=== PATIENT | male | born 1935 | race Caucasian/White ===

== ENCOUNTER 2023-07-02 12:40 | Inpatient (IN) | payer MEDICARE, BC ==
--- NOTE | 2023-07-02 12:58 | ED ---
General Adult HPI - General Stated complaint: Weakness Time Seen by Provider: 07/02/23 12:40 Source: patient, RN notes reviewed, old records reviewed - History of Present Illness Initial comments: This is an 88-year-old male presents emergency department from [facility]. Patient was sent in from [place] [facility]. ER doc to give report prior to the patient's arrival. Patient states she's not been feeling well for about a w platinum he's been getting progressively worse with increasing cough and more shortness of breath. At [facility] he was found to have pneumonia and a possible cavitary lesion on CT and an elevated white count. According to [facility] he was oxygenating at 88% when he arrived there. Patient normally is not on oxygen. Patient currently states she's feeling considerably better. Patient received Rocephin and Zithromax at the other facility - Related Data Allergies Allergy/AdvReac Type Severity Reaction Status Date / Time No Known Allergies Allergy Verified 07/02/23 12:57 Review of Systems ROS Statement: Those systems with pertinent positive or pertinent negative responses have been documented in the HPI. ROS Other: All systems not noted in ROS Statement are negative. General Exam - General Exam Comments Initial Comments: GENERAL: Patient is well-developed and well-nourished. Patient is nontoxic and well- hydrated and is in mild distress. ENT: Neck is soft and supple. No significant lymphadenopathy is noted. Oropharynx is clear. Moist mucous membranes. Neck has full range of motion without eliciting any pain. EYES: The sclera were anicteric and conjunctiva were pink and moist. Extraocular movements were intact and pupils were equal round and reactive to light. Eyelids were unremarkable. PULMONARY: Unlabored respirations. Good breath sounds bilaterally. No audible rales rhonchi or wheezing was noted. CARDIOVASCULAR: There is a regular rate and rhythm without any murmurs gallops or rubs. ABDOMEN: Soft and nontender with normal bowel sounds. SKIN: Skin is clear with no lesions or rashes and otherwise unremarkable. NEUROLOGIC: Patient is alert and oriented x3. Cranial nerves II through XII are grossly intact. Motor and sensory are also intact. Normal speech, volume and content. Symmetrical smile. MUSCULOSKELETAL: Normal extremities with adequate strength and full range of motion. LYMPHATICS: No significant lymphadenopathy is noted PSYCHIATRIC: Normal psychiatric evaluation. Course Vital Signs 07/02/23 07/02/23 12:42 13:28 Temperature 98.1 F Pulse Rate 80 76 Respiratory 20 18 Rate Blood Pressure 123/66 114/72 O2 Sat by Pulse 95 Oximetry Medical Decision Making - Medical Decision Making EKG was interpreted by myself. EKG shows a sinus rhythm with occasional PAC at a rate of 73 bpm NJ interval 272 QRS is 114 QT interval 36 and QTc is 395. Patient's EKG shows no ST segment elevation or depression. Was pt. sent in by a medical professional or institution (, PA, ADVIS[employer], urgent care, hospital, or halfway...) When possible be specific @ -Yes [facility] sent the patient in Did you speak to anyone other than the patient for history (EMS, parent, family, police, friend...)? What history was obtained from this source @ -Emergency physician gave report Did you review nursing and triage notes (agree or disagree)? Why? @ -[I reviewed and agree with nursing and triage notes] Were old charts reviewed (outside hosp., previous admission, EMS record, old EKG, old radiological studies, urgent care reports/EKG's, halfway records)? Report findings @ -I reviewed all the charts from [facility] in all lab work from [facility] Differential Diagnosis (chest pain, altered mental status, abdominal pain women, abdominal pain men, vaginal bleeding, weakness, fever, dyspnea, syncope, headache, dizziness, GI bleed, back pain, seizure, CVA, palpatations, mental health, musculoskeletal)? @ -Differential Dyspnea: Coronary syndrome, arrhythmia, tamponade, asthma, COPD, pulmonary embolism, pneumonia, pneumothorax, pulmonary effusion, anaphylaxis, diabetic ketoacidosis, flailed chest, pulmonary contusion, diaphragmatic rupture, anemia, neuromuscular, this is not meant to be an all-inclusive list. EKG interpreted by me (3pts min.). @ -[As above] X-rays interpreted by me (1pt min.). @ -[None done] CT interpreted by me (1pt min.). @ -[None done] U/S interpreted by me (1pt. min.). @ -[None done] What testing was considered but not performed or refused? (CT, X-rays, U/S, labs)? Why? @ -[None] What meds were considered but not given or refused? Why? @ -[None] Did you discuss the management of the patient with other professionals (professionals i.e. , PA, [employer], lab, RT, psych nurse, criminal justice social worker, aviculturist, teacher, traffic officer, case checker)? Give summary @ -I spoke with sounds physician's name agreed to admit the patient admitted the patient I wrote admitting orders Was smoking cessation discussed for >3mins.? @ -[No] Was critical care preformed (if so, how long)? @ -[No] Were there social determinants of health that impacted care today? How? (Homelessness, low income, unemployed, alcoholism, drug addiction, transpor tation, low edu. Level, literacy, decrease access to med. care, nursing home, rehab)? @ -[No] Was there de-escalation of care discussed even if they declined (Discuss DNR or withdrawal of care, Hospice)? DNR status @ -[No] What co-morbidities impacted this encounter? (DM, HTN, Smoking, COPD, CAD, Cancer, CVA, ARF, Chemo, Hep., AIDS, mental health diagnosis, sleep apnea, morbid obesity)? @ -[None] Was patient admitted / discharged? Hospital course, mention meds given and route, prescriptions, significant lab abnormalities, going to OR and other pertinent info. @ -[hospital course] Undiagnosed new problem with uncertain prognosis? @ -[No] Drug Therapy requiring intensive monitoring for toxicity (Heparin, Nitro, Insulin, Cardizem)? @ -[No] Were any procedures done? @ -[No] Diagnosis/symptom? @ -Pneumonia Acute, or Chronic, or Acute on Chronic? @ -Acute Uncomplicated (without systemic symptoms) or Complicated (systemic symptoms)? @ -Complicated Side effects of treatment? @ -[No] Exacerbation, Progression, or Severe Exacerbation? @ -[No] Poses a threat to life or bodily function? How? (Chest pain, USA, NM, pneumonia, PE, COPD, DKA, ARF, appy, cholecystitis, CVA, Diverticulitis, Homicidal, Suicidal, threat to staff... and all critical care pts) @ -Yes this could lead to sepsis and end organ dysfunction - Lab Data Lab Results 07/02/23 Range/Units 05:55 Plasma Lactic Acid Johnny 1.8 (0.7-2.0) mmol/L Disposition Clinical Impression: Pneumonia Disposition: ADMITTED IP TO THIS HOSP Referrals: None,Stated [Primary Care Provider] - 1-2 days Time of Disposition: 13:04
[2023-07-02] MEDS ORDERED: PNEUMONIA PROTOCOL UTILIZED 1 EACH MISC PO PRN (13:04)
[2023-07-02] MEDS ORDERED: VANCOMYCIN IV PER PHARMACY 1 EACH MISC MISCELLANE PRN (17:21)
[2023-07-02] MEDS ORDERED: VANCOMYCIN 1,500 MG in SODIUM CHLORIDE 0.9% 500 ML 500 ML IVPB ONE (17:30)
[2023-07-02] MEDS ORDERED: IPRATROPIUM-ALBUTEROL 3 ML NEB INHALATION PRN (18:00)
--- NOTE | 2023-07-02 18:00 | P.HPIM ---
History of Present Illness H&P Date: 07/02/23 Chief Complaint: dyspnea 88 medical history of COPD, ex-smoker, hypertension, hyperlipidemia presented for evaluation of dyspnea. Patient says that he has had cough, dyspnea for several weeks but it's gotten particularly bad in the last couple days. He subsequently presented to [facility] for evaluation where he was found to be in hypoxemic respiratory failure as well as to have potentially cavitary pneumonia in the left upper lobe of his computed tomography scan. Patient denies fevers, reports chills. Denies nausea, vomiting, chest pain, palpitations, syncopal, presyncopal, abdominal pain, constipation, diarrhea, dysuria, dyschezia, numbness/weakness of extremities. Patient does report 20 pound weight loss in the last 3 months. In the emergency room, patient was afebrile, 125/57, heart rate 89, 96% on 2 L nasal cannula. Lactic acid was 1.8. Computed tomography scan of the chest demonstrated significant severe emphysematous changes, left-sided infiltrate with possible cavitary component in the left upper lobe versus pneumonia surrounding bullae. Case was discussed with the emergency room provider and decision was made to admit the patient to hospital for further evaluation of pneumonia. All Systems reviewed and pertinent positives and negatives noted in HPI, all other symptoms are negative Gen: in no apparent distress, resting comfortably in bed Eyes: PERRL, no scleral injection or icterus HENT: normocephalic, atraumatic, good hearing acuity, moist mucous membranes Neck: no tracheal deviation, full range of motion Resp: good air exchange, breathing comfortably with no accessory muscle use, no tactile fremitus, diminished breath sounds throughout, crackles in the left side CVS: good distal perfusion x 4, trace pitting edema, regular rate and rhythm without murmurs GI: soft, NTTP, ND, no hepatosplenomegaly : no suprapubic tenderness, no CVAT, monreal catheter not present MSK: no clubbing, no cyanosis, no noted contractures of extremities Skin: no noted rashes, petechiae; temperature of skin is appropriate Neuro: moving all extremities without signs of weakness, CN II-XII intact Psych: cooperative, euthymic mood, insight and judgment intact Labs and imaging as above Assessment: Sepsis with acute hypoxemic respiratory failure Community acquired pneumonia Severe emphysema, COPD Hypertension Hyperlipidemia Plan: Vital signs reviewed and noted in the HPI Lab work reviewed and noted in the HPI CT chest is personally interpreted and noted in the HPI Case was discussed with the Emergency Room provider and decision was made to admit the patient for pneumonia Start patient on vancomycin, Zosyn Pulmonology consult for consideration of bronchoscopy Pro-calcitonin level was ordered Wendy's Patient is full code Past Medical History Past Medical History: Hyperlipidemia, Hypertension Additional Past Medical History / Comment(s): COPD History of Any Multi-Drug Resistant Organisms: None Reported Additional Past Surgical History / Comment(s): Shingles, bulla removed from left lung. Past Psychological History: No Psychological Hx Reported Smoking Status: Former smoker Past Alcohol Use History: None Reported Past Drug Use History: None Reported Medications and Allergies Home Medications Medication Instructions Recorded Confirmed Type Aspirin EC [Ecotrin Low Dose] 81 mg PO DAILY 07/02/23 07/02/23 History Cholecalciferol [Vitamin D3 (125 125 mcg PO DAILY 07/02/23 07/02/23 History Mcg = 5000 Iu)] Docusate Sodium [Dok] 100 mg PO HS 07/02/23 07/02/23 History Gabapentin 600 mg PO QID 07/02/23 07/02/23 History HYDROcodone/APAP 10-325MG [Orient 1 tab PO Q6HR 07/02/23 07/02/23 History 10-325] Simvastatin [Zocor] 20 mg PO HS 07/02/23 07/02/23 History lisinopriL [Lisinopril] 10 mg PO BID 07/02/23 07/02/23 History Allergies Allergy/AdvReac Type Severity Reaction Status Date / Time No Known Allergies Allergy Verified 07/02/23 15:53 Physical Exam Osteopathic Statement: *. No significant issues noted on an osteopathic structural exam other than those noted in the History and Physical/Consult. Vitals: Vital Signs Temp Pulse Resp BP Pulse Ox 07/02/23 17:08 89 20 125/57 96 07/02/23 15:31 86 20 144/77 97 07/02/23 13:28 76 18 114/72 07/02/23 12:42 98.1 F 80 20 123/66 95 Intake and Output 07/02/23 07/02/23 07/02/23 06:59 14:59 22:59 Other: Weight 77.111 kg
[2023-07-02] MEDS: PIPERACILLIN-TAZOBACTAM 3.375 GM in SODIUM CHLORIDE 0.9% 100 ML IVPB SCH (18:25)
[2023-07-02] MEDS: GABAPENTIN 300 MG CAP PO SCH ×2 (18:26→23:12)
[2023-07-02] MEDS: HYDROcodone/APAP 10-325MG 1 EACH TAB PO PRN (18:31)
[2023-07-02 19:21] LABS: Basophils % (A) 0 %; Eosinophils % (A) 0 %; HCT 41.5 % (39.0-53.0); HGB 13.4 gm/dL (13.0-17.5); Hypochromasia Slight; Lymphocytes # (A) 1.2 k/uL (1.0-4.8); Lymphocytes % (A) 9 %; MCH 29.5 pg (25.0-35.0); MCHC 32.2 g/dL (31.0-37.0); MCV 91.4 fL (80.0-100.0); Mean Platelet Volume 6.9; Monocytes # (A) 0.8 k/uL (0-1.0); Monocytes % (A) 5 %; Neutrophils # (A) 11.8 k/uL (1.3-7.7); Neutrophils % (A) 85 %; Platelet Count 298 k/uL (150-450); RBC 4.53 m/uL (4.30-5.90); WBC 13.9 k/uL (3.8-10.6)
[2023-07-02] MEDS: lisinopriL 10 MG TAB PO SCH (20:15)
[2023-07-02] MEDS: ATORVASTATIN 10 MG TAB PO SCH (20:15)
[2023-07-02] MEDS: DOCUSATE 100 MG CAP PO SCH (20:15)
[2023-07-02 21:22] LABS: African American GFR (CKD) 86 (>60 ml/min/1.73 sqM); Anion Gap 7 mmol/L; Blood Urea Nitrogen 27 mg/dL (9-20); Calcium 8.1 mg/dL (8.4-10.2); Carbon Dioxide 23 mmol/L (22-30); Chloride 105 mmol/L (98-107); Glucose 156 mg/dL (74-99); Non-African American GFR(CKD) 74 (>60 ml/min/1.73 sqM); Potassium 3.5 mmol/L (3.5-5.1); Sodium 135 mmol/L (137-145)
[2023-07-03] MEDS: PIPERACILLIN-TAZOBACTAM 3.375 GM in SODIUM CHLORIDE 0.9% 100 ML IVPB SCH ×4 (00:29→23:28)
[2023-07-03] MEDS ORDERED: IPRATROPIUM-ALBUTEROL 3 ML NEB INHALATION PRN (04:50)
--- NOTE | 2023-07-03 04:58 | P.CNPUL ---
History of Present Illness Consult date: 07/03/23 Requesting physician: Tracy Silva Reason for consult: other (Cavitary lung mass) Chief complaint: Shortness of breath and weakness History of present illness: I am seeing this patient in new consultation today 07/03/2023 for a cavitating left lung mass and community acquired pneumonia. Patient is a 88-year-old white male with past medical history significant for COPD/emphysema, previous left lung bullectomy, hyperlipidemia, hypertension, and is a remote ex-smoker. His PCP is a Dr. Castle. He does not follow with a motion picture projectionist. Patient was transferred from [facility] for suspected extensive cavitating pneumonia on CT. Patient reports progressively worsening shortness of breath and cough with minimal sputum production over the past 3 weeks. Accompanied with muscle aches and weakness. Also, admits left sided chest pain, nonradiating. Denies fever, chills, hemoptysis. He does report approximately 15-20 pound weight loss over the last month. Patient is currently sitting up in bed, on 3 L/m nasal cannula, in no acute distress. A chest CTA at outside facility shows a postsurgical left upper lobe and left hemithorax. There was extensive patchy and confluent airspace disease throughout the left lung. Left basilar bronchiectasis with moderate bronchial wall thickening. There is 4.8 cm left upper lobe cavitary lesion, thought to be a cavitary pneumonia versus atypical fungal/mycobacterial infection versus necrotizing malignancy. There were additional nodular areas in the left lung measuring up to 2 cm. There was a 1.5 cm left infrahilar lymph node. There was extensive emphysematous changes. No previous imaging for comparison. Denies history of lung cancer. Denies previous bronchoscopy or biopsy of these lesions. CBC on arrival shows leukocytosis with a WBC count of 13.9, hemoglobin 13.4, hematocrit 41.5, platelets 298. BMP on arrival to our facility was unremarkable. Pro-calcitonin level was elevated at 0.39. Lactic acid level I.8. He is afebrile. Patient was started on a combination of Zosyn and vancomycin. Patient is hemodynamically stable at this time. Review of Systems REVIEW OF SYSTEMS: CONSTITUTIONAL: Admits 15-20 pound weight loss over the last month. Denies fevers. EYES: Denies change in vision. EARS, NOSE, MOUTH, THROAT: Denies headaches, denies sore throat. CARDIOVASCULAR: Denies radiating chest pain, palpitations or syncopal episodes. RESPIRATORY: See HPI GASTROINTESTINAL: Denies abdominal pain, nausea and vomiting, or diarrhea. Admits reduced appetite GENITOURINARY: Denies hematuria, denies infections. MUSKULOSKELETAL: Denies pain, denies swelling. INTEGUMENTARY: Denies rash, denies eczema. NEUROLOGICAL: Denies recent memory loss, no recent seizure activity. PSYCHIATRIC: Denies anxiety, denies depression. HEMATOLOGIC/LYMPHATIC: Denies anemia, denies enlarged lymph node Past Medical History Past Medical History: Hyperlipidemia, Hypertension Additional Past Medical History / Comment(s): COPD History of Any Multi-Drug Resistant Organisms: None Reported Additional Past Surgical History / Comment(s): Shingles, bulla removed from left lung. Past Psychological History: No Psychological Hx Reported Smoking Status: Former smoker Past Alcohol Use History: None Reported Past Drug Use History: None Reported Medications and Allergies Home Medications Medication Instructions Recorded Confirmed Type Aspirin EC [Ecotrin Low Dose] 81 mg PO DAILY 07/02/23 07/02/23 History Cholecalciferol [Vitamin D3 (125 125 mcg PO DAILY 07/02/23 07/02/23 History Mcg = 5000 Iu)] Docusate Sodium [Dok] 100 mg PO HS 07/02/23 07/02/23 History Gabapentin 600 mg PO QID 07/02/23 07/02/23 History HYDROcodone/APAP 10-325MG [Butler 1 tab PO Q6HR 07/02/23 07/02/23 History 10-325] Simvastatin [Zocor] 20 mg PO HS 07/02/23 07/02/23 History lisinopriL [Lisinopril] 10 mg PO BID 07/02/23 07/02/23 History Allergies Allergy/AdvReac Type Severity Reaction Status Date / Time No Known Allergies Allergy Verified 07/02/23 15:53 Physical Exam Vitals: Vital Signs Temp Pulse Resp BP Pulse Ox 07/03/23 00:34 75 18 117/66 98 07/02/23 18:33 97 18 127/73 95 07/02/23 17:08 89 20 125/57 96 07/02/23 15:31 86 20 144/77 97 07/02/23 13:28 76 18 114/72 08/24/23 12:42 98.1 F 80 20 123/66 95 Intake and Output 07/02/23 07/02/23 07/03/23 14:59 22:59 06:59 Other: Weight 77.111 kg GENERAL EXAM: Alert, 88-year-old white male , comfortable in no apparent distress. HEAD: Normocephalic and atraumatic EYES: Normal reaction of pupils, equal size. NOSE: Clear with pink turbinates. THROAT: No erythema or exudates. NECK: No masses, no JVD. CHEST: No chest wall deformity. LUNGS: Diminished left lung sounds with scattered inspiratory crackles, rhonchi. On 3 L/m nasal cannula. No conversational dyspnea or accessory muscle use.. CVS: S1 and S2 normal with no audible murmur, regular rhythm. No extra heart sounds ABDOMEN: No hepatosplenomegaly, active bowel sounds, no guarding or rigidity. SPINE: No scoliosis or deformity SKIN: No rashes CENTRAL NERVOUS SYSTEM: No focal deficits, tone is normal in all 4 extremities. EXTREMITIES: There is no peripheral edema, clubbing, or cyanosis. Peripheral pulses are intact. Results - Laboratory Findings CBC and BMP: 07/02/23 18:46 07/02/23 20:38 Abnormal lab findings: Abnormal Labs 07/02/23 07/02/23 07/02/23 18:46 20:38 20:38 WBC 13.9 H Neutrophils # 11.8 H Sodium 135 L BUN 27 H Glucose 156 H Calcium 8.1 L Procalcitonin 0.39 H - Diagnostic Findings CT scan - chest: image reviewed Assessment and Plan Assessment: Acute hypoxemic respiratory failure, on 3 L/m nasal cannula, secondary to left lung community-acquired pneumonia. A chest CTA at outside facility shows a postsurgical left upper lobe and left hemithorax. There was extensive patchy and confluent airspace disease throughout the left lung. Left basilar bronchiectasis with moderate bronchial wall thickening. There is 4.8 cm left upper lobe cavitary mass, thought to be a cavitary pneumonia versus atypical fungal/mycobacterial infection versus necrotizing malignancy. There were additional nodular densities in the left lung measuring up to 2 cm. There was a 1.5 cm left infrahilar lymph node. There was extensive emphysematous changes. No previous imaging for comparison COPD/emphysema, stable History of previous left upper lobe bullectomy Benign essential hypertension Hyperlipidemia Remote ex-smoker, quit 1992 Plan: Patient's medications, labs, CT reviewed Continue supplemental oxygen Patient will likely need bronchoscopy, I will discuss this with Dr. Nicolas in the morning Continue with empiric antibiotics Procalcitonin level 0.39 Blood and sputum cultures are pending Start patient on a combination of Symbicort and DuoNeb's We will continue to follow, and further recommendations are forthcoming I have personally seen and examined the patient, performed the documentation and the assessment and plan as written. Number of minutes spent on the visit:20 This is a joint evaluation that was done along with the nurse practitioner. This evaluation was 30 minutes. Patient was seen in the emergency department. He has advanced bullous emphysema and he has undergone previous bullectomy on the left back in 1992. This was done for benign disease. The patient is lethargic, weak, quite debilitated, shortness of breath and currently is in acute hypoxic respiratory failure on oxygen at 3 L. CAT scan of the chest was also done at [facility] and it showed advanced emphysema with bullous changes. There is previous surgery in the left upper lobe with asymmetric volume loss. There is also patchy and comfortable with air space disease throughout the left lung in addition to left basal bronchiectatic changes and there is a cavitary changes left upper lobe measuring 4.8 cm in size. Consideration is to be given for chronic pneumonia, fungal, mycobacterial versus neoplasm. There is also a mildly enlarged left infrahilar lymph node measuring 1.5 cm. CAT scan of the abdomen showed scattered colonic diverticulosis without diverticulitis. There was also 3.2 cm abdominal aortic aneurysm along with prostatic enlargement and scoliosis of the spine. Ideally, this patient will need a bronchoscopy, bronchial alveolar lavage and biopsy of the left upper lobe. He is currently covered with broad-spectrum antibiotics. He is on Zosyn and vancomycin. His pro calcitonin level is at 0.39. Despite his age and advanced emphysema, the patient is interested in the procedure. I'm going to give him IV fluids for now. I'm going to keep him nothing by mouth for the possibility of doing a bronchoscopy probably at noontime if logistically possible. I'm not sure this patient can handle a biopsy. At least a bronchoscopy and lavage should be helpful to narrow down the differential diagnosis and rule out any significant chronic infectious etiologies. Keep him on 3 L. Continue same treatment for now. We'll continue to follow. Prognosis poor based on the above. . Time with Patient: Greater than 30
--- NOTE | 2023-07-03 08:50 | XR ---
EXAMINATION TYPE: XR chest 1V portable DATE OF EXAM: 07/03/2023 6:02 AM COMPARISON: CT 07/02/2023 TECHNIQUE: XR chest 1V portable Frontal view of the chest. CLINICAL INDICATION:Male, 88 years old with history of pneumonia; FINDINGS: Lungs/Pleura: Left lung airspace disease. Increased lucency of the right lung. No evidence for pleura l effusion. No pneumothorax. Pulmonary vascularity: Unremarkable. Heart/mediastinum: Cardiomediastinal silhouette is partially obscured due to overlying and adjacent o pacities. Atherosclerotic calcifications are seen in the aorta. Musculoskeletal: No acute osseous pathology. IMPRESSION: Findings of pneumonia are similar to CT on 07/02/2022 from outside institution given differences in te chnique.
[2023-07-03] MEDS ORDERED: AZITHROMYCIN 500 MG TAB PO SCH (09:00)
[2023-07-03] MEDS: lisinopriL 10 MG TAB PO SCH ×2 (10:01→19:44)
[2023-07-03] MEDS: ASPIRIN 81 MG PO SCH (10:01)
[2023-07-03] MEDS: HYDROcodone/APAP 10-325MG 1 EACH TAB PO PRN ×2 (10:01→16:15)
[2023-07-03] MEDS: GABAPENTIN 300 MG CAP PO SCH ×4 (10:02→19:44)
[2023-07-03] MEDS: CHOLECALCIFEROL 125 MCG (5000 IU) TABLET PO SCH (10:03)
[2023-07-03] MEDS: SODIUM CHLORIDE 0.9% 1,000 ML IV SCH ×2 (10:03→22:42)
[2023-07-03 11:10] LABS: HGB 12.8 d/dL (13.0-17.0); MCH 28.3 pg (27.0-32.0); MCHC 30.5 d/dL (32.0-37.0); MCV 92.9 FL (80.0-97.0); NRBC Per 100 WBC 0 X 10*3/uL (0.00-0.01); Platelet Count 276 X 10*3/uL (140-440); RBC 4.52 X 10*6/uL (4.40-5.60); RDW 15.3 % (11.5-14.5); WBC 14.98 X 10*3/uL (4.50-10.00)
[2023-07-03 11:11] LABS: BUN/Creat Ratio 21.11 Ratio (12.00-20.00); Calcium 8.6 mg/dL (8.7-10.3); Carbon Dioxide 21.7 mmol/L (21.6-31.8); Chloride 103 mmol/L (96-109); Glucose 101 mg/dL (70-110); Magnesium 2.1 mg/dL (1.5-2.4); Sodium 138 mmol/L (135-145)
[2023-07-03 11:54] LABS: Basophils # (A) 0.03 X 10*3/uL (0.00-0.10); Basophils % (A) 0.2 %; Eosinophils # (A) 0.14 X 10*3/uL (0.04-0.35); Eosinophils % (A) 0.9 %; Lymphocytes # (A) 1.85 X 10*3/uL (0.90-5.00); Lymphocytes % (A) 12.3 %; Monocytes # (A) 2.12 X 10*3/uL (0.20-1.00); Monocytes % (A) 14.2 %; Neutrophils # (A) 10.73 X 10*3/uL (1.80-7.70); Neutrophils % (A) 71.7 %; RBC Morphology Normal (Normal)
[2023-07-03] MEDS: SYMBICORT 160-4.5 MCG INHALER INHALATION SCH ×2 (12:26→21:23)
[2023-07-03] MEDS: IPRATROPIUM-ALBUTEROL 3 ML NEB INHALATION SCH ×4 (12:26→21:23)
[2023-07-03] MEDS: VANCOMYCIN 1,250 MG in SODIUM CHLORIDE 0.9% 250 ML IVPB SCH (14:54)
--- NOTE | 2023-07-03 16:12 | P.PN ---
Subjective Progress Note Date: 07/03/23 No new complaints. Plan for bronchoscopy tomorrow. Gen: in no apparent distress, resting comfortably in bed Eyes: PERRL, no scleral injection or icterus HENT: normocephalic, atraumatic, good hearing acuity, moist mucous membranes Neck: no tracheal deviation, full range of motion Resp: good air exchange, breathing comfortably with no accessory muscle use, no tactile fremitus, diminished breath sounds throughout, crackles in the left side CVS: good distal perfusion x 4, trace pitting edema, regular rate and rhythm without murmurs GI: soft, NTTP, ND, no hepatosplenomegaly : no suprapubic tenderness, no CVAT, monreal catheter not present MSK: no clubbing, no cyanosis, no noted contractures of extremities Skin: no noted rashes, petechiae; temperature of skin is appropriate Neuro: moving all extremities without signs of weakness, CN II-XII intact Psych: cooperative, euthymic mood, insight and judgment intact Hospital Course: 88 medical history of COPD, ex-smoker, hypertension, hyperlipidemia presented for evaluation of dyspnea. In the emergency room, patient was afebrile, 125/57, heart rate 89, 96% on 2 L nasal cannula. Lactic acid was 1.8. Computed tomography scan of the chest demonstrated significant severe emphysematous changes, left-sided infiltrate with possible cavitary component in the left upper lobe versus pneumonia surrounding bullae. Case was discussed with the emergency room provider and decision was made to admit the patient to hospital for further evaluation of pneumonia. Assessment: Sepsis with acute hypoxemic respiratory failure Community acquired pneumonia Severe emphysema, COPD Hypertension Hyperlipidemia Plan: Afebrile, 97/51, HR 51, 100% 4L NC WBC 15, Hgb 12.8. BMP non-remarkable. PC 0.39 Legionella negative. Continue vancomycin, Zosyn Pulmonology consult for consideration of bronchoscopy Wendy's Patient is full code Objective - Vital Signs Vital signs: Vital Signs Temp 98.3 F 07/03/23 09:57 Pulse 51 L 07/03/23 14:45 Resp 18 07/03/23 14:45 BP 97/51 07/03/23 14:45 Pulse Ox 100 07/03/23 14:45 FiO2 Intake & Output 07/02/23 07/03/23 07/03/23 18:59 06:59 18:59 Output Total 450 Balance -450 Weight 77.111 kg Output: Urine 450 Other: Voiding Method Urinal - Labs CBC & Chem 7: 07/03/23 06:19 07/03/23 06:19 Labs: Abnormal Lab Results - Last 24 Hours (Table) 07/02/23 07/02/23 07/02/23 Range/Units 18:46 20:38 20:38 WBC 13.9 H (3.8-10.6) k/uL Hgb (13.0-17.0) d/dL MCHC (32.0-37.0) d/dL RDW (11.5-14.5) % MPV (9.5-12.2) FL Neutrophils # 11.8 H (1.3-7.7) k/uL Monocytes # (0.20-1.00) X 10*3/uL Sodium 135 L (137-145) mmol/L Anion Gap (4.00-12.00) mmol/L BUN 27 H (9-20) mg/dL BUN/Creatinine Ratio (12.00-20.00) Ratio Glucose 156 H (74-99) mg/dL Calcium 8.1 L (8.4-10.2) mg/dL Procalcitonin 0.39 H (0.02-0.09) ng/mL 07/03/23 07/03/23 Range/Units 06:19 06:19 WBC 14.98 H (3.8-10.6) k/uL Hgb 12.8 L (13.0-17.0) d/dL MCHC 30.5 L (32.0-37.0) d/dL RDW 15.3 H (11.5-14.5) % MPV 9.0 L (9.5-12.2) FL Neutrophils # 10.73 H (1.3-7.7) k/uL Monocytes # 2.12 H (0.20-1.00) X 10*3/uL Sodium (137-145) mmol/L Anion Gap 13.30 H (4.00-12.00) mmol/L BUN (9-20) mg/dL BUN/Creatinine Ratio 21.11 H (12.00-20.00) Ratio Glucose (74-99) mg/dL Calcium 8.6 L (8.4-10.2) mg/dL Procalcitonin (0.02-0.09) ng/mL
[2023-07-03] MEDS: ATORVASTATIN 10 MG TAB PO SCH (19:44)
[2023-07-03] MEDS: DOCUSATE 100 MG CAP PO SCH (19:44)
[2023-07-04] MEDS: HYDROcodone/APAP 10-325MG 1 EACH TAB PO PRN ×4 (00:19→21:31)
[2023-07-04] MEDS: SYMBICORT 160-4.5 MCG INHALER INHALATION SCH ×2 (08:03→19:45)
[2023-07-04] MEDS: IPRATROPIUM-ALBUTEROL 3 ML NEB INHALATION SCH ×4 (08:03→19:45)
[2023-07-04 08:22] LABS: Basophils % (A) 0 %; Eosinophils # (A) 0.3 k/uL (0-0.7); Eosinophils % (A) 3 %; HCT 35.9 % (39.0-53.0); HGB 11.2 gm/dL (13.0-17.5); Hypochromasia Slight; Lymphocytes # (A) 0.9 k/uL (1.0-4.8); Lymphocytes % (A) 9 %; MCH 28.7 pg (25.0-35.0); MCHC 31.3 g/dL (31.0-37.0); MCV 91.8 fL (80.0-100.0); Mean Platelet Volume 7.1; Monocytes % (A) 10 %; Neutrophils % (A) 77 %; Platelet Count 276 k/uL (150-450); RBC 3.91 m/uL (4.30-5.90); WBC 10.4 k/uL (3.8-10.6)
[2023-07-04 08:36] LABS: African American GFR (CKD) >90 (>60 ml/min/1.73 sqM); Anion Gap 7 mmol/L; Blood Urea Nitrogen 15 mg/dL (9-20); Calcium 7.9 mg/dL (8.4-10.2); Carbon Dioxide 23 mmol/L (22-30); Chloride 105 mmol/L (98-107); Glucose 96 mg/dL (74-99); Magnesium 2.1 mg/dL (1.6-2.3); Non-African American GFR(CKD) 84 (>60 ml/min/1.73 sqM); Potassium 3.4 mmol/L (3.5-5.1); Sodium 135 mmol/L (137-145)
[2023-07-04] MEDS: VANCOMYCIN 1,250 MG in SODIUM CHLORIDE 0.9% 250 ML IVPB SCH (09:09)
[2023-07-04] MEDS ORDERED: POTASSIUM CHLORIDE ER 20 MEQ TAB.ER PO STA (09:55)
[2023-07-04] MEDS: PIPERACILLIN-TAZOBACTAM 3.375 GM in SODIUM CHLORIDE 0.9% 100 ML IVPB SCH ×2 (10:04→17:15)
[2023-07-04] MEDS: CHOLECALCIFEROL 125 MCG (5000 IU) TABLET PO SCH (10:27)
[2023-07-04] MEDS: lisinopriL 10 MG TAB PO SCH ×2 (10:27→21:31)
[2023-07-04] MEDS: ASPIRIN 81 MG PO SCH (10:27)
[2023-07-04] MEDS: GABAPENTIN 300 MG CAP PO SCH ×4 (10:27→21:30)
--- NOTE | 2023-07-04 13:02 | P.PN ---
Subjective Progress Note Date: 07/04/23 No new complaints today. Reports dyspnea is improved. Still requiring 3L O2. Gen: in no apparent distress, resting comfortably in bed Eyes: PERRL, no scleral injection or icterus HENT: normocephalic, atraumatic, good hearing acuity, moist mucous membranes Neck: no tracheal deviation, full range of motion Resp: good air exchange, breathing comfortably with no accessory muscle use, no tactile fremitus, diminished breath sounds throughout, crackles in the left side CVS: good distal perfusion x 4, trace pitting edema, regular rate and rhythm without murmurs GI: soft, NTTP, ND, no hepatosplenomegaly : no suprapubic tenderness, no CVAT, monreal catheter not present MSK: no clubbing, no cyanosis, no noted contractures of extremities Skin: no noted rashes, petechiae; temperature of skin is appropriate Neuro: moving all extremities without signs of weakness, CN II-XII intact Psych: cooperative, euthymic mood, insight and judgment intact Hospital Course: 88 medical history of COPD, ex-smoker, hypertension, hyperlipidemia presented for evaluation of dyspnea. In the emergency room, patient was afebrile, 125/57, heart rate 89, 96% on 2 L nasal cannula. Lactic acid was 1.8. Computed tomography scan of the chest demonstrated significant severe emphysematous changes, left-sided infiltrate with possible cavitary component in the left upper lobe versus pneumonia surrounding bullae. Case was discussed with the emergency room provider and decision was made to admit the patient to hospital for further evaluation of pneumonia. Assessment: Sepsis with acute hypoxemic respiratory failure Community acquired pneumonia Severe emphysema, COPD Hypertension Hyperlipidemia Plan: Afebrile, 110/59, HR 74, 96% 2L NC WBC 10.4, Hgb 11.2. BMP Na 134, K 3.4. Legionella negative. Continue vancomycin, Zosyn, follow vancomycin trough for toxicity 40mEq PO K today Pulmonology consult for consideration of bronchoscopy Wendy[facility] Patient is full code Objective - Vital Signs Vital signs: Vital Signs Temp 99.0 F 07/04/23 06:55 Pulse 74 07/04/23 11:54 Resp 18 07/04/23 06:55 BP 110/59 07/04/23 06:55 Pulse Ox 96 07/04/23 08:06 FiO2 Intake & Output 07/03/23 07/04/23 07/04/23 18:59 06:59 18:59 Output Total 750 300 400 Balance -750 -300 -400 Output: Urine 750 300 400 Other: Voiding Method Urinal # Voids 1 1 - Labs CBC & Chem 7: 07/04/23 07:24 07/04/23 07:24 Labs: Abnormal Lab Results - Last 24 Hours (Table) 07/04/23 07/04/23 Range/Units 07:24 07:24 RBC 3.91 L (4.30-5.90) m/uL Hgb 11.2 L (13.0-17.5) gm/dL Hct 35.9 L (39.0-53.0) % Neutrophils # 8.0 H (1.3-7.7) k/uL Lymphocytes # 0.9 L (1.0-4.8) k/uL Sodium 135 L (137-145) mmol/L Potassium 3.4 L (3.5-5.1) mmol/L Calcium 7.9 L (8.4-10.2) mg/dL Microbiology - Last 24 Hours (Table) 07/02/23 13:16 Blood Culture - Preliminary Blood 07/02/23 13:10 Blood Culture - Preliminary Blood
[2023-07-04] MEDS: SODIUM CHLORIDE 0.9% 1,000 ML IV SCH (13:23)
--- NOTE | 2023-07-04 14:22 | P.PN ---
Subjective Progress Note Date: 07/04/23 I am seeing this patient in new consultation today 07/03/2023 for a cavitating left lung mass and community acquired pneumonia. Patient is a 88-year-old white male with past medical history significant for COPD/emphysema, previous left lung bullectomy, hyperlipidemia, hypertension, and is a remote ex-smoker. His PCP is a Dr. Castle. He does not follow with a testing director. Patient was transferred from [facility] for suspected extensive cavitating pneumonia on CT. Patient reports progressively worsening shortness of breath and cough with minimal sputum production over the past 3 weeks. Accompanied with muscle aches and weakness. Also, admits left sided chest pain, nonradiating. Denies fever, chills, hemoptysis. He does report approximately 15-20 pound weight loss over the last month. Patient is currently sitting up in bed, on 3 L/m nasal cannula, in no acute distress. A chest CTA at outside facility shows a postsurgical left upper lobe and left hemithorax. There was extensive patchy and confluent airspace disease throughout the left lung. Left basilar bronchiectasis with moderate bronchial wall thickening. There is 4.8 cm left upper lobe cavitary lesion, thought to be a cavitary pneumonia versus atypical fungal/mycobacterial infection versus necrotizing malignancy. There were additional nodular areas in the left lung measuring up to 2 cm. There was a 1.5 cm left infrahilar lymph node. There was extensive emphysematous changes. No previous imaging for comparison. Denies history of lung cancer. Denies previous bronchoscopy or biopsy of these lesions. CBC on arrival shows leukocytosis with a WBC count of 13.9, hemoglobin 13.4, hematocrit 41.5, platelets 298. BMP on arrival to our facility was unremarkable. Pro-calcitonin level was elevated at 0.39. Lactic acid level I.8. He is afebrile. Patient was started on a combination of Zosyn and vancomycin. Patient is hemodynamically stable at this time. On today's evaluation of 07/04/2023, the patient remains on Zosyn and vancomycin. Much improved compared to yesterday. Much more alert and awake and communicating. Oxygenation is also improved and the patient is currently on 2 L of Oxymizer nasal cannula with a pulse ox of 96%. This does cause of 10.4, hemoglobin 11, BUN is at 50 with a creatinine of 0.7 and a sodium level is at 135. Pro-calcitonin level is at 0.39. Blood cultures still pending for now. Objective - Vital Signs Vital signs: Vital Signs Temp 99.0 F 07/04/23 06:55 Pulse 74 07/04/23 11:54 Resp 18 07/04/23 06:55 BP 110/59 07/04/23 06:55 Pulse Ox 96 07/04/23 08:06 FiO2 Intake & Output 07/03/23 07/04/23 07/04/23 18:59 06:59 18:59 Output Total 750 300 400 Balance -750 -300 -400 Output: Urine 750 300 400 Other: Voiding Method Urinal # Voids 1 1 - Exam GENERAL EXAM: Alert, 88-year-old white male , comfortable in no apparent distress. HEAD: Normocephalic and atraumatic EYES: Normal reaction of pupils, equal size. NOSE: Clear with pink turbinates. THROAT: No erythema or exudates. NECK: No masses, no JVD. CHEST: No chest wall deformity. LUNGS: Diminished left lung sounds with scattered inspiratory crackles, rhonchi. On 3 L/m nasal cannula. No conversational dyspnea or accessory muscle use.. CVS: S1 and S2 normal with no audible murmur, regular rhythm. No extra heart sounds ABDOMEN: No hepatosplenomegaly, active bowel sounds, no guarding or rigidity. SPINE: No scoliosis or deformity SKIN: No rashes CENTRAL NERVOUS SYSTEM: No focal deficits, tone is normal in all 4 extremities. EXTREMITIES: There is no peripheral edema, clubbing, or cyanosis. Peripheral pulses are intact. - Labs CBC & Chem 7: 07/04/23 07:24 07/04/23 07:24 Labs: Abnormal Lab Results - Last 24 Hours (Table) 07/04/23 07/04/23 Range/Units 07:24 07:24 RBC 3.91 L (4.30-5.90) m/uL Hgb 11.2 L (13.0-17.5) gm/dL Hct 35.9 L (39.0-53.0) % Neutrophils # 8.0 H (1.3-7.7) k/uL Lymphocytes # 0.9 L (1.0-4.8) k/uL Sodium 135 L (137-145) mmol/L Potassium 3.4 L (3.5-5.1) mmol/L Calcium 7.9 L (8.4-10.2) mg/dL Microbiology - Last 24 Hours (Table) 07/02/23 13:16 Blood Culture - Preliminary Blood 07/02/23 13:10 Blood Culture - Preliminary Blood Assessment and Plan Assessment: Acute hypoxemic respiratory failure, on 3 L/m nasal cannula, secondary to left lung community-acquired pneumonia. A chest CTA at outside facility shows a postsurgical left upper lobe and left hemithorax. There was extensive patchy and confluent airspace disease throughout the left lung. Left basilar bronchiectasis with moderate bronchial wall thickening. There is 4.8 cm left upper lobe cavitary mass, thought to be a cavitary pneumonia versus atypical fungal/mycobacterial infection versus necrotizing malignancy. There were additional nodular densities in the left lung measuring up to 2 cm. There was a 1.5 cm left infrahilar lymph node. There was extensive emphysematous changes. No previous imaging for comparison COPD/emphysema, stable History of previous left upper lobe bullectomy Benign essential hypertension Hyperlipidemia Remote ex-smoker, quit 1992 Plan: The patient is clinically improving. No significant shortness of breath The patient is currently on 2 L of oxygen by nasal cannula Neurologic to much more alert and awake compared to yesterday No immediate need for bronchoscopy Continue vancomycin and cefepime I reviewed the CAT scan of the chest at [facility] and it showed advanced emphysema with bullous changes. There is previous surgery in the left upper lobe with asymmetric volume loss. There is also patchy and comfortable with air space disease throughout the left lung in addition to left basal bronchiectatic changes and there is a cavitary changes left upper lobe measuring 4.8 cm in size. Consideration is to be given for chronic pneumonia, fungal, mycobacterial versus neoplasm. There is also a mildly enlarged left infrahilar lymph node measuring 1.5 cm. CAT scan of the abdomen showed scattered colonic diverticulosis without diverticulitis. There was also 3.2 cm abdominal aortic aneurysm along with prostatic enlargement and scoliosis of the spine. Ideally, this patient will need a bronchoscopy, bronchial alveolar lavage and biopsy of the left upper lobe. He is currently covered with broad-spectrum antibiotics. He is on Zosyn and vancomycin. His pro calcitonin level is at 0.39. Repeat chest x-ray in the morning We'll consider bronchoscopy later stage of the findings of the left upper lobe remains unchanged .
[2023-07-04] MEDS: ATORVASTATIN 10 MG TAB PO SCH (21:30)
[2023-07-04] MEDS: DOCUSATE 100 MG CAP PO SCH (21:31)
[2023-07-05] MEDS: PIPERACILLIN-TAZOBACTAM 3.375 GM in SODIUM CHLORIDE 0.9% 100 ML IVPB SCH ×4 (00:41→23:10)
[2023-07-05] MEDS: VANCOMYCIN 1,250 MG in SODIUM CHLORIDE 0.9% 250 ML IVPB SCH ×2 (02:15→18:26)
[2023-07-05] MEDS: SODIUM CHLORIDE 0.9% 1,000 ML IV SCH ×2 (02:15→15:06)
[2023-07-05] MEDS: HYDROcodone/APAP 10-325MG 1 EACH TAB PO PRN ×4 (03:17→21:27)
--- NOTE | 2023-07-05 07:50 | XR ---
EXAMINATION TYPE: XR chest 1V DATE OF EXAM: 07/05/2023 HISTORY: Shortness of breath. COMPARISON: 07/03/2023 TECHNIQUE: Single view of the chest is submitted. FINDINGS: Demonstrated are scattered senescent parenchymal change. Airspace infiltrate throughout the left lung persists without significant interval change. The heart is stable. Hilar and mediastinal structures are within normal limits. Degenerative changes are seen of the dorsal spine. IMPRESSION: 1. Airspace infiltrate throughout the left lung persists without significant interval change.
[2023-07-05 07:53] LABS: African American GFR (CKD) >90 (>60 ml/min/1.73 sqM); Non-African American GFR(CKD) 80 (>60 ml/min/1.73 sqM)
[2023-07-05] MEDS: lisinopriL 10 MG TAB PO SCH ×2 (09:24→21:28)
[2023-07-05] MEDS: GABAPENTIN 300 MG CAP PO SCH ×4 (09:24→21:27)
[2023-07-05] MEDS: ASPIRIN 81 MG PO SCH (09:24)
[2023-07-05] MEDS: CHOLECALCIFEROL 125 MCG (5000 IU) TABLET PO SCH (09:24)
[2023-07-05] MEDS: SYMBICORT 160-4.5 MCG INHALER INHALATION SCH ×2 (10:48→21:42)
[2023-07-05] MEDS: IPRATROPIUM-ALBUTEROL 3 ML NEB INHALATION SCH ×4 (11:11→21:42)
--- NOTE | 2023-07-05 12:27 | P.PN ---
Subjective Progress Note Date: 07/05/23 I am seeing this patient in new consultation today 07/03/2023 for a cavitating left lung mass and community acquired pneumonia. Patient is a 88-year-old white male with past medical history significant for COPD/emphysema, previous left lung bullectomy, hyperlipidemia, hypertension, and is a remote ex-smoker. His PCP is a Dr. Castle. He does not follow with a urogynecology physician. Patient was transferred from [facility] for suspected extensive cavitating pneumonia on CT. Patient reports progressively worsening shortness of breath and cough with minimal sputum production over the past 3 weeks. Accompanied with muscle aches and weakness. Also, admits left sided chest pain, nonradiating. Denies fever, chills, hemoptysis. He does report approximately 15-20 pound weight loss over the last month. Patient is currently sitting up in bed, on 3 L/m nasal cannula, in no acute distress. A chest CTA at outside facility shows a postsurgical left upper lobe and left hemithorax. There was extensive patchy and confluent airspace disease throughout the left lung. Left basilar bronchiectasis with moderate bronchial wall thickening. There is 4.8 cm left upper lobe cavitary lesion, thought to be a cavitary pneumonia versus atypical fungal/mycobacterial infection versus necrotizing malignancy. There were additional nodular areas in the left lung measuring up to 2 cm. There was a 1.5 cm left infrahilar lymph node. There was extensive emphysematous changes. No previous imaging for comparison. Denies history of lung cancer. Denies previous bronchoscopy or biopsy of these lesions. CBC on arrival shows leukocytosis with a WBC count of 13.9, hemoglobin 13.4, hematocrit 41.5, platelets 298. BMP on arrival to our facility was unremarkable. Pro-calcitonin level was elevated at 0.39. Lactic acid level I.8. He is afebrile. Patient was started on a combination of Zosyn and vancomycin. Patient is hemodynamically stable at this time. On today's evaluation of 07/04/2023, the patient remains on Zosyn and vancomycin. Much improved compared to yesterday. Much more alert and awake and communicating. Oxygenation is also improved and the patient is currently on 2 L of Oxymizer nasal cannula with a pulse ox of 96%. This does cause of 10.4, hemoglobin 11, BUN is at 50 with a creatinine of 0.7 and a sodium level is at 135. Pro-calcitonin level is at 0.39. Blood cultures still pending for now. 07/05/2023, the patient is on room air oxygen. Remains on accommodation of Zosyn and vancomycin. Chest x-ray findings are unchanged. I reviewed the CAT scan again. The patient has soft tissue density in the left suprahilar area. Nevertheless, this could be a fluid-filled bullous or infected bullous as the patient has chronic emphysematous changes with bullae in the upper lobes bi laterally. He has improved considerably. No plans for broncho-scope for now. No new labs from today. Labs from yesterday was noted. Pro-calcitonin level was at 0.39. He continues to improve. The blood cultures are negative thus far. Objective - Vital Signs Vital signs: Vital Signs Temp 98.4 F 07/05/23 07:05 Pulse 88 07/05/23 10:48 Resp 16 07/05/23 07:05 BP 169/94 07/05/23 07:05 Pulse Ox 90 L 07/05/23 07:05 FiO2 Intake & Output 07/04/23 07/05/23 07/05/23 18:59 06:59 18:59 Output Total 600 1300 200 Balance -600 -1300 -200 Output: Urine 600 1300 200 Other: Voiding Method Urinal # Voids 1 0 1 # Bowel Movements 1 1 - Exam GENERAL EXAM: Alert, 88-year-old white male , comfortable in no apparent distress. The patient is currently on room air oxygen HEAD: Normocephalic and atraumatic EYES: Normal reaction of pupils, equal size. NOSE: Clear with pink turbinates. THROAT: No erythema or exudates. NECK: No masses, no JVD. CHEST: No chest wall deformity. LUNGS: Diminished left lung sounds with scattered inspiratory crackles, rhonchi. . No conversational dyspnea or accessory muscle use.. CVS: S1 and S2 normal with no audible murmur, regular rhythm. No extra heart sounds ABDOMEN: No hepatosplenomegaly, active bowel sounds, no guarding or rigidity. SPINE: No scoliosis or deformity SKIN: No rashes CENTRAL NERVOUS SYSTEM: No focal deficits, tone is normal in all 4 extremities. EXTREMITIES: There is no peripheral edema, clubbing, or cyanosis. Peripheral pulses are intact. - Labs CBC & Chem 7: 07/04/23 07:24 07/05/23 06:34 Labs: Microbiology - Last 24 Hours (Table) 07/02/23 13:16 Blood Culture - Preliminary Blood 07/02/23 13:10 Blood Culture - Preliminary Blood Assessment and Plan Assessment: Acute hypoxemic respiratory failure, improved and the patient is currently on room air oxygen. A chest CTA at outside facility shows a postsurgical left upper lobe and left hemithorax. There was extensive patchy and confluent airspace disease throughout the left lung. Left basilar bronchiectasis with moderate bronchial wall thickening. There is 4.8 cm left upper lobe cavitary mass, thought to be a cavitary pneumonia versus atypical fungal/mycobacterial infection versus necrotizing malignancy. There were additional nodular densities in the left lung measuring up to 2 cm. There was a 1.5 cm left infrahilar lymph node. There was extensive emphysematous changes. No previous imaging for comparison. This could be also an infected bullous versus a fluid-filled bullous post pneumonia. Obviously the patient is response antibiotics. No plans for bronchoscopy at this point in time. I would suggest at least 6 weeks of antibiotics and subsequent repeat CAT scan and decide if bronchoscopy is needed. COPD/emphysema, stable History of previous left upper lobe bullectomy Benign essential hypertension Hyperlipidemia Remote ex-smoker, quit 1992 Plan: The patient is clinically improving. No significant shortness of breath The patient is currently on room air oxygen Neurologic to much more alert and awake compared to yesterday No immediate need for bronchoscopy Continue vancomycin and cefepime I reviewed the CAT scan findings and I do not think there is immediate need for bronchoscopy. I would suggest repeating the CAT scan after 6-8 weeks of adequate antibiotic coverage. This could be potentially infected bullous versus a fluid-filled bullous. Possibility of malignancy is felt to be less likely although cannot be completely ruled out. Based on his age and improving status, no bronchoscopy is needed and this can be evaluated and outpatient basis in 6-8 weeks' time. A repeat CAT scan will be needed. Patient is agreeable to that. .
[2023-07-05] MEDS: BISMUTH SUBSALICYLATE 4,192 MG/240 ML BOTTLE PO PRN (13:06)
--- NOTE | 2023-07-05 17:32 | P.PN ---
Subjective Progress Note Date: 07/05/23 No new complaints today. Reports dyspnea is improved. On room air now. Pulm does not plan on doing bronchoscopy here. Gen: in no apparent distress, resting comfortably in bed Eyes: PERRL, no scleral injection or icterus HENT: normocephalic, atraumatic, good hearing acuity, moist mucous membranes Neck: no tracheal deviation, full range of motion Resp: good air exchange, breathing comfortably with no accessory muscle use, no tactile fremitus, diminished breath sounds throughout, crackles in the left side CVS: good distal perfusion x 4, trace pitting edema, regular rate and rhythm without murmurs GI: soft, NTTP, ND, no hepatosplenomegaly : no suprapubic tenderness, no CVAT, monreal catheter not present MSK: no clubbing, no cyanosis, no noted contractures of extremities Skin: no noted rashes, petechiae; temperature of skin is appropriate Neuro: moving all extremities without signs of weakness, CN II-XII intact Psych: cooperative, euthymic mood, insight and judgment intact Hospital Course: 88 medical history of COPD, ex-smoker, hypertension, hyperlipidemia presented for evaluation of dyspnea. In the emergency room, patient was afebrile, 125/57, heart rate 89, 96% on 2 L nasal cannula. Lactic acid was 1.8. Computed tomography scan of the chest demonstrated significant severe emphysematous changes, left-sided infiltrate with possible cavitary component of 4.8cm in the left upper lobe versus pneumonia surrounding bullae. Case was discussed with the emergency room provider and decision was made to admit the patient to hospital for further evaluation of pneumonia. Pt admitted and started on broad spectrum abx. His PC was noted to be 0.39. Pulm was consulted for consideration of bronchoscopy and had considered this but given clinical improvement and fragile condition of patients lungs on CT imaging, preferred to defer this to outpatient setting after course of abx. No microbiology available to narrow abx (BCx NGTD). Discussed this case with pulmonology in detail - differential is broad - area of cavitation could be fluid filled bolus, lung abscess, or cavitary lesion from fungal, mycobacterial pneumonias. Plan is to treat patient with 2 week course of abx and have f/u lung imaging in outpatient setting once patient is ready for discharge. Assessment: Sepsis with acute hypoxemic respiratory failure Community acquired pneumonia Severe emphysema, COPD Hypertension Hyperlipidemia Plan: Afebrile, 128/68, HR 82, 99% RA No labs to review today, ordered CBC, BMP, Mg for tomorrow Discussed with pulmonology in detail today - see hospital course above for details Continue vancomycin, Zosyn, follow vancomycin trough for toxicity - consider narrowing to augmentin vs cefdinir/azithromycin, I will defer to my colleague tomorrow Wendy's Patient is full code Objective - Vital Signs Vital signs: Vital Signs Temp 97.7 F 07/05/23 13:44 Pulse 72 07/05/23 15:38 Resp 18 07/05/23 15:38 BP 128/68 07/05/23 13:44 Pulse Ox 99 07/05/23 13:44 FiO2 Intake & Output 07/04/23 07/05/23 07/05/23 18:59 06:59 18:59 Output Total 600 1300 700 Balance -600 -1300 -700 Output: Urine 600 1300 700 Other: Voiding Method Urinal # Voids 1 0 400 # Bowel Movements 1 1 - Labs CBC & Chem 7: 07/04/23 07:24 07/05/23 06:34 Labs: Microbiology - Last 24 Hours (Table) 07/02/23 13:16 Blood Culture - Preliminary Blood 07/02/23 13:10 Blood Culture - Preliminary Blood
[2023-07-05] MEDS ORDERED: VANCOMYCIN TROUGH DUE 1 EACH MISC MISCELLANE ONE (18:00)
[2023-07-05] MEDS: DOCUSATE 100 MG CAP PO SCH (21:27)
[2023-07-05] MEDS: ATORVASTATIN 10 MG TAB PO SCH (21:28)
[2023-07-06] MEDS: HYDROcodone/APAP 10-325MG 1 EACH TAB PO PRN ×4 (03:46→22:11)
[2023-07-06] MEDS: SODIUM CHLORIDE 0.9% 1,000 ML IV SCH ×2 (04:08→16:05)
[2023-07-06] MEDS: VANCOMYCIN 1,250 MG in SODIUM CHLORIDE 0.9% 250 ML IVPB SCH ×2 (06:15→17:35)
[2023-07-06] MEDS: GABAPENTIN 300 MG CAP PO SCH ×4 (08:04→22:07)
[2023-07-06] MEDS: PIPERACILLIN-TAZOBACTAM 3.375 GM in SODIUM CHLORIDE 0.9% 100 ML IVPB SCH ×3 (08:05→23:40)
[2023-07-06] MEDS: lisinopriL 10 MG TAB PO SCH ×2 (08:05→22:07)
[2023-07-06] MEDS: ASPIRIN 81 MG PO SCH (08:05)
[2023-07-06] MEDS: CHOLECALCIFEROL 125 MCG (5000 IU) TABLET PO SCH (08:05)
[2023-07-06 08:46] LABS: Basophils # (A) 0.08 X 10*3/uL (0.00-0.10); Basophils % (A) 0.6 %; Eosinophils # (A) 0.38 X 10*3/uL (0.04-0.35); Eosinophils % (A) 3.1 %; HCT 36.1 % (39.6-50.0); HGB 11.2 d/dL (13.0-17.0); Lymphocytes # (A) 1.33 X 10*3/uL (0.90-5.00); Lymphocytes % (A) 10.7 %; MCH 28.1 pg (27.0-32.0); MCV 90.7 FL (80.0-97.0); Mean Platelet Volume 8.8 FL (9.5-12.2); Monocytes # (A) 1.55 X 10*3/uL (0.20-1.00); Monocytes % (A) 12.4 %; NRBC Per 100 WBC 0 X 10*3/uL (0.00-0.01); Neutrophils # (A) 9.06 X 10*3/uL (1.80-7.70); Neutrophils % (A) 72.8 %; Platelet Count 289 X 10*3/uL (140-440); RBC 3.98 X 10*6/uL (4.40-5.60); RDW 15.4 % (11.5-14.5); WBC 12.45 X 10*3/uL (4.50-10.00)
[2023-07-06] MEDS: IPRATROPIUM-ALBUTEROL 3 ML NEB INHALATION SCH ×4 (08:53→21:39)
[2023-07-06] MEDS: SYMBICORT 160-4.5 MCG INHALER INHALATION SCH ×2 (08:53→21:39)
--- NOTE | 2023-07-06 12:41 | P.PN ---
Subjective Progress Note Date: 07/06/23 I am seeing this patient in new consultation today 07/03/2023 for a cavitating left lung mass and community acquired pneumonia. Patient is a 88-year-old white male with past medical history significant for COPD/emphysema, previous left lung bullectomy, hyperlipidemia, hypertension, and is a remote ex-smoker. His PCP is a Dr. Castle. 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 Patient was transferred from [facility] for suspected extensive cavitating pneumonia on CT. Patient reports progressively worsening shortness of breath and cough with minimal sputum production over the past 3 weeks. Accompanied with muscle aches and weakness. Also, admits left sided chest pain, nonradiating. Denies fever, chills, hemoptysis. He does report approximately 15-20 pound weight loss over the last month. Patient is currently sitting up in bed, on 3 L/m nasal cannula, in no acute distress. A chest CTA at outside facility shows a postsurgical left upper lobe and left hemithorax. There was extensive patchy and confluent airspace disease throughout the left lung. Left basilar bronchiectasis with moderate bronchial wall thickening. There is 4.8 cm left upper lobe cavitary lesion, thought to be a cavitary pneumonia versus atypical fungal/mycobacterial infection versus necrotizing malignancy. There were additional nodular areas in the left lung measuring up to 2 cm. There was a 1.5 cm left infrahilar lymph node. There was extensive emphysematous changes. No previous imaging for comparison. Denies history of lung cancer. Denies previous bronchoscopy or biopsy of these lesions. CBC on arrival shows leukocytosis with a WBC count of 13.9, hemoglobin 13.4, hematocrit 41.5, platelets 298. BMP on arrival to our facility was unremarkable. Pro-calcitonin level was elevated at 0.39. Lactic acid level I.8. He is afebrile. Patient was started on a combination of Zosyn and vancomycin. Patient is hemodynamically stable at this time. On today's evaluation of 07/04/2023, the patient remains on Zosyn and vancomycin. Much improved compared to yesterday. Much more alert and awake and communicating. Oxygenation is also improved and the patient is currently on 2 L of Oxymizer nasal cannula with a pulse ox of 96%. This does cause of 10.4, hemoglobin 11, BUN is at 50 with a creatinine of 0.7 and a sodium level is at 135. Pro-calcitonin level is at 0.39. Blood cultures still pending for now. 07/05/2023, the patient is on room air oxygen. Remains on accommodation of Zosyn and vancomycin. Chest x-ray findings are unchanged. I reviewed the CAT scan again. The patient has soft tissue density in the left suprahilar area. Nevertheless, this could be a fluid-filled bullous or infected bullous as the patient has chronic emphysematous changes with bullae in the upper lobes zheng aterally. He has improved considerably. No plans for broncho-scope for now. No new labs from today. Labs from yesterday was noted. Pro-calcitonin level was at 0.39. He continues to improve. The blood cultures are negative thus far. The patient is seen today 07/06/2023 in follow-up on the regular medical floor. He is currently sitting up in a chair. Awake and alert in no acute distress. He is maintaining O2 saturations in the 90s on room air. He denies any worsening shortness of breath, cough or congestion. He is afebrile. Hemodynamically stable. Blood cultures revealed no growth. Sputum culture pending. White count 12.4. Hemoglobin 11.2. Platelets 289. He remains on DuoNeb inhalations, Symbicort. Antibiotics in the form of vancomycin and Zosyn. Objective - Vital Signs Vital signs: Vital Signs Temp 98.9 F 07/06/23 08:00 Pulse 79 07/06/23 11:55 Resp 17 07/06/23 08:00 BP 173/98 07/06/23 08:00 Pulse Ox 93 L 07/06/23 08:00 FiO2 Intake & Output 07/05/23 07/06/23 07/06/23 18:59 06:59 18:59 Output Total 700 700 400 Balance -700 -700 -400 Output: Urine 700 700 400 Other: Voiding Method Urinal Urinal # Voids 400 2 # Bowel Movements 1 1 - Exam GENERAL EXAM: Alert, 88-year-old male on room air, up in a chair, comfortable in no apparent distress. HEAD: Normocephalic and atraumatic EYES: Normal reaction of pupils, equal size. NOSE: Clear with pink turbinates. THROAT: No erythema or exudates. NECK: No masses, no JVD. CHEST: No chest wall deformity. LUNGS: Diminished left lung sounds with scattered inspiratory crackles, rhonchi. No conversational dyspnea or accessory muscle use. CVS: S1 and S2 normal with no audible murmur, regular rhythm. No extra heart sounds ABDOMEN: No hepatosplenomegaly, active bowel sounds, no guarding or rigidity. SPINE: No scoliosis or deformity SKIN: No rashes CENTRAL NERVOUS SYSTEM: No focal deficits, tone is normal in all 4 extremities. EXTREMITIES: There is no peripheral edema, clubbing, or cyanosis. Peripheral pulses are intact. - Labs CBC & Chem 7: 07/06/23 05:27 07/05/23 06:34 Labs: Abnormal Lab Results - Last 24 Hours (Table) 07/06/23 Range/Units 05:27 WBC 12.45 H (4.50-10.00) X 10*3/uL RBC 3.98 L (4.40-5.60) X 10*6/uL Hgb 11.2 L (13.0-17.0) d/dL Hct 36.1 L (39.6-50.0) % MCHC 31.0 L (32.0-37.0) d/dL RDW 15.4 H (11.5-14.5) % MPV 8.8 L (9.5-12.2) FL Neutrophils # 9.06 H (1.80-7.70) X 10*3/uL Monocytes # 1.55 H (0.20-1.00) X 10*3/uL Eosinophils # 0.38 H (0.04-0.35) X 10*3/uL Microbiology - Last 24 Hours (Table) 07/02/23 13:16 Gram Stain - Preliminary Sputum 07/02/23 13:16 Blood Culture - Preliminary Blood 07/02/23 13:10 Blood Culture - Preliminary Blood Assessment and Plan Assessment: Acute hypoxemic respiratory failure, improved and the patient is currently on room air oxygen. A chest CTA at outside facility shows a postsurgical left upper lobe and left hemithorax. There was extensive patchy and confluent airs pace disease throughout the left lung. Left basilar bronchiectasis with moderate bronchial wall thickening. There is 4.8 cm left upper lobe cavitary mass, thought to be a cavitary pneumonia versus atypical fungal/mycobacterial infection versus necrotizing malignancy. There were additional nodular densities in the left lung measuring up to 2 cm. There was a 1.5 cm left infrahilar lymph node. There was extensive emphysematous changes. No previous imaging for comparison. This could be also an infected bullous versus a fluid-filled bullous post pneumonia. Obviously the patient is response antibiotics. No plans for bronchoscopy at this point in time. We would suggest at least 6 weeks of antibiotics and subsequent repeat CAT scan and decide if bronchoscopy is needed. COPD/emphysema, stable History of previous left upper lobe bullectomy Benign essential hypertension Hyperlipidemia Remote ex-smoker, quit 1992 Plan: The patient was seen and evaluated Labs and medications reviewed Currently stable and on room air Remains on vancomycin and Zosyn Remains on bronchodilators Follow-up chest x-ray in a.m. May consider bronchoscopy if no improvement We will continue to follow I have personally seen and examined the patient, performed the documentation and the assessment and plan as written. Number of minutes spent on the visit: 10.
--- NOTE | 2023-07-06 16:45 | P.PN ---
Subjective Progress Note Date: 07/06/23 (delayed charting seen at 1140) Patient is an 88 yo male with COPD, former tobacco dependency, hypertension, AND hyperlipidemia who presented with complaints of dyspnea. In the emergency room he underwent an extensive evaluation. His initial vitals were within normal. Lbas werer remarkable for WBC 13.9. Computed tomography scan of the chest demonstrated significant severe emphysematous changes, left-sided infiltrate with possible cavitary component of 4.8cm in the left upper lobe versus pneumonia surrounding bullae. He was admitted for pneumonia and started on broad spectrum abx. His procalcitonin was noted to be 0.39. Pulm was consulted for consideration of bronchoscopy and had considered this but given clinical improvement and fragile condition of patients lungs on CT imaging, preferred to defer this to outpatient setting after course of abx. Per pulmonary differential is broad including; lung abscess, or cavitary lesion from fungal, mycobacterial pneumonias. Plan is to treat patient with 2 week course of abx and have f/u lung imaging in outpatient setting once patient is ready for discharge. Patient seen and examined at bedside. He reports he is feeling much better than admission. He is breathing easier. He is coughing less but it is still productive of yellow tinged sputum. He reports a poor appetite but is willing to try ensure. Vital signs reviewed General: nontoxic, no distress, appears at stated age Cardiovascular: S1S2 reg, no murmur, positive posterior tibial pulse bilateral, Lungs: Coarse breath sounds bilateral, no rhonchi, no rales , no accessory muscle use Abdominal: soft, nontender to palpation, no guarding, no appreciable organomega ly Ext: no gross muscle atrophy, 2+ edema b/l lower extremities, no contractures Neuro: CN II-XI grossly intact, no focal neuro deficits Psych: Alert, oriented, appropriate affect Assessment/Plan: Community acquired pneumonia complicated by left-sided cavitary lesion, possible gram negative Acute hypoxic respiratory failure Sepsis Severe COPD Hypertension Dyslipidemia - vancomycin, pharmacy dosing, monitor Cr afn vanco trough for toxicity - zosyn 3.375 g IV piggyback every 8 hours -Continue with DuoNeb's and Symbicort -Continue with Lipitor 10 mg nightly, lisinopril 10 mg twice daily -Neurontin 600 mg 4 times daily - Legionella urine antigen-negative -Pulmonary reviewed from 07/06: Considering possible bronchoscopy pending clinical improvement. Continue with vancomycin and Zosyn. Moderate protein calorie malnutrition -Ensure 3 times daily with meals Imaging: None new Available Data Review: Vitals reviewed and patient afebrile for the last 24 hours. Exam vital show pulse was 70, respirations 17, blood pressure 173/98, O2 sat 93% Labs reviewed and remarkable for white blood cell count 12.45 up from 10.4, hemoglobin 11.2 Sputum culture-pending Blood cultures-negative to date DVT prophylaxis: lovenox Anticipated discharge date: pending clinical course Anticipated discharge place: pending clinical course This dictation was prepared using [employer] voice recognition software. Though every attempt is made to correct errors during dictation some may still exist. Objective - Vital Signs Vital signs: Vital Signs Temp 98.3 F 07/06/23 14:00 Pulse 74 07/06/23 15:58 Resp 18 07/06/23 14:00 BP 119/70 07/06/23 14:00 Pulse Ox 92 L 07/06/23 14:00 FiO2 Intake & Output 07/05/23 07/06/23 07/06/23 18:59 06:59 18:59 Output Total 700 700 700 Balance -700 -700 -700 Output: Urine 700 700 700 Other: Voiding Method Urinal Urinal # Voids 400 2 # Bowel Movements 1 1 - Labs CBC & Chem 7: 07/06/23 05:27 07/05/23 06:34 Labs: Abnormal Lab Results - Last 24 Hours (Table) 07/06/23 Range/Units 05:27 WBC 12.45 H (4.50-10.00) X 10*3/uL RBC 3.98 L (4.40-5.60) X 10*6/uL Hgb 11.2 L (13.0-17.0) d/dL Hct 36.1 L (39.6-50.0) % MCHC 31.0 L (32.0-37.0) d/dL RDW 15.4 H (11.5-14.5) % MPV 8.8 L (9.5-12.2) FL Neutrophils # 9.06 H (1.80-7.70) X 10*3/uL Monocytes # 1.55 H (0.20-1.00) X 10*3/uL Eosinophils # 0.38 H (0.04-0.35) X 10*3/uL Microbiology - Last 24 Hours (Table) 07/02/23 13:16 Gram Stain - Preliminary Sputum 07/02/23 13:16 Blood Culture - Preliminary Blood 07/02/23 13:10 Blood Culture - Preliminary Blood
[2023-07-06] MEDS: ENOXAPARIN 40 MG/0.4 ML SYRINGE SQ SCH (17:35)
[2023-07-06] MEDS: ATORVASTATIN 10 MG TAB PO SCH (22:07)
[2023-07-06] MEDS: DOCUSATE 100 MG CAP PO SCH (22:07)
[2023-07-07] MEDS: SODIUM CHLORIDE 0.9% 1,000 ML IV SCH ×2 (05:58→15:51)
[2023-07-07] MEDS: VANCOMYCIN 1,250 MG in SODIUM CHLORIDE 0.9% 250 ML IVPB SCH ×2 (05:59→18:14)
[2023-07-07 07:15] LABS: HCT 36.3 % (39.0-53.0); HGB 11.5 gm/dL (13.0-17.5); Hypochromasia Slight; MCH 28.8 pg (25.0-35.0); MCHC 31.7 g/dL (31.0-37.0); Mean Platelet Volume 7.3; Platelet Count 333 k/uL (150-450); RBC 3.99 m/uL (4.30-5.90); RDW 15.1 % (11.5-15.5); WBC 12.8 k/uL (3.8-10.6)
--- NOTE | 2023-07-07 07:21 | XR ---
EXAMINATION TYPE: XR chest 1V portable DATE OF EXAM: 07/07/2023 HISTORY: Shortness of breath. COMPARISON: 07/05/2023 TECHNIQUE: Single view of the chest is submitted. FINDINGS: Demonstrated are scattered senescent parenchymal change. Coarse infiltrates throughout the left lung persist unchanged. Left-sided volume loss with postsurgical changes noted. The heart is stable. Hilar and mediastinal structures are within normal limits. Degenerative changes are seen of the dorsal spine. IMPRESSION: 1. Coarse infiltrates throughout the left lung persist unchanged.
[2023-07-07 07:27] LABS: African American GFR (CKD) >90 (>60 ml/min/1.73 sqM); Anion Gap 8 mmol/L; Blood Urea Nitrogen 12 mg/dL (9-20); Calcium 8.4 mg/dL (8.4-10.2); Carbon Dioxide 23 mmol/L (22-30); Chloride 105 mmol/L (98-107); Glucose 83 mg/dL (74-99); Non-African American GFR(CKD) 80 (>60 ml/min/1.73 sqM); Potassium 3.3 mmol/L (3.5-5.1); Sodium 136 mmol/L (137-145)
[2023-07-07] MEDS ORDERED: POTASSIUM CHLORIDE ER 20 MEQ TAB.ER PO STA (07:46)
[2023-07-07] MEDS: HYDROcodone/APAP 10-325MG 1 EACH TAB PO PRN ×3 (08:28→18:41)
[2023-07-07] MEDS: CHOLECALCIFEROL 125 MCG (5000 IU) TABLET PO SCH (08:28)
[2023-07-07] MEDS: lisinopriL 10 MG TAB PO SCH ×2 (08:28→22:32)
[2023-07-07] MEDS: GABAPENTIN 300 MG CAP PO SCH ×4 (08:28→22:32)
[2023-07-07] MEDS: ENOXAPARIN 40 MG/0.4 ML SYRINGE SQ SCH (08:29)
[2023-07-07] MEDS: PIPERACILLIN-TAZOBACTAM 3.375 GM in SODIUM CHLORIDE 0.9% 100 ML IVPB SCH ×3 (08:29→23:23)
[2023-07-07] MEDS: ASPIRIN 81 MG PO SCH (08:29)
[2023-07-07] MEDS: SYMBICORT 160-4.5 MCG INHALER INHALATION SCH ×2 (08:34→21:04)
[2023-07-07] MEDS: IPRATROPIUM-ALBUTEROL 3 ML NEB INHALATION SCH ×4 (08:34→21:04)
[2023-07-07] MEDS: LIDOCAINE 5% PATCH TOPICAL SCH (11:13)
--- NOTE | 2023-07-07 12:10 | P.PN ---
Subjective Progress Note Date: 07/07/23 I am seeing this patient in new consultation today 07/03/2023 for a cavitating left lung mass and community acquired pneumonia. Patient is a 88-year-old white male with past medical history significant for COPD/emphysema, previous left lung bullectomy, hyperlipidemia, hypertension, and is a remote ex-smoker. His PCP is a Dr. Castle. 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 Patient was transferred from [facility] for suspected extensive cavitating pneumonia on CT. Patient reports progressively worsening shortness of breath and cough with minimal sputum production over the past 3 weeks. Accompanied with muscle aches and weakness. Also, admits left sided chest pain, nonradiating. Denies fever, chills, hemoptysis. He does report approximately 15-20 pound weight loss over the last month. Patient is currently sitting up in bed, on 3 L/m nasal cannula, in no acute distress. A chest CTA at outside facility shows a postsurgical left upper lobe and left hemithorax. There was extensive patchy and confluent airspace disease throughout the left lung. Left basilar bronchiectasis with moderate bronchial wall thickening. There is 4.8 cm left upper lobe cavitary lesion, thought to be a cavitary pneumonia versus atypical fungal/mycobacterial infection versus necrotizing malignancy. There were additional nodular areas in the left lung measuring up to 2 cm. There was a 1.5 cm left infrahilar lymph node. There was extensive emphysematous changes. No previous imaging for comparison. Denies history of lung cancer. Denies previous bronchoscopy or biopsy of these lesions. CBC on arrival shows leukocytosis with a WBC count of 13.9, hemoglobin 13.4, hematocrit 41.5, platelets 298. BMP on arrival to our facility was unremarkable. Pro-calcitonin level was elevated at 0.39. Lactic acid level I.8. He is afebrile. Patient was started on a combination of Zosyn and vancomycin. Patient is hemodynamically stable at this time. On today's evaluation of 07/04/2023, the patient remains on Zosyn and vancomycin. Much improved compared to yesterday. Much more alert and awake and communicating. Oxygenation is also improved and the patient is currently on 2 L of Oxymizer nasal cannula with a pulse ox of 96%. This does cause of 10.4, hemoglobin 11, BUN is at 50 with a creatinine of 0.7 and a sodium level is at 135. Pro-calcitonin level is at 0.39. Blood cultures still pending for now. 07/05/2023, the patient is on room air oxygen. Remains on accommodation of Zosyn and vancomycin. Chest x-ray findings are unchanged. I reviewed the CAT scan again. The patient has soft tissue density in the left suprahilar area. Nevertheless, this could be a fluid-filled bullous or infected bullous as the patient has chronic emphysematous changes with bullae in the upper lobes zheng aterally. He has improved considerably. No plans for broncho-scope for now. No new labs from today. Labs from yesterday was noted. Pro-calcitonin level was at 0.39. He continues to improve. The blood cultures are negative thus far. The patient is seen today 07/06/2023 in follow-up on the regular medical floor. He is currently sitting up in a chair. Awake and alert in no acute distress. He is maintaining O2 saturations in the 90s on room air. He denies any worsening shortness of breath, cough or congestion. He is afebrile. Hemodynamically stable. Blood cultures revealed no growth. Sputum culture pending. White count 12.4. Hemoglobin 11.2. Platelets 289. He remains on DuoNeb inhalations, Symbicort. Antibiotics in the form of vancomycin and Zosyn. The patient is seen today 07/07/2023 in follow-up on the regular medical floor. He is currently resting in bed. Awake and alert. He is having some postherpetic pain from previous shingles along his left chest. He denies any worsening shortness of breath, cough or congestion. He is maintaining O2 saturations in the 90s on room air. He has a loose nonproductive cough. Chest x-ray showing slight improvement but still significant infiltrates in the left lung. White count 12.8. Hemoglobin 11.5. Sodium 136. Potassium 3.3. Bicarb 23. BUN 12. Creatinine 0.82. He remains on vancomycin and Zosyn. He remains on DuoNeb inhalations, Symbicort, Lovenox. Objective - Vital Signs Vital signs: Vital Signs Temp 97.8 F 07/07/23 07:59 Pulse 68 07/07/23 12:00 Resp 17 07/07/23 07:59 BP 173/74 07/07/23 07:59 Pulse Ox 90 L 07/07/23 07:59 FiO2 Intake & Output 07/06/23 07/07/23 07/07/23 18:59 06:59 18:59 Output Total 700 850 550 Balance -700 -850 -550 Output: Urine 700 850 550 Other: Voiding Method Urinal Urinal # Voids 3 1 # Bowel Movements 1 - Exam GENERAL EXAM: Alert, pleasant 88-year-old male on room air, fairly comfortable in no apparent distress. HEAD: Normocephalic and atraumatic EYES: Normal reaction of pupils, equal size. NOSE: Clear with pink turbinates. THROAT: No erythema or exudates. NECK: No masses, no JVD. CHEST: No chest wall deformity. Left sided chest wall post shingle pain LUNGS: Diminished left lung sounds with scattered inspiratory crackles, rhonchi. CVS: S1 and S2 normal with no audible murmur, regular rhythm. No extra heart sounds ABDOMEN: No hepatosplenomegaly, active bowel sounds, no guarding or rigidity. SPINE: No scoliosis or deformity SKIN: No rashes CENTRAL NERVOUS SYSTEM: No focal deficits, tone is normal in all 4 extremities. EXTREMITIES: There is no peripheral edema, clubbing, or cyanosis. Peripheral pulses are intact. - Labs CBC & Chem 7: 07/07/23 05:57 07/07/23 05:57 Labs: Abnormal Lab Results - Last 24 Hours (Table) 07/07/23 07/07/23 Range/Units 05:57 05:57 WBC 12.8 H (3.8-10.6) k/uL RBC 3.99 L (4.30-5.90) m/uL Hgb 11.5 L (13.0-17.5) gm/dL Hct 36.3 L (39.0-53.0) % Sodium 136 L (137-145) mmol/L Potassium 3.3 L (3.5-5.1) mmol/L Microbiology - Last 24 Hours (Table) 07/02/23 13:16 Gram Stain - Final Sputum Sputum Culture - Final Assessment and Plan Assessment: Acute hypoxemic respiratory failure, improved and the patient is currently on room air oxygen. A chest CTA at outside facility shows a postsurgical left upper lobe and left hemithorax. There was extensive patchy and confluent airspace disease throughout the left lung. Left basilar bronchiectasis with moderate bronchial wall thickening. There is 4.8 cm left upper lobe cavitary mass, thought to be a cavitary pneumonia versus atypical fungal/mycobacterial infection versus necrotizing malignancy. There were additional nodular densities in the left lung measuring up to 2 cm. There was a 1.5 cm left infrahilar lymph node. There was extensive emphysematous changes. No previous imaging for comparison. This could be also an infected bullous versus a fluid-filled bullous post pneumonia. Plan is for bronchoscopy with biopsies and BAL 07/08/2023 COPD/emphysema, stable History of previous left upper lobe bullectomy Benign essential hypertension Hyperlipidemia Remote ex-smoker, quit 1992 Plan: The patient was seen and evaluated Chest x-ray, labs and medications reviewed Currently stable and on room air Remains on vancomycin and Zosyn Remains on bronchodilators Plan for bronchoscopy tomorrow We will continue to follow I have personally seen and examined the patient, performed the documentation and the assessment and plan as written. Number of minutes spent on the visit: 10.
--- NOTE | 2023-07-07 15:31 | P.PN ---
Subjective Progress Note Date: [facility]07[facility]23 [facility] Patient is an 88 yo male with COPD, former tobacco dependency, hypertension, AND hyperlipidemia who presented with complaints of dyspnea. In the emergency room he underwent an extensive evaluation. His initial vitals were within normal. Lbas werer remarkable for WBC 13.9. Computed tomography scan of the chest demonstrated significant severe emphysematous changes, left-sided infiltrate with possible cavitary component of 4.8cm in the left upper lobe versus pneumonia surrounding bullae. He was admitted for pneumonia and started on broad spectrum abx. His procalcitonin was noted to be 0.39. Pulm was consulted for consideration of bronchoscopy and had considered this but given clinical improvement and fragile condition of patients lungs on CT imaging, preferred to defer this to outpatient setting after course of abx. Per pulmonary differential is broad including; lung abscess, or cavitary lesion from fungal, mycobacterial pneumonias. Plan is to treat patient with 2 week course of abx and have f/u lung imaging in outpatient setting once patient is ready for discharge. Patient seen and examined at bedside. He continues to have his same left sided abdominal pain which he is states has been there for last 20 years. Initially tells me it is so bad, but then states that the pain he has every day and that his Jensen and gabapentin don't help. He is willing to try lidocaine patch. He states he still of a cough that is bad and some shortness of breath. Vital signs reviewed General: nontoxic, no distress, appears at stated age Cardiovascular: S1S2 reg, no murmur, positive posterior tibial pulse bilateral, Lungs: Coarse breath sounds bilateral, no rhonchi, no rales , no accessory muscle use Abdominal: soft, nontender to palpation, no guarding, no appreciable organomegaly Ext: no gross muscle atrophy, 2+ edema b/l lower extremities, no contractures Neuro: CN II-XI grossly intact, no focal neuro deficits Psych: Alert, oriented, appropriate affect Assessment/Plan: Community acquired pneumonia complicated by left-sided cavitary lesion, possible gram negative Acute hypoxic respiratory failure Sepsis Severe COPD Hypertension Dyslipidemia 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 --Case discussed with Dr. Haq. Plan is for bronchoscopy in a.m. To rule out any masses or lesions that may be complicating the pneumonia. - vancomycin, pharmacy dosing, monitor Cr afn vanco trough for toxicity - zosyn 3.375 g IV piggyback every 8 hours -Continue with DuoNeb's and Symbicort -Continue with Lipitor 10 mg nightly, lisinopril 10 mg twice daily -Neurontin 600 mg 4 times daily, norco, add lidocaine patch - Legionella urine antigen-negative Moderate protein calorie malnutrition -Ensure 3 times daily with meals Imaging: Chest x-ray reviewed by myself. Continue to left sided extensive left-sided infiltrate without significant improvement Data Review: Vitals reviewed patient afebrile for the last 24 hours. Warning pulse 73, respirations 17, blood pressure 173/74, O2 sat 90% on room air Labs reviewed White blood cell count 12.8, hemoglobin 11.5, sodium 136, potassium 3.3 Sputum culture-normal respiratory rebecca Blood cultures-negative to date DVT prophylaxis: lovenox Anticipated discharge date: pending clinical course Anticipated discharge place: pending clinical course This dictation was prepared using [employer] voice recognition software. Though every attempt is made to correct errors during dictation some may still exist. Objective - Vital Signs Vital signs: Vital Signs Temp 98.7 F 07/07/23 14:00 Pulse 72 07/07/23 14:00 Resp 17 07/07/23 14:00 BP 139/79 07/07/23 14:00 Pulse Ox 92 L 07/07/23 14:00 FiO2 Intake & Output 07/06/23 07/07/23 07/07/23 18:59 06:59 18:59 Output Total 700 850 550 Balance -700 -850 -550 Output: Urine 700 850 550 Other: Voiding Method Urinal Urinal # Voids 3 1 # Bowel Movements 1 - Labs CBC & Chem 7: 07/07/23 05:57 07/07/23 05:57 Labs: Abnormal Lab Results - Last 24 Hours (Table) 07/07/23 07/07/23 Range/Units 05:57 05:57 WBC 12.8 H (3.8-10.6) k/uL RBC 3.99 L (4.30-5.90) m/uL Hgb 11.5 L (13.0-17.5) gm/dL Hct 36.3 L (39.0-53.0) % Sodium 136 L (137-145) mmol/L Potassium 3.3 L (3.5-5.1) mmol/L Microbiology - Last 24 Hours (Table) 07/02/23 13:16 Gram Stain - Final Sputum Sputum Culture - Final
[2023-07-07] MEDS: DOCUSATE 100 MG CAP PO SCH (22:32)
[2023-07-07] MEDS: ATORVASTATIN 10 MG TAB PO SCH (22:32)
[2023-07-08] MEDS: HYDROcodone/APAP 10-325MG 1 EACH TAB PO PRN ×4 (03:36→22:32)
[2023-07-08] MEDS ORDERED: VANCOMYCIN TROUGH DUE 1 EACH MISC MISCELLANE ONE (05:00)
[2023-07-08 05:27] LABS: African American GFR (CKD) >90 (>60 ml/min/1.73 sqM); Non-African American GFR(CKD) 82 (>60 ml/min/1.73 sqM)
[2023-07-08] MEDS: VANCOMYCIN 1,250 MG in SODIUM CHLORIDE 0.9% 250 ML IVPB SCH ×2 (06:26→22:32)
[2023-07-08] MEDS: IPRATROPIUM-ALBUTEROL 3 ML NEB INHALATION SCH ×4 (08:10→21:16)
[2023-07-08] MEDS: SYMBICORT 160-4.5 MCG INHALER INHALATION SCH ×2 (08:11→21:16)
[2023-07-08] MEDS: LIDOCAINE 5% PATCH TOPICAL SCH (08:45)
[2023-07-08] MEDS: GABAPENTIN 300 MG CAP PO SCH ×4 (08:45→22:32)
[2023-07-08] MEDS: lisinopriL 10 MG TAB PO SCH ×2 (08:45→22:32)
[2023-07-08] MEDS: PIPERACILLIN-TAZOBACTAM 3.375 GM in SODIUM CHLORIDE 0.9% 100 ML IVPB SCH ×3 (08:46→23:50)
[2023-07-08] MEDS: CHOLECALCIFEROL 125 MCG (5000 IU) TABLET PO SCH (11:06)
[2023-07-08] MEDS: ASPIRIN 81 MG PO SCH (11:06)
[2023-07-08] MEDS: SODIUM CHLORIDE 0.9% 1,000 ML IV SCH ×2 (11:06→22:33)
[2023-07-08] MEDS: ENOXAPARIN 40 MG/0.4 ML SYRINGE SQ SCH (11:06)
--- NOTE | 2023-07-08 12:39 | P.PN ---
Subjective Progress Note Date: 07/08/23 I am seeing this patient in new consultation today 07/03/2023 for a cavitating left lung mass and community acquired pneumonia. Patient is a 88-year-old white male with past medical history significant for COPD/emphysema, previous left lung bullectomy, hyperlipidemia, hypertension, and is a remote ex-smoker. His PCP is a Dr. Castle. He does not follow with a polisher sand. Patient was transferred from [facility] for suspected extensive cavitating pneumonia on CT. Patient reports progressively worsening shortness of breath and cough with minimal sputum production over the past 3 weeks. Accompanied with muscle aches and weakness. Also, admits left sided chest pain, nonradiating. Denies fever, chills, hemoptysis. He does report approximately 15-20 pound weight loss over the last month. Patient is currently sitting up in bed, on 3 L/m nasal cannula, in no acute distress. A chest CTA at outside facility shows a postsurgical left upper lobe and left hemithorax. There was extensive patchy and confluent airspace disease throughout the left lung. Left basilar bronchiectasis with moderate bronchial wall thickening. There is 4.8 cm left upper lobe cavitary lesion, thought to be a cavitary pneumonia versus atypical fungal/mycobacterial infection versus necrotizing malignancy. There were additional nodular areas in the left lung measuring up to 2 cm. There was a 1.5 cm left infrahilar lymph node. There was extensive emphysematous changes. No previous imaging for comparison. Denies history of lung cancer. Denies previous bronchoscopy or biopsy of these lesions. CBC on arrival shows leukocytosis with a WBC count of 13.9, hemoglobin 13.4, hematocrit 41.5, platelets 298. BMP on arrival to our facility was unremarkable. Pro-calcitonin level was elevated at 0.39. Lactic acid level I.8. He is afebrile. Patient was started on a combination of Zosyn and vancomycin. Patient is hemodynamically stable at this time. On today's evaluation of 07/04/2023, the patient remains on Zosyn and vancomycin. Much improved compared to yesterday. Much more alert and awake and communicating. Oxygenation is also improved and the patient is currently on 2 L of Oxymizer nasal cannula with a pulse ox of 96%. This does cause of 10.4, hemoglobin 11, BUN is at 50 with a creatinine of 0.7 and a sodium level is at 135. Pro-calcitonin level is at 0.39. Blood cultures still pending for now. 07/05/2023, the patient is on room air oxygen. Remains on accommodation of Zosyn and vancomycin. Chest x-ray findings are unchanged. I reviewed the CAT scan again. The patient has soft tissue density in the left suprahilar area. Nevertheless, this could be a fluid-filled bullous or infected bullous as the patient has chronic emphysematous changes with bullae in the upper lobes zheng aterally. He has improved considerably. No plans for broncho-scope for now. No new labs from today. Labs from yesterday was noted. Pro-calcitonin level was at 0.39. He continues to improve. The blood cultures are negative thus far. The patient is seen today 07/06/2023 in follow-up on the regular medical floor. He is currently sitting up in a chair. Awake and alert in no acute distress. He is maintaining O2 saturations in the 90s on room air. He denies any worsening shortness of breath, cough or congestion. He is afebrile. Hemodynamically stable. Blood cultures revealed no growth. Sputum culture pending. White count 12.4. Hemoglobin 11.2. Platelets 289. He remains on DuoNeb inhalations, Symbicort. Antibiotics in the form of vancomycin and Zosyn. The patient is seen today 07/07/2023 in follow-up on the regular medical floor. He is currently resting in bed. Awake and alert. He is having some postherpetic pain from previous shingles along his left chest. He denies any worsening shortness of breath, cough or congestion. He is maintaining O2 saturations in the 90s on room air. He has a loose nonproductive cough. Chest x-ray showing slight improvement but still significant infiltrates in the left lung. White count 12.8. Hemoglobin 11.5. Sodium 136. Potassium 3.3. Bicarb 23. BUN 12. Creatinine 0.82. He remains on vancomycin and Zosyn. He remains on DuoNeb inhalations, Symbicort, Lovenox. The patient is seen today 07/08/2023 in follow-up on the regular medical floor. Currently sitting up in a chair at the bedside. Awake and alert in no acute distress. He is maintaining O2 saturations in the 90s on room air. Afebrile. Hemodynamically stable. Sputum cultures revealed no growth. Blood culture revealed no growth. Creatinine 0.79. Continued on vancomycin and Zosyn. Continued on bronchodilators, Lovenox. Plan is for bronchoscopy with BAL and biopsies today. Objective - Vital Signs Vital signs: Vital Signs Temp 99.4 F 07/08/23 07:53 Pulse 79 07/08/23 11:53 Resp 17 07/08/23 07:53 BP 153/78 07/08/23 07:53 Pulse Ox 90 L 07/08/23 07:53 FiO2 Intake & Output 07/07/23 07/08/23 07/08/23 18:59 06:59 18:59 Output Total 550 1450 800 Balance -550 -1450 -800 Weight 77.111 kg Output: Urine 550 1450 800 Other: Voiding Method Urinal # Voids 1 # Bowel Movements 1 - Exam GENERAL EXAM: Alert, pleasant 88-year-old male, up in a chair, on room air, comfortable in no apparent distress. HEAD: Normocephalic and atraumatic EYES: Normal reaction of pupils, equal size. NOSE: Clear with pink turbinates. THROAT: No erythema or exudates. NECK: No masses, no JVD. CHEST: No chest wall deformity. LUNGS: Diminished left lung sounds with scattered inspiratory crackles, rhonchi. CVS: S1 and S2 normal with no audible murmur, regular rhythm. No extra heart sounds ABDOMEN: No hepatosplenomegaly, active bowel sounds, no guarding or rigidity. SPINE: No scoliosis or deformity SKIN: No rashes CENTRAL NERVOUS SYSTEM: No focal deficits, tone is normal in all 4 extremities. EXTREMITIES: There is no peripheral edema, clubbing, or cyanosis. Peripheral pulses are intact. - Labs CBC & Chem 7: 07/07/23 05:57 07/08/23 04:43 Labs: Microbiology - Last 24 Hours (Table) 07/02/23 13:16 Blood Culture - Final Blood 07/02/23 13:10 Blood Culture - Final Blood Assessment and Plan Assessment: Acute hypoxemic respiratory failure, improved and the patient is currently on room air oxygen. A chest CTA at outside facility shows a postsurgical left upper lobe and left hemithorax. There was extensive patchy and confluent airspace disease throughout the left lung. Left basilar bronchiectasis with moderate bronchial wall thickening. There is 4.8 cm left upper lobe cavitary mass, thought to be a cavitary pneumonia versus atypical fungal/mycobacterial infection versus necrotizing malignancy. There were additional nodular densities in the left lung measuring up to 2 cm. There was a 1.5 cm left infrahilar lymph node. There was extensive emphysematous changes. No previous imaging for comparison. This could be also an infected bullous versus a fluid-filled bullous post pneumonia. Plan is for bronchoscopy with biopsies and BAL today 07/08/2023 COPD/emphysema, stable History of previous left upper lobe bullectomy Benign essential hypertension Hyperlipidemia Remote ex-smoker, quit 1992 Plan: The patient was seen and evaluated Labs and medications reviewed Currently stable and on room air Remains on vancomycin and Zosyn Remains on bronchodilators Plan for bronchoscopy today We will continue to follow I have personally seen and examined the patient, performed the documentation and the assessment and plan as written. Number of minutes spent on the visit: 10.
[2023-07-08] MEDS ORDERED: PROPOFOL 10 MG/ML 20 ML VIAL IV ONE (13:07)
[2023-07-08] MEDS ORDERED: LIDOCAINE 2% INJ 20 MG/ML (2 ML VIAL) ONE (13:07)
[2023-07-08] MEDS ORDERED: IV FLUID CONTINUATION 1,000 ML IV ONE (13:07)
[2023-07-08] MEDS ORDERED: SUCCINYLCHOLINE CHLORIDE 200 MG/10 ML VIAL IV ONE (13:07)
--- NOTE | 2023-07-08 14:57 | XR ---
EXAMINATION TYPE: XR chest 1V DATE OF EXAM: 07/08/2023 COMPARISON: 07/07/2023 HISTORY: 88 year-old male post bronchoscopy TECHNIQUE: Single frontal view of the chest is obtained. FINDINGS: Volume loss and extensive pleural parenchymal opacities continued throughout the left denzel thorax. Surgical material throughout the left lung. Mild interstitial prominence throughout the right lung is unchanged. Atherosclerotic arch calcifications. IMPRESSION: Similar volume loss and extensive pleural-parenchymal opacities as well as surgical change throughout the left lung. No acute change seen.
--- NOTE | 2023-07-08 15:02 | FL ---
Intraoperative/procedural fluoroscopic services were provided for left upper lobe bronchoscopy with b iopsy. Total fluoroscopy time is 18.3 seconds with a total of 1 submitted image to PACS. Total DAP 1. 0870 Gycm2. Please see the operative note for further details.
--- NOTE | 2023-07-08 17:26 | P.PN ---
Subjective Progress Note Date: 07/08/23 (erlin charting seen at 1115) Patient is an 88 yo male with COPD, former tobacco dependency, hypertension, AND hyperlipidemia who presented with complaints of dyspnea. In the emergency room he underwent an extensive evaluation. His initial vitals were within normal. Lbas werer remarkable for WBC 13.9. Computed tomography scan of the chest demonstrated significant severe emphysematous changes, left-sided infiltrate with possible cavitary component of 4.8cm in the left upper lobe versus pneumonia surrounding bullae. He was admitted for pneumonia and started on broad spectrum abx. His procalcitonin was noted to be 0.39. Pulm was consulted for consideration of bronchoscopy and had considered this but given clinical improvement and fragile condition of patients lungs on CT imaging, preferred to defer this to outpatient setting after course of abx. Per pulmonary differential is broad including; lung abscess, or cavitary lesion from fungal, mycobacterial pneumonias. Plan is for bronch on 07/08/23. Patient seen and examined at bedside. He continues to have his chronic left abd pain that he related to shingles, he states that the lidocaine patch did not help. He continues to have cough but believes that it is getting better. Vital signs reviewed General: nontoxic, no distress, appears at stated age Cardiovascular: S1S2 reg, no murmur, Lungs: Coarse breath sounds bilateral, no rhonchi, no rales , no accessory muscle use Abdominal: soft, nontender to palpation, no guarding, no appreciable organomegaly Ext: no gross muscle atrophy, 2+ edema b/l lower extremities, no contractures Neuro: CN II-XI grossly intact, no focal neuro deficits Psych: Alert, oriented, appropriate affect Assessment/Plan: Community acquired pneumonia complicated by left-sided cavitary lesion, possible gram negative Acute hypoxic respiratory failure Sepsis Severe COPD Hypertension Dyslipidemia 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 - Pulmonary note reviewed: Bronch today - vancomycin, pharmacy dosing, monitor Cr, vanco trough for toxicity - zosyn 3.375 g IV piggyback every 8 hours -Continue with DuoNeb's and Symbicort -Continue with Lipitor 10 mg nightly, lisinopril 10 mg twice daily -Neurontin 600 mg 4 times daily, norco, lidocaine patch - Legionella urine antigen-negative Moderate protein calorie malnutrition -Ensure 3 times daily with meals Imaging: Chest x-ray reviewed by myself. Continue to left sided extensive left-sided infiltrate without significant improvement Data Review: Vitals reviewed and T max in the last 24 hours 99.4, HR 65, RR 18, BP 153/78, 90% on RA Labs reviewed and Cr 0.79, Vanco trough 24.4 Sputum culture-normal respiratory rebecca Blood cultures-negative to date DVT prophylaxis: lovenox Anticipated discharge date: pending clinical course Anticipated discharge place: pending clinical course This dictation was prepared using [employer] voice recognition software. Though every attempt is made to correct errors during dictation some may still exist. Objective - Vital Signs Vital signs: Vital Signs Temp 98 F 07/08/23 13:52 Pulse 79 07/08/23 15:39 Resp 16 07/08/23 14:22 BP 130/62 07/08/23 14:22 Pulse Ox 91 L 07/08/23 14:22 FiO2 Intake & Output 07/07/23 07/08/23 07/08/23 18:59 06:59 18:59 Intake Total 600 Output Total 550 1450 800 Balance -550 -1450 -200 Weight 77.111 kg Intake: IV 600 Output: Urine 550 1450 800 Other: Voiding Method Urinal # Voids 1 # Bowel Movements 1 - Labs CBC & Chem 7: 07/07/23 05:57 07/08/23 04:43 Labs: Microbiology - Last 24 Hours (Table) 07/02/23 13:16 Blood Culture - Final Blood 07/02/23 13:10 Blood Culture - Final Blood
--- NOTE | 2023-07-08 17:37 | OP ---
OPERATIVE REPORT DATE OF SERVICE : PROCEDURES PERFORMED: Bronchoscopy, bronchoalveolar lavage of the left upper lobe, and multiple transbronchial biopsies and endobronchial biopsies of the left upper lobe. ANESTHESIA USED: General anesthesia. FISH FLIPPER: Dr. Kim Spencer. PREOPERATIVE DIAGNOSIS: Masslike consolidation in the left upper lobe. POSTOPERATIVE DIAGNOSES: Left upper lobe pneumonia, possible endobronchial tumor involving the apical posterior segment of the left upper lobe. DESCRIPTION OF PROCEDURE: The patient was prepared according to the bronchoscopy protocol. The patient was brought into the bronchoscopy suite. He was placed in a supine position. He was intubated by MARY, and we monitored his O2 saturation continuously. Blood pressure was intermittently monitored, and his heart rate was continuously monitored. Pulse oximetry was monitored. After adequate anesthesia, the bronchoscope was advanced through the endotracheal tube down to the distal nanci, and there was a sharp nanci. Right upper lobe, right middle lobe, and right lower lobe were all examined, and there was no evidence of any endobronchial pathology on the right side. However, as I entered the left mainstem bronchus, there were significant amount of purulent thick secretions noted in the left mainstem bronchus. These were suctioned easily. Then, a lavage was done of the left upper lobe, and the lavage was sent for different diagnostic studies. As I was trying to do transbronchial biopsies of the left upper lobe, I visualized significant narrowing and constriction noted in the apical posterior segment of the left upper lobe. Multiple biopsies were done from that area, and then using fluoroscopy, the transbronchial biopsies were also done from the left upper lobe. The procedure was well tolerated. Blood loss was minimal. No evidence of any immediate complications. The patient will be extubated by MARY. He will be transferred back to the floor, and a followup chest x-ray was ordered postoperatively. MMODL / IJN: [id number] /
[2023-07-08] MEDS: ATORVASTATIN 10 MG TAB PO SCH (22:32)
[2023-07-08] MEDS: DOCUSATE 100 MG CAP PO SCH (22:32)
[2023-07-09 04:59] LABS: Appearance,BF Cloudy (Clear); RBC, Body Fluid 600 /UL (0-2000)
[2023-07-09 07:08] LABS: HCT 36.8 % (39.0-53.0); HGB 11.6 gm/dL (13.0-17.5); Hypochromasia Slight; MCH 28.4 pg (25.0-35.0); MCHC 31.4 g/dL (31.0-37.0); MCV 90.5 fL (80.0-100.0); Mean Platelet Volume 6.9; Platelet Count 300 k/uL (150-450); RBC 4.07 m/uL (4.30-5.90); RDW 15.1 % (11.5-15.5); WBC 10.2 k/uL (3.8-10.6)
[2023-07-09] MEDS: GABAPENTIN 300 MG CAP PO SCH ×4 (08:06→21:25)
[2023-07-09] MEDS: CHOLECALCIFEROL 125 MCG (5000 IU) TABLET PO SCH (08:06)
[2023-07-09] MEDS: ENOXAPARIN 40 MG/0.4 ML SYRINGE SQ SCH (08:06)
[2023-07-09] MEDS: HYDROcodone/APAP 10-325MG 1 EACH TAB PO PRN (08:06)
[2023-07-09] MEDS: lisinopriL 10 MG TAB PO SCH ×2 (08:06→21:25)
[2023-07-09] MEDS: ASPIRIN 81 MG PO SCH (08:06)
[2023-07-09] MEDS: PIPERACILLIN-TAZOBACTAM 3.375 GM in SODIUM CHLORIDE 0.9% 100 ML IVPB SCH ×2 (08:06→16:15)
[2023-07-09] MEDS: LIDOCAINE 5% PATCH TOPICAL SCH (08:07)
[2023-07-09] MEDS: IPRATROPIUM-ALBUTEROL 3 ML NEB INHALATION SCH ×4 (08:29→20:46)
[2023-07-09] MEDS: SYMBICORT 160-4.5 MCG INHALER INHALATION SCH ×2 (08:29→20:46)
[2023-07-09] MEDS: BISMUTH SUBSALICYLATE 4,192 MG/240 ML BOTTLE PO PRN (09:41)
[2023-07-09 10:16] LABS: African American GFR (CKD) >90 (>60 ml/min/1.73 sqM); Anion Gap 9 mmol/L; Blood Urea Nitrogen 10 mg/dL (9-20); Calcium 8.6 mg/dL (8.4-10.2); Carbon Dioxide 22 mmol/L (22-30); Chloride 107 mmol/L (98-107); Glucose 99 mg/dL (74-99); Non-African American GFR(CKD) 79 (>60 ml/min/1.73 sqM); Potassium 3.4 mmol/L (3.5-5.1); Sodium 138 mmol/L (137-145)
[2023-07-09 10:20] LABS: Nucleated Cells, Body Fluid 16350 /UL
[2023-07-09] MEDS: SODIUM CHLORIDE 0.9% 1,000 ML IV SCH ×2 (12:39→21:26)
--- NOTE | 2023-07-09 13:11 | P.PN ---
Subjective Progress Note Date: 07/09/23 I am seeing this patient in new consultation today 07/03/2023 for a cavitating left lung mass and community acquired pneumonia. Patient is a 88-year-old white male with past medical history significant for COPD/emphysema, previous left lung bullectomy, hyperlipidemia, hypertension, and is a remote ex-smoker. His PCP is a Dr. Castle. 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 Patient was transferred from [facility] for suspected extensive cavitating pneumonia on CT. Patient reports progressively worsening shortness of breath and cough with minimal sputum production over the past 3 weeks. Accompanied with muscle aches and weakness. Also, admits left sided chest pain, nonradiating. Denies fever, chills, hemoptysis. He does report approximately 15-20 pound weight loss over the last month. Patient is currently sitting up in bed, on 3 L/m nasal cannula, in no acute distress. A chest CTA at outside facility shows a postsurgical left upper lobe and left hemithorax. There was extensive patchy and confluent airspace disease throughout the left lung. Left basilar bronchiectasis with moderate bronchial wall thickening. There is 4.8 cm left upper lobe cavitary lesion, thought to be a cavitary pneumonia versus atypical fungal/mycobacterial infection versus necrotizing malignancy. There were additional nodular areas in the left lung measuring up to 2 cm. There was a 1.5 cm left infrahilar lymph node. There was extensive emphysematous changes. No previous imaging for comparison. Denies history of lung cancer. Denies previous bronchoscopy or biopsy of these lesions. CBC on arrival shows leukocytosis with a WBC count of 13.9, hemoglobin 13.4, hematocrit 41.5, platelets 298. BMP on arrival to our facility was unremarkable. Pro-calcitonin level was elevated at 0.39. Lactic acid level I.8. He is afebrile. Patient was started on a combination of Zosyn and vancomycin. Patient is hemodynamically stable at this time. On today's evaluation of 07/04/2023, the patient remains on Zosyn and vancomycin. Much improved compared to yesterday. Much more alert and awake and communicating. Oxygenation is also improved and the patient is currently on 2 L of Oxymizer nasal cannula with a pulse ox of 96%. This does cause of 10.4, hemoglobin 11, BUN is at 50 with a creatinine of 0.7 and a sodium level is at 135. Pro-calcitonin level is at 0.39. Blood cultures still pending for now. 07/05/2023, the patient is on room air oxygen. Remains on accommodation of Zosyn and vancomycin. Chest x-ray findings are unchanged. I reviewed the CAT scan again. The patient has soft tissue density in the left suprahilar area. Nevertheless, this could be a fluid-filled bullous or infected bullous as the patient has chronic emphysematous changes with bullae in the upper lobes zheng aterally. He has improved considerably. No plans for broncho-scope for now. No new labs from today. Labs from yesterday was noted. Pro-calcitonin level was at 0.39. He continues to improve. The blood cultures are negative thus far. The patient is seen today 07/06/2023 in follow-up on the regular medical floor. He is currently sitting up in a chair. Awake and alert in no acute distress. He is maintaining O2 saturations in the 90s on room air. He denies any worsening shortness of breath, cough or congestion. He is afebrile. Hemodynamically stable. Blood cultures revealed no growth. Sputum culture pending. White count 12.4. Hemoglobin 11.2. Platelets 289. He remains on DuoNeb inhalations, Symbicort. Antibiotics in the form of vancomycin and Zosyn. The patient is seen today 07/07/2023 in follow-up on the regular medical floor. He is currently resting in bed. Awake and alert. He is having some postherpetic pain from previous shingles along his left chest. He denies any worsening shortness of breath, cough or congestion. He is maintaining O2 saturations in the 90s on room air. He has a loose nonproductive cough. Chest x-ray showing slight improvement but still significant infiltrates in the left lung. White count 12.8. Hemoglobin 11.5. Sodium 136. Potassium 3.3. Bicarb 23. BUN 12. Creatinine 0.82. He remains on vancomycin and Zosyn. He remains on DuoNeb inhalations, Symbicort, Lovenox. The patient is seen today 07/08/2023 in follow-up on the regular medical floor. Currently sitting up in a chair at the bedside. Awake and alert in no acute distress. He is maintaining O2 saturations in the 90s on room air. Afebrile. Hemodynamically stable. Sputum cultures revealed no growth. Blood culture revealed no growth. Creatinine 0.79. Continued on vancomycin and Zosyn. Continued on bronchodilators, Lovenox. Plan is for bronchoscopy with BAL and biopsies today. The patient is seen today 07/09/2023 in follow-up on the regular medical floor. He is awake and alert in no acute distress. Sitting up in a chair. Maintaining O2 saturations in the 90s on room air. Sputum culture reveals no growth. Blood culture revealed no growth. He did undergo bronchoscopy with BAL and biopsies yesterday. Cultures are pending. Cytology pending. White count 10.2. Hemoglobin 11.6. Sodium 138. Potassium 3.4. Bicarb 20. BUN 10. Creatinine 0.84. He remains on antibiotics in the form of vancomycin and Zosyn. Continue bronchodilators. Lovenox for DVT prophylaxis. Objective - Vital Signs Vital signs: Vital Signs Temp 99.5 F 07/09/23 08:00 Pulse 76 07/09/23 08:40 Resp 17 07/09/23 08:00 BP 127/67 07/09/23 08:00 Pulse Ox 89 L 07/09/23 08:00 FiO2 Intake & Output 07/08/23 07/09/23 07/09/23 18:59 06:59 18:59 Intake Total 600 Output Total 800 1200 Balance -200 -1200 Weight 77.111 kg Intake: IV 600 Output: Urine 800 1200 Other: Voiding Method Urinal Urinal # Voids 1 - Exam GENERAL EXAM: Alert, 88-year-old male, on room air, up in a chair, fairly comfortable in no apparent distress. HEAD: Normocephalic and atraumatic EYES: Normal reaction of pupils, equal size. NOSE: Clear with pink turbinates. THROAT: No erythema or exudates. NECK: No masses, no JVD. CHEST: No chest wall deformity. LUNGS: Diminished left lung sounds with scattered inspiratory crackles, rhonchi. CVS: S1 and S2 normal with no audible murmur, regular rhythm. No extra heart sounds ABDOMEN: No hepatosplenomegaly, active bowel sounds, no guarding or rigidity. SPINE: No scoliosis or deformity SKIN: No rashes CENTRAL NERVOUS SYSTEM: No focal deficits, tone is normal in all 4 extremities. EXTREMITIES: There is no peripheral edema, clubbing, or cyanosis. Peripheral p ulses are intact. - Labs CBC & Chem 7: 07/09/23 06:46 07/09/23 06:46 Labs: Abnormal Lab Results - Last 24 Hours (Table) 07/08/23 07/09/23 07/09/23 Range/Units 13:35 06:46 06:46 RBC 4.07 L (4.30-5.90) m/uL Hgb 11.6 L (13.0-17.5) gm/dL Hct 36.8 L (39.0-53.0) % Potassium 3.4 L (3.5-5.1) mmol/L Fluid Appearance Cloudy A (Clear) Assessment and Plan Assessment: Acute hypoxemic respiratory failure, improved and the patient is currently on room air oxygen. A chest CTA at outside facility shows a postsurgical left upper lobe and left hemithorax. There was extensive patchy and confluent airspace disease throughout the left lung. Left basilar bronchiectasis with moderate bronchial wall thickening. There is 4.8 cm left upper lobe cavitary mass, thought to be a cavitary pneumonia versus atypical fungal/mycobacterial infection versus necrotizing malignancy. There were additional nodular densities in the left lung measuring up to 2 cm. There was a 1.5 cm left infrahilar lymph node. There was extensive emphysematous changes. No previous imaging for comparison. This could be also an infected bullous versus a fluid-filled bullous post pneumonia. Underwent a bronchoscopy with biopsies and BAL 07/08/2023 cultures and cytology pending COPD/emphysema, stable History of previous left upper lobe bullectomy Benign essential hypertension Hyperlipidemia Remote ex-smoker, quit 1992 Post herpetic neuralgia on the left chest wall Plan: The patient was seen and evaluated Labs and medications reviewed Currently stable and on room air Remains on vancomycin and Zosyn Cultures and cytology pending We will continue to follow I have personally seen and examined the patient, performed the documentation and the assessment and plan as written. Number of minutes spent on the visit: 10.
[2023-07-09] MEDS ORDERED: POTASSIUM CHLORIDE ER 20 MEQ TAB.ER PO STA (13:41)
[2023-07-09] MEDS: KETOROLAC 15 MG/ML 1 ML VIAL IVP PRN ×2 (13:50→21:36)
[2023-07-09] MEDS: MORPHINE SULFATE 2 MG/ML SYRINGE IVP PRN ×2 (13:51→21:36)
[2023-07-09] MEDS: VANCOMYCIN 1,250 MG in SODIUM CHLORIDE 0.9% 250 ML IVPB SCH (13:51)
--- NOTE | 2023-07-09 14:26 | P.PN ---
Subjective Progress Note Date: 07/09/23 Patient is an 88 yo male with COPD, former tobacco dependency, hypertension, AND hyperlipidemia who presented with complaints of dyspnea. In the emergency room he underwent an extensive evaluation. His initial vitals were within normal. Labs were remarkable for WBC 13.9. Computed tomography scan of the chest demonstrated significant severe emphysematous changes, left-sided infiltrate with possible cavitary component of 4.8cm in the left upper lobe versus pneumonia surrounding bullae. He was admitted for pneumonia and started on broad spectrum abx. His procalcitonin was noted to be 0.39. Pulm was consulted for consideration of bronchoscopy and had considered this but given clinical improvement and fragile condition of patients lungs on CT imaging, preferred to defer this to outpatient setting after course of abx. Per pulmonary differential is broad including; lung abscess, or cavitary lesion from fungal, mycobacterial pneumonias. Underwent bronch with BAL on 07/08/23 with purulent secretions cultures and biopsies done. 07/09 Patient seen and examined at bedside. He continues to have his chronic left abd pain that he related to shingles, he states that the lidocaine patch did not help. He continues to have cough but believes that it is getting better. 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 Pending cytology and cultures. Continue Vanc/Zosyn. - Vancomycin, pharmacy dosing, monitor Cr, vanco trough for toxicity - Zosyn 3.375 g IV piggyback every 8 hours - Continue with DuoNeb's and Symbicort - Continue with Lipitor 10 mg nightly, lisinopril 10 mg twice daily - Neurontin 600 mg 4 times daily, norco, lidocaine patch - Added Toradol 15 mg IV Q6H and Morphine 2mg IV Q6H for severe pain - Legionella urine antigen negative Moderate protein calorie malnutrition - Ensure 3 times daily with meals Imaging: Data Review: Vitals reviewed and T max in the last 24 hours 99.5, HR 68, RR 17, BP 127/67, 89 % on RA Labs reviewed and Hg 11.6, K 3.4, Cr 0.79, Vanco trough 24.4 Sputum culture-normal respiratory rebecca Blood cultures-negative to date DVT prophylaxis: lovenox Anticipated discharge date: pending clinical course Anticipated discharge place: pending clinical course This dictation was prepared using [employer] voice recognition software. Though every attempt is made to correct errors during dictation some may still exist. Objective - Vital Signs Vital signs: Vital Signs Temp 99.5 F 07/09/23 08:00 Pulse 76 07/09/23 08:40 Resp 17 07/09/23 08:00 BP 127/67 07/09/23 08:00 Pulse Ox 89 L 07/09/23 08:00 FiO2 Intake & Output 07/08/23 07/09/23 07/09/23 18:59 06:59 18:59 Intake Total 600 Output Total 800 1200 Balance -200 -1200 Weight 77.111 kg Intake: IV 600 Output: Urine 800 1200 Other: Voiding Method Urinal Urinal # Voids 1 - Labs CBC & Chem 7: 07/09/23 06:46 07/09/23 06:46 Labs: Abnormal Lab Results - Last 24 Hours (Table) 07/08/23 07/09/23 07/09/23 Range/Units 13:35 06:46 06:46 RBC 4.07 L (4.30-5.90) m/uL Hgb 11.6 L (13.0-17.5) gm/dL Hct 36.8 L (39.0-53.0) % Potassium 3.4 L (3.5-5.1) mmol/L Fluid Appearance Cloudy A (Clear)
[2023-07-09] MEDS: DOCUSATE 100 MG CAP PO SCH (21:25)
[2023-07-09] MEDS: ATORVASTATIN 10 MG TAB PO SCH (21:25)
[2023-07-10] MEDS: VANCOMYCIN 1,250 MG in SODIUM CHLORIDE 0.9% 250 ML IVPB SCH (05:21)
[2023-07-10 07:49] LABS: African American GFR (CKD) 28 (>60 ml/min/1.73 sqM); Non-African American GFR(CKD) 24 (>60 ml/min/1.73 sqM)
[2023-07-10] MEDS: SYMBICORT 160-4.5 MCG INHALER INHALATION SCH ×2 (07:54→20:06)
[2023-07-10] MEDS: IPRATROPIUM-ALBUTEROL 3 ML NEB INHALATION SCH ×4 (07:54→20:06)
[2023-07-10] MEDS ORDERED: VANCOMYCIN IV PER PHARMACY 1 EACH MISC MISCELLANE PRN (09:02)
[2023-07-10] MEDS: GABAPENTIN 300 MG CAP PO SCH ×4 (09:27→20:30)
[2023-07-10] MEDS: lisinopriL 10 MG TAB PO SCH (09:27)
[2023-07-10] MEDS: ENOXAPARIN 40 MG/0.4 ML SYRINGE SQ SCH (09:27)
[2023-07-10] MEDS: CHOLECALCIFEROL 125 MCG (5000 IU) TABLET PO SCH (09:27)
[2023-07-10] MEDS: ASPIRIN 81 MG PO SCH (09:28)
[2023-07-10] MEDS: LIDOCAINE 5% PATCH TOPICAL SCH (09:28)
[2023-07-10] MEDS: HYDROcodone/APAP 10-325MG 1 EACH TAB PO PRN ×2 (09:35→16:34)
--- NOTE | 2023-07-10 11:52 | P.PN ---
Subjective Progress Note Date: 07/10/23 I am seeing this patient in new consultation today 07/03/2023 for a cavitating left lung mass and community acquired pneumonia. Patient is a 88-year-old white male with past medical history significant for COPD/emphysema, previous left lung bullectomy, hyperlipidemia, hypertension, and is a remote ex-smoker. His PCP is a Dr. Castle. 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 Patient was transferred from [facility] for suspected extensive cavitating pneumonia on CT. Patient reports progressively worsening shortness of breath and cough with minimal sputum production over the past 3 weeks. Accompanied with muscle aches and weakness. Also, admits left sided chest pain, nonradiating. Denies fever, chills, hemoptysis. He does report approximately 15-20 pound weight loss over the last month. Patient is currently sitting up in bed, on 3 L/m nasal cannula, in no acute distress. A chest CTA at outside facility shows a postsurgical left upper lobe and left hemithorax. There was extensive patchy and confluent airspace disease throughout the left lung. Left basilar bronchiectasis with moderate bronchial wall thickening. There is 4.8 cm left upper lobe cavitary lesion, thought to be a cavitary pneumonia versus atypical fungal/mycobacterial infection versus necrotizing malignancy. There were additional nodular areas in the left lung measuring up to 2 cm. There was a 1.5 cm left infrahilar lymph node. There was extensive emphysematous changes. No previous imaging for comparison. Denies history of lung cancer. Denies previous bronchoscopy or biopsy of these lesions. CBC on arrival shows leukocytosis with a WBC count of 13.9, hemoglobin 13.4, hematocrit 41.5, platelets 298. BMP on arrival to our facility was unremarkable. Pro-calcitonin level was elevated at 0.39. Lactic acid level I.8. He is afebrile. Patient was started on a combination of Zosyn and vancomycin. Patient is hemodynamically stable at this time. On today's evaluation of 07/04/2023, the patient remains on Zosyn and vancomycin. Much improved compared to yesterday. Much more alert and awake and communicating. Oxygenation is also improved and the patient is currently on 2 L of Oxymizer nasal cannula with a pulse ox of 96%. This does cause of 10.4, hemoglobin 11, BUN is at 50 with a creatinine of 0.7 and a sodium level is at 135. Pro-calcitonin level is at 0.39. Blood cultures still pending for now. 07/05/2023, the patient is on room air oxygen. Remains on accommodation of Zosyn and vancomycin. Chest x-ray findings are unchanged. I reviewed the CAT scan again. The patient has soft tissue density in the left suprahilar area. Nevertheless, this could be a fluid-filled bullous or infected bullous as the patient has chronic emphysematous changes with bullae in the upper lobes zheng aterally. He has improved considerably. No plans for broncho-scope for now. No new labs from today. Labs from yesterday was noted. Pro-calcitonin level was at 0.39. He continues to improve. The blood cultures are negative thus far. The patient is seen today 07/06/2023 in follow-up on the regular medical floor. He is currently sitting up in a chair. Awake and alert in no acute distress. He is maintaining O2 saturations in the 90s on room air. He denies any worsening shortness of breath, cough or congestion. He is afebrile. Hemodynamically stable. Blood cultures revealed no growth. Sputum culture pending. White count 12.4. Hemoglobin 11.2. Platelets 289. He remains on DuoNeb inhalations, Symbicort. Antibiotics in the form of vancomycin and Zosyn. The patient is seen today 07/07/2023 in follow-up on the regular medical floor. He is currently resting in bed. Awake and alert. He is having some postherpetic pain from previous shingles along his left chest. He denies any worsening shortness of breath, cough or congestion. He is maintaining O2 saturations in the 90s on room air. He has a loose nonproductive cough. Chest x-ray showing slight improvement but still significant infiltrates in the left lung. White count 12.8. Hemoglobin 11.5. Sodium 136. Potassium 3.3. Bicarb 23. BUN 12. Creatinine 0.82. He remains on vancomycin and Zosyn. He remains on DuoNeb inhalations, Symbicort, Lovenox. The patient is seen today 07/08/2023 in follow-up on the regular medical floor. Currently sitting up in a chair at the bedside. Awake and alert in no acute distress. He is maintaining O2 saturations in the 90s on room air. Afebrile. Hemodynamically stable. Sputum cultures revealed no growth. Blood culture revealed no growth. Creatinine 0.79. Continued on vancomycin and Zosyn. Continued on bronchodilators, Lovenox. Plan is for bronchoscopy with BAL and biopsies today. The patient is seen today 07/09/2023 in follow-up on the regular medical floor. He is awake and alert in no acute distress. Sitting up in a chair. Maintaining O2 saturations in the 90s on room air. Sputum culture reveals no growth. Blood culture revealed no growth. He did undergo bronchoscopy with BAL and biopsies yesterday. Cultures are pending. Cytology pending. White count 10.2. Hemoglobin 11.6. Sodium 138. Potassium 3.4. Bicarb 20. BUN 10. Creatinine 0.84. He remains on antibiotics in the form of vancomycin and Zosyn. Continue bronchodilators. Lovenox for DVT prophylaxis. The patient is seen today 07/10/2023 in follow-up on the regular medical floor. He sitting up in a chair. Awake and alert in no acute distress. Denies any worsening shortness of breath, cough or congestion. Preliminary bronchial lavage revealing no organisms seen. Sputum culture negative. Blood culture negative. Biopsies revealed no evidence of cancer. Creatinine 2.37. Random vancomycin level 44.2. Remains on Symbicort and DuoNeb inhalations. Objective - Vital Signs Vital signs: Vital Signs Temp 96.8 F L 07/10/23 07:39 Pulse 82 07/10/23 11:35 Resp 16 07/10/23 07:39 BP 129/69 07/10/23 07:39 Pulse Ox 98 07/10/23 07:39 FiO2 Intake & Output 07/09/23 07/10/23 07/10/23 18:59 06:59 18:59 Other: Voiding Method Urinal # Voids 3 0 # Bowel Movements 1 - Exam GENERAL EXAM: Alert, 88-year-old male, fairly comfortable in no apparent distress. HEAD: Normocephalic and atraumatic EYES: Normal reaction of pupils, equal size. NOSE: Clear with pink turbinates. THROAT: No erythema or exudates. NECK: No masses, no JVD. CHEST: No chest wall deformity. LUNGS: Diminished left lung sounds with scattered inspiratory crackles, rhonchi. CVS: S1 and S2 normal with no audible murmur, regular rhythm. No extra heart sounds ABDOMEN: No hepatosplenomegaly, active bowel sounds, no guarding or rigidity. SPINE: No scoliosis or deformity SKIN: No rashes CENTRAL NERVOUS SYSTEM: No focal deficits, tone is normal in all 4 extremities. EXTREMITIES: There is no peripheral edema, clubbing, or cyanosis. Peripheral pulses are intact. - Labs CBC & Chem 7: 07/09/23 06:46 07/10/23 06:12 Labs: Abnormal Lab Results - Last 24 Hours (Table) 07/10/23 07/10/23 Range/Units 06:12 06:12 Creatinine 2.37 H (0.66-1.25) mg/dL Random Vancomycin 44.2 H* ug/mL Microbiology - Last 24 Hours (Table) 07/08/23 13:35 Gram Stain - Preliminary Bronchoalviolar Lavage - Left Assessment and Plan Assessment: Acute hypoxemic respiratory failure, improved and the patient is currently on room air oxygen. A chest CTA at outside facility shows a postsurgical left upp er lobe and left hemithorax. There was extensive patchy and confluent airspace disease throughout the left lung. Left basilar bronchiectasis with moderate bronchial wall thickening. There is 4.8 cm left upper lobe cavitary mass, thought to be a cavitary pneumonia versus atypical fungal/mycobacterial infection versus necrotizing malignancy. There were additional nodular densities in the left lung measuring up to 2 cm. There was a 1.5 cm left infrahilar lymph node. There was extensive emphysematous changes. No previous imaging for comparison. This could be also an infected bullous versus a fluid-filled bullous post pneumonia. Underwent a bronchoscopy with biopsies and BAL 07/08/2023, cultures negative. Cytology negative for malignancy. COPD/emphysema, stable History of previous left upper lobe bullectomy Benign essential hypertension Hyperlipidemia Remote ex-smoker, quit 1992 Post herpetic neuralgia on the left chest wall Plan: The patient was seen and evaluated Labs and medications reviewed Currently stable and on room air Check a pro-calcitonin Follow-up chest x-ray in a.m. We will continue to follow I have personally seen and examined the patient, performed the documentation and the assessment and plan as written. Number of minutes spent on the visit: 10.
--- NOTE | 2023-07-10 12:49 | P.PN ---
Subjective Progress Note Date: 07/10/23 Patient is an 88 yo male with COPD, former tobacco dependency, hypertension, AND hyperlipidemia who presented with complaints of dyspnea. In the emergency room he underwent an extensive evaluation. His initial vitals were within normal. Labs were remarkable for WBC 13.9. Computed tomography scan of the chest demonstrated significant severe emphysematous changes, left-sided infiltrate with possible cavitary component of 4.8cm in the left upper lobe versus pneumonia surrounding bullae. He was admitted for pneumonia and started on broad spectrum abx. His procalcitonin was noted to be 0.39. Pulm was consulted for consideration of bronchoscopy and had considered this but given clinical improvement and fragile condition of patients lungs on CT imaging, preferred to defer this to outpatient setting after course of abx. Per pulmonary differential is broad including; lung abscess, or cavitary lesion from fungal, mycobacterial pneumonias. Underwent bronch with BAL on 07/08/23 with purulent secretions cultures and biopsies done. 07/09 Patient seen and examined at bedside. He continues to have his chronic left abd pain that he related to shingles, he states that the lidocaine patch did not help. He continues to have cough but believes that it is getting better. 07/10 Patient was seen and examined. He reports improvement in his neuropathic pain with Morphine as needed. He has no complaints today. Renal function today worsened with Cr 2.37. Random Vancomycin level drawn critical at 44.2. Vital signs reviewed General: nontoxic, mild distress, appears at stated age Cardiovascular: S1S2 reg, no murmur Lungs: Coarse breath sounds bilateral, no rhonchi, no rales , no accessory muscle use Ext: no gross muscle atrophy, 2+ edema b/l lower extremities, no contractures Neuro: no focal neuro deficits Psych: Alert, oriented, appropriate affect BONY - Likely due to nephrotoxicity from Vancomycin - DC Lisinopril and Toradol PRN - Renal US ordered - NS at 75 cc/hr - BMP ordered as add on to check electrolytes Community acquired pneumonia complicated by left-sided cavitary lesion, possible gram negative Acute hypoxic respiratory failure Sepsis Severe COPD Hypertension Dyslipidemia 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 Pending cytology and cultures. - Zosyn 3.375 g IV piggyback every 8 hours - Continue with DuoNeb's and Symbicort - Continue with Lipitor 10 mg nightly - Neurontin 600 mg 4 times daily, norco, lidocaine patch - Morphine 2mg IV Q6H for severe pain - Legionella urine antigen negative Moderate protein calorie malnutrition - Ensure 3 times daily with meals Imaging: Data Review: Vitals reviewed and T max in the last 24 hours 99.8, HR 59, RR 16, BP 129/69, 98% on 2L NC Labs reviewed Cr 2.37. Vancomycin level 44.2. Sputum culture-normal respiratory rebecca Blood cultures-negative to date DVT prophylaxis: lovenox Anticipated discharge date: pending clinical course Anticipated discharge place: pending clinical course This dictation was prepared using [employer] voice recognition software. Though every attempt is made to correct errors during dictation some may still exist. Objective - Vital Signs Vital signs: Vital Signs Temp 96.8 F L 07/10/23 07:39 Pulse 82 07/10/23 11:35 Resp 16 07/10/23 07:39 BP 129/69 07/10/23 07:39 Pulse Ox 98 07/10/23 07:39 FiO2 Intake & Output 07/09/23 07/10/23 07/10/23 18:59 06:59 18:59 Other: Voiding Method Urinal # Voids 3 0 # Bowel Movements 1 - Labs CBC & Chem 7: 07/09/23 06:46 07/10/23 06:12 Labs: Abnormal Lab Results - Last 24 Hours (Table) 07/10/23 07/10/23 Range/Units 06:12 06:12 Creatinine 2.37 H (0.66-1.25) mg/dL Random Vancomycin 44.2 H* ug/mL Microbiology - Last 24 Hours (Table) 07/08/23 13:35 Gram Stain - Preliminary Bronchoalviolar Lavage - Left
[2023-07-10 15:04] LABS: African American GFR (CKD) 22 (>60 ml/min/1.73 sqM); Anion Gap 8 mmol/L; Blood Urea Nitrogen 27 mg/dL (9-20); Calcium 8.6 mg/dL (8.4-10.2); Carbon Dioxide 18 mmol/L (22-30); Chloride 110 mmol/L (98-107); Glucose 110 mg/dL (74-99); Non-African American GFR(CKD) 19 (>60 ml/min/1.73 sqM); Sodium 136 mmol/L (137-145)
[2023-07-10 15:10] LABS: Potassium 4.3 mmol/L (3.5-5.1)
[2023-07-10] MEDS ORDERED: PIPERACILLIN-TAZOBACTAM 3.375 GM in SODIUM CHLORIDE 0.9% 100 ML IVPB SCH (16:00)
[2023-07-10] MEDS: SODIUM CHLORIDE 0.9% 1,000 ML IV SCH (17:11)
--- NOTE | 2023-07-10 17:25 | US ---
EXAMINATION TYPE: US kidneys/renal and bladder DATE OF EXAM: 07/10/2023 COMPARISON: NONE CLINICAL INDICATION: Male, 88 years old with history of Elevated Cr; Elevated Cr EXAM MEASUREMENTS: Right Kidney: 10.4x4.5x4.1 cm Left Kidney: 9.7x5.4x5.8 cm Right Kidney: wnl Left Kidney: wnl, slightly limited due overlying bowel gas Bladder: wnl Bilateral Jets seen: not seen due to motion artifact There is no evidence for hydronephrosis at this point in time. No nephrolithiasis is seen. No jonny s are identified. Cortical medullary differentiation is maintained. The urinary bladder is anechoic. IMPRESSION: No hydronephrosis or nephrolithiasis.
[2023-07-10] MEDS: ATORVASTATIN 10 MG TAB PO SCH (20:30)
[2023-07-10] MEDS: DOCUSATE 100 MG CAP PO SCH (20:30)
[2023-07-11] MEDS: HYDROcodone/APAP 10-325MG 1 EACH TAB PO PRN ×2 (03:52→14:55)
[2023-07-11] MEDS: SODIUM CHLORIDE 0.9% 1,000 ML IV SCH ×2 (05:12→17:26)
[2023-07-11] MEDS: PIPERACILLIN-TAZOBACTAM 3.375 GM in SODIUM CHLORIDE 0.9% 100 ML IVPB SCH ×2 (05:15→17:14)
[2023-07-11] MEDS: SYMBICORT 160-4.5 MCG INHALER INHALATION SCH ×2 (07:37→20:06)
[2023-07-11] MEDS: IPRATROPIUM-ALBUTEROL 3 ML NEB INHALATION SCH ×4 (07:37→20:06)
[2023-07-11] MEDS: ASPIRIN 81 MG PO SCH (07:43)
[2023-07-11] MEDS: ENOXAPARIN 30 MG/0.3 ML SYRINGE SQ SCH (07:43)
[2023-07-11] MEDS: GABAPENTIN 300 MG CAP PO SCH ×4 (07:43→21:38)
[2023-07-11] MEDS: CHOLECALCIFEROL 125 MCG (5000 IU) TABLET PO SCH (07:43)
[2023-07-11] MEDS: LIDOCAINE 5% PATCH TOPICAL SCH (07:43)
--- NOTE | 2023-07-11 08:20 | XR ---
EXAMINATION TYPE: XR chest 1V portable DATE OF EXAM: 07/11/2023 7:42 AM COMPARISON: Chest radiographs from 07/08/2023 TECHNIQUE: XR chest 1V portable Portable AP radiograph of the chest. CLINICAL INDICATION:Male, 88 years old with history of Pneumonia; FINDINGS: Lungs/Pleura: There is again borderline loss and extensive pleural-parenchymal opacities throughout t he left hemithorax. Surgical material throughout the left lung redemonstrated. Mild interstitial prom inence throughout the right lung is unchanged. Heart/mediastinum: Cardiomediastinal silhouette is partially obscured due to overlying and adjacent o pacities. Atherosclerotic calcifications are seen in the aorta. Musculoskeletal: No acute osseous pathology. IMPRESSION: Similar volume loss and extensive pleural-parenchymal opacities as well as surgical change throughout the left lung. No significant change.
[2023-07-11 08:35] LABS: African American GFR (CKD) 13 (>60 ml/min/1.73 sqM); Non-African American GFR(CKD) 11 (>60 ml/min/1.73 sqM)
--- NOTE | 2023-07-11 10:46 | P.PN ---
Subjective Progress Note Date: 07/11/23 I am seeing this patient in new consultation today 07/03/2023 for a cavitating left lung mass and community acquired pneumonia. Patient is a 88-year-old white male with past medical history significant for COPD/emphysema, previous left lung bullectomy, hyperlipidemia, hypertension, and is a remote ex-smoker. His PCP is a Dr. Castle. 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 Patient was transferred from [facility] for suspected extensive cavitating pneumonia on CT. Patient reports progressively worsening shortness of breath and cough with minimal sputum production over the past 3 weeks. Accompanied with muscle aches and weakness. Also, admits left sided chest pain, nonradiating. Denies fever, chills, hemoptysis. He does report approximately 15-20 pound weight loss over the last month. Patient is currently sitting up in bed, on 3 L/m nasal cannula, in no acute distress. A chest CTA at outside facility shows a postsurgical left upper lobe and left hemithorax. There was extensive patchy and confluent airspace disease throughout the left lung. Left basilar bronchiectasis with moderate bronchial wall thickening. There is 4.8 cm left upper lobe cavitary lesion, thought to be a cavitary pneumonia versus atypical fungal/mycobacterial infection versus necrotizing malignancy. There were additional nodular areas in the left lung measuring up to 2 cm. There was a 1.5 cm left infrahilar lymph node. There was extensive emphysematous changes. No previous imaging for comparison. Denies history of lung cancer. Denies previous bronchoscopy or biopsy of these lesions. CBC on arrival shows leukocytosis with a WBC count of 13.9, hemoglobin 13.4, hematocrit 41.5, platelets 298. BMP on arrival to our facility was unremarkable. Pro-calcitonin level was elevated at 0.39. Lactic acid level I.8. He is afebrile. Patient was started on a combination of Zosyn and vancomycin. Patient is hemodynamically stable at this time. On today's evaluation of 07/04/2023, the patient remains on Zosyn and vancomycin. Much improved compared to yesterday. Much more alert and awake and communicating. Oxygenation is also improved and the patient is currently on 2 L of Oxymizer nasal cannula with a pulse ox of 96%. This does cause of 10.4, hemoglobin 11, BUN is at 50 with a creatinine of 0.7 and a sodium level is at 135. Pro-calcitonin level is at 0.39. Blood cultures still pending for now. 07/05/2023, the patient is on room air oxygen. Remains on accommodation of Zosyn and vancomycin. Chest x-ray findings are unchanged. I reviewed the CAT scan again. The patient has soft tissue density in the left suprahilar area. Nevertheless, this could be a fluid-filled bullous or infected bullous as the patient has chronic emphysematous changes with bullae in the upper lobes zheng aterally. He has improved considerably. No plans for broncho-scope for now. No new labs from today. Labs from yesterday was noted. Pro-calcitonin level was at 0.39. He continues to improve. The blood cultures are negative thus far. The patient is seen today 07/06/2023 in follow-up on the regular medical floor. He is currently sitting up in a chair. Awake and alert in no acute distress. He is maintaining O2 saturations in the 90s on room air. He denies any worsening shortness of breath, cough or congestion. He is afebrile. Hemodynamically stable. Blood cultures revealed no growth. Sputum culture pending. White count 12.4. Hemoglobin 11.2. Platelets 289. He remains on DuoNeb inhalations, Symbicort. Antibiotics in the form of vancomycin and Zosyn. The patient is seen today 07/07/2023 in follow-up on the regular medical floor. He is currently resting in bed. Awake and alert. He is having some postherpetic pain from previous shingles along his left chest. He denies any worsening shortness of breath, cough or congestion. He is maintaining O2 saturations in the 90s on room air. He has a loose nonproductive cough. Chest x-ray showing slight improvement but still significant infiltrates in the left lung. White count 12.8. Hemoglobin 11.5. Sodium 136. Potassium 3.3. Bicarb 23. BUN 12. Creatinine 0.82. He remains on vancomycin and Zosyn. He remains on DuoNeb inhalations, Symbicort, Lovenox. The patient is seen today 07/08/2023 in follow-up on the regular medical floor. Currently sitting up in a chair at the bedside. Awake and alert in no acute distress. He is maintaining O2 saturations in the 90s on room air. Afebrile. Hemodynamically stable. Sputum cultures revealed no growth. Blood culture revealed no growth. Creatinine 0.79. Continued on vancomycin and Zosyn. Continued on bronchodilators, Lovenox. Plan is for bronchoscopy with BAL and biopsies today. The patient is seen today 07/09/2023 in follow-up on the regular medical floor. He is awake and alert in no acute distress. Sitting up in a chair. Maintaining O2 saturations in the 90s on room air. Sputum culture reveals no growth. Blood culture revealed no growth. He did undergo bronchoscopy with BAL and biopsies yesterday. Cultures are pending. Cytology pending. White count 10.2. Hemoglobin 11.6. Sodium 138. Potassium 3.4. Bicarb 20. BUN 10. Creatinine 0.84. He remains on antibiotics in the form of vancomycin and Zosyn. Continue bronchodilators. Lovenox for DVT prophylaxis. The patient is seen today 07/10/2023 in follow-up on the regular medical floor. He sitting up in a chair. Awake and alert in no acute distress. Denies any worsening shortness of breath, cough or congestion. Preliminary bronchial lavage revealing no organisms seen. Sputum culture negative. Blood culture negative. Biopsies revealed no evidence of cancer. Creatinine 2.37. Random vancomycin level 44.2. Remains on Symbicort and DuoNeb inhalations. The patient is seen today 07/11/2023 in follow-up on the regular medical floor. He is currently resting comfortably in bed. Awake and alert in no acute distress. Maintaining good O2 saturations in the mid 90s on 2 L/m per nasal cannula. Afebrile. Hemodynamically stable. Chest x-ray showing some slight improvement with continued similar volume loss and extensive pleuralparenchymal opacities as well as surgical change at the left lung. Ultrasound of the kidneys revealed no hydronephrosis or nephrolithiasis. Creatinine is up to 4.41 today. Vancomycin remains on hold. Objective - Vital Signs Vital signs: Vital Signs Temp 98.5 F 07/11/23 07:12 Pulse 68 07/11/23 07:47 Resp 18 07/11/23 07:12 BP 129/63 07/11/23 07:12 Pulse Ox 96 07/11/23 07:12 FiO2 Intake & Output 07/10/23 07/11/23 07/11/23 18:59 06:59 18:59 Weight 77.111 kg Other: # Voids 4 2 - Exam GENERAL EXAM: Alert, 88-year-old male, resting in bed, on 2 L nasal cannula, comfortable in no apparent distress. HEAD: Normocephalic and atraumatic EYES: Normal reaction of pupils, equal size. NOSE: Clear with pink turbinates. THROAT: No erythema or exudates. NECK: No masses, no JVD. CHEST: No chest wall deformity. LUNGS: Diminished left lung sounds with scattered inspiratory crackles, rhonchi. CVS: S1 and S2 normal with no audible murmur, regular rhythm. No extra heart sounds ABDOMEN: No hepatosplenomegaly, active bowel sounds, no guarding or rigidity. SPINE: No scoliosis or deformity SKIN: No rashes CENTRAL NERVOUS SYSTEM: No focal deficits, tone is normal in all 4 extremities. EXTREMITIES: There is no peripheral edema, clubbing, or cyanosis. Peripheral pulses are intact. - Labs CBC & Chem 7: 07/09/23 06:46 07/11/23 06:50 Labs: Abnormal Lab Results - Last 24 Hours (Table) 07/10/23 07/11/23 Range/Units 14:20 06:50 Sodium 136 L (137-145) mmol/L Chloride 110 H (98-107) mmol/L Carbon Dioxide 18 L (22-30) mmol/L BUN 27 H (9-20) mg/dL Creatinine 2.90 H 4.41 H (0.66-1.25) mg/dL Glucose 110 H (74-99) mg/dL Microbiology - Last 24 Hours (Table) 07/08/23 13:35 Gram Stain - Final Bronchoalviolar Lavage - Left Bronchial Washings Culture - Final Assessment and Plan Assessment: Acute hypoxemic respiratory failure, improved and the patient is currently on room air oxygen. A chest CTA at outside facility shows a postsurgical left upper lobe and left hemithorax. There was extensive patchy and confluent airspace disease throughout the left lung. Left basilar bronchiectasis with moderate bronchial wall thickening. There is 4.8 cm left upper lobe cavitary mass, thought to be a cavitary pneumonia versus atypical fungal/mycobacterial infection versus necrotizing malignancy. There were additional nodular densities in the left lung measuring up to 2 cm. There was a 1.5 cm left infrahilar lymph node. There was extensive emphysematous changes. No previous imaging for comparison. This could be also an infected bullous versus a fluid-filled bullous post pneumonia. Underwent a bronchoscopy with biopsies and BAL 07/08/2023, cultures negative. Cytology negative for malignancy. COPD/emphysema, stable History of previous left upper lobe bullectomy Benign essential hypertension Hyperlipidemia Remote ex-smoker, quit 1992 Post herpetic neuralgia on the left chest wall Plan: The patient was seen and evaluated Chest x-ray, labs and medications reviewed Remains off vancomycin, monitoring creatinine Plan is for subacute rehabilitation at discharge I have personally seen and examined the patient, performed the documentation and the assessment and plan as written. Number of minutes spent on the visit: 10.
--- NOTE | 2023-07-11 13:19 | P.NPCON ---
History of Present Illness - Reason for Consult acute renal failure - History of Present Illness Reason for consultation: Acute kidney injury History of present illness: The patient is a 88-year-old male seen in renal consultation for acute kidney injury. Patient basic creatinine is near 1 and is up to 4.41 today. Patient came to the hospital on 07/02/2023 due to worsening shortness of breath and cough. He was transferred from another facility. Patient was noted to have pneumonia and a possible cavitary lesion on the CT with an elevated white count. He was also hypoxic. He is currently receiving IV antibiotics. Denies chest pain or shortness of breath. Patient was receiving IV vancomycin and his vancomycin level was 44.2 dated 07/10/2023. Patient states he is voiding but has noticed decrease in the amount of urine output. He denies vomiting or diarrhea. Afebrile this morning. Hemod ynamically stable. Patient was on lisinopril and has not been discontinued. He is receiving IV fluids. No history of diabetes. He also received Toradol for pain which has now been discontinued. Vital signs are stable. General: No acute distress. HEENT: Head exam is unremarkable. LUNGS: No audible rhonchi or wheezes. HEART: Rate and Rhythm are regular. ABDOMEN: Nontender. EXTREMITITES: Trace edema. Past Medical History Past Medical History: Hyperlipidemia, Hypertension Additional Past Medical History / Comment(s): COPD History of Any Multi-Drug Resistant Organisms: None Reported Additional Past Surgical History / Comment(s): Shingles, bulla removed from left lung. Past Anesthesia/Blood Transfusion Reactions: No Reported Reaction Past Psychological History: No Psychological Hx Reported Smoking Status: Former smoker Past Alcohol Use History: None Reported Past Drug Use History: None Reported Medications and Allergies Home Medications Medication Instructions Recorded Confirmed Type Aspirin EC [Ecotrin Low Dose] 81 mg PO DAILY 07/02/23 07/02/23 History Cholecalciferol [Vitamin D3 (125 125 mcg PO DAILY 07/02/23 07/02/23 History Mcg = 5000 Iu)] Docusate Sodium [Dok] 100 mg PO HS 07/02/23 07/02/23 History Gabapentin 600 mg PO QID 07/02/23 07/02/23 History HYDROcodone/APAP 10-325MG [[place] 1 tab PO Q6HR 07/02/23 07/02/23 History 10-325] Simvastatin [Zocor] 20 mg PO HS 07/02/23 07/02/23 History lisinopriL [Lisinopril] 10 mg PO BID 07/02/23 07/02/23 History Allergies Allergy/AdvReac Type Severity Reaction Status Date / Time No Known Allergies Allergy Verified 07/02/23 15:53 Physical Exam Vitals: Vital Signs Temp Pulse Pulse Resp BP BP Pulse Ox 07/11/23 11:41 73 07/11/23 11:30 70 07/11/23 07:47 68 07/11/23 07:38 65 07/11/23 07:12 98.5 F 71 18 129/63 96 07/11/23 01:43 99.0 F 74 18 121/67 97 07/10/23 20:16 68 07/10/23 20:07 65 07/10/23 20:00 98.8 F 68 18 122/64 97 07/10/23 15:50 68 07/10/23 15:41 62 07/10/23 13:38 97.9 F 95 16 125/62 90 L Intake and Output 07/10/23 07/11/23 07/11/23 22:59 06:59 14:59 Other: # Voids 4 2 Results - Lab Results Most recent lab results Calcium 8.6 mg/dL (8.4-10.2) 07/10/23 14:20 Magnesium 1.9 mg/dL (1.5-2.4) 07/06/23 05:27 07/09/23 06:46 07/11/23 06:50 Assessment and Plan Plan: Assessment: 1. Acute kidney injury secondary to nephrotoxic ATN secondary to vancomycin toxicity. Creatinine 0.84 on admission is 4.41 today. Vancomycin level 44.2 dated 07/10/2023. No hydronephrosis noted on kidney ultrasound. Baseline creatinine 0.84 dated 07/09/2023. 2. Pneumonia maintained on antibiotics. Status post bronchoscopy this admission which did show 4.8 cm left upper lobe cavitary mass. Nodular densities also noted in the left lung. 3. Metabolic acidosis secondary to acute kidney injury and IV fluids. 4. Mild volume overload. Plan: Decrease rate of IV fluids to 60 mL an hour. Encourage oral intake. Strict I's and O's. Check urinalysis. Check bladder scan to rule out urinary retention. Avoid nephrotoxins. Continue to assess daily for need for renal placement therapy. Add oral bicarbonate. Thank you for the consultation. I will continue to follow the patient with you during his hospital stay.
[2023-07-11] MEDS: SODIUM BICARBONATE TAB 650 MG TAB PO SCH ×2 (14:55→21:38)
--- NOTE | 2023-07-11 15:14 | P.PN ---
Subjective Progress Note Date: 07/11/23 Patient is an 88 yo male with COPD, former tobacco dependency, hypertension, AND hyperlipidemia who presented with complaints of dyspnea. In the emergency room he underwent an extensive evaluation. His initial vitals were within normal. Labs were remarkable for WBC 13.9. Computed tomography scan of the chest demonstrated significant severe emphysematous changes, left-sided infiltrate with possible cavitary component of 4.8cm in the left upper lobe versus pneumonia surrounding bullae. He was admitted for pneumonia and started on broad spectrum abx. His procalcitonin was noted to be 0.39. Pulm was consulted for consideration of bronchoscopy and had considered this but given clinical improvement and fragile condition of patients lungs on CT imaging, preferred to defer this to outpatient setting after course of abx. Per pulmonary differential is broad including; lung abscess, or cavitary lesion from fungal, mycobacterial pneumonias. Underwent bronch with BAL on 07/08/23 with purulent secretions cultures and biopsies done. 07/09 Patient seen and examined at bedside. He continues to have his chronic left abd pain that he related to shingles, he states that the lidocaine patch did not help. He continues to have cough but believes that it is getting better. 07/10 Patient was seen and examined. He reports improvement in his neuropathic pain with Morphine as needed. He has no complaints today. Renal function today worsened with Cr 2.37. Random Vancomycin level drawn critical at 44.2. 07/11 Patient was seen and examined. He reports no complaints today. His breathing is stable and neuropathic pain is well controlled. Currently on 2L NC. Renal function shows Cr 4.41. Nephrology consulted, recommends bladder scan, UA and oral sodium bicarbonate. Vital signs reviewed General: nontoxic, no distress, appears at stated age Cardiovascular: S1S2 reg, no murmur Lungs: Coarse breath sounds bilateral, no rhonchi, no rales , no accessory muscle use Ext: no gross muscle atrophy, 2+ edema b/l lower extremities, no contractures Neuro: no focal neuro deficits Psych: Alert, oriented, appropriate affect BONY Metabolic acidosis - Likely due to nephrotoxicity from Vancomycin - DC Lisinopril and Toradol PRN - Renal US shows no hydronephrosis - NS decreased to 60 cc/hr - Nephrology consult - check UA, add oral bicarbonate, bladder scan - BMP ordered as add on to check electrolytes Community acquired pneumonia complicated by left-sided cavitary lesion, possible gram negative Acute hypoxic respiratory failure Sepsis Severe COPD Hypertension Dyslipidemia 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 Pending cytology and cultures. - Zosyn 3.375 g IV piggyback every 8 hours - Continue with DuoNeb's and Symbicort - Continue with Lipitor 10 mg nightly - Neurontin 600 mg 4 times daily, norco, lidocaine patch - Morphine 2mg IV Q6H for severe pain - Legionella urine antigen negative Moderate protein calorie malnutrition - Ensure 3 times daily with meals Imaging: Data Review: Vitals reviewed and T max in the last 24 hours 99.8, HR 71, RR 18, BP 129/63, 96% on 2L NC Renal US negative Labs reviewed Cr 4.41. Sputum culture-normal respiratory rebecca Blood cultures-negative to date DVT prophylaxis: lovenox Anticipated discharge date: pending clinical course Anticipated discharge place: pending clinical course This dictation was prepared using [employer] voice recognition software. Though every attempt is made to correct errors during dictation some may still exist. Objective - Vital Signs Vital signs: Vital Signs Temp 98.5 F 07/11/23 07:12 Pulse 73 07/11/23 11:41 Resp 18 07/11/23 07:12 BP 129/63 07/11/23 07:12 Pulse Ox 96 07/11/23 07:12 FiO2 Intake & Output 07/10/23 07/11/23 07/11/23 18:59 06:59 18:59 Intake Total 680 Balance 680 Weight 77.111 kg Intake: Intake, IV Titration 680 Amount Piperacillin-Tazobactam 3 100 .375 gm In Sodium Chloride 0.9% 100 ml @ 25 mls/hr IVPB Q12H SARAH Rx# :[id number] Piperacillin-Tazobactam 3 100 .375 gm In Sodium Chloride 0.9% 100 ml @ 25 mls/hr IVPB Q8HR SARAH Rx# :[id number] Sodium Chloride 0.9% 1, 480 000 ml @ 60 mls/hr IV . [id number] SARAH Rx#:[id number] Other: # Voids 4 2 - Labs CBC & Chem 7: 07/09/23 06:46 07/11/23 06:50 Labs: Abnormal Lab Results - Last 24 Hours (Table) 07/10/23 07/11/23 Range/Units 14:20 06:50 Sodium 136 L (137-145) mmol/L Chloride 110 H (98-107) mmol/L Carbon Dioxide 18 L (22-30) mmol/L BUN 27 H (9-20) mg/dL Creatinine 2.90 H 4.41 H (0.66-1.25) mg/dL Glucose 110 H (74-99) mg/dL Microbiology - Last 24 Hours (Table) 07/08/23 13:35 Gram Stain - Final Bronchoalviolar Lavage - Left Bronchial Washings Culture - Final
[2023-07-11] MEDS: ATORVASTATIN 10 MG TAB PO SCH (21:38)
[2023-07-11] MEDS: DOCUSATE 100 MG CAP PO SCH (21:38)
[2023-07-11 21:58] LABS: Appearance,Urine Clear (Clear); Bacteria,Urine Rare /hpf; Bilirubin,Urine Negative (Negative); Blood,Urine Negative (Negative); Color,Urine Colorless; Glucose,Urine (UA) Negative (Negative); Ketones,Urine Negative (Negative); Leukocyte Esterase,Urine Negative (Negative); Nitrite,Urine Negative (Negative); Protein,Urine 1+ (Negative); RBC,Urine 2 /hpf (0-5); Specific Gravity,Urine 1.008 (1.001-1.035); Squamous Epithelial Cell,Urine <1 /hpf (0-4); Urobilinogen,Urine <2.0 mg/dL (<2.0); WBC,Urine 1 /hpf (0-5)
[2023-07-12] MEDS: HYDROcodone/APAP 10-325MG 1 EACH TAB PO PRN ×2 (03:24→17:16)
[2023-07-12] MEDS: PIPERACILLIN-TAZOBACTAM 3.375 GM in SODIUM CHLORIDE 0.9% 100 ML IVPB SCH (05:42)
[2023-07-12 07:55] LABS: African American GFR (CKD) 9 (>60 ml/min/1.73 sqM); Anion Gap 8 mmol/L; Blood Urea Nitrogen 48 mg/dL (9-20); Calcium 8.5 mg/dL (8.4-10.2); Carbon Dioxide 17 mmol/L (22-30); Chloride 110 mmol/L (98-107); Glucose 90 mg/dL (74-99); Magnesium 2.2 mg/dL (1.6-2.3); Non-African American GFR(CKD) 8 (>60 ml/min/1.73 sqM); Potassium 4.8 mmol/L (3.5-5.1); Sodium 135 mmol/L (137-145)
[2023-07-12] MEDS: CHOLECALCIFEROL 125 MCG (5000 IU) TABLET PO SCH (09:01)
[2023-07-12] MEDS: ASPIRIN 81 MG PO SCH (09:01)
[2023-07-12] MEDS: LIDOCAINE 5% PATCH TOPICAL SCH (09:01)
[2023-07-12] MEDS: SODIUM BICARBONATE TAB 650 MG TAB PO SCH ×2 (09:01→21:31)
[2023-07-12] MEDS: ENOXAPARIN 30 MG/0.3 ML SYRINGE SQ SCH (09:01)
[2023-07-12] MEDS: GABAPENTIN 300 MG CAP PO SCH ×4 (09:01→21:31)
[2023-07-12] MEDS: SODIUM CHLORIDE 0.9% 1,000 ML IV SCH (09:05)
[2023-07-12] MEDS: SYMBICORT 160-4.5 MCG INHALER INHALATION SCH ×2 (09:13→20:00)
[2023-07-12] MEDS: IPRATROPIUM-ALBUTEROL 3 ML NEB INHALATION SCH ×4 (09:13→20:00)
--- NOTE | 2023-07-12 10:18 | P.PN ---
Subjective Progress Note Date: 07/12/23 I am seeing this patient in new consultation today 07/03/2023 for a cavitating left lung mass and community acquired pneumonia. Patient is a 88-year-old white male with past medical history significant for COPD/emphysema, previous left lung bullectomy, hyperlipidemia, hypertension, and is a remote ex-smoker. His PCP is a Dr. Castle. He does not follow with a snowboard designer. Patient was transferred from [facility] for suspected extensive cavitating pneumonia on CT. Patient reports progressively worsening shortness of breath and cough with minimal sputum production over the past 3 weeks. Accompanied with muscle aches and weakness. Also, admits left sided chest pain, nonradiating. Denies fever, chills, hemoptysis. He does report approximately 15-20 pound weight loss over the last month. Patient is currently sitting up in bed, on 3 L/m nasal cannula, in no acute distress. A chest CTA at outside facility shows a postsurgical left upper lobe and left hemithorax. There was extensive patchy and confluent airspace disease throughout the left lung. Left basilar bronchiectasis with moderate bronchial wall thickening. There is 4.8 cm left upper lobe cavitary lesion, thought to be a cavitary pneumonia versus atypical fungal/mycobacterial infection versus necrotizing malignancy. There were additional nodular areas in the left lung measuring up to 2 cm. There was a 1.5 cm left infrahilar lymph node. There was extensive emphysematous changes. No previous imaging for comparison. Denies history of lung cancer. Denies previous bronchoscopy or biopsy of these lesions. CBC on arrival shows leukocytosis with a WBC count of 13.9, hemoglobin 13.4, hematocrit 41.5, platelets 298. BMP on arrival to our facility was unremarkable. Pro-calcitonin level was elevated at 0.39. Lactic acid level I.8. He is afebrile. Patient was started on a combination of Zosyn and vancomycin. Patient is hemodynamically stable at this time. On today's evaluation of 07/04/2023, the patient remains on Zosyn and vancomycin. Much improved compared to yesterday. Much more alert and awake and communicating. Oxygenation is also improved and the patient is currently on 2 L of Oxymizer nasal cannula with a pulse ox of 96%. This does cause of 10.4, hemoglobin 11, BUN is at 50 with a creatinine of 0.7 and a sodium level is at 135. Pro-calcitonin level is at 0.39. Blood cultures still pending for now. 07/05/2023, the patient is on room air oxygen. Remains on accommodation of Zosyn and vancomycin. Chest x-ray findings are unchanged. I reviewed the CAT scan again. The patient has soft tissue density in the left suprahilar area. Nevertheless, this could be a fluid-filled bullous or infected bullous as the patient has chronic emphysematous changes with bullae in the upper lobes zheng aterally. He has improved considerably. No plans for broncho-scope for now. No new labs from today. Labs from yesterday was noted. Pro-calcitonin level was at 0.39. He continues to improve. The blood cultures are negative thus far. The patient is seen today 07/06/2023 in follow-up on the regular medical floor. He is currently sitting up in a chair. Awake and alert in no acute distress. He is maintaining O2 saturations in the 90s on room air. He denies any worsening shortness of breath, cough or congestion. He is afebrile. Hemodynamically stable. Blood cultures revealed no growth. Sputum culture pending. White count 12.4. Hemoglobin 11.2. Platelets 289. He remains on DuoNeb inhalations, Symbicort. Antibiotics in the form of vancomycin and Zosyn. The patient is seen today 07/07/2023 in follow-up on the regular medical floor. He is currently resting in bed. Awake and alert. He is having some postherpetic pain from previous shingles along his left chest. He denies any worsening shortness of breath, cough or congestion. He is maintaining O2 saturations in the 90s on room air. He has a loose nonproductive cough. Chest x-ray showing slight improvement but still significant infiltrates in the left lung. White count 12.8. Hemoglobin 11.5. Sodium 136. Potassium 3.3. Bicarb 23. BUN 12. Creatinine 0.82. He remains on vancomycin and Zosyn. He remains on DuoNeb inhalations, Symbicort, Lovenox. The patient is seen today 07/08/2023 in follow-up on the regular medical floor. Currently sitting up in a chair at the bedside. Awake and alert in no acute distress. He is maintaining O2 saturations in the 90s on room air. Afebrile. Hemodynamically stable. Sputum cultures revealed no growth. Blood culture revealed no growth. Creatinine 0.79. Continued on vancomycin and Zosyn. Continued on bronchodilators, Lovenox. Plan is for bronchoscopy with BAL and biopsies today. The patient is seen today 07/09/2023 in follow-up on the regular medical floor. He is awake and alert in no acute distress. Sitting up in a chair. Maintaining O2 saturations in the 90s on room air. Sputum culture reveals no growth. Blood culture revealed no growth. He did undergo bronchoscopy with BAL and biopsies yesterday. Cultures are pending. Cytology pending. White count 10.2. Hemoglobin 11.6. Sodium 138. Potassium 3.4. Bicarb 20. BUN 10. Creatinine 0.84. He remains on antibiotics in the form of vancomycin and Zosyn. Continue bronchodilators. Lovenox for DVT prophylaxis. The patient is seen today 07/10/2023 in follow-up on the regular medical floor. He sitting up in a chair. Awake and alert in no acute distress. Denies any worsening shortness of breath, cough or congestion. Preliminary bronchial lavage revealing no organisms seen. Sputum culture negative. Blood culture negative. Biopsies revealed no evidence of cancer. Creatinine 2.37. Random vancomycin level 44.2. Remains on Symbicort and DuoNeb inhalations. The patient is seen today 07/11/2023 in follow-up on the regular medical floor. He is currently resting comfortably in bed. Awake and alert in no acute distress. Maintaining good O2 saturations in the mid 90s on 2 L/m per nasal cannula. Afebrile. Hemodynamically stable. Chest x-ray showing some slight improvement with continued similar volume loss and extensive pleuralparenchymal opacities as well as surgical change at the left lung. Ultrasound of the kidneys revealed no hydronephrosis or nephrolithiasis. Creatinine is up to 4.41 today. Vancomycin remains on hold. The patient is seen today 07/12/2023 in follow-up on the regular medical floor. He is currently sitting up in a chair. Awake and alert in no acute distress. Maintaining O2 saturations in the mid 90s on 2 L/m per nasal cannula. Afebrile. Hemodynamically stable. He remains on DuoNeb inhalations, Symbicort, Lovenox. Creatinine still on the rise currently 6.04. BUN 48. Sodium 15. Potassium 4.8. Bicarb 17. Urinalysis clean. Remains on sodium bicarbonate tablets. Receiving normal saline at 60 ML's per hour. Objective - Vital Signs Vital signs: Vital Signs Temp 98.4 F 07/12/23 07:00 Pulse 68 07/12/23 09:29 Resp 18 07/12/23 07:00 BP 124/67 07/12/23 07:00 Pulse Ox 96 07/12/23 07:00 FiO2 Intake & Output 07/11/23 07/12/23 07/12/23 18:59 06:59 18:59 Intake Total 680 1300 Output Total 300 120 165 Balance 380 1180 -165 Intake: Intake, IV Titration 680 820 Amount Piperacillin-Tazobactam 3 100 100 .375 gm In Sodium Chloride 0.9% 100 ml @ 25 mls/hr IVPB Q12H [facility] Rx# :[id number] Piperacillin-Tazobactam 3 100 .375 gm In Sodium Chloride 0.9% 100 ml @ 25 mls/hr IVPB Q8HR [facility] Rx# :[id number] Sodium Chloride 0.9% 1, 480 720 000 ml @ 60 mls/hr IV . [id number] [facility] Rx#:[id number] Oral 480 Output: Urine 150 120 165 Post Void Residual 150 - Exam GENERAL EXAM: Alert, pleasant 88-year-old male, sitting in a chair, on 2 L nasal cannula, comfortable in no apparent distress. HEAD: Normocephalic and atraumatic EYES: Normal reaction of pupils, equal size. NOSE: Clear with pink turbinates. THROAT: No erythema or exudates. NECK: No masses, no JVD. CHEST: No chest wall deformity. LUNGS: Diminished left lung sounds with scattered inspiratory crackles, rhonchi. CVS: S1 and S2 normal with no audible murmur, regular rhythm. No extra heart sounds ABDOMEN: No hepatosplenomegaly, active bowel sounds, no guarding or rigidity. SPINE: No scoliosis or deformity SKIN: No rashes CENTRAL NERVOUS SYSTEM: No focal deficits, tone is normal in all 4 extremities. EXTREMITIES: There is no peripheral edema, clubbing, or cyanosis. Peripheral pulses are intact. - Labs CBC & Chem 7: 07/09/23 06:46 07/12/23 07:25 Labs: Abnormal Lab Results - Last 24 Hours (Table) 07/11/23 07/12/23 Range/Units 20:30 07:25 Sodium 135 L (137-145) mmol/L Chloride 110 H (98-107) mmol/L Carbon Dioxide 17 L (22-30) mmol/L BUN 48 H (9-20) mg/dL Creatinine 6.04 H (0.66-1.25) mg/dL Urine Protein 1+ H (Negative) Urine Bacteria Rare H (None) /hpf Microbiology - Last 24 Hours (Table) 07/08/23 13:35 Gram Stain - Final Bronchoalviolar Lavage - Left Bronchial Washings Culture - Final Assessment and Plan Assessment: Acute hypoxemic respiratory failure, improved and the patient is currently on room air oxygen. A chest CTA at outside facility shows a postsurgical left upper lobe and left hemithorax. There was extensive patchy and confluent airspace disease throughout the left lung. Left basilar bronchiectasis with moderate bronchial wall thickening. There is 4.8 cm left upper lobe cavitary mass, thought to be a cavitary pneumonia versus atypical fungal/mycobacterial i nfection versus necrotizing malignancy. There were additional nodular densities in the left lung measuring up to 2 cm. There was a 1.5 cm left infrahilar lymph node. There was extensive emphysematous changes. No previous imaging for comparison. This could be also an infected bullous versus a fluid-filled bullous post pneumonia. Underwent a bronchoscopy with biopsies and BAL 07/08/2023, cultures negative. Cytology negative for malignancy. Acute kidney injury secondary to vancomycin toxicity, creatinine up to 6.04 COPD/emphysema, stable History of previous left upper lobe bullectomy Benign essential hypertension Hyperlipidemia Remote ex-smoker, quit 1992 Post herpetic neuralgia on the left chest wall Plan: The patient was seen and evaluated Labs and medications reviewed Remains off vancomycin, monitoring creatinine Nephrology has been consulted Normal saline at 60 ML's per hour Sodium bicarb tablets initiated May require renal replacement therapy Plan is for subacute rehabilitation at discharge I have personally seen and examined the patient, performed the documentation and the assessment and plan as written. Number of minutes spent on the visit: 10.
[2023-07-12] MEDS ORDERED: FUROSEMIDE 10 MG/ML 10 ML VIAL IV STA (10:30)
--- NOTE | 2023-07-12 11:04 | P.PN ---
Subjective Progress Note Date: 07/12/23 Patient is an 88 yo male with COPD, former tobacco dependency, hypertension, AND hyperlipidemia who presented with complaints of dyspnea. In the emergency room he underwent an extensive evaluation. His initial vitals were within normal. Labs were remarkable for WBC 13.9. Computed tomography scan of the chest demonstrated significant severe emphysematous changes, left-sided infiltrate with possible cavitary component of 4.8cm in the left upper lobe versus pneumonia surrounding bullae. He was admitted for pneumonia and started on broad spectrum abx. His procalcitonin was noted to be 0.39. Pulm was consulted for consideration of bronchoscopy and had considered this but given clinical improvement and fragile condition of patients lungs on CT imaging, preferred to defer this to outpatient setting after course of abx. Per pulmonary differential is broad including; lung abscess, or cavitary lesion from fungal, mycobacterial pneumonias. Underwent bronch with BAL on 07/08/23 with purulent secretions cultures and biopsies done. 07/09 Patient seen and examined at bedside. He continues to have his chronic left abd pain that he related to shingles, he states that the lidocaine patch did not help. He continues to have cough but believes that it is getting better. 07/10 Patient was seen and examined. He reports improvement in his neuropathic pain with Morphine as needed. He has no complaints today. Renal function today worsened with Cr 2.37. Random Vancomycin level drawn critical at 44.2. 07/11 Patient was seen and examined. He reports no complaints today. His breathing is stable and neuropathic pain is well controlled. Currently on 2L NC. Renal function shows Cr 4.41. Nephrology consulted, recommends bladder scan, UA and oral sodium bicarbonate. 07/12 Patient was seen and examined. No acute events overnight. Seen with Dr. Angel at bedside. BMP shows Na 135, Cl 110, bicarb 17, BUN 48, Cr 6.04. Vital signs reviewed General: nontoxic, no distress, appears at stated age Cardiovascular: good distal perfusion in all 4 extremities Lungs: breathing comfortably , no accessory muscle use Ext: no gross muscle atrophy, 2+ edema b/l lower extremities, no contractures Neuro: no focal neuro deficits Psych: Alert, oriented, appropriate affect BONY Metabolic acidosis - Likely due to nephrotoxicity from Vancomycin - DC Lisinopril and Toradol PRN - Renal US shows no hydronephrosis - Lasix 80 mg IV x 1 ordered by Nephrology - NS at 60 cc/hr - Continue sodium bicarbonate 650 mg PO BID - Nephrology on board - Daily BMP Community acquired pneumonia complicated by left-sided cavitary lesion, possible gram negative Acute hypoxic respiratory failure Sepsis Severe COPD Hypertension Dyslipidemia 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 Pending cytology and cultures. - Completed course on antibiotics - Continue with DuoNeb's and Symbicort - Continue with Lipitor 10 mg nightly - Neurontin 600 mg 4 times daily, norco, lidocaine patch - Morphine 2mg IV Q6H for severe pain - Legionella urine antigen negative Moderate protein calorie malnutrition - Ensure 3 times daily with meals Imaging: Data Review: Vitals reviewed and T max in the last 24 hours 99.2, HR 66, RR 18, BP 124/67, 96% on 2L NC Renal US negative Labs reviewed Na 135, Cl 110, bicarb 17, BUN 48, Cr 6.04. UA 1+ protein and rare bacteria Sputum culture-normal respiratory rebecca Blood cultures-negative to date DVT prophylaxis: lovenox Anticipated discharge date: pending clinical course Anticipated discharge place: pending clinical course This dictation was prepared using [employer] voice recognition software. Though every attempt is made to correct errors during dictation some may still exist. Objective - Vital Signs Vital signs: Vital Signs Temp 98.4 F 07/12/23 07:00 Pulse 68 07/12/23 09:29 Resp 18 07/12/23 07:00 BP 124/67 07/12/23 07:00 Pulse Ox 96 07/12/23 07:00 FiO2 Intake & Output 07/11/23 07/12/23 07/12/23 18:59 06:59 18:59 Intake Total 680 1300 Output Total 300 120 165 Balance 380 1180 -165 Intake: Intake, IV Titration 680 820 Amount Piperacillin-Tazobactam 3 100 100 .375 gm In Sodium Chloride 0.9% 100 ml @ 25 mls/hr IVPB Q12H [facility] Rx# :[id number] Piperacillin-Tazobactam 3 100 .375 gm In Sodium Chloride 0.9% 100 ml @ 25 mls/hr IVPB Q8HR [facility] Rx# :[id number] Sodium Chloride 0.9% 1, 480 720 000 ml @ 60 mls/hr IV . [id number] [facility] Rx#:[id number] Oral 480 Output: Urine 150 120 165 Post Void Residual 150 - Labs CBC & Chem 7: 07/09/23 06:46 07/12/23 07:25 Labs: Abnormal Lab Results - Last 24 Hours (Table) 07/11/23 07/12/23 Range/Units 20:30 07:25 Sodium 135 L (137-145) mmol/L Chloride 110 H (98-107) mmol/L Carbon Dioxide 17 L (22-30) mmol/L BUN 48 H (9-20) mg/dL Creatinine 6.04 H (0.66-1.25) mg/dL Urine Protein 1+ H (Negative) Urine Bacteria Rare H (None) /hpf Microbiology - Last 24 Hours (Table) 07/08/23 13:35 Gram Stain - Final Bronchoalviolar Lavage - Left Bronchial Washings Culture - Final
[2023-07-12] MEDS ORDERED: SODIUM BICARB 8.4% 50 ML SYR (1 MEQ/ML) IV STA (11:34)
--- NOTE | 2023-07-12 11:35 | P.PN ---
Subjective Patient is seen in follow-up for acute kidney injury. Renal function continues to worsen. Creatinine 6.04 today. Urine output about 300 cc overnight. Oral intake fair. No vomiting or diarrhea. Vital signs are stable. General: No acute distress. HEENT: Head exam is unremarkable. LUNGS: No audible rhonchi or wheezes. HEART: Rate and Rhythm are regular. ABDOMEN: Nontender. EXTREMITITES: 1+ edema. Objective - Vital Signs Vital signs: Vital Signs Temp 98.4 F 07/12/23 07:00 Pulse 68 07/12/23 09:29 Resp 18 07/12/23 07:00 BP 124/67 07/12/23 07:00 Pulse Ox 96 07/12/23 07:00 FiO2 Intake & Output 07/11/23 07/12/23 07/12/23 18:59 06:59 18:59 Intake Total 680 1300 Output Total 300 120 165 Balance 380 1180 -165 Intake: Intake, IV Titration 680 820 Amount Piperacillin-Tazobactam 3 100 100 .375 gm In Sodium Chloride 0.9% 100 ml @ 25 mls/hr IVPB Q12H [facility] Rx# :[id number] Piperacillin-Tazobactam 3 100 .375 gm In Sodium Chloride 0.9% 100 ml @ 25 mls/hr IVPB Q8HR [facility] Rx# :[id number] Sodium Chloride 0.9% 1, 480 720 000 ml @ 60 mls/hr IV . [id number] [facility] Rx#:[id number] Oral 480 Output: Urine 150 120 165 Post Void Residual 150 - Labs CBC & Chem 7: 07/09/23 06:46 07/12/23 07:25 Labs: Abnormal Lab Results - Last 24 Hours (Table) 07/11/23 07/12/23 Range/Units 20:30 07:25 Sodium 135 L (137-145) mmol/L Chloride 110 H (98-107) mmol/L Carbon Dioxide 17 L (22-30) mmol/L BUN 48 H (9-20) mg/dL Creatinine 6.04 H (0.66-1.25) mg/dL Urine Protein 1+ H (Negative) Urine Bacteria Rare H (None) /hpf Microbiology - Last 24 Hours (Table) 07/08/23 13:35 Gram Stain - Final Bronchoalviolar Lavage - Left Bronchial Washings Culture - Final Assessment and Plan Plan: Assessment: 1. Acute kidney injury secondary to nephrotoxic ATN secondary to vancomycin toxicity. Creatinine 0.84 on admission is 6.04 today. Vancomycin level 44.2 dated 07/10/2023. No hydronephrosis noted on kidney ultrasound. Baseline creatinine 0.84 dated 07/09/2023. UA fairly benign. 2. Pneumonia maintained on antibiotics. Status post bronchoscopy this admission which did show 4.8 cm left upper lobe cavitary mass. Nodular densities also noted in the left lung. 3. Metabolic acidosis secondary to acute kidney injury and IV fluids. On oral bicarbonate. 4. Mild volume overload. Plan: Lasix 80 mg IV once today. Encourage oral intake. Strict I's and O's. Avoid nephrotoxins. Continue to assess daily for need for renal placement therapy. No urgency at this time. 2 A sodium bicarbonate IV push today.
[2023-07-12] MEDS: ATORVASTATIN 10 MG TAB PO SCH (21:31)
[2023-07-12] MEDS: DOCUSATE 100 MG CAP PO SCH (21:31)
[2023-07-12] MEDS: MORPHINE SULFATE 2 MG/ML SYRINGE IVP PRN (21:50)
[2023-07-13] MEDS: HYDROcodone/APAP 10-325MG 1 EACH TAB PO PRN ×2 (03:30→09:49)
[2023-07-13] MEDS: ENOXAPARIN 30 MG/0.3 ML SYRINGE SQ SCH (08:34)
[2023-07-13] MEDS: LIDOCAINE 5% PATCH TOPICAL SCH (08:34)
[2023-07-13] MEDS: ASPIRIN 81 MG PO SCH (08:35)
[2023-07-13] MEDS: CHOLECALCIFEROL 125 MCG (5000 IU) TABLET PO SCH (08:35)
[2023-07-13] MEDS: SODIUM BICARBONATE TAB 650 MG TAB PO SCH ×2 (08:35→20:22)
[2023-07-13] MEDS: GABAPENTIN 300 MG CAP PO SCH ×4 (08:35→20:21)
[2023-07-13] MEDS: IPRATROPIUM-ALBUTEROL 3 ML NEB INHALATION SCH ×4 (08:48→22:23)
[2023-07-13] MEDS: SYMBICORT 160-4.5 MCG INHALER INHALATION SCH ×2 (08:48→22:23)
[2023-07-13 09:00] LABS: Basophils # (A) 0.08 X 10*3/uL (0.00-0.10); Basophils % (A) 0.9 %; Eosinophils # (A) 0.19 X 10*3/uL (0.04-0.35); Eosinophils % (A) 2.1 %; HCT 32.4 % (39.6-50.0); Lymphocytes # (A) 1.08 X 10*3/uL (0.90-5.00); Lymphocytes % (A) 11.7 %; MCH 27.9 pg (27.0-32.0); MCHC 30.9 d/dL (32.0-37.0); MCV 90.3 FL (80.0-97.0); Mean Platelet Volume 9.3 FL (9.5-12.2); Monocytes % (A) 9.8 %; NRBC Per 100 WBC 0 X 10*3/uL (0.00-0.01); Neutrophils # (A) 6.95 X 10*3/uL (1.80-7.70); Neutrophils % (A) 75.2 %; Platelet Count 220 X 10*3/uL (140-440); RBC 3.59 X 10*6/uL (4.40-5.60); RDW 15.1 % (11.5-14.5); WBC 9.23 X 10*3/uL (4.50-10.00)
[2023-07-13 09:04] LABS: Magnesium 2.4 mg/dL (1.5-2.4); Phosphorus 7.9 mg/dL (2.4-5.1)
[2023-07-13 09:09] LABS: ALT 42 U/L (10-49); AST 26 U/L (14-35); Albumin 2.5 d/dL (3.8-4.9); Albumin/Globulin Ratio 0.74 Ratio (1.60-3.17); Alkaline Phosphatase 98 U/L (41-126); BUN/Creat Ratio 7.03 Ratio (12.00-20.00); Blood Urea Nitrogen 51.3 mg/dL (9.0-27.0); Calcium 8.7 mg/dL (8.7-10.3); Chloride 105 mmol/L (96-109); Globulin 3.4 d/dL (1.6-3.3); Glucose 104 mg/dL (70-110); Potassium 5.2 mmol/L (3.5-5.5); Sodium 138 mmol/L (135-145); Total Bilirubin <0.2 mg/dL (0.3-1.2); Total Protein 5.9 d/dL (6.2-8.2)
[2023-07-13] MEDS ORDERED: FUROSEMIDE 10 MG/ML 10 ML VIAL IV STA (10:07)
--- NOTE | 2023-07-13 10:45 | P.PN ---
Subjective Progress Note Date: 07/13/23 I am seeing this patient in new consultation today 07/03/2023 for a cavitating left lung mass and community acquired pneumonia. Patient is a 88-year-old white male with past medical history significant for COPD/emphysema, previous left lung bullectomy, hyperlipidemia, hypertension, and is a remote ex-smoker. His PCP is a Dr. Castle. He does not follow with a sonoscope operator. Patient was transferred from [facility] for suspected extensive cavitating pneumonia on CT. Patient reports progressively worsening shortness of breath and cough with minimal sputum production over the past 3 weeks. Accompanied with muscle aches and weakness. Also, admits left sided chest pain, nonradiating. Denies fever, chills, hemoptysis. He does report approximately 15-20 pound weight loss over the last month. Patient is currently sitting up in bed, on 3 L/m nasal cannula, in no acute distress. A chest CTA at outside facility shows a postsurgical left upper lobe and left hemithorax. There was extensive patchy and confluent airspace disease throughout the left lung. Left basilar bronchiectasis with moderate bronchial wall thickening. There is 4.8 cm left upper lobe cavitary lesion, thought to be a cavitary pneumonia versus atypical fungal/mycobacterial infection versus necrotizing malignancy. There were additional nodular areas in the left lung measuring up to 2 cm. There was a 1.5 cm left infrahilar lymph node. There was extensive emphysematous changes. No previous imaging for comparison. Denies history of lung cancer. Denies previous bronchoscopy or biopsy of these lesions. CBC on arrival shows leukocytosis with a WBC count of 13.9, hemoglobin 13.4, hematocrit 41.5, platelets 298. BMP on arrival to our facility was unremarkable. Pro-calcitonin level was elevated at 0.39. Lactic acid level I.8. He is afebrile. Patient was started on a combination of Zosyn and vancomycin. Patient is hemodynamically stable at this time. On today's evaluation of 07/04/2023, the patient remains on Zosyn and vancomycin. Much improved compared to yesterday. Much more alert and awake and communicating. Oxygenation is also improved and the patient is currently on 2 L of Oxymizer nasal cannula with a pulse ox of 96%. This does cause of 10.4, hemoglobin 11, BUN is at 50 with a creatinine of 0.7 and a sodium level is at 135. Pro-calcitonin level is at 0.39. Blood cultures still pending for now. 07/05/2023, the patient is on room air oxygen. Remains on accommodation of Zosyn and vancomycin. Chest x-ray findings are unchanged. I reviewed the CAT scan again. The patient has soft tissue density in the left suprahilar area. Nevertheless, this could be a fluid-filled bullous or infected bullous as the patient has chronic emphysematous changes with bullae in the upper lobes zheng aterally. He has improved considerably. No plans for broncho-scope for now. No new labs from today. Labs from yesterday was noted. Pro-calcitonin level was at 0.39. He continues to improve. The blood cultures are negative thus far. The patient is seen today 07/06/2023 in follow-up on the regular medical floor. He is currently sitting up in a chair. Awake and alert in no acute distress. He is maintaining O2 saturations in the 90s on room air. He denies any worsening shortness of breath, cough or congestion. He is afebrile. Hemodynamically stable. Blood cultures revealed no growth. Sputum culture pending. White count 12.4. Hemoglobin 11.2. Platelets 289. He remains on DuoNeb inhalations, Symbicort. Antibiotics in the form of vancomycin and Zosyn. The patient is seen today 07/07/2023 in follow-up on the regular medical floor. He is currently resting in bed. Awake and alert. He is having some postherpetic pain from previous shingles along his left chest. He denies any worsening shortness of breath, cough or congestion. He is maintaining O2 saturations in the 90s on room air. He has a loose nonproductive cough. Chest x-ray showing slight improvement but still significant infiltrates in the left lung. White count 12.8. Hemoglobin 11.5. Sodium 136. Potassium 3.3. Bicarb 23. BUN 12. Creatinine 0.82. He remains on vancomycin and Zosyn. He remains on DuoNeb inhalations, Symbicort, Lovenox. The patient is seen today 07/08/2023 in follow-up on the regular medical floor. Currently sitting up in a chair at the bedside. Awake and alert in no acute distress. He is maintaining O2 saturations in the 90s on room air. Afebrile. Hemodynamically stable. Sputum cultures revealed no growth. Blood culture revealed no growth. Creatinine 0.79. Continued on vancomycin and Zosyn. Continued on bronchodilators, Lovenox. Plan is for bronchoscopy with BAL and biopsies today. The patient is seen today 07/09/2023 in follow-up on the regular medical floor. He is awake and alert in no acute distress. Sitting up in a chair. Maintaining O2 saturations in the 90s on room air. Sputum culture reveals no growth. Blood culture revealed no growth. He did undergo bronchoscopy with BAL and biopsies yesterday. Cultures are pending. Cytology pending. White count 10.2. Hemoglobin 11.6. Sodium 138. Potassium 3.4. Bicarb 20. BUN 10. Creatinine 0.84. He remains on antibiotics in the form of vancomycin and Zosyn. Continue bronchodilators. Lovenox for DVT prophylaxis. The patient is seen today 07/10/2023 in follow-up on the regular medical floor. He sitting up in a chair. Awake and alert in no acute distress. Denies any worsening shortness of breath, cough or congestion. Preliminary bronchial lavage revealing no organisms seen. Sputum culture negative. Blood culture negative. Biopsies revealed no evidence of cancer. Creatinine 2.37. Random vancomycin level 44.2. Remains on Symbicort and DuoNeb inhalations. The patient is seen today 07/11/2023 in follow-up on the regular medical floor. He is currently resting comfortably in bed. Awake and alert in no acute distress. Maintaining good O2 saturations in the mid 90s on 2 L/m per nasal cannula. Afebrile. Hemodynamically stable. Chest x-ray showing some slight improvement with continued similar volume loss and extensive pleuralparenchymal opacities as well as surgical change at the left lung. Ultrasound of the kidneys revealed no hydronephrosis or nephrolithiasis. Creatinine is up to 4.41 today. Vancomycin remains on hold. The patient is seen today 07/12/2023 in follow-up on the regular medical floor. He is currently sitting up in a chair. Awake and alert in no acute distress. Maintaining O2 saturations in the mid 90s on 2 L/m per nasal cannula. Afebrile. Hemodynamically stable. He remains on DuoNeb inhalations, Symbicort, Lovenox. Creatinine still on the rise currently 6.04. BUN 48. Sodium 15. Potassium 4.8. Bicarb 17. Urinalysis clean. Remains on sodium bicarbonate tablets. Receiving normal saline at 60 ML's per hour. The patient is seen today 07/13/2023 in follow-up on the regular medical floor. He is awake and alert in no acute distress. He denies any worsening shortness of breath, cough or congestion. He is currently maintaining O2 saturations in the mid 90s on 2 L/m per nasal cannula. He's been afebrile. Hemodynamically stable. Bronchial wash cultures revealed no growth. Sputum culture no growth. Blood culture no growth. White count 9.2. Hemoglobin 10.0. Platelets 220. Sodium 138. Potassium 5.2. Bicarb 19. BUN 51. Creatinine 7.3. GFR 8. Glucose 104. Nephrology is following. He remains on Symbicort, DuoNeb inhalations. Lovenox for DVT prophylaxis. Objective - Vital Signs Vital signs: Vital Signs Temp 98.1 F 07/13/23 06:50 Pulse 79 07/13/23 08:56 Resp 18 07/13/23 06:50 BP 134/78 07/13/23 06:50 Pulse Ox 96 07/13/23 08:48 FiO2 Intake & Output 07/12/23 07/13/23 07/13/23 18:59 06:59 18:59 Intake Total 580 480 Output Total 524 125 Balance 56 355 Intake: Intake, IV Titration 580 Amount Piperacillin-Tazobactam 3 100 .375 gm In Sodium Chloride 0.9% 100 ml @ 25 mls/hr IVPB Q12H [facility] Rx# :[id number] Sodium Chloride 0.9% 1, 480 000 ml @ 60 mls/hr IV . [id number] [facility] Rx#:[id number] Oral 480 Output: Urine 365 125 Post Void Residual 159 - Exam GENERAL EXAM: Alert, 88-year-old male, on 2 L nasal cannula, comfortable in no apparent distress. HEAD: Normocephalic and atraumatic EYES: Normal reaction of pupils, equal size. NOSE: Clear with pink turbinates. THROAT: No erythema or exudates. NECK: No masses, no JVD. CHEST: No chest wall deformity. LUNGS: Diminished left lung sounds with scattered inspiratory crackles, rhonchi. CVS: S1 and S2 normal with no audible murmur, regular rhythm. No extra heart sounds ABDOMEN: No hepatosplenomegaly, active bowel sounds, no guarding or rigidity. SPINE: No scoliosis or deformity SKIN: No rashes CENTRAL NERVOUS SYSTEM: No focal deficits, tone is normal in all 4 extremities. EXTREMITIES: There is no peripheral edema, clubbing, or cyanosis. Peripheral pulses are intact. - Labs CBC & Chem 7: 07/13/23 05:30 07/13/23 05:30 Labs: Abnormal Lab Results - Last 24 Hours (Table) 07/13/23 07/13/23 Range/Units 05:30 05:30 RBC 3.59 L (4.40-5.60) X 10*6/uL Hgb 10.0 L (13.0-17.0) d/dL Hct 32.4 L (39.6-50.0) % MCHC 30.9 L (32.0-37.0) d/dL RDW 15.1 H (11.5-14.5) % MPV 9.3 L (9.5-12.2) FL Carbon Dioxide 19.0 L (21.6-31.8) mmol/L Anion Gap 14.00 H (4.00-12.00) mmol/L BUN 51.3 H (9.0-27.0) mg/dL Creatinine 7.3 H* (0.6-1.5) mg/dL Est GFR (CKD-EPI) 7 L (>=60) BUN/Creatinine Ratio 7.03 L (12.00-20.00) Ratio Phosphorus 7.9 H (2.4-5.1) mg/dL Total Bilirubin <0.2 L (0.3-1.2) mg/dL Total Protein 5.9 L (6.2-8.2) d/dL Albumin 2.5 L (3.8-4.9) d/dL Globulin 3.4 H (1.6-3.3) d/dL Albumin/Globulin Ratio 0.74 L (1.60-3.17) Ratio Assessment and Plan Assessment: Acute hypoxemic respiratory failure, improved and the patient is currently on room air oxygen. A chest CTA at outside facility shows a postsurgical left upper lobe and left hemithorax. There was extensive patchy and confluent airspace disease throughout the left lung. Left basilar bronchiectasis with moderate bronchial wall thickening. There is 4.8 cm left upper lobe cavitary mass, thought to be a cavitary pneumonia versus atypical fungal/mycobacterial infection versus necrotizing malignancy. There were additional nodular densities in the left lung measuring up to 2 cm. There was a 1.5 cm left infrahilar lymph node. There was extensive emphysematous changes. No previous imaging for comparison. This could be also an infected bullous versus a fluid-filled bullous post pneumonia. Underwent a bronchoscopy with biopsies and BAL 07/08/2023, cultures negative. Cytology negative for malignancy. Acute kidney injury secondary to vancomycin toxicity, creatinine up to 7.3 COPD/emphysema, stable History of previous left upper lobe bullectomy Benign essential hypertension Hyperlipidemia Remote ex-smoker, quit 1992 Post herpetic neuralgia on the left chest wall Plan: The patient was seen and evaluated Labs and medications reviewed Currently stable on 2 L nasal cannula May require renal replacement therapy Plan is for subacute rehabilitation at discharge I have personally seen and examined the patient, performed the documentation and the assessment and plan as written. Number of minutes spent on the visit: 10.
--- NOTE | 2023-07-13 11:12 | P.PN ---
Subjective Patient is seen in follow-up for acute kidney injury. Renal function continues to worsen. Patient also more edematous. No significant in urine output post IV Lasix. Oral intake fair. No vomiting or diarrhea. Vital signs are stable. General: No acute distress. HEENT: Head exam is unremarkable. LUNGS: No audible rhonchi or wheezes. HEART: Rate and Rhythm are regular. ABDOMEN: Nontender. EXTREMITITES: 1+ edema. Objective - Vital Signs Vital signs: Vital Signs Temp 98.1 F 07/13/23 06:50 Pulse 79 07/13/23 08:56 Resp 18 07/13/23 06:50 BP 134/78 07/13/23 06:50 Pulse Ox 96 07/13/23 08:48 FiO2 Intake & Output 07/12/23 07/13/23 07/13/23 18:59 06:59 18:59 Intake Total 580 480 Output Total 524 125 Balance 56 355 Intake: Intake, IV Titration 580 Amount Piperacillin-Tazobactam 3 100 .375 gm In Sodium Chloride 0.9% 100 ml @ 25 mls/hr IVPB Q12H [facility] Rx# :[id number] Sodium Chloride 0.9% 1, 480 000 ml @ 60 mls/hr IV . [id number] [facility] Rx#:[id number] Oral 480 Output: Urine 365 125 Post Void Residual 159 - Labs CBC & Chem 7: 07/13/23 05:30 07/13/23 05:30 Labs: Abnormal Lab Results - Last 24 Hours (Table) 07/13/23 07/13/23 Range/Units 05:30 05:30 RBC 3.59 L (4.40-5.60) X 10*6/uL Hgb 10.0 L (13.0-17.0) d/dL Hct 32.4 L (39.6-50.0) % MCHC 30.9 L (32.0-37.0) d/dL RDW 15.1 H (11.5-14.5) % MPV 9.3 L (9.5-12.2) FL Carbon Dioxide 19.0 L (21.6-31.8) mmol/L Anion Gap 14.00 H (4.00-12.00) mmol/L BUN 51.3 H (9.0-27.0) mg/dL Creatinine 7.3 H* (0.6-1.5) mg/dL Est GFR (CKD-EPI) 7 L (>=60) BUN/Creatinine Ratio 7.03 L (12.00-20.00) Ratio Phosphorus 7.9 H (2.4-5.1) mg/dL Total Bilirubin <0.2 L (0.3-1.2) mg/dL Total Protein 5.9 L (6.2-8.2) d/dL Albumin 2.5 L (3.8-4.9) d/dL Globulin 3.4 H (1.6-3.3) d/dL Albumin/Globulin Ratio 0.74 L (1.60-3.17) Ratio Assessment and Plan Plan: Assessment: 1. Acute kidney injury secondary to nephrotoxic ATN secondary to vancomycin toxicity. Creatinine 0.84 on admission is 7.3 today. Vancomycin level 44.2 dated 07/10/2023. No hydronephrosis noted on kidney ultrasound. Baseline creatinine 0.84 dated 07/09/2023. UA fairly benign. 2. Pneumonia maintained on antibiotics. Status post bronchoscopy this admission which did show 4.8 cm left upper lobe cavitary mass. Nodular densities also noted in the left lung. 3. Metabolic acidosis secondary to acute kidney injury and IV fluids. On oral bicarbonate. 4. Volume overload. Better. Plan: Status post IV Lasix given #30 2022. No significant improvement in urine output. Encourage oral intake. Strict I's and O's. Avoid nephrotoxins. With worsening renal function and volume overload, initiate renal replacement therapy. Consults vascular surgery for temporary dialysis catheter placement. Plan for first treatment of hemodialysis today and second treatment. Monitor for renal recovery. Repeat IV Lasix today. Check phosphorus level.
[2023-07-13] MEDS ORDERED: LIDOCAINE 1% INJ 10MG/ML (20 ML MDV) SQ ONE (11:34)
[2023-07-13] MEDS ORDERED: HEPARIN SODIUM 1,000 UN/ML (10ML VL) MISCELLANE ONE (11:44)
--- NOTE | 2023-07-13 13:36 | P.PN ---
Subjective Progress Note Date: 07/13/23 Patient is an 88 yo male with COPD, former tobacco dependency, hypertension, AND hyperlipidemia who presented with complaints of dyspnea. In the emergency room he underwent an extensive evaluation. His initial vitals were within normal. Labs were remarkable for WBC 13.9. Computed tomography scan of the chest demonstrated significant severe emphysematous changes, left-sided infiltrate with possible cavitary component of 4.8cm in the left upper lobe versus pneumonia surrounding bullae. He was admitted for pneumonia and started on broad spectrum abx. His procalcitonin was noted to be 0.39. Pulm was consulted for consideration of bronchoscopy and had considered this but given clinical improvement and fragile condition of patients lungs on CT imaging, preferred to defer this to outpatient setting after course of abx. Per pulmonary differential is broad including; lung abscess, or cavitary lesion from fungal, mycobacterial pneumonias. Underwent bronch with BAL on 07/08/23 with purulent secretions cultures and biopsies done. 07/09 Patient seen and examined at bedside. He continues to have his chronic left abd pain that he related to shingles, he states that the lidocaine patch did not help. He continues to have cough but believes that it is getting better. 07/10 Patient was seen and examined. He reports improvement in his neuropathic pain with Morphine as needed. He has no complaints today. Renal function today worsened with Cr 2.37. Random Vancomycin level drawn critical at 44.2. 07/11 Patient was seen and examined. He reports no complaints today. His breathing is stable and neuropathic pain is well controlled. Currently on 2L NC. Renal function shows Cr 4.41. Nephrology consulted, recommends bladder scan, UA and oral sodium bicarbonate. 07/12 Patient was seen and examined. No acute events overnight. Seen with Dr. Angel at bedside. BMP shows Na 135, Cl 110, bicarb 17, BUN 48, Cr 6.04. 07/13 Patient was seen and examined. No acute events overnight. He was given 80 mg IV lasix yesterday (repeated today) with only 359 cc of urine output over the past 24H. CBC shows Hg 10. BMP shows bicab 19, BUN 51.3, Cr 7.3. Phos 7.9. Mg 2.4. Albumin 2.5. Due to worsening renal function, vascular surgery has been consulted for temporary HD access with plans to initiate HD today. BAL cultures are negative so far and cytology shows acute inflammatory cells, no malignant cells. All antibiotics were discontinued yesterday. Vital signs reviewed General: nontoxic, no distress, appears at stated age Cardiovascular: good distal perfusion in all 4 extremities, Normal S1 S2. Lungs: breathing comfortably , no accessory muscle use, Decreased BS BL Ext: no gross muscle atrophy, 2+ edema b/l lower extremities, no contractures Neuro: no focal neuro deficits Psych: Alert, oriented, appropriate affect BONY Metabolic acidosis - Likely due to nephrotoxicity from Vancomycin - DC Lisinopril - Renal US shows no hydronephrosis - Lasix 80 mg IV x 1 ordered by Nephrology - Continue sodium bicarbonate 650 mg PO BID - Nephrology on board, plans to initiate hemodialysis today - Vascular surgery consulted for HD access - Daily BMP Community acquired pneumonia complicated by left-sided cavitary lesion, possible gram negative Acute hypoxic respiratory failure Sepsis Severe COPD Hypertension Dyslipidemia 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 Pending cytology and cultures. - Completed course on antibiotics - Continue with DuoNeb's and Symbicort - Continue with Lipitor 10 mg nightly - Neurontin 600 mg 4 times daily, norco, lidocaine patch - Morphine 2mg IV Q6H for severe pain - Legionella urine antigen negative Moderate protein calorie malnutrition - Ensure 3 times daily with meals Vitals reviewed and T max in the last 24 hours 99.5, HR 65, RR 18, BP 134/78, 97% on 2L NC Sputum culture-normal respiratory rebecca Blood cultures-negative to date DVT prophylaxis: lovenox Anticipated discharge date: pending clinical course Anticipated discharge place: pending clinical course This dictation was prepared using [employer] voice recognition software. Though every attempt is made to correct errors during dictation some may still e xist. Objective - Vital Signs Vital signs: Vital Signs Temp 98.1 F 07/13/23 06:50 Pulse 72 07/13/23 12:25 Resp 18 07/13/23 06:50 BP 134/78 07/13/23 06:50 Pulse Ox 96 07/13/23 08:48 FiO2 Intake & Output 07/12/23 07/13/23 07/13/23 18:59 06:59 18:59 Intake Total 580 480 Output Total 524 125 Balance 56 355 Intake: Intake, IV Titration 580 Amount Piperacillin-Tazobactam 3 100 .375 gm In Sodium Chloride 0.9% 100 ml @ 25 mls/hr IVPB Q12H [facility] Rx# :[id number] Sodium Chloride 0.9% 1, 480 000 ml @ 60 mls/hr IV . [id number] [facility] Rx#:[id number] Oral 480 Output: Urine 365 125 Post Void Residual 159 - Labs CBC & Chem 7: 07/13/23 05:30 07/13/23 05:30 Labs: Abnormal Lab Results - Last 24 Hours (Table) 07/13/23 07/13/23 Range/Units 05:30 05:30 RBC 3.59 L (4.40-5.60) X 10*6/uL Hgb 10.0 L (13.0-17.0) d/dL Hct 32.4 L (39.6-50.0) % MCHC 30.9 L (32.0-37.0) d/dL RDW 15.1 H (11.5-14.5) % MPV 9.3 L (9.5-12.2) FL Carbon Dioxide 19.0 L (21.6-31.8) mmol/L Anion Gap 14.00 H (4.00-12.00) mmol/L BUN 51.3 H (9.0-27.0) mg/dL Creatinine 7.3 H* (0.6-1.5) mg/dL Est GFR (CKD-EPI) 7 L (>=60) BUN/Creatinine Ratio 7.03 L (12.00-20.00) Ratio Phosphorus 7.9 H (2.4-5.1) mg/dL Total Bilirubin <0.2 L (0.3-1.2) mg/dL Total Protein 5.9 L (6.2-8.2) d/dL Albumin 2.5 L (3.8-4.9) d/dL Globulin 3.4 H (1.6-3.3) d/dL Albumin/Globulin Ratio 0.74 L (1.60-3.17) Ratio
--- NOTE | 2023-07-13 16:47 | P.GSCN ---
History of Present Illness Consult date: 07/13/23 History of present illness: Mario is an 88-year-old male we are asked to see in regards initiation of dialysis. He has been in the hospital for antibiotic therapy for pulmonary related issues have seemingly worsening creatinine is requested to initiate dialysis at this time. there is no history of kidney disease of the patient is aware of. Past Medical History Past Medical History: Hyperlipidemia, Hypertension Additional Past Medical History / Comment(s): COPD History of Any Multi-Drug Resistant Organisms: None Reported Additional Past Surgical History / Comment(s): Shingles, bulla removed from left lung. Past Anesthesia/Blood Transfusion Reactions: No Reported Reaction Past Psychological History: No Psychological Hx Reported Smoking Status: Former smoker Past Alcohol Use History: None Reported Past Drug Use History: None Reported Medications and Allergies Home Medications Medication Instructions Recorded Confirmed Type Aspirin EC [Ecotrin Low Dose] 81 mg PO DAILY 07/02/23 07/02/23 History Cholecalciferol [Vitamin D3 (125 125 mcg PO DAILY 07/02/23 07/02/23 History Mcg = 5000 Iu)] Docusate Sodium [Dok] 100 mg PO HS 07/02/23 07/02/23 History Gabapentin 600 mg PO QID 07/02/23 07/02/23 History HYDROcodone/APAP 10-325MG [[place] 1 tab PO Q6HR 07/02/23 07/02/23 History 10-325] Simvastatin [Zocor] 20 mg PO HS 07/02/23 07/02/23 History lisinopriL [Lisinopril] 10 mg PO BID 07/02/23 07/02/23 History Allergies Allergy/AdvReac Type Severity Reaction Status Date / Time No Known Allergies Allergy Verified 07/02/23 15:53 Surgical - Exam Vital Signs Temp Pulse Resp BP Pulse Ox 98.1 F 80 20 123/66 95 07/02/23 12:42 07/02/23 12:42 07/02/23 12:42 07/02/23 12:42 07/02/23 12:42 Gen. is a pleasant cooperative male in no acute distress. Coarse breath sounds. Intermittent cough. Bilateral groins clean and dry. Lower extremities no clubbing, cyanosis, mild edema throughout. Results - Labs 07/13/23 05:30 07/13/23 05:30 Abnormal Lab Results - Last 24 Hours (Table) 07/13/23 07/13/23 Range/Units 05:30 05:30 RBC 3.59 L (4.40-5.60) X 10*6/uL Hgb 10.0 L (13.0-17.0) d/dL Hct 32.4 L (39.6-50.0) % MCHC 30.9 L (32.0-37.0) d/dL RDW 15.1 H (11.5-14.5) % MPV 9.3 L (9.5-12.2) FL Carbon Dioxide 19.0 L (21.6-31.8) mmol/L Anion Gap 14.00 H (4.00-12.00) mmol/L BUN 51.3 H (9.0-27.0) mg/dL Creatinine 7.3 H* (0.6-1.5) mg/dL Est GFR (CKD-EPI) 7 L (>=60) BUN/Creatinine Ratio 7.03 L (12.00-20.00) Ratio Phosphorus 7.9 H (2.4-5.1) mg/dL Total Bilirubin <0.2 L (0.3-1.2) mg/dL Total Protein 5.9 L (6.2-8.2) d/dL Albumin 2.5 L (3.8-4.9) d/dL Globulin 3.4 H (1.6-3.3) d/dL Albumin/Globulin Ratio 0.74 L (1.60-3.17) Ratio Diabetes panel 07/13/23 Range/Units 05:30 Sodium 138 (135-145) mmol/L Potassium 5.2 (3.5-5.5) mmol/L Chloride 105 (96-109) mmol/L Carbon Dioxide 19.0 L (21.6-31.8) mmol/L BUN 51.3 H (9.0-27.0) mg/dL Creatinine 7.3 H* (0.6-1.5) mg/dL Glucose 104 (70-110) mg/dL Calcium 8.7 (8.7-10.3) mg/dL AST 26 (14-35) U/L ALT 42 (10-49) U/L Alkaline Phosphatase 98 (41-126) U/L Total Protein 5.9 L (6.2-8.2) d/dL Albumin 2.5 L (3.8-4.9) d/dL Calcium panel 07/13/23 Range/Units 05:30 Calcium 8.7 (8.7-10.3) mg/dL Phosphorus 7.9 H (2.4-5.1) mg/dL Albumin 2.5 L (3.8-4.9) d/dL Pituitary panel 07/13/23 Range/Units 05:30 Sodium 138 (135-145) mmol/L Potassium 5.2 (3.5-5.5) mmol/L Chloride 105 (96-109) mmol/L Carbon Dioxide 19.0 L (21.6-31.8) mmol/L BUN 51.3 H (9.0-27.0) mg/dL Creatinine 7.3 H* (0.6-1.5) mg/dL Glucose 104 (70-110) mg/dL Calcium 8.7 (8.7-10.3) mg/dL Adrenal panel 07/13/23 Range/Units 05:30 Sodium 138 (135-145) mmol/L Potassium 5.2 (3.5-5.5) mmol/L Chloride 105 (96-109) mmol/L Carbon Dioxide 19.0 L (21.6-31.8) mmol/L BUN 51.3 H (9.0-27.0) mg/dL Creatinine 7.3 H* (0.6-1.5) mg/dL Glucose 104 (70-110) mg/dL Calcium 8.7 (8.7-10.3) mg/dL Total Bilirubin <0.2 L (0.3-1.2) mg/dL AST 26 (14-35) U/L ALT 42 (10-49) U/L Alkaline Phosphatase 98 (41-126) U/L Total Protein 5.9 L (6.2-8.2) d/dL Albumin 2.5 L (3.8-4.9) d/dL Assessment and Plan Assessment: Need for dialysis Acute renal insufficiency Recent antibiotic use Plan: Discussion had with the patient and family at this time going forward with placement of temporary dialysis catheter. Discussed risks and benefits including but not limited to bleeding, infection and injury the vessel. They were seemingly interested and wanted to proceed. SURGEON: Xiao Valentin DO METAL DEALER: None PREOPERATIVE DIAGNOSIS: Acute kidney insufficiency, need for dialysis POSTOPERATIVE DIAGNOSIS: Same OPERATION: Ultrasound-guided right common femoral vein access, placement of temporary dialysis catheter DESCRIPTION OF PROCEDURE: The groin was prepped and draped in usual sterile fashion. A preprocedure timeout was performed, all parties were in agreement. An ultrasound was utilized and the right common femoral vein was identified. It was patent and compressible. The skin overlying the vein was anesthetized with 1% lidocaine plain. A multipurpose needle was utilized and the femoral vein was accessed under ultrasound guidance on first attempt with return of dark venous, nonpulsatile blood. The guidewire was passed easily. Serial dilation was performed of the subcutaneous tissues. The catheter was placed and secured with suture. It aspirated and flushed freely. A dressing including a Biopatch was applied. The patient tolerated the procedure well.
[2023-07-13] MEDS: DOCUSATE 100 MG CAP PO SCH (20:21)
[2023-07-13] MEDS: ATORVASTATIN 10 MG TAB PO SCH (20:21)
[2023-07-13 20:45] LABS: Hepatitis B Surface Antigen Nonreactive
[2023-07-13 21:25] LABS: Hepatitis B Surface AB- Quant 3.5 mIU/mL
[2023-07-14] MEDS ORDERED: IV FLUID CONTINUATION 1,000 ML IV ONE (07:16)
[2023-07-14] MEDS ORDERED: LIDOCAINE 1% INJ 10MG/ML (20 ML MDV) SQ ONE (07:40)
[2023-07-14] MEDS ORDERED: MIDAZOLAM 2 MG/2 ML VIAL IVP ONE (07:44)
--- NOTE | 2023-07-14 08:43 | XR ---
EXAMINATION TYPE: XR chest 1V portable DATE OF EXAM: 07/14/2023 Comparison: 07/11/2023 Clinical History: 88-year-old male CHF Findings: Volume loss and prior surgical change throughout the left hemithorax with extensive pleural parenchym al opacity which has increased in the interval. Mild peripheral interstitial densities on the right r emain unchanged. Impression: 1. Previous surgery and volume loss throughout the left hemithorax with increasing diffuse pleural-pa renchymal opacities on the left. Correlate to exclude underlying worsening atelectasis or pneumonia. 2. Mild peripheral interstitial densities on the right remain unchanged.
[2023-07-14] MEDS: SYMBICORT 160-4.5 MCG INHALER INHALATION SCH ×2 (09:46→20:31)
[2023-07-14] MEDS: IPRATROPIUM-ALBUTEROL 3 ML NEB INHALATION SCH ×4 (09:46→20:31)
--- NOTE | 2023-07-14 10:06 | P.PN ---
Subjective Patient is seen in follow-up for acute kidney injury. Started on hemodialysis 07/13/2023. Dialysis catheter didn't work well and a new catheter was placed this morning. Tolerating dialysis well this morning. Denies chest pain or shortness of breath. Hemodynamically stable. Vital signs are stable. General: No acute distress. HEENT: Head exam is unremarkable. LUNGS: No audible rhonchi or wheezes. HEART: Rate and Rhythm are regular. ABDOMEN: Nontender. EXTREMITITES: 1+ edema. Objective - Vital Signs Vital signs: Vital Signs Temp 98.6 F 07/14/23 08:07 Pulse 66 07/14/23 08:07 Resp 18 07/14/23 08:07 BP 155/88 07/14/23 08:07 Pulse Ox 94 L 07/14/23 08:07 FiO2 Intake & Output 07/13/23 07/14/23 07/14/23 18:59 06:59 18:59 Intake Total 300 50 Output Total 200 1923 Balance -200 -1623 50 Intake: IV 50 Hemodialysis 300 Output: Urine 200 200 Hemodialysis 1723 Other: # Voids 1 # Bowel Movements 1 - Labs CBC & Chem 7: 07/13/23 05:30 07/13/23 05:30 Assessment and Plan Plan: Assessment: 1. Acute kidney injury secondary to nephrotoxic ATN secondary to vancomycin toxicity. Creatinine 0.84 on admission -7.3 dated 07/13/2023. Vancomycin level 44.2 dated 07/10/2023. No hydronephrosis noted on kidney ultrasound. Baseline creatinine 0.84 dated 07/09/2023. UA fairly benign. Started on hemodialysis 07/13/2023. 2. Pneumonia maintained on antibiotics. Status post bronchoscopy this a dmission which did show 4.8 cm left upper lobe cavitary mass. Nodular densities also noted in the left lung. 3. Metabolic acidosis secondary to acute kidney injury and IV fluids. On oral bicarbonate. 4. Volume overload. Improving. Ultrafiltration. 5. Hyperphosphatemia secondary to acute kidney injury. Plan: Currently seen while undergoing hemodialysis. Another treatment tomorrow. Encourage oral intake. Strict I's and O's. Avoid nephrotoxins. Monitor for renal recovery. Add PhosLo with meals.
[2023-07-14 11:38] LABS: Magnesium 2.5 mg/dL (1.5-2.4); Phosphorus 7.6 mg/dL (2.4-5.1)
[2023-07-14] MEDS: LIDOCAINE 5% PATCH TOPICAL SCH (12:55)
[2023-07-14] MEDS: GABAPENTIN 300 MG CAP PO SCH ×4 (13:05→21:25)
[2023-07-14 13:06] LABS: BUN/Creat Ratio 7.04 Ratio (12.00-20.00); Blood Urea Nitrogen 52.1 mg/dL (9.0-27.0); Calcium 8.5 mg/dL (8.7-10.3); Carbon Dioxide 21.6 mmol/L (21.6-31.8); Chloride 104 mmol/L (96-109); Glucose 89 mg/dL (70-110); Potassium 4.7 mmol/L (3.5-5.5); Sodium 138 mmol/L (135-145)
[2023-07-14] MEDS: CHOLECALCIFEROL 125 MCG (5000 IU) TABLET PO SCH (13:09)
[2023-07-14] MEDS: ENOXAPARIN 30 MG/0.3 ML SYRINGE SQ SCH (13:09)
[2023-07-14] MEDS: ASPIRIN 81 MG PO SCH (13:09)
[2023-07-14] MEDS: CALCIUM ACETATE 667 MG TAB PO SCH ×2 (13:09→17:22)
[2023-07-14] MEDS: SODIUM BICARBONATE TAB 650 MG TAB PO SCH ×2 (13:09→21:23)
[2023-07-14] MEDS: HYDROcodone/APAP 10-325MG 1 EACH TAB PO PRN ×2 (13:19→21:25)
--- NOTE | 2023-07-14 13:30 | P.PN ---
Subjective Progress Note Date: 07/14/23 I am seeing this patient in new consultation today 07/03/2023 for a cavitating left lung mass and community acquired pneumonia. Patient is a 88-year-old white male with past medical history significant for COPD/emphysema, previous left lung bullectomy, hyperlipidemia, hypertension, and is a remote ex-smoker. His PCP is a Dr. Castle. He does not follow with a telecom analyst. Patient was transferred from [facility] for suspected extensive cavitating pneumonia on CT. Patient reports progressively worsening shortness of breath and cough with minimal sputum production over the past 3 weeks. Accompanied with muscle aches and weakness. Also, admits left sided chest pain, nonradiating. Denies fever, chills, hemoptysis. He does report approximately 15-20 pound weight loss over the last month. Patient is currently sitting up in bed, on 3 L/m nasal cannula, in no acute distress. A chest CTA at outside facility shows a postsurgical left upper lobe and left hemithorax. There was extensive patchy and confluent airspace disease throughout the left lung. Left basilar bronchiectasis with moderate bronchial wall thickening. There is 4.8 cm left upper lobe cavitary lesion, thought to be a cavitary pneumonia versus atypical fungal/mycobacterial infection versus necrotizing malignancy. There were additional nodular areas in the left lung measuring up to 2 cm. There was a 1.5 cm left infrahilar lymph node. There was extensive emphysematous changes. No previous imaging for comparison. Denies history of lung cancer. Denies previous bronchoscopy or biopsy of these lesions. CBC on arrival shows leukocytosis with a WBC count of 13.9, hemoglobin 13.4, hematocrit 41.5, platelets 298. BMP on arrival to our facility was unremarkable. Pro-calcitonin level was elevated at 0.39. Lactic acid level I.8. He is afebrile. Patient was started on a combination of Zosyn and vancomycin. Patient is hemodynamically stable at this time. On today's evaluation of 07/04/2023, the patient remains on Zosyn and vancomycin. Much improved compared to yesterday. Much more alert and awake and communicating. Oxygenation is also improved and the patient is currently on 2 L of Oxymizer nasal cannula with a pulse ox of 96%. This does cause of 10.4, hemoglobin 11, BUN is at 50 with a creatinine of 0.7 and a sodium level is at 135. Pro-calcitonin level is at 0.39. Blood cultures still pending for now. 07/05/2023, the patient is on room air oxygen. Remains on accommodation of Zosyn and vancomycin. Chest x-ray findings are unchanged. I reviewed the CAT scan again. The patient has soft tissue density in the left suprahilar area. Nevertheless, this could be a fluid-filled bullous or infected bullous as the patient has chronic emphysematous changes with bullae in the upper lobes zheng aterally. He has improved considerably. No plans for broncho-scope for now. No new labs from today. Labs from yesterday was noted. Pro-calcitonin level was at 0.39. He continues to improve. The blood cultures are negative thus far. The patient is seen today 07/06/2023 in follow-up on the regular medical floor. He is currently sitting up in a chair. Awake and alert in no acute distress. He is maintaining O2 saturations in the 90s on room air. He denies any worsening shortness of breath, cough or congestion. He is afebrile. Hemodynamically stable. Blood cultures revealed no growth. Sputum culture pending. White count 12.4. Hemoglobin 11.2. Platelets 289. He remains on DuoNeb inhalations, Symbicort. Antibiotics in the form of vancomycin and Zosyn. The patient is seen today 07/07/2023 in follow-up on the regular medical floor. He is currently resting in bed. Awake and alert. He is having some postherpetic pain from previous shingles along his left chest. He denies any worsening shortness of breath, cough or congestion. He is maintaining O2 saturations in the 90s on room air. He has a loose nonproductive cough. Chest x-ray showing slight improvement but still significant infiltrates in the left lung. White count 12.8. Hemoglobin 11.5. Sodium 136. Potassium 3.3. Bicarb 23. BUN 12. Creatinine 0.82. He remains on vancomycin and Zosyn. He remains on DuoNeb inhalations, Symbicort, Lovenox. The patient is seen today 07/08/2023 in follow-up on the regular medical floor. Currently sitting up in a chair at the bedside. Awake and alert in no acute distress. He is maintaining O2 saturations in the 90s on room air. Afebrile. Hemodynamically stable. Sputum cultures revealed no growth. Blood culture revealed no growth. Creatinine 0.79. Continued on vancomycin and Zosyn. Continued on bronchodilators, Lovenox. Plan is for bronchoscopy with BAL and biopsies today. The patient is seen today 07/09/2023 in follow-up on the regular medical floor. He is awake and alert in no acute distress. Sitting up in a chair. Maintaining O2 saturations in the 90s on room air. Sputum culture reveals no growth. Blood culture revealed no growth. He did undergo bronchoscopy with BAL and biopsies yesterday. Cultures are pending. Cytology pending. White count 10.2. Hemoglobin 11.6. Sodium 138. Potassium 3.4. Bicarb 20. BUN 10. Creatinine 0.84. He remains on antibiotics in the form of vancomycin and Zosyn. Continue bronchodilators. Lovenox for DVT prophylaxis. The patient is seen today 07/10/2023 in follow-up on the regular medical floor. He sitting up in a chair. Awake and alert in no acute distress. Denies any worsening shortness of breath, cough or congestion. Preliminary bronchial lavage revealing no organisms seen. Sputum culture negative. Blood culture negative. Biopsies revealed no evidence of cancer. Creatinine 2.37. Random vancomycin level 44.2. Remains on Symbicort and DuoNeb inhalations. The patient is seen today 07/11/2023 in follow-up on the regular medical floor. He is currently resting comfortably in bed. Awake and alert in no acute distress. Maintaining good O2 saturations in the mid 90s on 2 L/m per nasal cannula. Afebrile. Hemodynamically stable. Chest x-ray showing some slight improvement with continued similar volume loss and extensive pleuralparenchymal opacities as well as surgical change at the left lung. Ultrasound of the kidneys revealed no hydronephrosis or nephrolithiasis. Creatinine is up to 4.41 today. Vancomycin remains on hold. The patient is seen today 07/12/2023 in follow-up on the regular medical floor. He is currently sitting up in a chair. Awake and alert in no acute distress. Maintaining O2 saturations in the mid 90s on 2 L/m per nasal cannula. Afebrile. Hemodynamically stable. He remains on DuoNeb inhalations, Symbicort, Lovenox. Creatinine still on the rise currently 6.04. BUN 48. Sodium 15. Potassium 4.8. Bicarb 17. Urinalysis clean. Remains on sodium bicarbonate tablets. Receiving normal saline at 60 ML's per hour. The patient is seen today 07/13/2023 in follow-up on the regular medical floor. He is awake and alert in no acute distress. He denies any worsening shortness of breath, cough or congestion. He is currently maintaining O2 saturations in the mid 90s on 2 L/m per nasal cannula. He's been afebrile. Hemodynamically stable. Bronchial wash cultures revealed no growth. Sputum culture no growth. Blood culture no growth. White count 9.2. Hemoglobin 10.0. Platelets 220. Sodium 138. Potassium 5.2. Bicarb 19. BUN 51. Creatinine 7.3. GFR 8. Glucose 104. Nephrology is following. He remains on Symbicort, DuoNeb inhalations. Lovenox for DVT prophylaxis. The patient is seen today 07/14/2023 in follow-up on the regular medical floor. He is currently resting comfortably in bed. He is receiving hemodialysis currently. Maintaining O2 saturations in the 90s on 2 L/m per nasal cannula. Follow-up x-ray continues to show significant left-sided opacities. Evidence of previous left upper lobe bullectomy. Sodium 138. Potassium 4.7. Bicarb 22. BUN 52. Creatinine 7.4. He remains on Symbicort, DuoNeb inhalations Lovenox for DVT prophylaxis. Objective - Vital Signs Vital signs: Vital Signs Temp 97.8 F 07/14/23 12:55 Pulse 84 07/14/23 12:58 Resp 18 07/14/23 12:55 BP 137/59 07/14/23 12:55 Pulse Ox 94 L 07/14/23 08:07 FiO2 Intake & Output 07/13/23 07/14/23 07/14/23 18:59 06:59 18:59 Intake Total 300 350 Output Total 200 192 230 Balance - Intake: IV 50 Hemodialysis 300 300 Output: Urine 200 200 Hemodialysis 1722 2300 Other: Voiding Method Urinal # Voids 1 # Bowel Movements 1 - Exam GENERAL EXAM: Alert, 88-year-old male, currently receiving hemodialysis, on 2 L nasal cannula, comfortable in no apparent distress. HEAD: Normocephalic and atraumatic EYES: Normal reaction of pupils, equal size. NOSE: Clear with pink turbinates. THROAT: No erythema or exudates. NECK: No masses, no JVD. CHEST: No chest wall deformity. LUNGS: Diminished left lung sounds with scattered inspiratory crackles, rhonchi. CVS: S1 and S2 normal with no audible murmur, regular rhythm. No extra heart sounds ABDOMEN: No hepatosplenomegaly, active bowel sounds, no guarding or rigidity. SPINE: No scoliosis or deformity SKIN: No rashes CENTRAL NERVOUS SYSTEM: No focal deficits, tone is normal in all 4 extremities. EXTREMITIES: There is no peripheral edema, clubbing, or cyanosis. Peripheral pulses are intact. - Labs CBC & Chem 7: 07/13/23 05:30 07/14/23 06:52 Labs: Abnormal Lab Results - Last 24 Hours (Table) 07/14/23 Range/Units 06:52 Anion Gap 12.40 H (4.00-12.00) mmol/L BUN 52.1 H (9.0-27.0) mg/dL Creatinine 7.4 H* (0.6-1.5) mg/dL Est GFR (CKD-EPI) 7 L (>=60) BUN/Creatinine Ratio 7.04 L (12.00-20.00) Ratio Calcium 8.5 L (8.7-10.3) mg/dL Phosphorus 7.6 H (2.4-5.1) mg/dL Magnesium 2.5 H (1.5-2.4) mg/dL Assessment and Plan Assessment: Acute hypoxemic respiratory failure, improved and the patient is currently on room air oxygen. A chest CTA at outside facility shows a postsurgical left upper lobe and left hemithorax. There was extensive patchy and confluent airspace disease throughout the left lung. Left basilar bronchiectasis with moderate bronchial wall thickening. There is 4.8 cm left upper lobe cavitary mass, thought to be a cavitary pneumonia versus atypical fungal/mycobacterial infection versus necrotizing malignancy. There were additional nodular densities in the left lung measuring up to 2 cm. There was a 1.5 cm left infrahilar lymph node. There was extensive emphysematous changes. No previous imaging for comparison. This could be also an infected bullous versus a fluid-filled bullo us post pneumonia. Underwent a bronchoscopy with biopsies and BAL 07/08/2023, cultures negative. Cytology negative for malignancy. 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 Number of minutes spent on the visit: 10.
--- NOTE | 2023-07-14 13:33 | P.PN ---
Subjective Progress Note Date: 07/14/23 Pt is seen while undergoing dialysis session. No complaints at this time, would like to go home soon. Gen: awake, alert HEENT: normocephalic, atraumatic, good hearing acuity, moist mucous membranes Resp: good air exchange, breathing comfortably with no accessory muscle use CVS: good distal perfusion x 4, GI: soft, NTTP, ND : no SPT, no CVAT, monreal catheter not present MSK: no pitting edema, no clubbing Neuro: non-focal, moving all extremities Psych: cooperative, euthymic mood Hospital Course: Patient is an 88 yo male with COPD, former tobacco dependency, hypertension, AND hyperlipidemia who presented with complaints of dyspnea. In the emergency room he underwent an extensive evaluation. His initial vitals were within normal. Labs were remarkable for WBC 13.9. Computed tomography scan of the chest demonstrated significant severe emphysematous changes, left-sided infiltrate with possible cavitary component of 4.8cm in the left upper lobe versus pneumonia surrounding bullae. He was admitted for pneumonia and started on broad spectrum abx. His procalcitonin was noted to be 0.39. Pulm was consulted for consideration of bronchoscopy and had considered this but given clinical improvement and fragile condition of patients lungs on CT imaging, preferred to defer this to outpatient setting after course of abx. Per pulmonary differential is broad including; lung abscess, or cavitary lesion from fungal, mycobacterial pneumonias. Underwent bronch with BAL on 07/08/23 with purulent secretions cultures and biopsies done. 07/09 Patient seen and examined at bedside. He continues to have his chronic left abd pain that he related to shingles, he states that the lidocaine patch did not help. He continues to have cough but believes that it is getting better. 07/10 Patient was seen and examined. He reports improvement in his neuropathic pain with Morphine as needed. He has no complaints today. Renal function today worsened with Cr 2.37. Random Vancomycin level drawn critical at 44.2. 07/11 Patient was seen and examined. He reports no complaints today. His breathing is stable and neuropathic pain is well controlled. Currently on 2L NC. Renal function shows Cr 4.41. Nephrology consulted, recommends bladder scan, UA and oral sodium bicarbonate. 07/12 Patient was seen and examined. No acute events overnight. Seen with Dr. Angel at bedside. BMP shows Na 135, Cl 110, bicarb 17, BUN 48, Cr 6.04. 9/ Patient was seen and examined. No acute events overnight. He was given 80 mg IV lasix yesterday (repeated today) with only 359 cc of urine output over the past 24H. CBC shows Hg 10. BMP shows bicab 19, BUN 51.3, Cr 7.3. Phos 7.9. Mg 2.4. Albumin 2.5. Due to worsening renal function, vascular surgery has been consulted for temporary HD access with plans to initiate HD today. BAL cultures are negative so far and cytology shows acute inflammatory cells, no malignant cells. All antibiotics were discontinued yesterday. Assessment/Plan: Vitals: Afebrile, 137/59, heart rate 78, 94% on 2 L nasal cannula Labs: Sodium 138, potassium is 4.7, BUN 52, creatinine 7.4, phosphorus 7.6, magn esium 2.5 Images: Chest x-ray is personally interpreted, white out of left lung persists with no visible improvement from admission Consultation: Pulmonology consult reviewed, agree with present plan with no changes; nephrology note reviewed, add PhosLo, continue renal replacement therapy BONY Metabolic acidosis - Continue sodium bicarbonate 650 mg PO BID - Nephrology on board, see above recommendations - Daily BMP Community acquired pneumonia complicated by left-sided cavitary lesion, possible gram negative Acute hypoxic respiratory failure Sepsis Severe COPD - See above regarding pulmonology recommendations - Completed course on antibiotics - Continue with DuoNeb's and Symbicort - Continue with Lipitor 10 mg nightly - Neurontin 600 mg 4 times daily, norco, lidocaine patch - Morphine 2mg IV Q6H for severe pain Hypertension Dyslipidemia 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 - Resume home medications Moderate protein calorie malnutrition - Ensure 3 times daily with meals Anticipated discharge date: pending clinical course Anticipated discharge place: pending clinical course Objective - Vital Signs Vital signs: Vital Signs Temp 97.8 F 07/14/23 12:55 Pulse 84 07/14/23 12:58 Resp 18 07/14/23 12:55 BP 137/59 07/14/23 12:55 Pulse Ox 94 L 07/14/23 08:07 FiO2 Intake & Output 07/13/23 07/14/23 07/14/23 18:59 06:59 18:59 Intake Total 300 350 Output Total 200 1923 2300 Balance -200 -2191 -2855 Intake: IV 50 Hemodialysis 300 300 Output: Urine 200 200 Hemodialysis 1728 2300 Other: Voiding Method Urinal # Voids 1 # Bowel Movements 1 - Labs CBC & Chem 7: 07/13/23 05:30 07/14/23 06:52 Labs: Abnormal Lab Results - Last 24 Hours (Table) 07/14/23 Range/Units 06:52 Anion Gap 12.40 H (4.00-12.00) mmol/L BUN 52.1 H (9.0-27.0) mg/dL Creatinine 7.4 H* (0.6-1.5) mg/dL Est GFR (CKD-EPI) 7 L (>=60) BUN/Creatinine Ratio 7.04 L (12.00-20.00) Ratio Calcium 8.5 L (8.7-10.3) mg/dL Phosphorus 7.6 H (2.4-5.1) mg/dL Magnesium 2.5 H (1.5-2.4) mg/dL
--- NOTE | 2023-07-14 16:29 | P.GSCN ---
History of Present Illness History of present illness: 88-year-old gentleman consulted for placement of a dialysis catheter patient has a right femoral tunnel catheter not working patient has history of acute kidney injury due to vancomycin toxicity patient Neck is supple no bruit appreciated Chest good and both sent first and second sound present few crackles the lung bases Abdomen is soft nontender Vascular patient has a right femoral catheter femoral arteries 1+ bilateral Plan is change of dialysis catheter Past Medical History Past Medical History: Hyperlipidemia, Hypertension Additional Past Medical History / Comment(s): COPD History of Any Multi-Drug Resistant Organisms: None Reported Additional Past Surgical History / Comment(s): Shingles, bulla removed from left lung. Past Anesthesia/Blood Transfusion Reactions: No Reported Reaction Past Psychological History: No Psychological Hx Reported Smoking Status: Former smoker Past Alcohol Use History: None Reported Past Drug Use History: None Reported Medications and Allergies Home Medications Medication Instructions Recorded Confirmed Type Aspirin EC [Ecotrin Low Dose] 81 mg PO DAILY 07/02/23 07/02/23 History Cholecalciferol [Vitamin D3 (125 125 mcg PO DAILY 07/02/23 07/02/23 History Mcg = 5000 Iu)] Docusate Sodium [Dok] 100 mg PO HS 07/02/23 07/02/23 History Gabapentin 600 mg PO QID 07/02/23 07/02/23 History HYDROcodone/APAP 10-325MG [[place] 1 tab PO Q6HR 07/02/23 07/02/23 History 10-325] Simvastatin [Zocor] 20 mg PO HS 07/02/23 07/02/23 History lisinopriL [Lisinopril] 10 mg PO BID 07/02/23 07/02/23 History Allergies Allergy/AdvReac Type Severity Reaction Status Date / Time No Known Allergies Allergy Verified 07/02/23 15:53 Surgical - Exam Vital Signs Temp Pulse Resp BP Pulse Ox 98.1 F 80 20 123/66 95 07/02/23 12:42 07/02/23 12:42 07/02/23 12:42 07/02/23 12:42 07/02/23 12:42 Results - Labs 07/13/23 05:30 07/14/23 06:52 Abnormal Lab Results - Last 24 Hours (Table) 07/14/23 Range/Units 06:52 Anion Gap 12.40 H (4.00-12.00) mmol/L BUN 52.1 H (9.0-27.0) mg/dL Creatinine 7.4 H* (0.6-1.5) mg/dL Est GFR (CKD-EPI) 7 L (>=60) BUN/Creatinine Ratio 7.04 L (12.00-20.00) Ratio Calcium 8.5 L (8.7-10.3) mg/dL Phosphorus 7.6 H (2.4-5.1) mg/dL Magnesium 2.5 H (1.5-2.4) mg/dL Diabetes panel 07/14/23 Range/Units 06:52 Sodium 138 (135-145) mmol/L Potassium 4.7 (3.5-5.5) mmol/L Chloride 104 (96-109) mmol/L Carbon Dioxide 21.6 (21.6-31.8) mmol/L BUN 52.1 H (9.0-27.0) mg/dL Creatinine 7.4 H* (0.6-1.5) mg/dL Glucose 89 (70-110) mg/dL Calcium 8.5 L (8.7-10.3) mg/dL Calcium panel 07/14/23 Range/Units 06:52 Calcium 8.5 L (8.7-10.3) mg/dL Phosphorus 7.6 H (2.4-5.1) mg/dL Pituitary panel 07/14/23 Range/Units 06:52 Sodium 138 (135-145) mmol/L Potassium 4.7 (3.5-5.5) mmol/L Chloride 104 (96-109) mmol/L Carbon Dioxide 21.6 (21.6-31.8) mmol/L BUN 52.1 H (9.0-27.0) mg/dL Creatinine 7.4 H* (0.6-1.5) mg/dL Glucose 89 (70-110) mg/dL Calcium 8.5 L (8.7-10.3) mg/dL Adrenal panel 07/14/23 Range/Units 06:52 Sodium 138 (135-145) mmol/L Potassium 4.7 (3.5-5.5) mmol/L Chloride 104 (96-109) mmol/L Carbon Dioxide 21.6 (21.6-31.8) mmol/L BUN 52.1 H (9.0-27.0) mg/dL Creatinine 7.4 H* (0.6-1.5) mg/dL Glucose 89 (70-110) mg/dL Calcium 8.5 L (8.7-10.3) mg/dL
--- NOTE | 2023-07-14 16:31 | P.PCN ---
Description of Procedure: Preop diagnoses is acute kidney injury due to vancomycin toxicity marked function dialysis catheter right femoral approach Postoperative the same Procedure patient brought to the [facility] right groin was prepped and draped applied a sterile manner 1% lidocaine were infiltrated this patient has a dialysis catheter right femoral approach guidewire was passed after was removed then we placed 30 same dialysis catheter on top of the guidewire flushed with heparin saline and Hep-Lock secured with 3-0 nylon dressing applied patient are to the procedure well tip of catheter is 8 inferior vena cava pressure dressing applied patient are to the procedure well
[2023-07-14] MEDS: DOCUSATE 100 MG CAP PO SCH (21:22)
[2023-07-14] MEDS: ATORVASTATIN 10 MG TAB PO SCH (21:22)
[2023-07-15] MEDS: HYDROcodone/APAP 10-325MG 1 EACH TAB PO PRN (06:33)
[2023-07-15] MEDS: IPRATROPIUM-ALBUTEROL 3 ML NEB INHALATION SCH ×4 (08:50→20:24)
[2023-07-15] MEDS: SYMBICORT 160-4.5 MCG INHALER INHALATION SCH ×2 (08:50→20:24)
[2023-07-15] MEDS: LIDOCAINE 5% PATCH TOPICAL SCH (09:28)
[2023-07-15] MEDS: ENOXAPARIN 30 MG/0.3 ML SYRINGE SQ SCH (09:29)
[2023-07-15] MEDS: ASPIRIN 81 MG PO SCH (09:30)
[2023-07-15] MEDS: CHOLECALCIFEROL 125 MCG (5000 IU) TABLET PO SCH (09:30)
[2023-07-15] MEDS: GABAPENTIN 300 MG CAP PO SCH ×4 (09:30→21:07)
[2023-07-15] MEDS: CALCIUM ACETATE 667 MG TAB PO SCH ×2 (09:30→19:41)
[2023-07-15] MEDS: SODIUM BICARBONATE TAB 650 MG TAB PO SCH ×2 (09:30→21:07)
--- NOTE | 2023-07-15 11:00 | P.PN ---
Subjective Progress Note Date: 07/15/23 Pt is seen while undergoing dialysis session again today. No complaints at this time, would like to go home soon. Gen: awake, alert HEENT: normocephalic, atraumatic, good hearing acuity, moist mucous membranes Resp: good air exchange, breathing comfortably with no accessory muscle use CVS: good distal perfusion x 4, GI: soft, NTTP, ND : no SPT, no CVAT, monreal catheter not present MSK: no pitting edema, no clubbing Neuro: non-focal, moving all extremities Psych: cooperative, euthymic mood Hospital Course: Patient is an 88 yo male with COPD, former tobacco dependency, hypertension, AND hyperlipidemia who presented with complaints of dyspnea. In the emergency room he underwent an extensive evaluation. His initial vitals were within normal. Labs were remarkable for WBC 13.9. Computed tomography scan of the chest demonstrated significant severe emphysematous changes, left-sided infiltrate wit h possible cavitary component of 4.8cm in the left upper lobe versus pneumonia surrounding bullae. He was admitted for pneumonia and started on broad spectrum abx. His procalcitonin was noted to be 0.39. Pulm was consulted for consideration of bronchoscopy and had considered this but given clinical improvement and fragile condition of patients lungs on CT imaging, preferred to defer this to outpatient setting after course of abx. Per pulmonary differential is broad including; lung abscess, or cavitary lesion from fungal, mycobacterial pneumonias. Underwent bronch with BAL on 07/08/23 with purulent secretions cultures and biopsies done. 07/09 Patient seen and examined at bedside. He continues to have his chronic left abd pain that he related to shingles, he states that the lidocaine patch did not help. He continues to have cough but believes that it is getting better. 07/10 Patient was seen and examined. He reports improvement in his neuropathic pain with Morphine as needed. He has no complaints today. Renal function today worsened with Cr 2.37. Random Vancomycin level drawn critical at 44.2. 07/11 Patient was seen and examined. He reports no complaints today. His breathing is stable and neuropathic pain is well controlled. Currently on 2L NC. Renal function shows Cr 4.41. Nephrology consulted, recommends bladder scan, UA and oral sodium bicarbonate. 07/12 Patient was seen and examined. No acute events overnight. Seen with Dr. Angel at bedside. BMP shows Na 135, Cl 110, bicarb 17, BUN 48, Cr 6.04. 07/13 Patient was seen and examined. No acute events overnight. He was given 80 mg IV lasix yesterday (repeated today) with only 359 cc of urine output over the past 24H. CBC shows Hg 10. BMP shows bicab 19, BUN 51.3, Cr 7.3. Phos 7.9. Mg 2.4. Albumin 2.5. Due to worsening renal function, vascular surgery has been consulted for temporary HD access with plans to initiate HD today. BAL cultures are negative so far and cytology shows acute inflammatory cells, no malignant cells. All antibiotics were discontinued yesterday. Assessment/Plan: Vitals: Afebrile, 118/74, heart rate 69, 94% on 2 L nasal cannula Labs: No new labs reviewed today. Ordered CBC, basic metabolic panel, magnesium for tomorrow Images: No new images to review today Consultation: Vascular surgery note reviewed, dialysis catheter was exchanged BONY Metabolic acidosis - Continue sodium bicarbonate 650 mg PO BID - Nephrology on board, see above recommendations - Daily BMP Community acquired pneumonia complicated by left-sided cavitary lesion, possible gram negative Acute hypoxic respiratory failure Sepsis Severe COPD - See above regarding pulmonology recommendations - Completed course on antibiotics - Continue with DuoNeb's and Symbicort - Continue with Lipitor 10 mg nightly - Neurontin 600 mg 4 times daily, norco, lidocaine patch - Morphine 2mg IV Q6H for severe pain Hypertension Dyslipidemia 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 - Resume home medications Moderate protein calorie malnutrition - Ensure 3 times daily with meals Anticipated discharge date: pending clinical course Anticipated discharge place: pending clinical course Objective - Vital Signs Vital signs: Vital Signs Temp 98.8 F 07/15/23 06:54 Pulse 68 07/15/23 09:10 Resp 17 07/15/23 06:54 BP 118/74 07/15/23 06:54 Pulse Ox 94 L 07/15/23 06:54 FiO2 Intake & Output 07/14/23 07/15/23 07/15/23 18:59 06:59 18:59 Intake Total 830 Output Total 2450 100 Balance -1620 -100 Weight 77.111 kg Intake: IV 50 Oral 480 Hemodialysis 300 Output: Urine 150 100 Hemodialysis 2300 Other: Voiding Method Urinal Urinal - Labs CBC & Chem 7: 07/13/23 05:30 07/14/23 06:52 Labs: Abnormal Lab Results - Last 24 Hours (Table) 07/14/23 Range/Units 06:52 Anion Gap 12.40 H (4.00-12.00) mmol/L BUN 52.1 H (9.0-27.0) mg/dL Creatinine 7.4 H* (0.6-1.5) mg/dL Est GFR (CKD-EPI) 7 L (>=60) BUN/Creatinine Ratio 7.04 L (12.00-20.00) Ratio Calcium 8.5 L (8.7-10.3) mg/dL Phosphorus 7.6 H (2.4-5.1) mg/dL Magnesium 2.5 H (1.5-2.4) mg/dL
[2023-07-15 11:30] LABS: Blood Urea Nitrogen 37.2 mg/dL (9.0-27.0); Calcium 8.7 mg/dL (8.7-10.3); Carbon Dioxide 24.1 mmol/L (21.6-31.8); Chloride 101 mmol/L (96-109); Glucose 93 mg/dL (70-110); Magnesium 2.3 mg/dL (1.5-2.4); Potassium 4.3 mmol/L (3.5-5.5); Sodium 138 mmol/L (135-145)
[2023-07-15 11:37] LABS: Phosphorus 5.8 mg/dL (2.4-5.1)
--- NOTE | 2023-07-15 11:45 | P.PN ---
Subjective Patient is seen in follow-up for acute kidney injury. Started on hemodialysis 07/13/2023. Tolerating dialysis well. Tolerated 2 L ultrafiltration yesterday. Vital signs are stable. General: No acute distress. HEENT: Head exam is unremarkable. LUNGS: No audible rhonchi or wheezes. HEART: Rate and Rhythm are regular. ABDOMEN: Nontender. EXTREMITITES: 1+ edema. Objective - Vital Signs Vital signs: Vital Signs Temp 98.8 F 07/15/23 06:54 Pulse 68 07/15/23 09:10 Resp 17 07/15/23 06:54 BP 118/74 07/15/23 06:54 Pulse Ox 94 L 07/15/23 06:54 FiO2 Intake & Output 07/14/23 07/15/23 07/15/23 18:59 06:59 18:59 Intake Total 830 Output Total 2450 100 Balance -1620 -100 Weight 77.111 kg Intake: IV 50 Oral 480 Hemodialysis 300 Output: Urine 150 100 Hemodialysis 2300 Other: Voiding Method Urinal Urinal - Labs CBC & Chem 7: 07/13/23 05:30 07/15/23 06:56 Labs: Abnormal Lab Results - Last 24 Hours (Table) 07/14/23 07/15/23 Range/Units 06:52 06:56 Anion Gap 12.40 H 12.90 H (4.00-12.00) mmol/L BUN 52.1 H 37.2 H (9.0-27.0) mg/dL Creatinine 7.4 H* 6.1 H (0.6-1.5) mg/dL Est GFR (CKD-EPI) 7 L 8 L (>=60) BUN/Creatinine Ratio 7.04 L 6.10 L (12.00-20.00) Ratio Calcium 8.5 L (8.7-10.3) mg/dL Phosphorus 7.6 H 5.8 H (2.4-5.1) mg/dL Magnesium 2.5 H (1.5-2.4) mg/dL Assessment and Plan Plan: Assessment: 1. Acute kidney injury secondary to nephrotoxic ATN secondary to vancomycin toxicity. Creatinine 0.84 on admission - 7.4 dated 07/14/2023.. Vancomycin level 44.2 dated 07/10/2023. No hydronephrosis noted on kidney ultrasound. Baseline creatinine 0.84 dated 07/09/2023. UA fairly benign. Started on hemodialysis 07/13/2023. 2. Pneumonia maintained on antibiotics. Status post bronchoscopy this a dmission which did show 4.8 cm left upper lobe cavitary mass. Nodular densities also noted in the left lung. 3. Metabolic acidosis secondary to acute kidney injury and IV fluids. On oral bicarbonate. 4. Volume overload. Improving with ultrafiltration. 5. Hyperphosphatemia secondary to acute kidney injury. On PhosLo. Plan: Currently seen while undergoing hemodialysis. Plan to hold dialysis tomorrow. Encouraged oral intake. Strict I's and O's. Avoid nephrotoxins. Monitor for renal recovery.
--- NOTE | 2023-07-15 12:01 | P.PN ---
Subjective Progress Note Date: 07/15/23 I am seeing this patient in new consultation today 07/03/2023 for a cavitating left lung mass and community acquired pneumonia. Patient is a 88-year-old white male with past medical history significant for COPD/emphysema, previous left lung bullectomy, hyperlipidemia, hypertension, and is a remote ex-smoker. His PCP is a Dr. Castle. He does not follow with a rn care transition. Patient was transferred from [facility] for suspected extensive cavitating pneumonia on CT. Patient reports progressively worsening shortness of breath and cough with minimal sputum production over the past 3 weeks. Accompanied with muscle aches and weakness. Also, admits left sided chest pain, nonradiating. Denies fever, chills, hemoptysis. He does report approximately 15-20 pound weight loss over the last month. Patient is currently sitting up in bed, on 3 L/m nasal cannula, in no acute distress. A chest CTA at outside facility shows a postsurgical left upper lobe and left hemithorax. There was extensive patchy and confluent airspace disease throughout the left lung. Left basilar bronchiectasis with moderate bronchial wall thickening. There is 4.8 cm left upper lobe cavitary lesion, thought to be a cavitary pneumonia versus atypical fungal/mycobacterial infection versus necrotizing malignancy. There were additional nodular areas in the left lung measuring up to 2 cm. There was a 1.5 cm left infrahilar lymph node. There was extensive emphysematous changes. No previous imaging for comparison. Denies history of lung cancer. Denies previous bronchoscopy or biopsy of these lesions. CBC on arrival shows leukocytosis with a WBC count of 13.9, hemoglobin 13.4, hematocrit 41.5, platelets 298. BMP on arrival to our facility was unremarkable. Pro-calcitonin level was elevated at 0.39. Lactic acid level I.8. He is afebrile. Patient was started on a combination of Zosyn and vancomycin. Patient is hemodynamically stable at this time. On today's evaluation of 07/04/2023, the patient remains on Zosyn and vancomycin. Much improved compared to yesterday. Much more alert and awake and communicating. Oxygenation is also improved and the patient is currently on 2 L of Oxymizer nasal cannula with a pulse ox of 96%. This does cause of 10.4, hemoglobin 11, BUN is at 50 with a creatinine of 0.7 and a sodium level is at 135. Pro-calcitonin level is at 0.39. Blood cultures still pending for now. 07/05/2023, the patient is on room air oxygen. Remains on accommodation of Zosyn and vancomycin. Chest x-ray findings are unchanged. I reviewed the CAT scan again. The patient has soft tissue density in the left suprahilar area. Nevertheless, this could be a fluid-filled bullous or infected bullous as the patient has chronic emphysematous changes with bullae in the upper lobes zheng aterally. He has improved considerably. No plans for broncho-scope for now. No new labs from today. Labs from yesterday was noted. Pro-calcitonin level was at 0.39. He continues to improve. The blood cultures are negative thus far. The patient is seen today 07/06/2023 in follow-up on the regular medical floor. He is currently sitting up in a chair. Awake and alert in no acute distress. He is maintaining O2 saturations in the 90s on room air. He denies any worsening shortness of breath, cough or congestion. He is afebrile. Hemodynamically stable. Blood cultures revealed no growth. Sputum culture pending. White count 12.4. Hemoglobin 11.2. Platelets 289. He remains on DuoNeb inhalations, Symbicort. Antibiotics in the form of vancomycin and Zosyn. The patient is seen today 07/07/2023 in follow-up on the regular medical floor. He is currently resting in bed. Awake and alert. He is having some postherpetic pain from previous shingles along his left chest. He denies any worsening shortness of breath, cough or congestion. He is maintaining O2 saturations in the 90s on room air. He has a loose nonproductive cough. Chest x-ray showing slight improvement but still significant infiltrates in the left lung. White count 12.8. Hemoglobin 11.5. Sodium 136. Potassium 3.3. Bicarb 23. BUN 12. Creatinine 0.82. He remains on vancomycin and Zosyn. He remains on DuoNeb inhalations, Symbicort, Lovenox. The patient is seen today 07/08/2023 in follow-up on the regular medical floor. Currently sitting up in a chair at the bedside. Awake and alert in no acute distress. He is maintaining O2 saturations in the 90s on room air. Afebrile. Hemodynamically stable. Sputum cultures revealed no growth. Blood culture revealed no growth. Creatinine 0.79. Continued on vancomycin and Zosyn. Continued on bronchodilators, Lovenox. Plan is for bronchoscopy with BAL and biopsies today. The patient is seen today 07/09/2023 in follow-up on the regular medical floor. He is awake and alert in no acute distress. Sitting up in a chair. Maintaining O2 saturations in the 90s on room air. Sputum culture reveals no growth. Blood culture revealed no growth. He did undergo bronchoscopy with BAL and biopsies yesterday. Cultures are pending. Cytology pending. White count 10.2. Hemoglobin 11.6. Sodium 138. Potassium 3.4. Bicarb 20. BUN 10. Creatinine 0.84. He remains on antibiotics in the form of vancomycin and Zosyn. Continue bronchodilators. Lovenox for DVT prophylaxis. The patient is seen today 07/10/2023 in follow-up on the regular medical floor. He sitting up in a chair. Awake and alert in no acute distress. Denies any worsening shortness of breath, cough or congestion. Preliminary bronchial lavage revealing no organisms seen. Sputum culture negative. Blood culture negative. Biopsies revealed no evidence of cancer. Creatinine 2.37. Random vancomycin level 44.2. Remains on Symbicort and DuoNeb inhalations. The patient is seen today 07/11/2023 in follow-up on the regular medical floor. He is currently resting comfortably in bed. Awake and alert in no acute distress. Maintaining good O2 saturations in the mid 90s on 2 L/m per nasal cannula. Afebrile. Hemodynamically stable. Chest x-ray showing some slight improvement with continued similar volume loss and extensive pleuralparenchymal opacities as well as surgical change at the left lung. Ultrasound of the kidneys revealed no hydronephrosis or nephrolithiasis. Creatinine is up to 4.41 today. Vancomycin remains on hold. The patient is seen today 07/12/2023 in follow-up on the regular medical floor. He is currently sitting up in a chair. Awake and alert in no acute distress. Maintaining O2 saturations in the mid 90s on 2 L/m per nasal cannula. Afebrile. Hemodynamically stable. He remains on DuoNeb inhalations, Symbicort, Lovenox. Creatinine still on the rise currently 6.04. BUN 48. Sodium 15. Potassium 4.8. Bicarb 17. Urinalysis clean. Remains on sodium bicarbonate tablets. Receiving normal saline at 60 ML's per hour. The patient is seen today 07/13/2023 in follow-up on the regular medical floor. He is awake and alert in no acute distress. He denies any worsening shortness of breath, cough or congestion. He is currently maintaining O2 saturations in the mid 90s on 2 L/m per nasal cannula. He's been afebrile. Hemodynamically stable. Bronchial wash cultures revealed no growth. Sputum culture no growth. Blood culture no growth. White count 9.2. Hemoglobin 10.0. Platelets 220. Sodium 138. Potassium 5.2. Bicarb 19. BUN 51. Creatinine 7.3. GFR 8. Glucose 104. Nephrology is following. He remains on Symbicort, DuoNeb inhalations. Lovenox for DVT prophylaxis. The patient is seen today 07/14/2023 in follow-up on the regular medical floor. He is currently resting comfortably in bed. He is receiving hemodialysis currently. Maintaining O2 saturations in the 90s on 2 L/m per nasal cannula. Follow-up x-ray continues to show significant left-sided opacities. Evidence of previous left upper lobe bullectomy. Sodium 138. Potassium 4.7. Bicarb 22. BUN 52. Creatinine 7.4. He remains on Symbicort, DuoNeb inhalations Lovenox for DVT prophylaxis. The patient is seen today 07/15/2023 in follow-up on the regular medical floor. He is awake and alert in no acute distress. Resting comfortably in bed. Maintaining good O2 saturations in the 90s on 2 L/m per nasal cannula. Afebrile. Hemodynamically stable. Currently receiving hemodialysis. They were able to remove 2 L yesterday and the goals for 2 L today. He remains on Symbicort and DuoNeb inhalations. Lovenox for DVT prophylaxis. Sodium 138. Potassium 4.3. Bicarb 24. BUN 37. Creatinine 6.1. Objective - Vital Signs Vital signs: Vital Signs Temp 98.8 F 07/15/23 06:54 Pulse 68 07/15/23 09:10 Resp 17 07/15/23 06:54 BP 118/74 07/15/23 06:54 Pulse Ox 94 L 07/15/23 06:54 FiO2 Intake & Output 07/14/23 07/15/23 07/15/23 18:59 06:59 18:59 Intake Total 830 Output Total 2450 100 Balance -1620 -100 Weight 77.111 kg Intake: IV 50 Oral 480 Hemodialysis 300 Output: Urine 150 100 Hemodialysis 2300 Other: Voiding Method Urinal Urinal - Exam GENERAL EXAM: Alert, pleasant 88-year-old male, receiving hemodialysis, on 2 L nasal cannula, comfortable in no apparent distress. HEAD: Normocephalic and atraumatic EYES: Normal reaction of pupils, equal size. NOSE: Clear with pink turbinates. THROAT: No erythema or exudates. NECK: No masses, no JVD. CHEST: No chest wall deformity. LUNGS: Diminished left lung sounds with scattered inspiratory crackles, rhonchi. CVS: S1 and S2 normal with no audible murmur, regular rhythm. No extra heart sounds ABDOMEN: No hepatosplenomegaly, active bowel sounds, no guarding or rigidity. SPINE: No scoliosis or deformity SKIN: No rashes CENTRAL NERVOUS SYSTEM: No focal deficits, tone is normal in all 4 extremities. EXTREMITIES: Right femoral hemodialysis catheter in place. There is no periphera l edema, clubbing, or cyanosis. Peripheral pulses are intact. - Labs CBC & Chem 7: 07/13/23 05:30 07/15/23 06:56 Labs: Abnormal Lab Results - Last 24 Hours (Table) 07/14/23 07/15/23 Range/Units 06:52 06:56 Anion Gap 12.40 H 12.90 H (4.00-12.00) mmol/L BUN 52.1 H 37.2 H (9.0-27.0) mg/dL Creatinine 7.4 H* 6.1 H (0.6-1.5) mg/dL Est GFR (CKD-EPI) 7 L 8 L (>=60) BUN/Creatinine Ratio 7.04 L 6.10 L (12.00-20.00) Ratio Calcium 8.5 L (8.7-10.3) mg/dL Phosphorus 7.6 H 5.8 H (2.4-5.1) mg/dL Magnesium 2.5 H (1.5-2.4) mg/dL Assessment and Plan Assessment: Acute hypoxemic respiratory failure, improved and the patient is currently on room air oxygen. A chest CTA at outside facility shows a postsurgical left upper lobe and left hemithorax. There was extensive patchy and confluent airspace disease throughout the left lung. Left basilar bronchiectasis with moderate bronchial wall thickening. There is 4.8 cm left upper lobe cavitary mass, thought to be a cavitary pneumonia versus atypical fungal/mycobacterial infection versus necrotizing malignancy. There were additional nodular densities in the left lung measuring up to 2 cm. There was a 1.5 cm left infrahilar lymph node. There was extensive emphysematous changes. No previous imaging for comparison. This could be also an infected bullous versus a fluid-filled bullou s post pneumonia. Underwent a bronchoscopy with biopsies and BAL 07/08/2023, cultures negative. Cytology negative for malignancy. Acute kidney injury secondary to vancomycin toxicity, creatinine up to 7.4, received hemodialysis 07/14/2023 and 07/15/2023 with 2 L removed each day, current creatinine 6.1 COPD/emphysema, stable History of previous left upper lobe bullectomy Benign essential hypertension Hyperlipidemia Remote ex-smoker, quit 1992 Post herpetic neuralgia on the left chest wall Plan: The patient was seen and evaluated Labs and medications reviewed Receiving renal replacement therapy Plan is for subacute rehabilitation at discharge I have personally seen and examined the patient, performed the documentation and the assessment and plan as written. Number of minutes spent on the visit: 10.
--- NOTE | 2023-07-15 12:13 | P.PN ---
Subjective Progress Note Date: 07/15/23 Principal diagnosis: Acute kidney injury Patient was seen and examined today as a follow-up. Apparently yesterday evening patient had malfunctioning right temporary dialysis catheter. He was unable to complete dialysis. Dr. Reese has had seen patient yesterday evening and replaced right femoral temporary HD catheter. Patient currently receiving hemodialysis without any difficulty. Objective - Vital Signs Vital signs: Vital Signs Temp 98.8 F 07/15/23 06:54 Pulse 68 07/15/23 09:10 Resp 17 07/15/23 06:54 BP 118/74 07/15/23 06:54 Pulse Ox 94 L 07/15/23 06:54 FiO2 Intake & Output 07/14/23 07/15/23 07/15/23 18:59 06:59 18:59 Intake Total 830 Output Total 2450 100 Balance -1620 -100 Weight 77.111 kg Intake: IV 50 Oral 480 Hemodialysis 300 Output: Urine 150 100 Hemodialysis 2300 Other: Voiding Method Urinal Urinal - Exam General appearance: The patient is alert, oriented, appears in no acute distress. HET: Head is normocephalic and atraumatic. Neck: Supple. Heart: Regular. Lungs: Equal expansion, normal respiratory effort. Abdomen: Soft, nontender, nondistended. Extremities: Right groin with HD catheter in place with dressing, no hematoma noted. Neurological: No focal deficits. Alert and oriented. - Labs CBC & Chem 7: 07/13/23 05:30 07/15/23 06:56 Labs: Abnormal Lab Results - Last 24 Hours (Table) 07/14/23 Range/Units 06:52 Anion Gap 12.40 H (4.00-12.00) mmol/L BUN 52.1 H (9.0-27.0) mg/dL Creatinine 7.4 H* (0.6-1.5) mg/dL Est GFR (CKD-EPI) 7 L (>=60) BUN/Creatinine Ratio 7.04 L (12.00-20.00) Ratio Calcium 8.5 L (8.7-10.3) mg/dL Phosphorus 7.6 H (2.4-5.1) mg/dL Magnesium 2.5 H (1.5-2.4) mg/dL Assessment and Plan Assessment: 1. Acute kidney injury with need for dialysis 2. Recent antibiotic use, vancomycin Plan: 1. Continue hemodialysis per recommendations from nephrology Thank you for this consultation. We will sign off at this time. The impression and plan of care has been dictated as directed. Dr. Valentin I performed a history and examination of this patient, discussed the same with the dictator. I agree with the dictator's note ,documented as a scribe. Any additional findings or plans will be noted.
[2023-07-15] MEDS: ATORVASTATIN 10 MG TAB PO SCH (21:07)
[2023-07-15] MEDS: DOCUSATE 100 MG CAP PO SCH (21:07)
[2023-07-16] MEDS: CALCIUM ACETATE 667 MG TAB PO SCH ×2 (07:54→17:06)
[2023-07-16] MEDS: LIDOCAINE 5% PATCH TOPICAL SCH (07:55)
[2023-07-16] MEDS: ENOXAPARIN 30 MG/0.3 ML SYRINGE SQ SCH (07:55)
[2023-07-16] MEDS: SYMBICORT 160-4.5 MCG INHALER INHALATION SCH ×2 (07:59→21:51)
[2023-07-16] MEDS: IPRATROPIUM-ALBUTEROL 3 ML NEB INHALATION SCH ×4 (08:00→21:52)
[2023-07-16] MEDS: HYDROcodone/APAP 10-325MG 1 EACH TAB PO PRN ×2 (08:02→20:26)
[2023-07-16] MEDS: BISMUTH SUBSALICYLATE 4,192 MG/240 ML BOTTLE PO PRN (08:09)
[2023-07-16] MEDS: SODIUM BICARBONATE TAB 650 MG TAB PO SCH ×2 (09:24→20:25)
[2023-07-16] MEDS: CHOLECALCIFEROL 125 MCG (5000 IU) TABLET PO SCH (09:24)
[2023-07-16] MEDS: GABAPENTIN 300 MG CAP PO SCH (09:24)
[2023-07-16] MEDS: ASPIRIN 81 MG PO SCH (09:24)
--- NOTE | 2023-07-16 10:26 | P.PN ---
Subjective Progress Note Date: 07/16/23 Pt is seen while undergoing dialysis session again today. No complaints at this time, would like to go home soon. Gen: awake, alert HEENT: normocephalic, atraumatic, good hearing acuity, moist mucous membranes Resp: good air exchange, breathing comfortably with no accessory muscle use CVS: good distal perfusion x 4, GI: soft, NTTP, ND : no SPT, no CVAT, monreal catheter not present MSK: no pitting edema, no clubbing Neuro: non-focal, moving all extremities Psych: cooperative, euthymic mood Hospital Course: Patient is an 88 yo male with COPD, former tobacco dependency, hypertension, AND hyperlipidemia who presented with complaints of dyspnea. In the emergency room he underwent an extensive evaluation. His initial vitals were within normal. Labs were remarkable for WBC 13.9. Computed tomography scan of the chest demonstrated significant severe emphysematous changes, left-sided infiltrate wit h possible cavitary component of 4.8cm in the left upper lobe versus pneumonia surrounding bullae. He was admitted for pneumonia and started on broad spectrum abx. His procalcitonin was noted to be 0.39. Pulm was consulted for consideration of bronchoscopy and had considered this but given clinical improvement and fragile condition of patients lungs on CT imaging, preferred to defer this to outpatient setting after course of abx. Per pulmonary differential is broad including; lung abscess, or cavitary lesion from fungal, mycobacterial pneumonias. Underwent bronch with BAL on 07/08/23 with purulent secretions cultures and biopsies done. 07/09 Patient seen and examined at bedside. He continues to have his chronic left abd pain that he related to shingles, he states that the lidocaine patch did not help. He continues to have cough but believes that it is getting better. 07/10 Patient was seen and examined. He reports improvement in his neuropathic pain with Morphine as needed. He has no complaints today. Renal function today worsened with Cr 2.37. Random Vancomycin level drawn critical at 44.2. 07/11 Patient was seen and examined. He reports no complaints today. His breathing is stable and neuropathic pain is well controlled. Currently on 2L NC. Renal function shows Cr 4.41. Nephrology consulted, recommends bladder scan, UA and oral sodium bicarbonate. 07/12 Patient was seen and examined. No acute events overnight. Seen with Dr. Angel at bedside. BMP shows Na 135, Cl 110, bicarb 17, BUN 48, Cr 6.04. 07/13 Patient was seen and examined. No acute events overnight. He was given 80 mg IV lasix yesterday (repeated today) with only 359 cc of urine output over the past 24H. CBC shows Hg 10. BMP shows bicab 19, BUN 51.3, Cr 7.3. Phos 7.9. Mg 2.4. Albumin 2.5. Due to worsening renal function, vascular surgery has been consulted for temporary HD access with plans to initiate HD today. BAL cultures are negative so far and cytology shows acute inflammatory cells, no malignant cells. All antibiotics were discontinued yesterday. Assessment/Plan: Vitals: Afebrile, 144/80, heart rate 98, 94% on 2 L nasal cannula Labs: Cr 6.1, BUN 37.2; Images: No new images to review today Consultation: Discussed with nephrology, plan for holding dialysis today, reattempt tomorrow, if still requiring then will pursue permacath BONY Metabolic acidosis - Continue sodium bicarbonate 650 mg PO BID - Nephrology on board, see above recommendations - Daily BMP Community acquired pneumonia complicated by left-sided cavitary lesion, possible gram negative Acute hypoxic respiratory failure Sepsis Severe COPD - See above regarding pulmonology recommendations - Completed course on antibiotics - Continue with DuoNeb's and Symbicort - Continue with Lipitor 10 mg nightly - Neurontin 600 mg 4 times daily, norco, lidocaine patch - Morphine 2mg IV Q6H for severe pain Hypertension Dyslipidemia 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 - Resume home medications Moderate protein calorie malnutrition - Ensure 3 times daily with meals Anticipated discharge date: pending clinical course Anticipated discharge place: pending clinical course Objective - Vital Signs Vital signs: Vital Signs Temp 98.8 F 07/16/23 02:00 Pulse 99 07/16/23 08:11 Resp 16 07/16/23 06:56 BP 144/80 07/16/23 06:56 Pulse Ox 94 L 07/16/23 06:56 FiO2 Intake & Output 07/15/23 07/16/23 07/16/23 18:59 06:59 18:59 Intake Total 300 Output Total 2500 100 Balance -2200 -100 Intake: Hemodialysis 300 Output: Urine 100 Hemodialysis 2500 Other: Voiding Method Toilet - Labs CBC & Chem 7: 07/13/23 05:30 07/15/23 06:56 Labs: Abnormal Lab Results - Last 24 Hours (Table) 07/15/23 Range/Units 06:56 Anion Gap 12.90 H (4.00-12.00) mmol/L BUN 37.2 H (9.0-27.0) mg/dL Creatinine 6.1 H (0.6-1.5) mg/dL Est GFR (CKD-EPI) 8 L (>=60) BUN/Creatinine Ratio 6.10 L (12.00-20.00) Ratio Phosphorus 5.8 H (2.4-5.1) mg/dL
[2023-07-16] MEDS ORDERED: FUROSEMIDE 10 MG/ML 10 ML VIAL IV STA (11:04)
--- NOTE | 2023-07-16 11:06 | P.PN ---
Subjective Patient is seen in follow-up for acute kidney injury. Started on hemodialysis 07/13/2023. Tolerating dialysis well. Tolerated 2.5 L ultrafiltration yesterday. Urine output about 400 mL in the last 24 hours. Vital signs are stable. General: No acute distress. HEENT: Head exam is unremarkable. LUNGS: No audible rhonchi or wheezes. HEART: Rate and Rhythm are regular. ABDOMEN: Nontender. EXTREMITITES: Trace edema. Objective - Vital Signs Vital signs: Vital Signs Temp 98.8 F 07/16/23 02:00 Pulse 99 07/16/23 08:11 Resp 16 07/16/23 06:56 BP 144/80 07/16/23 06:56 Pulse Ox 94 L 07/16/23 06:56 FiO2 Intake & Output 07/15/23 07/16/23 07/16/23 18:59 06:59 18:59 Intake Total 300 Output Total 2500 100 Balance -2200 -100 Intake: Hemodialysis 300 Output: Urine 100 Hemodialysis 2500 Other: Voiding Method Toilet - Labs CBC & Chem 7: 07/13/23 05:30 07/15/23 06:56 Labs: Abnormal Lab Results - Last 24 Hours (Table) 07/15/23 Range/Units 06:56 Anion Gap 12.90 H (4.00-12.00) mmol/L BUN 37.2 H (9.0-27.0) mg/dL Creatinine 6.1 H (0.6-1.5) mg/dL Est GFR (CKD-EPI) 8 L (>=60) BUN/Creatinine Ratio 6.10 L (12.00-20.00) Ratio Phosphorus 5.8 H (2.4-5.1) mg/dL Assessment and Plan Plan: Assessment: 1. Acute kidney injury secondary to nephrotoxic ATN secondary to vancomycin toxicity. Creatinine 0.84 on admission - 7.4 dated 07/14/2023.. Vancomycin level 44.2 dated 07/10/2023. No hydronephrosis noted on kidney ultrasound. Baseline creatinine 0.84 dated 07/09/2023. UA fairly benign. Started on hemodialysis 07/13/2023. 2. Pneumonia maintained on antibiotics. Status post bronchoscopy this admission which did show 4.8 cm left upper lobe cavitary mass. Nodular densities also noted in the left lung. 3. Metabolic acidosis secondary to acute kidney injury and IV fluids. On oral bicarbonate. Improved. 4. Volume overload. Improving with ultrafiltration. 5. Hyperphosphatemia secondary to acute kidney injury. On PhosLo. Plan: Hemodialysis tomorrow. Encouraged oral intake. Strict I's and O's. Avoid nephrotoxins. Monitor for renal recovery. Lasix 80 mg IV once today. Decrease dose of gabapentin.
[2023-07-16 11:25] LABS: BUN/Creat Ratio 5.37 Ratio (12.00-20.00); Calcium 8.8 mg/dL (8.7-10.3); Carbon Dioxide 27.5 mmol/L (21.6-31.8); Chloride 98 mmol/L (96-109); Glucose 94 mg/dL (70-110); Magnesium 2.3 mg/dL (1.5-2.4); Potassium 4.2 mmol/L (3.5-5.5); Sodium 137 mmol/L (135-145)
[2023-07-16 11:29] LABS: Basophils # (A) 0.09 X 10*3/uL (0.00-0.10); Basophils % (A) 1.7 %; Eosinophils # (A) 0.32 X 10*3/uL (0.04-0.35); HCT 34.5 % (39.6-50.0); HGB 10.7 d/dL (13.0-17.0); Lymphocytes # (A) 0.74 X 10*3/uL (0.90-5.00); Lymphocytes % (A) 13.9 %; MCH 27.9 pg (27.0-32.0); MCV 89.8 FL (80.0-97.0); Mean Platelet Volume 9.4 FL (9.5-12.2); Monocytes # (A) 0.87 X 10*3/uL (0.20-1.00); Monocytes % (A) 16.3 %; NRBC Per 100 WBC 0 X 10*3/uL (0.00-0.01); Neutrophils % (A) 61.7 %; Platelet Count 217 X 10*3/uL (140-440); RBC 3.84 X 10*6/uL (4.40-5.60); RDW 14.9 % (11.5-14.5); WBC 5.34 X 10*3/uL (4.50-10.00)
--- NOTE | 2023-07-16 12:40 | P.PN ---
Subjective Progress Note Date: 07/16/23 I am seeing this patient in new consultation today 07/03/2023 for a cavitating left lung mass and community acquired pneumonia. Patient is a 88-year-old white male with past medical history significant for COPD/emphysema, previous left lung bullectomy, hyperlipidemia, hypertension, and is a remote ex-smoker. His PCP is a Dr. Castle. He does not follow with a liquor tester. Patient was transferred from [facility] for suspected extensive cavitating pneumonia on CT. Patient reports progressively worsening shortness of breath and cough with minimal sputum production over the past 3 weeks. Accompanied with muscle aches and weakness. Also, admits left sided chest pain, nonradiating. Denies fever, chills, hemoptysis. He does report approximately 15-20 pound weight loss over the last month. Patient is currently sitting up in bed, on 3 L/m nasal cannula, in no acute distress. A chest CTA at outside facility shows a postsurgical left upper lobe and left hemithorax. There was extensive patchy and confluent airspace disease throughout the left lung. Left basilar bronchiectasis with moderate bronchial wall thickening. There is 4.8 cm left upper lobe cavitary lesion, thought to be a cavitary pneumonia versus atypical fungal/mycobacterial infection versus necrotizing malignancy. There were additional nodular areas in the left lung measuring up to 2 cm. There was a 1.5 cm left infrahilar lymph node. There was extensive emphysematous changes. No previous imaging for comparison. Denies history of lung cancer. Denies previous bronchoscopy or biopsy of these lesions. CBC on arrival shows leukocytosis with a WBC count of 13.9, hemoglobin 13.4, hematocrit 41.5, platelets 298. BMP on arrival to our facility was unremarkable. Pro-calcitonin level was elevated at 0.39. Lactic acid level I.8. He is afebrile. Patient was started on a combination of Zosyn and vancomycin. Patient is hemodynamically stable at this time. On today's evaluation of 07/04/2023, the patient remains on Zosyn and vancomycin. Much improved compared to yesterday. Much more alert and awake and communicating. Oxygenation is also improved and the patient is currently on 2 L of Oxymizer nasal cannula with a pulse ox of 96%. This does cause of 10.4, hemoglobin 11, BUN is at 50 with a creatinine of 0.7 and a sodium level is at 135. Pro-calcitonin level is at 0.39. Blood cultures still pending for now. 07/05/2023, the patient is on room air oxygen. Remains on accommodation of Zosyn and vancomycin. Chest x-ray findings are unchanged. I reviewed the CAT scan again. The patient has soft tissue density in the left suprahilar area. Nevertheless, this could be a fluid-filled bullous or infected bullous as the patient has chronic emphysematous changes with bullae in the upper lobes zheng aterally. He has improved considerably. No plans for broncho-scope for now. No new labs from today. Labs from yesterday was noted. Pro-calcitonin level was at 0.39. He continues to improve. The blood cultures are negative thus far. The patient is seen today 07/06/2023 in follow-up on the regular medical floor. He is currently sitting up in a chair. Awake and alert in no acute distress. He is maintaining O2 saturations in the 90s on room air. He denies any worsening shortness of breath, cough or congestion. He is afebrile. Hemodynamically stable. Blood cultures revealed no growth. Sputum culture pending. White count 12.4. Hemoglobin 11.2. Platelets 289. He remains on DuoNeb inhalations, Symbicort. Antibiotics in the form of vancomycin and Zosyn. The patient is seen today 07/07/2023 in follow-up on the regular medical floor. He is currently resting in bed. Awake and alert. He is having some postherpetic pain from previous shingles along his left chest. He denies any worsening shortness of breath, cough or congestion. He is maintaining O2 saturations in the 90s on room air. He has a loose nonproductive cough. Chest x-ray showing slight improvement but still significant infiltrates in the left lung. White count 12.8. Hemoglobin 11.5. Sodium 136. Potassium 3.3. Bicarb 23. BUN 12. Creatinine 0.82. He remains on vancomycin and Zosyn. He remains on DuoNeb inhalations, Symbicort, Lovenox. The patient is seen today 07/08/2023 in follow-up on the regular medical floor. Currently sitting up in a chair at the bedside. Awake and alert in no acute distress. He is maintaining O2 saturations in the 90s on room air. Afebrile. Hemodynamically stable. Sputum cultures revealed no growth. Blood culture revealed no growth. Creatinine 0.79. Continued on vancomycin and Zosyn. Continued on bronchodilators, Lovenox. Plan is for bronchoscopy with BAL and biopsies today. The patient is seen today 07/09/2023 in follow-up on the regular medical floor. He is awake and alert in no acute distress. Sitting up in a chair. Maintaining O2 saturations in the 90s on room air. Sputum culture reveals no growth. Blood culture revealed no growth. He did undergo bronchoscopy with BAL and biopsies yesterday. Cultures are pending. Cytology pending. White count 10.2. Hemoglobin 11.6. Sodium 138. Potassium 3.4. Bicarb 20. BUN 10. Creatinine 0.84. He remains on antibiotics in the form of vancomycin and Zosyn. Continue bronchodilators. Lovenox for DVT prophylaxis. The patient is seen today 07/10/2023 in follow-up on the regular medical floor. He sitting up in a chair. Awake and alert in no acute distress. Denies any worsening shortness of breath, cough or congestion. Preliminary bronchial lavage revealing no organisms seen. Sputum culture negative. Blood culture negative. Biopsies revealed no evidence of cancer. Creatinine 2.37. Random vancomycin level 44.2. Remains on Symbicort and DuoNeb inhalations. The patient is seen today 07/11/2023 in follow-up on the regular medical floor. He is currently resting comfortably in bed. Awake and alert in no acute distress. Maintaining good O2 saturations in the mid 90s on 2 L/m per nasal cannula. Afebrile. Hemodynamically stable. Chest x-ray showing some slight improvement with continued similar volume loss and extensive pleuralparenchymal opacities as well as surgical change at the left lung. Ultrasound of the kidneys revealed no hydronephrosis or nephrolithiasis. Creatinine is up to 4.41 today. Vancomycin remains on hold. The patient is seen today 07/12/2023 in follow-up on the regular medical floor. He is currently sitting up in a chair. Awake and alert in no acute distress. Maintaining O2 saturations in the mid 90s on 2 L/m per nasal cannula. Afebrile. Hemodynamically stable. He remains on DuoNeb inhalations, Symbicort, Lovenox. Creatinine still on the rise currently 6.04. BUN 48. Sodium 15. Potassium 4.8. Bicarb 17. Urinalysis clean. Remains on sodium bicarbonate tablets. Receiving normal saline at 60 ML's per hour. The patient is seen today 07/13/2023 in follow-up on the regular medical floor. He is awake and alert in no acute distress. He denies any worsening shortness of breath, cough or congestion. He is currently maintaining O2 saturations in the mid 90s on 2 L/m per nasal cannula. He's been afebrile. Hemodynamically stable. Bronchial wash cultures revealed no growth. Sputum culture no growth. Blood culture no growth. White count 9.2. Hemoglobin 10.0. Platelets 220. Sodium 138. Potassium 5.2. Bicarb 19. BUN 51. Creatinine 7.3. GFR 8. Glucose 104. Nephrology is following. He remains on Symbicort, DuoNeb inhalations. Lovenox for DVT prophylaxis. The patient is seen today 07/14/2023 in follow-up on the regular medical floor. He is currently resting comfortably in bed. He is receiving hemodialysis currently. Maintaining O2 saturations in the 90s on 2 L/m per nasal cannula. Follow-up x-ray continues to show significant left-sided opacities. Evidence of previous left upper lobe bullectomy. Sodium 138. Potassium 4.7. Bicarb 22. BUN 52. Creatinine 7.4. He remains on Symbicort, DuoNeb inhalations Lovenox for DVT prophylaxis. The patient is seen today 07/15/2023 in follow-up on the regular medical floor. He is awake and alert in no acute distress. Resting comfortably in bed. Maintaining good O2 saturations in the 90s on 2 L/m per nasal cannula. Afebrile. Hemodynamically stable. Currently receiving hemodialysis. They were able to remove 2 L yesterday and the goals for 2 L today. He remains on Symbicort and DuoNeb inhalations. Lovenox for DVT prophylaxis. Sodium 138. Potassium 4.3. Bicarb 24. BUN 37. Creatinine 6.1. The patient is seen today 07/16/2023 in follow-up on the regular medical floor. He is currently resting comfortably in bed. Awake and alert in no acute distress. On 2 L nasal cannula. Afebrile. Hemodynamically stable. Blood cultures reveal no growth. Sputum culture reveals no growth. Bronchial wash cultures revealed no growth. White count 5.3. Hemoglobin 10.7. Platelets 217. Sodium 137. Potassium 4.2. Bicarb 27. BUN 29. Creatinine 5.4. He did undergo hemodialysis yesterday with 2 L of fluid removed. Plan is for he modialysis tomorrow. Objective - Vital Signs Vital signs: Vital Signs Temp 98.8 F 07/16/23 02:00 Pulse 99 07/16/23 08:11 Resp 16 07/16/23 06:56 BP 144/80 07/16/23 06:56 Pulse Ox 94 L 07/16/23 06:56 FiO2 Intake & Output 07/15/23 07/16/23 07/16/23 18:59 06:59 18:59 Intake Total 300 Output Total 2500 100 400 Balance -2200 -100 -400 Intake: Hemodialysis 300 Output: Urine 100 400 Hemodialysis 2500 Other: Voiding Method Toilet - Exam GENERAL EXAM: Alert, 88-year-old male, on 2 L nasal cannula, comfortable in no apparent distress. HEAD: Normocephalic and atraumatic EYES: Normal reaction of pupils, equal size. NOSE: Clear with pink turbinates. THROAT: No erythema or exudates. NECK: No masses, no JVD. CHEST: No chest wall deformity. LUNGS: Diminished left lung sounds with scattered inspiratory crackles, rhonchi. CVS: S1 and S2 normal with no audible murmur, regular rhythm. No extra heart sounds ABDOMEN: No hepatosplenomegaly, active bowel sounds, no guarding or rigidity. SPINE: No scoliosis or deformity SKIN: No rashes CENTRAL NERVOUS SYSTEM: No focal deficits, tone is normal in all 4 extremities. EXTREMITIES: Right femoral hemodialysis catheter in place. There is no peripheral edema, clubbing, or cyanosis. Peripheral pulses are intact. - Labs CBC & Chem 7: 07/16/23 06:50 07/16/23 06:50 Labs: Abnormal Lab Results - Last 24 Hours (Table) 07/16/23 07/16/23 Range/Units 06:50 06:50 RBC 3.84 L (4.40-5.60) X 10*6/uL Hgb 10.7 L (13.0-17.0) d/dL Hct 34.5 L (39.6-50.0) % MCHC 31.0 L (32.0-37.0) d/dL RDW 14.9 H (11.5-14.5) % MPV 9.4 L (9.5-12.2) FL Lymphocytes # 0.74 L (0.90-5.00) X 10*3/uL BUN 29.0 H (9.0-27.0) mg/dL Creatinine 5.4 H (0.6-1.5) mg/dL Est GFR (CKD-EPI) 10 L (>=60) BUN/Creatinine Ratio 5.37 L (12.00-20.00) Ratio Assessment and Plan Assessment: Acute hypoxemic respiratory failure, improved and the patient is currently on room air oxygen. A chest CTA at outside facility shows a postsurgical left upper lobe and left hemithorax. There was extensive patchy and confluent airspace disease throughout the left lung. Left basilar bronchiectasis with moderate bronchial wall thickening. There is 4.8 cm left upper lobe cavitary mass, thought to be a cavitary pneumonia versus atypical fungal/mycobacterial infection versus necrotizing malignancy. There were additional nodular densities in the left lung measuring up to 2 cm. There was a 1.5 cm left infrahilar lymph node. There was extensive emphysematous changes. No previous imaging for comparison. This could be also an infected bullous versus a fluid-filled bullous post pneumonia. Underwent a bronchoscopy with biopsies and BAL , cultures negative. Cytology negative for malignancy. Acute kidney injury secondary to vancomycin toxicity, creatinine up to 7.4, received hemodialysis 07/14/2023 and 07/15/2023 with 2 L removed each day, current creatinine 5.4 COPD/emphysema, stable History of previous left upper lobe bullectomy Benign essential hypertension Hyperlipidemia Remote ex-smoker, quit 1992 Post herpetic neuralgia on the left chest wall Plan: The patient was seen and evaluated Labs and medications reviewed Continue current treatment plan The plan is for hemodialysis again tomorrow Plan is for subacute rehabilitation at discharge I have personally seen and examined the patient, performed the documentation and the assessment and plan as written. Number of minutes spent on the visit: 10.
[2023-07-16] MEDS: GABAPENTIN 100 MG CAP PO SCH ×2 (17:06→20:26)
[2023-07-16] MEDS: ATORVASTATIN 10 MG TAB PO SCH (20:26)
[2023-07-16] MEDS: DOCUSATE 100 MG CAP PO SCH (20:31)
[2023-07-17] MEDS: ENOXAPARIN 30 MG/0.3 ML SYRINGE SQ SCH (07:46)
[2023-07-17] MEDS: ASPIRIN 81 MG PO SCH (07:46)
[2023-07-17] MEDS: SODIUM BICARBONATE TAB 650 MG TAB PO SCH (07:46)
[2023-07-17] MEDS: CALCIUM ACETATE 667 MG TAB PO SCH ×2 (07:46→16:06)
[2023-07-17] MEDS: CHOLECALCIFEROL 125 MCG (5000 IU) TABLET PO SCH (07:46)
[2023-07-17] MEDS: LIDOCAINE 5% PATCH TOPICAL SCH (07:46)
[2023-07-17] MEDS: GABAPENTIN 100 MG CAP PO SCH ×3 (07:46→21:05)
[2023-07-17] MEDS: SYMBICORT 160-4.5 MCG INHALER INHALATION SCH ×2 (09:12→20:47)
[2023-07-17] MEDS: IPRATROPIUM-ALBUTEROL 3 ML NEB INHALATION SCH ×4 (09:12→20:47)
[2023-07-17 09:19] LABS: African American GFR (CKD) 8 (>60 ml/min/1.73 sqM); Anion Gap 5 mmol/L; Blood Urea Nitrogen 43 mg/dL (9-20); Calcium 8.5 mg/dL (8.4-10.2); Carbon Dioxide 31 mmol/L (22-30); Chloride 96 mmol/L (98-107); Glucose 89 mg/dL (74-99); Magnesium 2.3 mg/dL (1.6-2.3); Non-African American GFR(CKD) 7 (>60 ml/min/1.73 sqM); Potassium 4.2 mmol/L (3.5-5.1); Sodium 132 mmol/L (137-145)
--- NOTE | 2023-07-17 11:03 | P.PN ---
Subjective Patient is seen in follow-up for acute kidney injury. Started on hemodialysis 07/13/2023. No problems with dialysis yesterday. Last hemodialysis 07/15/2023. Urine output improved with IV Lasix yesterday. Creatinine 6.43 today. Vital signs are stable. General: No acute distress. HEENT: Head exam is unremarkable. LUNGS: No audible rhonchi or wheezes. HEART: Rate and Rhythm are regular. ABDOMEN: Nontender. EXTREMITITES: 1+ edema. Objective - Vital Signs Vital signs: Vital Signs Temp 98.6 F 07/17/23 06:53 Pulse 80 07/17/23 09:22 Resp 16 07/17/23 06:53 BP 130/77 07/17/23 06:53 Pulse Ox 97 07/17/23 09:14 FiO2 Intake & Output 07/16/23 07/17/23 07/17/23 18:59 06:59 18:59 Intake Total 400 Output Total 600 800 Balance -600 -400 Weight 85 kg Intake: Oral 400 Output: Urine 600 800 Other: Voiding Method Toilet # Voids 1 # Bowel Movements 1 1 - Labs CBC & Chem 7: 07/16/23 06:50 07/17/23 07:49 Labs: Abnormal Lab Results - Last 24 Hours (Table) 07/16/23 07/16/23 07/17/23 Range/Units 06:50 06:50 07:49 RBC 3.84 L (4.40-5.60) X 10*6/uL Hgb 10.7 L (13.0-17.0) d/dL Hct 34.5 L (39.6-50.0) % MCHC 31.0 L (32.0-37.0) d/dL RDW 14.9 H (11.5-14.5) % MPV 9.4 L (9.5-12.2) FL Lymphocytes # 0.74 L (0.90-5.00) X 10*3/uL Sodium 132 L (137-145) mmol/L Chloride 96 L (98-107) mmol/L Carbon Dioxide 31 H (22-30) mmol/L BUN 29.0 H 43 H (9.0-27.0) mg/dL Creatinine 5.4 H 6.43 H (0.6-1.5) mg/dL Est GFR (CKD-EPI) 10 L (>=60) BUN/Creatinine Ratio 5.37 L (12.00-20.00) Ratio Assessment and Plan Plan: Assessment: 1. Acute kidney injury secondary to nephrotoxic ATN secondary to vancomycin toxicity. Creatinine 0.84 on admission - 7.4 dated 07/14/2023. Vancomycin level 44.2 dated 07/10/2023. No hydronephrosis noted on kidney ultrasound. Baseline creatinine 0.84 dated 07/09/2023. UA fairly benign. Started on hemodialysis 07/13/2023. Last hemodialysis 07/15/2023. Creatinine 6.43 today. 2. Pneumonia maintained on antibiotics. Status post bronchoscopy this admission which did show 4.8 cm left upper lobe cavitary mass. Nodular densities also noted in the left lung. 3. Metabolic acidosis secondary to acute kidney injury and IV fluids. Improved with dialysis. 4. Volume overload. Improving with ultrafiltration. 5. Hyperphosphatemia secondary to acute kidney injury. On PhosLo. Plan: Hemodialysis today. Encouraged oral intake. Strict I's and O's. Avoid nephrotoxins. Monitor for renal recovery. Add IV Lasix. Decreased dose of gabapentin. Assess need for renal replacement therapy on daily basis. If no improvement in renal function by Thursday, will need a permacath.
--- NOTE | 2023-07-17 11:10 | P.PN ---
Subjective Progress Note Date: 07/17/23 Pt has no complaints today. Nephrology is adding IV Lasix and monitoring for renal recovery Gen: awake, alert HEENT: normocephalic, atraumatic, good hearing acuity, moist mucous membranes Resp: good air exchange, breathing comfortably with no accessory muscle use CVS: good distal perfusion x 4, GI: soft, NTTP, ND : no SPT, no CVAT, monreal catheter not present MSK: no pitting edema, no clubbing Neuro: non-focal, moving all extremities Psych: cooperative, euthymic mood Hospital Course: Patient is an 88 yo male with COPD, former tobacco dependency, hypertension, AND hyperlipidemia who presented with complaints of dyspnea. In the emergency room he underwent an extensive evaluation. His initial vitals were within normal. Labs were remarkable for WBC 13.9. Computed tomography scan of the chest de monstrated significant severe emphysematous changes, left-sided infiltrate with possible cavitary component of 4.8cm in the left upper lobe versus pneumonia surrounding bullae. He was admitted for pneumonia and started on broad spectrum abx. His procalcitonin was noted to be 0.39. Pulm was consulted for consideration of bronchoscopy and had considered this but given clinical improvement and fragile condition of patients lungs on CT imaging, preferred to defer this to outpatient setting after course of abx. Per pulmonary differential is broad including; lung abscess, or cavitary lesion from fungal, mycobacterial pneumonias. Underwent bronch with BAL on 07/08/23 with purulent secretions cultu res and biopsies done. 07/09 Patient seen and examined at bedside. He continues to have his chronic left abd pain that he related to shingles, he states that the lidocaine patch did not help. He continues to have cough but believes that it is getting better. 07/10 Patient was seen and examined. He reports improvement in his neuropathic pain with Morphine as needed. He has no complaints today. Renal function today worsened with Cr 2.37. Random Vancomycin level drawn critical at 44.2. 07/11 Patient was seen and examined. He reports no complaints today. His breathing is stable and neuropathic pain is well controlled. Currently on 2L NC. Renal function shows Cr 4.41. Nephrology consulted, recommends bladder scan, UA and oral sodium bicarbonate. 07/12 Patient was seen and examined. No acute events overnight. Seen with Dr. Angel at bedside. BMP shows Na 135, Cl 110, bicarb 17, BUN 48, Cr 6.04. 07/13 Patient was seen and examined. No acute events overnight. He was given 80 mg IV lasix yesterday (repeated today) with only 359 cc of urine output over the past 24H. CBC shows Hg 10. BMP shows bicab 19, BUN 51.3, Cr 7.3. Phos 7.9. Mg 2.4. Albumin 2.5. Due to worsening renal function, vascular surgery has been consulted for temporary HD access with plans to initiate HD today. BAL cultures are negative so far and cytology shows acute inflammatory cells, no malignant cells. All antibiotics were discontinued yesterday. Assessment/Plan: Vitals: Afebrile, 144/80, heart rate 98, 94% on 2 L nasal cannula Labs: Cr 6.1, BUN 37.2; Images: No new images to review today Consultation: Discussed with nephrology, plan for holding dialysis today, reattempt tomorrow, if still requiring then will pursue permacath BONY Metabolic acidosis - Continue sodium bicarbonate 650 mg PO BID - Nephrology on board, see above recommendations - Daily BMP Community acquired pneumonia complicated by left-sided cavitary lesion, possible gram negative Acute hypoxic respiratory failure Sepsis Severe COPD - See above regarding pulmonology recommendations - Completed course on antibiotics - Continue with DuoNeb's and Symbicort - Continue with Lipitor 10 mg nightly - Neurontin 600 mg 4 times daily, norco, lidocaine patch - Morphine 2mg IV Q6H for severe pain Hypertension Dyslipidemia 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 - Resume home medications Moderate protein calorie malnutrition - Ensure 3 times daily with meals Anticipated discharge date: pending clinical course Anticipated discharge place: pending clinical course Objective - Vital Signs Vital signs: Vital Signs Temp 98.6 F 07/17/23 06:53 Pulse 80 07/17/23 09:22 Resp 16 07/17/23 06:53 BP 130/77 07/17/23 06:53 Pulse Ox 97 07/17/23 09:14 FiO2 Intake & Output 07/16/23 07/17/23 07/17/23 18:59 06:59 18:59 Intake Total 400 Output Total 600 800 Balance -600 -400 Weight 85 kg Intake: Oral 400 Output: Urine 600 800 Other: Voiding Method Toilet # Voids 1 # Bowel Movements 1 1 - Labs CBC & Chem 7: 07/16/23 06:50 07/17/23 07:49 Labs: Abnormal Lab Results - Last 24 Hours (Table) 07/16/23 07/16/23 07/17/23 Range/Units 06:50 06:50 07:49 RBC 3.84 L (4.40-5.60) X 10*6/uL Hgb 10.7 L (13.0-17.0) d/dL Hct 34.5 L (39.6-50.0) % MCHC 31.0 L (32.0-37.0) d/dL RDW 14.9 H (11.5-14.5) % MPV 9.4 L (9.5-12.2) FL Lymphocytes # 0.74 L (0.90-5.00) X 10*3/uL Sodium 132 L (137-145) mmol/L Chloride 96 L (98-107) mmol/L Carbon Dioxide 31 H (22-30) mmol/L BUN 29.0 H 43 H (9.0-27.0) mg/dL Creatinine 5.4 H 6.43 H (0.6-1.5) mg/dL Est GFR (CKD-EPI) 10 L (>=60) BUN/Creatinine Ratio 5.37 L (12.00-20.00) Ratio
--- NOTE | 2023-07-17 12:18 | P.PN ---
Subjective Progress Note Date: 07/17/23 I am seeing this patient in new consultation today 07/03/2023 for a cavitating left lung mass and community acquired pneumonia. Patient is a 88-year-old white male with past medical history significant for COPD/emphysema, previous left lung bullectomy, hyperlipidemia, hypertension, and is a remote ex-smoker. His PCP is a Dr. Castle. He does not follow with a customer account specialist. Patient was transferred from [facility] for suspected extensive cavitating pneumonia on CT. Patient reports progressively worsening shortness of breath and cough with minimal sputum production over the past 3 weeks. Accompanied with muscle aches and weakness. Also, admits left sided chest pain, nonradiating. Denies fever, chills, hemoptysis. He does report approximately 15-20 pound weight loss over the last month. Patient is currently sitting up in bed, on 3 L/m nasal cannula, in no acute distress. A chest CTA at outside facility shows a postsurgical left upper lobe and left hemithorax. There was extensive patchy and confluent airspace disease throughout the left lung. Left basilar bronchiectasis with moderate bronchial wall thickening. There is 4.8 cm left upper lobe cavitary lesion, thought to be a cavitary pneumonia versus atypical fungal/mycobacterial infection versus necrotizing malignancy. There were additional nodular areas in the left lung measuring up to 2 cm. There was a 1.5 cm left infrahilar lymph node. There was extensive emphysematous changes. No previous imaging for comparison. Denies history of lung cancer. Denies previous bronchoscopy or biopsy of these lesions. CBC on arrival shows leukocytosis with a WBC count of 13.9, hemoglobin 13.4, hematocrit 41.5, platelets 298. BMP on arrival to our facility was unremarkable. Pro-calcitonin level was elevated at 0.39. Lactic acid level I.8. He is afebrile. Patient was started on a combination of Zosyn and vancomycin. Patient is hemodynamically stable at this time. On today's evaluation of 07/04/2023, the patient remains on Zosyn and vancomycin. Much improved compared to yesterday. Much more alert and awake and communicating. Oxygenation is also improved and the patient is currently on 2 L of Oxymizer nasal cannula with a pulse ox of 96%. This does cause of 10.4, hemoglobin 11, BUN is at 50 with a creatinine of 0.7 and a sodium level is at 135. Pro-calcitonin level is at 0.39. Blood cultures still pending for now. 07/05/2023, the patient is on room air oxygen. Remains on accommodation of Zosyn and vancomycin. Chest x-ray findings are unchanged. I reviewed the CAT scan again. The patient has soft tissue density in the left suprahilar area. Nevertheless, this could be a fluid-filled bullous or infected bullous as the patient has chronic emphysematous changes with bullae in the upper lobes zheng aterally. He has improved considerably. No plans for broncho-scope for now. No new labs from today. Labs from yesterday was noted. Pro-calcitonin level was at 0.39. He continues to improve. The blood cultures are negative thus far. The patient is seen today 07/06/2023 in follow-up on the regular medical floor. He is currently sitting up in a chair. Awake and alert in no acute distress. He is maintaining O2 saturations in the 90s on room air. He denies any worsening shortness of breath, cough or congestion. He is afebrile. Hemodynamically stable. Blood cultures revealed no growth. Sputum culture pending. White count 12.4. Hemoglobin 11.2. Platelets 289. He remains on DuoNeb inhalations, Symbicort. Antibiotics in the form of vancomycin and Zosyn. The patient is seen today 07/07/2023 in follow-up on the regular medical floor. He is currently resting in bed. Awake and alert. He is having some postherpetic pain from previous shingles along his left chest. He denies any worsening shortness of breath, cough or congestion. He is maintaining O2 saturations in the 90s on room air. He has a loose nonproductive cough. Chest x-ray showing slight improvement but still significant infiltrates in the left lung. White count 12.8. Hemoglobin 11.5. Sodium 136. Potassium 3.3. Bicarb 23. BUN 12. Creatinine 0.82. He remains on vancomycin and Zosyn. He remains on DuoNeb inhalations, Symbicort, Lovenox. The patient is seen today 07/08/2023 in follow-up on the regular medical floor. Currently sitting up in a chair at the bedside. Awake and alert in no acute distress. He is maintaining O2 saturations in the 90s on room air. Afebrile. Hemodynamically stable. Sputum cultures revealed no growth. Blood culture revealed no growth. Creatinine 0.79. Continued on vancomycin and Zosyn. Continued on bronchodilators, Lovenox. Plan is for bronchoscopy with BAL and biopsies today. The patient is seen today 07/09/2023 in follow-up on the regular medical floor. He is awake and alert in no acute distress. Sitting up in a chair. Maintaining O2 saturations in the 90s on room air. Sputum culture reveals no growth. Blood culture revealed no growth. He did undergo bronchoscopy with BAL and biopsies yesterday. Cultures are pending. Cytology pending. White count 10.2. Hemoglobin 11.6. Sodium 138. Potassium 3.4. Bicarb 20. BUN 10. Creatinine 0.84. He remains on antibiotics in the form of vancomycin and Zosyn. Continue bronchodilators. Lovenox for DVT prophylaxis. The patient is seen today 07/10/2023 in follow-up on the regular medical floor. He sitting up in a chair. Awake and alert in no acute distress. Denies any worsening shortness of breath, cough or congestion. Preliminary bronchial lavage revealing no organisms seen. Sputum culture negative. Blood culture negative. Biopsies revealed no evidence of cancer. Creatinine 2.37. Random vancomycin level 44.2. Remains on Symbicort and DuoNeb inhalations. The patient is seen today 07/11/2023 in follow-up on the regular medical floor. He is currently resting comfortably in bed. Awake and alert in no acute distress. Maintaining good O2 saturations in the mid 90s on 2 L/m per nasal cannula. Afebrile. Hemodynamically stable. Chest x-ray showing some slight improvement with continued similar volume loss and extensive pleuralparenchymal opacities as well as surgical change at the left lung. Ultrasound of the kidneys revealed no hydronephrosis or nephrolithiasis. Creatinine is up to 4.41 today. Vancomycin remains on hold. The patient is seen today 07/12/2023 in follow-up on the regular medical floor. He is currently sitting up in a chair. Awake and alert in no acute distress. Maintaining O2 saturations in the mid 90s on 2 L/m per nasal cannula. Afebrile. Hemodynamically stable. He remains on DuoNeb inhalations, Symbicort, Lovenox. Creatinine still on the rise currently 6.04. BUN 48. Sodium 15. Potassium 4.8. Bicarb 17. Urinalysis clean. Remains on sodium bicarbonate tablets. Receiving normal saline at 60 ML's per hour. The patient is seen today 07/13/2023 in follow-up on the regular medical floor. He is awake and alert in no acute distress. He denies any worsening shortness of breath, cough or congestion. He is currently maintaining O2 saturations in the mid 90s on 2 L/m per nasal cannula. He's been afebrile. Hemodynamically stable. Bronchial wash cultures revealed no growth. Sputum culture no growth. Blood culture no growth. White count 9.2. Hemoglobin 10.0. Platelets 220. Sodium 138. Potassium 5.2. Bicarb 19. BUN 51. Creatinine 7.3. GFR 8. Glucose 104. Nephrology is following. He remains on Symbicort, DuoNeb inhalations. Lovenox for DVT prophylaxis. The patient is seen today 07/14/2023 in follow-up on the regular medical floor. He is currently resting comfortably in bed. He is receiving hemodialysis currently. Maintaining O2 saturations in the 90s on 2 L/m per nasal cannula. Follow-up x-ray continues to show significant left-sided opacities. Evidence of previous left upper lobe bullectomy. Sodium 138. Potassium 4.7. Bicarb 22. BUN 52. Creatinine 7.4. He remains on Symbicort, DuoNeb inhalations Lovenox for DVT prophylaxis. The patient is seen today 07/15/2023 in follow-up on the regular medical floor. He is awake and alert in no acute distress. Resting comfortably in bed. Maintaining good O2 saturations in the 90s on 2 L/m per nasal cannula. Afebrile. Hemodynamically stable. Currently receiving hemodialysis. They were able to remove 2 L yesterday and the goals for 2 L today. He remains on Symbicort and DuoNeb inhalations. Lovenox for DVT prophylaxis. Sodium 138. Potassium 4.3. Bicarb 24. BUN 37. Creatinine 6.1. The patient is seen today 07/16/2023 in follow-up on the regular medical floor. He is currently resting comfortably in bed. Awake and alert in no acute distress. On 2 L nasal cannula. Afebrile. Hemodynamically stable. Blood cultures reveal no growth. Sputum culture reveals no growth. Bronchial wash cultures revealed no growth. White count 5.3. Hemoglobin 10.7. Platelets 217. Sodium 137. Potassium 4.2. Bicarb 27. BUN 29. Creatinine 5.4. He did undergo hemodialysis yesterday with 2 L of fluid removed. Plan is for he modialysis tomorrow. The patient is seen today 07/17/2023 in follow-up on the regular medical floor. He is resting comfortably in bed. Awake and alert in no acute distress. Continues to maintain O2 saturations in the 80s on 2 L/m per nasal cannula. Afebrile. Hemodynamically stable. Sage on Symbicort, DuoNeb inhalations. Lovenox for DVT prophylaxis. Sodium 132. Potassium 4.2. Bicarb 31. BUN 43. Creatinine 6.43. The plan is for hemodialysis today. Objective - Vital Signs Vital signs: Vital Signs Temp 98.6 F 07/17/23 06:53 Pulse 80 07/17/23 12:11 Resp 16 07/17/23 12:11 BP 130/77 07/17/23 06:53 Pulse Ox 97 07/17/23 09:14 FiO2 Intake & Output 07/16/23 07/17/23 07/17/23 18:59 06:59 18:59 Intake Total 400 Output Total 600 800 50 Balance -600 -400 -50 Weight 85 kg Intake: Oral 400 Output: Urine 600 800 50 Other: Voiding Method Toilet # Voids 1 # Bowel Movements 1 1 - Exam GENERAL EXAM: Alert, 88-year-old male, resting in bed, on 2 L nasal cannula, comfortable in no apparent distress. HEAD: Normocephalic and atraumatic EYES: Normal reaction of pupils, equal size. NOSE: Clear with pink turbinates. THROAT: No erythema or exudates. NECK: No masses, no JVD. CHEST: No chest wall deformity. LUNGS: Diminished left lung sounds with scattered inspiratory crackles, rhonchi. CVS: S1 and S2 normal with no audible murmur, regular rhythm. No extra heart sounds ABDOMEN: No hepatosplenomegaly, active bowel sounds, no guarding or rigidity. SPINE: No scoliosis or deformity SKIN: No rashes CENTRAL NERVOUS SYSTEM: No focal deficits, tone is normal in all 4 extremities. EXTREMITIES: Right femoral hemodialysis catheter in place. There is no peripheral edema, clubbing, or cyanosis. Peripheral pulses are intact. - Labs CBC & Chem 7: 07/16/23 06:50 07/17/23 07:49 Labs: Abnormal Lab Results - Last 24 Hours (Table) 07/17/23 Range/Units 07:49 Sodium 132 L (137-145) mmol/L Chloride 96 L (98-107) mmol/L Carbon Dioxide 31 H (22-30) mmol/L BUN 43 H (9-20) mg/dL Creatinine 6.43 H (0.66-1.25) mg/dL Assessment and Plan Assessment: Acute hypoxemic respiratory failure, improved and the patient is currently on room air oxygen. A chest CTA at outside facility shows a postsurgical left upper lobe and left hemithorax. There was extensive patchy and confluent airspace disease throughout the left lung. Left basilar bronchiectasis with mod erate bronchial wall thickening. There is 4.8 cm left upper lobe cavitary mass, thought to be a cavitary pneumonia versus atypical fungal/mycobacterial infection versus necrotizing malignancy. There were additional nodular densities in the left lung measuring up to 2 cm. There was a 1.5 cm left infrahilar lymph node. There was extensive emphysematous changes. No previous imaging for comparison. This could be also an infected bullous versus a fluid-filled bullous post pneumonia. Underwent a bronchoscopy with biopsies and BAL 07/08/2023, cultures negative. Cytology negative for malignancy. Acute kidney injury secondary to vancomycin toxicity, creatinine up to 7.4, received hemodialysis 07/14/2023 and 07/15/2023 with 2 L removed each day, current creatinine 6.43. Plans for hemodialysis today 07/17/2023 COPD/emphysema, stable History of previous left upper lobe bullectomy Benign essential hypertension Hyperlipidemia Remote ex-smoker, quit 1992 Post herpetic neuralgia on the left chest wall Plan: The patient was seen and evaluated Labs and medications reviewed Continue current treatment plan The plan is for hemodialysis again today Plan is for subacute rehabilitation at discharge We will see as needed I have personally seen and examined the patient, performed the documentation and the assessment and plan as written. Number of minutes spent on the visit: 10.
[2023-07-17] MEDS: HYDROcodone/APAP 10-325MG 1 EACH TAB PO PRN (18:44)
[2023-07-17] MEDS: ATORVASTATIN 10 MG TAB PO SCH (21:05)
[2023-07-17] MEDS: DOCUSATE 100 MG CAP PO SCH (21:05)
[2023-07-18] MEDS: CALCIUM ACETATE 667 MG TAB PO SCH ×2 (06:27→17:33)
[2023-07-18] MEDS: IPRATROPIUM-ALBUTEROL 3 ML NEB INHALATION SCH ×4 (07:48→21:03)
[2023-07-18] MEDS: SYMBICORT 160-4.5 MCG INHALER INHALATION SCH ×2 (07:48→21:03)
[2023-07-18] MEDS: GABAPENTIN 100 MG CAP PO SCH ×3 (10:03→21:21)
[2023-07-18] MEDS: FUROSEMIDE 10 MG/ML 10 ML VIAL IV SCH (10:03)
[2023-07-18] MEDS: ENOXAPARIN 30 MG/0.3 ML SYRINGE SQ SCH (10:03)
[2023-07-18] MEDS: ASPIRIN 81 MG PO SCH (10:03)
[2023-07-18] MEDS: CHOLECALCIFEROL 125 MCG (5000 IU) TABLET PO SCH (10:03)
[2023-07-18] MEDS: LIDOCAINE 5% PATCH TOPICAL SCH (10:04)
--- NOTE | 2023-07-18 11:13 | P.PN ---
Subjective Progress Note Date: 07/18/23 I am seeing this patient in new consultation today 07/03/2023 for a cavitating left lung mass and community acquired pneumonia. Patient is a 88-year-old white male with past medical history significant for COPD/emphysema, previous left lung bullectomy, hyperlipidemia, hypertension, and is a remote ex-smoker. His PCP is a Dr. Castle. He does not follow with a bariatric physician. Patient was transferred from [facility] for suspected extensive cavitating pneumonia on CT. Patient reports progressively worsening shortness of breath and cough with minimal sputum production over the past 3 weeks. Accompanied with muscle aches and weakness. Also, admits left sided chest pain, nonradiating. Denies fever, chills, hemoptysis. He does report approximately 15-20 pound weight loss over the last month. Patient is currently sitting up in bed, on 3 L/m nasal cannula, in no acute distress. A chest CTA at outside facility shows a postsurgical left upper lobe and left hemithorax. There was extensive patchy and confluent airspace disease throughout the left lung. Left basilar bronchiectasis with moderate bronchial wall thickening. There is 4.8 cm left upper lobe cavitary lesion, thought to be a cavitary pneumonia versus atypical fungal/mycobacterial infection versus necrotizing malignancy. There were additional nodular areas in the left lung measuring up to 2 cm. There was a 1.5 cm left infrahilar lymph node. There was extensive emphysematous changes. No previous imaging for comparison. Denies history of lung cancer. Denies previous bronchoscopy or biopsy of these lesions. CBC on arrival shows leukocytosis with a WBC count of 13.9, hemoglobin 13.4, hematocrit 41.5, platelets 298. BMP on arrival to our facility was unremarkable. Pro-calcitonin level was elevated at 0.39. Lactic acid level I.8. He is afebrile. Patient was started on a combination of Zosyn and vancomycin. Patient is hemodynamically stable at this time. On today's evaluation of 07/04/2023, the patient remains on Zosyn and vancomycin. Much improved compared to yesterday. Much more alert and awake and communicating. Oxygenation is also improved and the patient is currently on 2 L of Oxymizer nasal cannula with a pulse ox of 96%. This does cause of 10.4, hemoglobin 11, BUN is at 50 with a creatinine of 0.7 and a sodium level is at 135. Pro-calcitonin level is at 0.39. Blood cultures still pending for now. 07/05/2023, the patient is on room air oxygen. Remains on accommodation of Zosyn and vancomycin. Chest x-ray findings are unchanged. I reviewed the CAT scan again. The patient has soft tissue density in the left suprahilar area. Nevertheless, this could be a fluid-filled bullous or infected bullous as the patient has chronic emphysematous changes with bullae in the upper lobes zheng aterally. He has improved considerably. No plans for broncho-scope for now. No new labs from today. Labs from yesterday was noted. Pro-calcitonin level was at 0.39. He continues to improve. The blood cultures are negative thus far. The patient is seen today 07/06/2023 in follow-up on the regular medical floor. He is currently sitting up in a chair. Awake and alert in no acute distress. He is maintaining O2 saturations in the 90s on room air. He denies any worsening shortness of breath, cough or congestion. He is afebrile. Hemodynamically stable. Blood cultures revealed no growth. Sputum culture pending. White count 12.4. Hemoglobin 11.2. Platelets 289. He remains on DuoNeb inhalations, Symbicort. Antibiotics in the form of vancomycin and Zosyn. The patient is seen today 07/07/2023 in follow-up on the regular medical floor. He is currently resting in bed. Awake and alert. He is having some postherpetic pain from previous shingles along his left chest. He denies any worsening shortness of breath, cough or congestion. He is maintaining O2 saturations in the 90s on room air. He has a loose nonproductive cough. Chest x-ray showing slight improvement but still significant infiltrates in the left lung. White count 12.8. Hemoglobin 11.5. Sodium 136. Potassium 3.3. Bicarb 23. BUN 12. Creatinine 0.82. He remains on vancomycin and Zosyn. He remains on DuoNeb inhalations, Symbicort, Lovenox. The patient is seen today 07/08/2023 in follow-up on the regular medical floor. Currently sitting up in a chair at the bedside. Awake and alert in no acute distress. He is maintaining O2 saturations in the 90s on room air. Afebrile. Hemodynamically stable. Sputum cultures revealed no growth. Blood culture revealed no growth. Creatinine 0.79. Continued on vancomycin and Zosyn. Continued on bronchodilators, Lovenox. Plan is for bronchoscopy with BAL and biopsies today. The patient is seen today 07/09/2023 in follow-up on the regular medical floor. He is awake and alert in no acute distress. Sitting up in a chair. Maintaining O2 saturations in the 90s on room air. Sputum culture reveals no growth. Blood culture revealed no growth. He did undergo bronchoscopy with BAL and biopsies yesterday. Cultures are pending. Cytology pending. White count 10.2. Hemoglobin 11.6. Sodium 138. Potassium 3.4. Bicarb 20. BUN 10. Creatinine 0.84. He remains on antibiotics in the form of vancomycin and Zosyn. Continue bronchodilators. Lovenox for DVT prophylaxis. The patient is seen today 07/10/2023 in follow-up on the regular medical floor. He sitting up in a chair. Awake and alert in no acute distress. Denies any worsening shortness of breath, cough or congestion. Preliminary bronchial lavage revealing no organisms seen. Sputum culture negative. Blood culture negative. Biopsies revealed no evidence of cancer. Creatinine 2.37. Random vancomycin level 44.2. Remains on Symbicort and DuoNeb inhalations. The patient is seen today 07/11/2023 in follow-up on the regular medical floor. He is currently resting comfortably in bed. Awake and alert in no acute distress. Maintaining good O2 saturations in the mid 90s on 2 L/m per nasal cannula. Afebrile. Hemodynamically stable. Chest x-ray showing some slight improvement with continued similar volume loss and extensive pleuralparenchymal opacities as well as surgical change at the left lung. Ultrasound of the kidneys revealed no hydronephrosis or nephrolithiasis. Creatinine is up to 4.41 today. Vancomycin remains on hold. The patient is seen today 07/12/2023 in follow-up on the regular medical floor. He is currently sitting up in a chair. Awake and alert in no acute distress. Maintaining O2 saturations in the mid 90s on 2 L/m per nasal cannula. Afebrile. Hemodynamically stable. He remains on DuoNeb inhalations, Symbicort, Lovenox. Creatinine still on the rise currently 6.04. BUN 48. Sodium 15. Potassium 4.8. Bicarb 17. Urinalysis clean. Remains on sodium bicarbonate tablets. Receiving normal saline at 60 ML's per hour. The patient is seen today 07/13/2023 in follow-up on the regular medical floor. He is awake and alert in no acute distress. He denies any worsening shortness of breath, cough or congestion. He is currently maintaining O2 saturations in the mid 90s on 2 L/m per nasal cannula. He's been afebrile. Hemodynamically stable. Bronchial wash cultures revealed no growth. Sputum culture no growth. Blood culture no growth. White count 9.2. Hemoglobin 10.0. Platelets 220. Sodium 138. Potassium 5.2. Bicarb 19. BUN 51. Creatinine 7.3. GFR 8. Glucose 104. Nephrology is following. He remains on Symbicort, DuoNeb inhalations. Lovenox for DVT prophylaxis. The patient is seen today 07/14/2023 in follow-up on the regular medical floor. He is currently resting comfortably in bed. He is receiving hemodialysis currently. Maintaining O2 saturations in the 90s on 2 L/m per nasal cannula. Follow-up x-ray continues to show significant left-sided opacities. Evidence of previous left upper lobe bullectomy. Sodium 138. Potassium 4.7. Bicarb 22. BUN 52. Creatinine 7.4. He remains on Symbicort, DuoNeb inhalations Lovenox for DVT prophylaxis. The patient is seen today 07/15/2023 in follow-up on the regular medical floor. He is awake and alert in no acute distress. Resting comfortably in bed. Maintaining good O2 saturations in the 90s on 2 L/m per nasal cannula. Afebrile. Hemodynamically stable. Currently receiving hemodialysis. They were able to remove 2 L yesterday and the goals for 2 L today. He remains on Symbicort and DuoNeb inhalations. Lovenox for DVT prophylaxis. Sodium 138. Potassium 4.3. Bicarb 24. BUN 37. Creatinine 6.1. The patient is seen today 07/16/2023 in follow-up on the regular medical floor. He is currently resting comfortably in bed. Awake and alert in no acute distress. On 2 L nasal cannula. Afebrile. Hemodynamically stable. Blood cultures reveal no growth. Sputum culture reveals no growth. Bronchial wash cultures revealed no growth. White count 5.3. Hemoglobin 10.7. Platelets 217. Sodium 137. Potassium 4.2. Bicarb 27. BUN 29. Creatinine 5.4. He did undergo hemodialysis yesterday with 2 L of fluid removed. Plan is for he modialysis tomorrow. The patient is seen today 07/17/2023 in follow-up on the regular medical floor. He is resting comfortably in bed. Awake and alert in no acute distress. Continues to maintain O2 saturations in the 80s on 2 L/m per nasal cannula. Afebrile. Hemodynamically stable. Sage on Symbicort, DuoNeb inhalations. Lovenox for DVT prophylaxis. Sodium 132. Potassium 4.2. Bicarb 31. BUN 43. Creatinine 6.43. The plan is for hemodialysis today. The patient is seen today 07/18/2023 on the regular medical floor. He is comfortably resting in bed. Awake and alert in no acute distress. Blood cultures revealed no growth. Bronchial wash cultures revealed no growth. He remains on Symbicort, DuoNeb inhalations. Lovenox for DVT prophylaxis. Hemodialysis per nephrology. Objective - Vital Signs Vital signs: Vital Signs Temp 98.5 F 07/18/23 07:28 Pulse 84 07/18/23 08:02 Resp 17 07/18/23 07:28 BP 152/78 07/18/23 07:28 Pulse Ox 98 07/18/23 07:28 FiO2 Intake & Output 07/17/23 07/18/23 07/18/23 18:59 06:59 18:59 Intake Total 780 Output Total 3900 100 220 Balance -3120 -100 -220 Weight 85 kg 86.2 kg Intake: Oral 480 Hemodialysis 300 Output: Urine 100 100 220 Hemodialysis 3800 - Exam GENERAL EXAM: Alert, pleasant 88-year-old male, on 2 L nasal cannula, in no apparent distress. HEAD: Normocephalic and atraumatic EYES: Normal reaction of pupils, equal size. NOSE: Clear with pink turbinates. THROAT: No erythema or exudates. NECK: No masses, no JVD. CHEST: No chest wall deformity. LUNGS: Diminished left lung sounds with scattered inspiratory crackles, rhonchi. CVS: S1 and S2 normal with no audible murmur, regular rhythm. No extra heart sounds ABDOMEN: No hepatosplenomegaly, active bowel sounds, no guarding or rigidity. SPINE: No scoliosis or deformity SKIN: No rashes CENTRAL NERVOUS SYSTEM: No focal deficits, tone is normal in all 4 extremities. EXTREMITIES: Right femoral hemodialysis catheter in place. There is no peripheral edema, clubbing, or cyanosis. Peripheral pulses are intact. - Labs CBC & Chem 7: 07/16/23 06:50 07/17/23 07:49 Labs: Microbiology - Last 24 Hours (Table) 07/08/23 13:35 Fungal Culture - Preliminary Bronchoalviolar Lavage - Left Assessment and Plan Assessment: Acute hypoxemic respiratory failure, improved and the patient is currently on room air oxygen. A chest CTA at outside facility shows a postsurgical left upper lobe and left hemithorax. There was extensive patchy and confluent airspace disease throughout the left lung. Left basilar bronchiectasis with moderate bronchial wall thickening. There is 4.8 cm left upper lobe cavitary mass, thought to be a cavitary pneumonia versus atypical fungal/mycobacterial infection versus necrotizing malignancy. There were additional nodular densities in the left lung measuring up to 2 cm. There was a 1.5 cm left infrahilar lymph node. There was extensive emphysematous changes. No previous imaging for comparison. This could be also an infected bullous versus a fluid-filled bullous post pneumonia. Underwent a bronchoscopy with biopsies and BAL 07/08/2023, cultures negative. Cytology negative for malignancy. Acute kidney injury secondary to vancomycin toxicity, creatinine up to 7.4, received hemodialysis 07/14/2023 and 07/15/2023 with 2 L removed each day, curr ent creatinine 6.43. Hemodialysis 07/17/2023 with 3.8 liters removed COPD/emphysema, stable History of previous left upper lobe bullectomy Benign essential hypertension Hyperlipidemia Remote ex-smoker, quit 1992 Post herpetic neuralgia on the left chest wall Plan: The patient was seen and evaluated Medications reviewed Continue the current treatment plan Hemodialysis per nephrology Plan is for subacute rehabilitation at discharge I have personally seen and examined the patient, performed the documentation and the assessment and plan as written. Number of minutes spent on the visit: 10.
--- NOTE | 2023-07-18 12:12 | P.PN ---
Subjective Progress Note Date: 07/18/23 Pt has no complaints today. Gen: awake, alert HEENT: normocephalic, atraumatic, good hearing acuity, moist mucous membranes Resp: good air exchange, breathing comfortably with no accessory muscle use CVS: good distal perfusion x 4, GI: soft, NTTP, ND : no SPT, no CVAT, monreal catheter not present MSK: no pitting edema, no clubbing Neuro: non-focal, moving all extremities Psych: cooperative, euthymic mood Hospital Course: Patient is an 88 yo male with COPD, former tobacco dependency, hypertension, AND hyperlipidemia who presented with complaints of dyspnea. In the emergency room he underwent an extensive evaluation. His initial vitals were within normal. Labs were remarkable for WBC 13.9. Computed tomography scan of the chest demonstrated significant severe emphysematous changes, left-sided infiltrate with possible cavitary component of 4.8cm in the left upper lobe versus pneumonia surrounding bullae. He was admitted for pneumonia and started on broad spectrum abx. His procalcitonin was noted to be 0.39. Pulm was consulted for consideration of bronchoscopy and had considered this but given clinical improvement and fragile condition of patients lungs on CT imaging, preferred to defer this to outpatient setting after course of abx. Per pulmonary differential is broad including; lung abscess, or cavitary lesion from fungal, mycobacterial pneumonias. Underwent bronch with BAL on 07/08/23 with purulent secretions cultures and biopsies done. 07/09 Patient seen and examined at bedside. He continues to have his chronic left abd pain that he related to shingles, he states that the lidocaine patch did not help. He continues to have cough but believes that it is getting better. 07/10 Patient was seen and examined. He reports improvement in his neuropathic pain with Morphine as needed. He has no complaints today. Renal function today worsened with Cr 2.37. Random Vancomycin level drawn critical at 44.2. 07/11 Patient was seen and examined. He reports no complaints today. His breathing is stable and neuropathic pain is well controlled. Currently on 2L NC. Renal function shows Cr 4.41. Nephrology consulted, recommends bladder scan, UA and oral sodium bicarbonate. 07/12 Patient was seen and examined. No acute events overnight. Seen with Dr. Angel at bedside. BMP shows Na 135, Cl 110, bicarb 17, BUN 48, Cr 6.04. 07/13 Patient was seen and examined. No acute events overnight. He was given 80 mg IV lasix yesterday (repeated today) with only 359 cc of urine output over the past 24H. CBC shows Hg 10. BMP shows bicab 19, BUN 51.3, Cr 7.3. Phos 7.9. Mg 2.4. Albumin 2.5. Due to worsening renal function, vascular surgery has been consulted for temporary HD access with plans to initiate HD today. BAL cultures are negative so far and cytology shows acute inflammatory cells, no malignant cells. All antibiotics were discontinued yesterday. Assessment/Plan: Vitals: Afebrile, 144/80, heart rate 98, 94% on 2 L nasal cannula Labs: Cr 6.1, BUN 37.2; Images: No new images to review today Consultation: Discussed with nephrology, plan for holding dialysis today, reattempt tomorrow, if still requiring then will pursue permacath BONY Metabolic acidosis - Continue sodium bicarbonate 650 mg PO BID - Nephrology on board, see above recommendations - Daily BMP Community acquired pneumonia complicated by left-sided cavitary lesion, possible gram negative Acute hypoxic respiratory failure Sepsis Severe COPD - See above regarding pulmonology recommendations - Completed course on antibiotics - Continue with DuoNeb's and Symbicort - Continue with Lipitor 10 mg nightly - Neurontin 600 mg 4 times daily, norco, lidocaine patch - Morphine 2mg IV Q6H for severe pain Hypertension Dyslipidemia 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 - Resume home medications Moderate protein calorie malnutrition - Ensure 3 times daily with meals Anticipated discharge date: pending clinical course Anticipated discharge place: pending clinical course Objective - Vital Signs Vital signs: Vital Signs Temp 98.5 F 07/18/23 07:28 Pulse 90 07/18/23 12:10 Resp 17 07/18/23 07:28 BP 152/78 07/18/23 07:28 Pulse Ox 98 07/18/23 07:28 FiO2 Intake & Output 07/17/23 07/18/23 07/18/23 18:59 06:59 18:59 Intake Total 780 Output Total 3900 100 220 Balance -3120 -100 -220 Weight 85 kg 86.2 kg Intake: Oral 480 Hemodialysis 300 Output: Urine 100 100 220 Hemodialysis 3800 - Labs CBC & Chem 7: 07/16/23 06:50 07/17/23 07:49 Labs: Microbiology - Last 24 Hours (Table) 07/08/23 13:35 Fungal Culture - Preliminary Bronchoalviolar Lavage - Left
--- NOTE | 2023-07-18 12:54 | P.PN ---
Subjective Progress Note Date: 07/18/23 Follow-up for acute kidney injury on dialysis. Dialysis yesterday. Objective - Vital Signs Vital signs: Vital Signs Temp 98.5 F 07/18/23 07:28 Pulse 90 07/18/23 12:10 Resp 17 07/18/23 07:28 BP 152/78 07/18/23 07:28 Pulse Ox 98 07/18/23 07:28 FiO2 Intake & Output 07/17/23 07/18/23 07/18/23 18:59 06:59 18:59 Intake Total 780 Output Total 3900 100 220 Balance -3120 -100 -220 Weight 85 kg 86.2 kg Intake: Oral 480 Hemodialysis 300 Output: Urine 100 100 220 Hemodialysis 3800 - Exam No acute distress S1-S2 heard Lungs clear Edema - Labs CBC & Chem 7: 07/16/23 06:50 07/17/23 07:49 Labs: Microbiology - Last 24 Hours (Table) 07/08/23 13:35 Fungal Culture - Preliminary Bronchoalviolar Lavage - Left Assessment and Plan Assessment: #1 acute kidney injury secondary to ATN from vancomycin toxicity. -Baseline creatinine 0.8 MG per DL. #2 pneumonia on antibiotics #3 left upper lobe cavitary mass #4 volume overload #5 hyperphosphatemia secondary to acute kidney injury Plan: #1 monitor renal function closely. #2 continue with diuretics #3 plan hemodialysis on Thursday based on the labs
[2023-07-18] MEDS: DOCUSATE 100 MG CAP PO SCH (21:21)
[2023-07-18] MEDS: ATORVASTATIN 10 MG TAB PO SCH (21:21)
[2023-07-19] MEDS: CALCIUM ACETATE 667 MG TAB PO SCH ×2 (06:56→17:44)
[2023-07-19] MEDS: IPRATROPIUM-ALBUTEROL 3 ML NEB INHALATION SCH ×4 (08:39→20:07)
[2023-07-19] MEDS: SYMBICORT 160-4.5 MCG INHALER INHALATION SCH ×2 (08:39→20:07)
[2023-07-19] MEDS: ASPIRIN 81 MG PO SCH (09:27)
[2023-07-19] MEDS: GABAPENTIN 100 MG CAP PO SCH ×3 (09:27→21:57)
[2023-07-19] MEDS: CHOLECALCIFEROL 125 MCG (5000 IU) TABLET PO SCH (09:27)
[2023-07-19] MEDS: FUROSEMIDE 10 MG/ML 10 ML VIAL IV SCH (09:27)
[2023-07-19] MEDS: ENOXAPARIN 30 MG/0.3 ML SYRINGE SQ SCH (09:27)
[2023-07-19] MEDS: LIDOCAINE 5% PATCH TOPICAL SCH (09:28)
[2023-07-19] MEDS: HYDROcodone/APAP 5-325MG 1 EACH TAB PO PRN ×3 (10:04→22:00)
--- NOTE | 2023-07-19 11:25 | P.PN ---
Subjective Progress Note Date: 07/19/23 Pt has complaints of pain on left side of chest today. Gen: awake, alert HEENT: normocephalic, atraumatic, good hearing acuity, moist mucous membranes Resp: good air exchange, breathing comfortably with no accessory muscle use CVS: good distal perfusion x 4, GI: soft, NTTP, ND : no SPT, no CVAT, monreal catheter not present MSK: no pitting edema, no clubbing Neuro: non-focal, moving all extremities Psych: cooperative, euthymic mood Hospital Course: Patient is an 88 yo male with COPD, former tobacco dependency, hypertension, AND hyperlipidemia who presented with complaints of dyspnea. In the emergency room he underwent an extensive evaluation. His initial vitals were within normal. Labs were remarkable for WBC 13.9. Computed tomography scan of the chest demonstrated significant severe emphysematous changes, left-sided infiltrate with possible cavitary component of 4.8cm in the left upper lobe versus pneumonia surrounding bullae. He was admitted for pneumonia and started on broad spectrum abx. His procalcitonin was noted to be 0.39. Pulm was consulted for consideration of bronchoscopy and had considered this but given clinical improvement and fragile condition of patients lungs on CT imaging, preferred to defer this to outpatient setting after course of abx. Per pulmonary differential is broad including; lung abscess, or cavitary lesion from fungal, mycobacterial pneumonias. Underwent bronch with BAL on 07/08/23 with purulent secretions cultures and biopsies done. 07/09 Patient seen and examined at bedside. He continues to have his chronic left abd pain that he related to shingles, he states that the lidocaine patch did not help. He continues to have cough but believes that it is getting better. 07/10 Patient was seen and examined. He reports improvement in his neuropathic pain with Morphine as needed. He has no complaints today. Renal function today worsened with Cr 2.37. Random Vancomycin level drawn critical at 44.2. 07/11 Patient was seen and examined. He reports no complaints today. His breathing is stable and neuropathic pain is well controlled. Currently on 2L NC. Renal function shows Cr 4.41. Nephrology consulted, recommends bladder scan, UA and oral sodium bicarbonate. 07/12 Patient was seen and examined. No acute events overnight. Seen with Dr. Angel at bedside. BMP shows Na 135, Cl 110, bicarb 17, BUN 48, Cr 6.04. 07/13 Patient was seen and examined. No acute events overnight. He was given 80 mg IV lasix yesterday (repeated today) with only 359 cc of urine output over the past 24H. CBC shows Hg 10. BMP shows bicab 19, BUN 51.3, Cr 7.3. Phos 7.9. Mg 2.4. Albumin 2.5. Due to worsening renal function, vascular surgery has been consulted for temporary HD access with plans to initiate HD today. BAL cultures are negative so far and cytology shows acute inflammatory cells, no malignant cells. All antibiotics were discontinued yesterday. Assessment/Plan: Vitals: Afebrile, 144/80, heart rate 98, 94% on 2 L nasal cannula Labs: Cr 6.1, BUN 37.2; Images: No new images to review today Consultation: Discussed with nephrology, plan for holding dialysis today, reattempt tomorrow, if still requiring then will pursue permacath BONY Metabolic acidosis - Continue sodium bicarbonate 650 mg PO BID - Nephrology on board, see above recommendations - Daily BMP Community acquired pneumonia complicated by left-sided cavitary lesion, possible gram negative Acute hypoxic respiratory failure Sepsis Severe COPD - See above regarding pulmonology recommendations - Completed course on antibiotics - Continue with DuoNeb's and Symbicort - Continue with Lipitor 10 mg nightly - Neurontin 600 mg 4 times daily, norco, lidocaine patch - Morphine 2mg IV Q6H for severe pain - add norco 5/325 q4h PRN for pain Hypertension Dyslipidemia 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 - Resume home medications Moderate protein calorie malnutrition - Ensure 3 times daily with meals Anticipated discharge date: pending clinical course Anticipated discharge place: pending clinical course Objective - Vital Signs Vital signs: Vital Signs Temp 97.9 F 07/19/23 07:40 Pulse 80 07/19/23 08:52 Resp 18 07/19/23 09:27 BP 123/73 07/19/23 07:40 Pulse Ox 98 07/19/23 07:40 FiO2 Intake & Output 07/18/23 07/19/23 07/19/23 18:59 06:59 18:59 Intake Total 50 540 Output Total 680 425 210 Balance -680 -375 330 Weight 79 kg Intake: Oral 50 540 Output: Urine 680 425 210 Other: Voiding Method Urinal Toilet Urinal # Voids 1 # Bowel Movements 1 - Labs CBC & Chem 7: 07/16/23 06:50 07/17/23 07:49
--- NOTE | 2023-07-19 13:38 | P.PN ---
Subjective Progress Note Date: 07/19/23 Follow-up for acute kidney injury on dialysis. Admits good urine output. Documented 1100 in the last 24 hours. Objective - Vital Signs Vital signs: Vital Signs Temp 97.9 F 07/19/23 07:40 Pulse 88 07/19/23 12:14 Resp 18 07/19/23 09:27 BP 123/73 07/19/23 07:40 Pulse Ox 98 07/19/23 07:40 FiO2 Intake & Output 07/18/23 07/19/23 07/19/23 18:59 06:59 18:59 Intake Total 50 540 Output Total 680 425 210 Balance -680 -375 330 Weight 79 kg Intake: Oral 50 540 Output: Urine 680 425 210 Other: Voiding Method Urinal Toilet Urinal # Voids 1 # Bowel Movements 1 - Exam No acute distress S1-S2 heard Lungs clear Edema - Labs CBC & Chem 7: 07/16/23 06:50 07/17/23 07:49 Assessment and Plan Assessment: #1 acute kidney injury secondary to ATN from vancomycin toxicity. -Baseline creatinine 0.8 MG per DL. #2 pneumonia on antibiotics #3 left upper lobe cavitary mass #4 volume overload #5 hyperphosphatemia secondary to acute kidney injury Plan: #1 monitor renal function closely. #2 continue with diuretics #3 hemodialysis on Thursday and plan for permacath.
[2023-07-19] MEDS: ATORVASTATIN 10 MG TAB PO SCH (21:57)
[2023-07-19] MEDS: DOCUSATE 100 MG CAP PO SCH (21:57)
[2023-07-20] MEDS: CALCIUM ACETATE 667 MG TAB PO SCH ×2 (06:25→16:52)
[2023-07-20 06:26] LABS: African American GFR (CKD) 6 (>60 ml/min/1.73 sqM); Anion Gap 11 mmol/L; Blood Urea Nitrogen 67 mg/dL (9-20); Calcium 8.7 mg/dL (8.4-10.2); Carbon Dioxide 26 mmol/L (22-30); Chloride 97 mmol/L (98-107); Glucose 91 mg/dL (74-99); Magnesium 2.4 mg/dL (1.6-2.3); Non-African American GFR(CKD) 5 (>60 ml/min/1.73 sqM); Potassium 4.3 mmol/L (3.5-5.1); Sodium 134 mmol/L (137-145)
[2023-07-20 06:28] LABS: Phosphorus 9.9 mg/dL (2.5-4.5)
[2023-07-20 06:46] LABS: Basophils % (A) 1 %; Eosinophils # (A) 0.5 k/uL (0-0.7); Eosinophils % (A) 9 %; HCT 32.9 % (39.0-53.0); HGB 10.4 gm/dL (13.0-17.5); Lymphocytes # (A) 1.2 k/uL (1.0-4.8); Lymphocytes % (A) 22 %; MCH 28.2 pg (25.0-35.0); MCHC 31.6 g/dL (31.0-37.0); MCV 89.2 fL (80.0-100.0); Mean Platelet Volume 7.7; Monocytes # (A) 0.8 k/uL (0-1.0); Monocytes % (A) 15 %; Neutrophils # (A) 2.6 k/uL (1.3-7.7); Neutrophils % (A) 50 %; Platelet Count 171 k/uL (150-450); RBC 3.69 m/uL (4.30-5.90); RDW 15.1 % (11.5-15.5); WBC 5.1 k/uL (3.8-10.6)
[2023-07-20] MEDS: SYMBICORT 160-4.5 MCG INHALER INHALATION SCH ×2 (07:50→20:39)
[2023-07-20] MEDS: IPRATROPIUM-ALBUTEROL 3 ML NEB INHALATION SCH ×4 (07:51→20:39)
[2023-07-20] MEDS: ENOXAPARIN 30 MG/0.3 ML SYRINGE SQ SCH (08:23)
[2023-07-20] MEDS: LIDOCAINE 5% PATCH TOPICAL SCH (08:24)
[2023-07-20] MEDS: CHOLECALCIFEROL 125 MCG (5000 IU) TABLET PO SCH (08:24)
[2023-07-20] MEDS: ASPIRIN 81 MG PO SCH (08:24)
[2023-07-20] MEDS: GABAPENTIN 100 MG CAP PO SCH ×3 (08:24→20:29)
--- NOTE | 2023-07-20 09:40 | P.PN ---
Subjective Progress Note Date: 07/20/23 Pt has no new copmlaints today Gen: awake, alert HEENT: normocephalic, atraumatic, good hearing acuity, moist mucous membranes Resp: good air exchange, breathing comfortably with no accessory muscle use CVS: good distal perfusion x 4, GI: soft, NTTP, ND : no SPT, no CVAT, monreal catheter not present MSK: no pitting edema, no clubbing Neuro: non-focal, moving all extremities Psych: cooperative, euthymic mood Hospital Course: Patient is an 88 yo male with COPD, former tobacco dependency, hypertension, AND hyperlipidemia who presented with complaints of dyspnea. In the emergency room he underwent an extensive evaluation. His initial vitals were within normal. Labs were remarkable for WBC 13.9. Computed tomography scan of the chest demonstrated significant severe emphysematous changes, left-sided infiltrate with possible cavitary component of 4.8cm in the left upper lobe versus pneumonia surrounding bullae. He was admitted for pneumonia and started on broad spectrum abx. His procalcitonin was noted to be 0.39. Pulm was consulted for consideration of bronchoscopy and had considered this but given clinical improvement and fragile condition of patients lungs on CT imaging, preferred to defer this to outpatient setting after course of abx. Per pulmonary differential is broad including; lung abscess, or cavitary lesion from fungal, mycobacterial pneumonias. Underwent bronch with BAL on 07/08/23 with purulent secretions cultures and biopsies done. 07/09 Patient seen and examined at bedside. He continues to have his chronic left abd pain that he related to shingles, he states that the lidocaine patch did not help. He continues to have cough but believes that it is getting better. 07/10 Patient was seen and examined. He reports improvement in his neuropathic pain with Morphine as needed. He has no complaints today. Renal function today worsened with Cr 2.37. Random Vancomycin level drawn critical at 44.2. 07/11 Patient was seen and examined. He reports no complaints today. His breathing is stable and neuropathic pain is well controlled. Currently on 2L NC. Renal function shows Cr 4.41. Nephrology consulted, recommends bladder scan, UA and oral sodium bicarbonate. 07/12 Patient was seen and examined. No acute events overnight. Seen with Dr. Angel at bedside. BMP shows Na 135, Cl 110, bicarb 17, BUN 48, Cr 6.04. 07/13 Patient was seen and examined. No acute events overnight. He was given 80 mg IV lasix yesterday (repeated today) with only 359 cc of urine output over the pa st 24H. CBC shows Hg 10. BMP shows bicab 19, BUN 51.3, Cr 7.3. Phos 7.9. Mg 2.4. Albumin 2.5. Due to worsening renal function, vascular surgery has been consulted for temporary HD access with plans to initiate HD today. BAL cultures are negative so far and cytology shows acute inflammatory cells, no malignant cells. All antibiotics were discontinued yesterday. 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 - Continue sodium bicarbonate 650 mg PO BID - Adding sevelamer to calcium acetate due to secondary hyperparathyroidism - Nephrology on board, see above recommendations - Will need permacath today - Daily BMP Community acquired pneumonia complicated by left-sided cavitary lesion, possible gram negative Acute hypoxic respiratory failure Sepsis Severe COPD - See above regarding pulmonology recommendations - Completed course on antibiotics - Continue with DuoNeb's and Symbicort - Continue with Lipitor 10 mg nightly - Neurontin 600 mg 4 times daily, norco, lidocaine patch - Morphine 2mg IV Q6H for severe pain - add norco 5/325 q4h PRN for pain Hypertension Dyslipidemia 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 - Resume home medications Moderate protein calorie malnutrition - Ensure 3 times daily with meals Anticipated discharge date: pending clinical course Anticipated discharge place: pending clinical course Objective - Vital Signs Vital signs: Vital Signs Temp 98.4 F 07/20/23 07:43 Pulse 57 L 07/20/23 07:43 Resp 19 07/20/23 07:43 BP 125/78 07/20/23 07:43 Pulse Ox 100 07/20/23 07:43 FiO2 Intake & Output 07/19/23 07/20/23 07/20/23 18:59 06:59 18:59 Intake Total 540 Output Total 520 775 Balance 20 -775 Weight 75 kg Intake: Oral 540 Output: Urine 520 775 Other: Voiding Method Toilet Urinal # Voids 1 # Bowel Movements 1 - Labs CBC & Chem 7: 07/20/23 05:30 07/20/23 05:30 Labs: Abnormal Lab Results - Last 24 Hours (Table) 07/20/23 07/20/23 Range/Units 05:30 05:30 RBC 3.69 L (4.30-5.90) m/uL Hgb 10.4 L (13.0-17.5) gm/dL Hct 32.9 L (39.0-53.0) % Sodium 134 L (137-145) mmol/L Chloride 97 L (98-107) mmol/L BUN 67 H (9-20) mg/dL Creatinine 8.83 H* (0.66-1.25) mg/dL Phosphorus 9.9 H* (2.5-4.5) mg/dL Magnesium 2.4 H (1.6-2.3) mg/dL
[2023-07-20] MEDS: FUROSEMIDE 10 MG/ML 10 ML VIAL IV SCH (10:25)
[2023-07-20] MEDS: HYDROcodone/APAP 5-325MG 1 EACH TAB PO PRN ×2 (12:27→20:29)
[2023-07-20] MEDS: SEVELAMER 800 MG TAB PO SCH ×2 (12:49→16:52)
--- NOTE | 2023-07-20 15:15 | P.PN ---
Subjective Progress Note Date: 07/20/23 I am seeing this patient in new consultation today 07/03/2023 for a cavitating left lung mass and community acquired pneumonia. Patient is a 88-year-old white male with past medical history significant for COPD/emphysema, previous left lung bullectomy, hyperlipidemia, hypertension, and is a remote ex-smoker. His PCP is a Dr. Castle. He does not follow with a rn med surg. Patient was transferred from [facility] for suspected extensive cavitating pneumonia on CT. 07/20/2023, the patient is undergoing hemodialysis. No signs of any significant respiratory distress. BUN is at 67 with a creatinine of 8.8, white cell cause of 5.1 with a hemoglobin of 10.4. The patient sustained an acute kidney injury and the patient is currently hemodialysis dependent. Antibiotics have been all discontinued. He remains on oxygen at 3 L with a pulse ox of 99%. No other new complaints otherwise for now. His overall respiratory status is stable. Nephrotoxic agents have been all discontinued. Bronchoscopy was done by Dr. Bello and obviously the microbial cultures came back all negative. Objective - Vital Signs Vital signs: Vital Signs Temp 98.4 F 07/20/23 07:43 Pulse 60 07/20/23 11:19 Resp 19 07/20/23 07:43 BP 125/78 07/20/23 07:43 Pulse Ox 100 07/20/23 07:43 FiO2 Intake & Output 07/19/23 07/20/23 07/20/23 18:59 06:59 18:59 Intake Total 540 Output Total 520 775 Balance 20 -775 Weight 75 kg Intake: Oral 540 Output: Urine 520 775 Other: Voiding Method Toilet Urinal # Voids 1 # Bowel Movements 1 - Exam GENERAL EXAM: Alert, 88-year-old white male , comfortable in no apparent distre ss. The patient is currently on room air oxygen HEAD: Normocephalic and atraumatic EYES: Normal reaction of pupils, equal size. NOSE: Clear with pink turbinates. THROAT: No erythema or exudates. NECK: No masses, no JVD. CHEST: No chest wall deformity. LUNGS: Diminished left lung sounds with scattered inspiratory crackles, rhonchi. . No conversational dyspnea or accessory muscle use.. CVS: S1 and S2 normal with no audible murmur, regular rhythm. No extra heart sounds ABDOMEN: No hepatosplenomegaly, active bowel sounds, no guarding or rigidity. SPINE: No scoliosis or deformity SKIN: No rashes CENTRAL NERVOUS SYSTEM: No focal deficits, tone is normal in all 4 extremities. EXTREMITIES: There is no peripheral edema, clubbing, or cyanosis. Peripheral pulses are intact. - Labs CBC & Chem 7: 07/20/23 05:30 07/20/23 05:30 Labs: Abnormal Lab Results - Last 24 Hours (Table) 07/20/23 07/20/23 Range/Units 05:30 05:30 RBC 3.69 L (4.30-5.90) m/uL Hgb 10.4 L (13.0-17.5) gm/dL Hct 32.9 L (39.0-53.0) % Sodium 134 L (137-145) mmol/L Chloride 97 L (98-107) mmol/L BUN 67 H (9-20) mg/dL Creatinine 8.83 H* (0.66-1.25) mg/dL Phosphorus 9.9 H* (2.5-4.5) mg/dL Magnesium 2.4 H (1.6-2.3) mg/dL Assessment and Plan Assessment: Acute hypoxemic respiratory failure, improved and the patient is currently on room air oxygen. A chest CTA at outside facility shows a postsurgical left upper lobe and left hemithorax. There was extensive patchy and confluent airspace disease throughout the left lung. Left basilar bronchiectasis with moderate bronchial wall thickening. There is 4.8 cm left upper lobe cavitary ma ss, thought to be a cavitary pneumonia versus atypical fungal/mycobacterial infection versus necrotizing malignancy. There were additional nodular densities in the left lung measuring up to 2 cm. There was a 1.5 cm left infrahilar lymph node. There was extensive emphysematous changes. No previous imaging for comparison. This could be also an infected bullous versus a fluid-filled bul lous post pneumonia. COPD/emphysema, stable Acute kidney injury on hemodialysis, patient is a possible undergoing hemodialysis today. History of previous left upper lobe bullectomy Benign essential hypertension Hyperlipidemia Remote ex-smoker, quit 1992 Plan: Hemodialysis per nephrology Pulmonary status is stable Monitor electrolytes Follow-up in the pulmonary clinic with Dr. Bello further workup if needed. The bronchoscopy of the left lung and the lavage of the left lung showed no microbial growth.
--- NOTE | 2023-07-20 18:44 | P.PN ---
Subjective Patient is seen for f/u for BONY from vancomycin toxicity. Started on HD for worsening renal function. Good UOP. 1295ml x 24 hrs. Cr increased over the weekend. S/p HD today. Received midodrine for low BP. No complaints. Daughter present at bedside. Objective - Vital Signs Vital signs: Vital Signs Temp 98.1 F 07/20/23 13:59 Pulse 64 07/20/23 15:38 Resp 18 07/20/23 13:59 BP 112/62 07/20/23 13:59 Pulse Ox 100 07/20/23 13:59 FiO2 Intake & Output 07/19/23 07/20/23 07/20/23 18:59 06:59 18:59 Intake Total 540 1020 Output Total 808 085 3059 Balance 5 -1780 Weight 75 kg Intake: Oral 540 720 Hemodialysis 300 Output: Urine 520 775 500 Hemodialysis 2300 Other: Voiding Method Toilet Urinal Urinal # Voids 1 # Bowel Movements 1 - Exam Awake, comfortable Alert and oriented x3 Lungs show decreased breath sounds at bases. CVS S1 and S2 Abdomen is soft, non tender. Extremities show no edema. ENERGY ADMINISTRATOR exam grossly intact. - Labs CBC & Chem 7: 07/20/23 05:30 07/20/23 05:30 Labs: Abnormal Lab Results - Last 24 Hours (Table) 07/20/23 07/20/23 Range/Units 05:30 05:30 RBC 3.69 L (4.30-5.90) m/uL Hgb 10.4 L (13.0-17.5) gm/dL Hct 32.9 L (39.0-53.0) % Sodium 134 L (137-145) mmol/L Chloride 97 L (98-107) mmol/L BUN 67 H (9-20) mg/dL Creatinine 8.83 H* (0.66-1.25) mg/dL Phosphorus 9.9 H* (2.5-4.5) mg/dL Magnesium 2.4 H (1.6-2.3) mg/dL Assessment and Plan Assessment: Assessment: #1 acute kidney injury secondary to ATN from vancomycin toxicity. -Baseline creatinine 0.8 MG per DL. #2 pneumonia on antibiotics #3 left upper lobe cavitary mass #4 volume overload #5 hyperphosphatemia secondary to acute kidney injury Plan: Continue HD as out patient. Contiue to monitor for recovery of renal function.
[2023-07-20] MEDS: ATORVASTATIN 10 MG TAB PO SCH (20:29)
[2023-07-20] MEDS: DOCUSATE 100 MG CAP PO SCH (20:29)
[2023-07-21] MEDS: CALCIUM ACETATE 667 MG TAB PO SCH ×2 (06:32→17:53)
[2023-07-21] MEDS: SEVELAMER 800 MG TAB PO SCH ×3 (06:32→17:53)
[2023-07-21] MEDS: SYMBICORT 160-4.5 MCG INHALER INHALATION SCH ×2 (09:43→21:37)
[2023-07-21] MEDS: IPRATROPIUM-ALBUTEROL 3 ML NEB INHALATION SCH ×4 (09:43→21:37)
[2023-07-21] MEDS: ENOXAPARIN 30 MG/0.3 ML SYRINGE SQ SCH (10:15)
[2023-07-21] MEDS: ASPIRIN 81 MG PO SCH (10:15)
[2023-07-21] MEDS: CHOLECALCIFEROL 125 MCG (5000 IU) TABLET PO SCH (10:15)
[2023-07-21] MEDS: FUROSEMIDE 10 MG/ML 10 ML VIAL IV SCH (10:16)
[2023-07-21] MEDS: LIDOCAINE 5% PATCH TOPICAL SCH (10:17)
[2023-07-21] MEDS: GABAPENTIN 100 MG CAP PO SCH ×3 (10:17→21:45)
--- NOTE | 2023-07-21 12:12 | P.PN ---
Subjective Progress Note Date: 07/21/23 I am seeing this patient in new consultation today 07/03/2023 for a cavitating left lung mass and community acquired pneumonia. Patient is a 88-year-old white male with past medical history significant for COPD/emphysema, previous left lung bullectomy, hyperlipidemia, hypertension, and is a remote ex-smoker. His PCP is a Dr. Castle. 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 Patient was transferred from [facility] for suspected extensive cavitating pneumonia on CT. 07/20/2023, the patient is undergoing hemodialysis. No signs of any significant respiratory distress. BUN is at 67 with a creatinine of 8.8, white cell cause of 5.1 with a hemoglobin of 10.4. The patient sustained an acute kidney injury and the patient is currently hemodialysis dependent. Antibiotics have been all discontinued. He remains on oxygen at 3 L with a pulse ox of 99%. No other new complaints otherwise for now. His overall respiratory status is stable. Nephrotoxic agents have been all discontinued. Bronchoscopy was done by Dr. Bello and obviously the microbial cultures came back all negative. On today's evaluation of 07/21/2023, the patient is stable on 3 L of oxygen by nasal cannula. The patient underwent hemodialysis yesterday. Ranges of being made to transfer patient to an ECF facility. He has a right groin temporary hemodialysis catheter. The patient is on no antibiotics for time being. Urine output is limited and the patient is sitting Lasix 80 mg IV every 24 hours. Labs from yesterday was noted. No labs are available from today. His most recent potassium from yesterday was at 4.3. Objective - Vital Signs Vital signs: Vital Signs Temp 97.3 F L 07/21/23 07:42 Pulse 64 07/21/23 09:55 Resp 18 07/21/23 07:42 BP 106/55 07/21/23 07:42 Pulse Ox 99 07/21/23 09:45 FiO2 Intake & Output 07/20/23 07/21/23 07/21/23 18:59 06:59 18:59 Intake Total 1020 Output Total 2800 200 Balance -1780 -200 Weight 79.5 kg Intake: Oral 720 Hemodialysis 300 Output: Urine 500 200 Hemodialysis 2300 Other: Voiding Method Urinal Urinal - Exam GENERAL EXAM: Alert, 88-year-old white male , comfortable in no apparent distress. The patient is currently on room air oxygen HEAD: Normocephalic and atraumatic EYES: Normal reaction of pupils, equal size. NOSE: Clear with pink turbinates. THROAT: No erythema or exudates. NECK: No masses, no JVD. CHEST: No chest wall deformity. LUNGS: Diminished left lung sounds with scattered inspiratory crackles, rhonchi. . No conversational dyspnea or accessory muscle use.. CVS: S1 and S2 normal with no audible murmur, regular rhythm. No extra heart sounds ABDOMEN: No hepatosplenomegaly, active bowel sounds, no guarding or rigidity. SPINE: No scoliosis or deformity SKIN: No rashes CENTRAL NERVOUS SYSTEM: No focal deficits, tone is normal in all 4 extremities. EXTREMITIES: There is no peripheral edema, clubbing, or cyanosis. Peripheral pulses are intact. - Labs CBC & Chem 7: 07/20/23 05:30 07/20/23 05:30 Assessment and Plan Assessment: Acute hypoxemic respiratory failure, improved and the patient is currently on room air oxygen. A chest CTA at outside facility shows a postsurgical left upper lobe and left hemithorax. There was extensive patchy and confluent a irspace disease throughout the left lung. Left basilar bronchiectasis with moderate bronchial wall thickening. There is 4.8 cm left upper lobe cavitary mass, thought to be a cavitary pneumonia versus atypical fungal/mycobacterial infection versus necrotizing malignancy. There were additional nodular densities in the left lung measuring up to 2 cm. There was a 1.5 cm left infrahilar lymph node. There was extensive emphysematous changes. No previous imaging for comparison. This could be also an infected bullous versus a fluid-filled bullous post pneumonia. COPD/emphysema, stable Acute kidney injury on hemodialysis, patient is a possible undergoing hemodialysis today. History of previous left upper lobe bullectomy Benign essential hypertension Hyperlipidemia Remote ex-smoker, quit 1992 Plan: Pulmonary status is stable Patient is on 3 L of oxygen by nasal cannula Hemodialysis per nephrology, last hemodialysis session was done yesterday Pulmonary status is stable Monitor electrolytes Follow-up in the pulmonary clinic with Dr. Bello further workup if needed. The bronchoscopy of the left lung and the lavage of the left lung showed no microbial growth. Transfer to [facility]
--- NOTE | 2023-07-21 12:15 | P.PN ---
Subjective Patient is seen for f/u for BONY from vancomycin toxicity. Started on HD for worsening renal function. Good UOP. 1295ml x 24 hrs. Cr increased over the weekend. S/p HD yesterday with UF of 2.3 L No complaints. Objective - Vital Signs Vital signs: Vital Signs Temp 97.3 F L 07/21/23 07:42 Pulse 64 07/21/23 09:55 Resp 18 07/21/23 07:42 BP 106/55 07/21/23 07:42 Pulse Ox 99 07/21/23 09:45 FiO2 Intake & Output 07/20/23 07/21/23 07/21/23 18:59 06:59 18:59 Intake Total 1020 Output Total 2800 200 200 Balance -1780 -200 -200 Weight 79.5 kg Intake: Oral 720 Hemodialysis 300 Output: Urine 500 200 200 Hemodialysis 2300 Other: Voiding Method Urinal Urinal - Exam Awake, comfortable Alert and oriented x3 Lungs show decreased breath sounds at bases. CVS S1 and S2 Abdomen is soft, non tender. Extremities show no edema. SUPERVISOR [employer]URING exam grossly intact. - Labs CBC & Chem 7: 07/20/23 05:30 07/20/23 05:30 Assessment and Plan Assessment: Assessment: #1 acute kidney injury secondary to ATN from vancomycin toxicity. Remains hemodialysis dependent however urine output has improved significantly. -Baseline creatinine 0.8 MG per DL. #2 pneumonia on antibiotics #3 left upper lobe cavitary mass #4 volume overload #5 hyperphosphatemia secondary to acute kidney injury Plan: Continue HD as out patient. Contiue to monitor for recovery of renal function. Next hemodialysis on 07/23/2023
[2023-07-21 13:47] VITALS: BMI 27.4
--- NOTE | 2023-07-21 14:16 | P.PN ---
Subjective Progress Note Date: 07/21/23 Patient is an 88 yo male with COPD, former tobacco dependency, hypertension, AND hyperlipidemia who presented with complaints of dyspnea. In the emergency room he underwent an extensive evaluation. His initial vitals were within normal. Labs were remarkable for WBC 13.9. Computed tomography scan of the chest demonstrated significant severe emphysematous changes, left-sided infiltrate with possible cavitary component of 4.8cm in the left upper lobe versus pneumonia surrounding bullae. He was admitted for pneumonia and started on broad spectrum abx. His procalcitonin was noted to be 0.39. Pulm was consulted for consideration of bronchoscopy and had considered this but given clinical improvement and fragile condition of patients lungs on CT imaging, preferred to defer this to outpatient setting after course of abx. Per pulmonary differential is broad including; lung abscess, or cavitary lesion from fungal, mycobacterial pneumonias. Underwent bronch with BAL on 07/08/23 with purulent secretions cultures and biopsies done. 07/09 Patient seen and examined at bedside. He continues to have his chronic left abd pain that he related to shingles, he states that the lidocaine patch did not help. He continues to have cough but believes that it is getting better. 07/10 Patient was seen and examined. He reports improvement in his neuropathic pain with Morphine as needed. He has no complaints today. Renal function today worsened with Cr 2.37. Random Vancomycin level drawn critical at 44.2. 07/11 Patient was seen and examined. He reports no complaints today. His breathing is stable and neuropathic pain is well controlled. Currently on 2L NC. Renal function shows Cr 4.41. Nephrology consulted, recommends bladder scan, UA and oral sodium bicarbonate. 07/12 Patient was seen and examined. No acute events overnight. Seen with Dr. Angel at bedside. BMP shows Na 135, Cl 110, bicarb 17, BUN 48, Cr 6.04. 07/13 Patient was seen and examined. No acute events overnight. He was given 80 mg IV lasix yesterday (repeated today) with only 359 cc of urine output over the past 24H. CBC shows Hg 10. BMP shows bicab 19, BUN 51.3, Cr 7.3. Phos 7.9. Mg 2.4. Albumin 2.5. Due to worsening renal function, vascular surgery has been consulted for temporary HD access with plans to initiate HD today. BAL cultures are negative so far and cytology shows acute inflammatory cells, no malignant cells. All antibiotics were discontinued yesterday. Patient received multiple HD sessions. 07/21 Patient was seen and examined. Vascular Sx consulted for permacath prior to swing bed transfer. He reports no complaints today. Plans for HD on 07/23. No new labs done today. Vital signs reviewed General: nontoxic, no distress, appears at stated age Cardiovascular: good distal perfusion in all 4 extremities, Normal S1 S2. 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 Cultures negative. - Completed course on antibiotics - Continue with DuoNeb's and Symbicort - Continue with Lipitor 10 mg nightly - Neurontin 600 mg 4 times daily, norco, lidocaine patch - Morphine 2mg IV Q6H for severe pain - Legionella urine antigen negative Moderate protein calorie malnutrition - Ensure 3 times daily with meals Vitals reviewed and afebrile, HR 97, RR 18, BP 106/55, 97% on 3L NC Sputum culture-normal respiratory rebecca Blood cultures-negative to date DVT prophylaxis: lovenox Anticipated discharge date: pending clinical course Anticipated discharge place: pending clinical course This dictation was prepared using [employer] voice recognition software. Though every attempt is made to correct errors during dictation some may still exist. Objective - Vital Signs Vital signs: Vital Signs Temp 97.3 F L 07/21/23 07:42 Pulse 60 07/21/23 13:21 Resp 18 07/21/23 08:00 BP 106/55 07/21/23 07:42 Pulse Ox 99 07/21/23 09:45 FiO2 Intake & Output 07/20/23 07/21/23 07/21/23 18:59 06:59 18:59 Intake Total 1020 Output Total 2800 200 200 Balance -1780 -200 -200 Weight 79.5 kg 79.5 kg Intake: Oral 720 Hemodialysis 300 Output: Urine 500 200 200 Hemodialysis 2300 Other: Voiding Method Urinal Urinal - Labs CBC & Chem 7: 07/20/23 05:30 07/20/23 05:30
[2023-07-21] MEDS ORDERED: LIDOCAINE 1% INJ 10MG/ML (20 ML MDV) SQ ONE (16:22)
[2023-07-21] MEDS ORDERED: SODIUM CHLORIDE 0.9% 250 ML IV ONE (16:23)
[2023-07-21] MEDS ORDERED: MIDAZOLAM 2 MG/2 ML VIAL IVP ONE (16:23)
--- NOTE | 2023-07-21 17:15 | P.PCN ---
Description of Procedure: Preoperative diagnoses is acute chronic failure Postop same procedure ultrasound-guided 23 same dialysis catheter. Vaginal approach #2 removal of dialysis catheter right femoral approach. 2 x 2 the Fleet Manager/Dispatch right neck and right groin were prepped draped applied sterile manner 1% lidocaine were infiltrated and neck area ultrasound-guided micropuncture and direct jugular vein micropuncture guidewire was passed and 4-Vietnamese dilator advanced top of guidewire. After that tunnel. Through the terminal be brought 23 same dialysis catheter was a guidewire was parked in the inferior vena cava. After that we passed sheath. The guidewire through the sheath we did do dialysis catheter risk. A vena cava at the junction flush with heparin saline and Hep-Lock groin incision was made catheter was removed pressure held patient are to the procedure well Joselin Cooley to the room is safe surgical procedure the measurement a excision of the chest
[2023-07-21] MEDS: HYDROcodone/APAP 5-325MG 1 EACH TAB PO PRN ×2 (17:52→22:00)
--- NOTE | 2023-07-21 19:04 | XR ---
EXAMINATION TYPE: XR chest 1V portable DATE OF EXAM: 07/21/2023 6:55 PM CLINICAL INDICATION:Male, 88 years old with history of post dialysis cath placement; [facility] COMPARISON: Chest radiographs from 07/29/2023 TECHNIQUE: XR chest 1V portable Frontal view of the chest. FINDINGS: Lungs/Pleura: Improved aeration of the lungs on today's exam. There is no evidence of pleural effusio n, focal consolidation, or pneumothorax. Pulmonary vascularity: Unremarkable. Heart/mediastinum: Cardiomediastinal silhouette is unremarkable. Atherosclerotic calcifications are seen in the aorta. Musculoskeletal: No acute osseous pathology. Right dialysis catheter placement with tip at superior cavoatrial junction. No evidence of pneumothor ax. IMPRESSION: 1. Dialysis catheter placement with tip at the superior cavoatrial. 2. Improved aeration of the lungs on today's exam.
[2023-07-21] MEDS: ATORVASTATIN 10 MG TAB PO SCH (21:45)
[2023-07-21] MEDS: DOCUSATE 100 MG CAP PO SCH (21:45)
[2023-07-22] MEDS: SEVELAMER 800 MG TAB PO SCH ×2 (06:24→11:45)
[2023-07-22] MEDS: CALCIUM ACETATE 667 MG TAB PO SCH (06:25)
[2023-07-22] MEDS: IPRATROPIUM-ALBUTEROL 3 ML NEB INHALATION SCH ×2 (07:12→11:07)
[2023-07-22] MEDS: SYMBICORT 160-4.5 MCG INHALER INHALATION SCH (07:13)
[2023-07-22 07:28] LABS: African American GFR (CKD) 8 (>60 ml/min/1.73 sqM); Anion Gap 11 mmol/L; Blood Urea Nitrogen 50 mg/dL (9-20); Calcium 8.7 mg/dL (8.4-10.2); Carbon Dioxide 25 mmol/L (22-30); Chloride 98 mmol/L (98-107); Glucose 88 mg/dL (74-99); Non-African American GFR(CKD) 7 (>60 ml/min/1.73 sqM); Potassium 4.2 mmol/L (3.5-5.1); Sodium 134 mmol/L (137-145)
--- NOTE | 2023-07-22 08:23 | IR ---
EXAMINATION TYPE: IR cvc insert central tunneled DATE OF EXAM: 07/21/2023 COMPARISON: NONE HISTORY: Fluoroscopy time. Fluoroscopy was provided to the referring clinician.
[2023-07-22] MEDS: FUROSEMIDE 10 MG/ML 10 ML VIAL IV SCH (10:20)
[2023-07-22] MEDS: GABAPENTIN 100 MG CAP PO SCH (10:21)
[2023-07-22] MEDS: CHOLECALCIFEROL 125 MCG (5000 IU) TABLET PO SCH (10:21)
[2023-07-22] MEDS: ASPIRIN 81 MG PO SCH (10:21)
[2023-07-22] MEDS: ENOXAPARIN 30 MG/0.3 ML SYRINGE SQ SCH (10:22)
[2023-07-22] MEDS: LIDOCAINE 5% PATCH TOPICAL SCH (10:22)
[2023-07-22] MEDS: HYDROcodone/APAP 5-325MG 1 EACH TAB PO PRN (10:38)
[2023-07-22 11:16] LABS: HCT 33.6 % (39.0-53.0); HGB 10.9 gm/dL (13.0-17.5); MCH 28.8 pg (25.0-35.0); MCHC 32.3 g/dL (31.0-37.0); Platelet Count 152 k/uL (150-450); RBC 3.78 m/uL (4.30-5.90); RDW 15.2 % (11.5-15.5); WBC 6.4 k/uL (3.8-10.6)
--- NOTE | 2023-07-22 11:20 | P.DS ---
Providers Date of admission: 07/02/23 13:05 Expected date of discharge: 07/22/23 Attending physician: Rashad Kathleen MD Consults: 07/02/23 17:25 Consult Physician Routine Consulting Provider: Nila Nicolas Consult Reason/Comments: cavitary pneumonia, severe emphysema Do you want consulting provider notified?: Yes 07/10/23 12:39 Consult Physician Routine Consulting Provider: Mecca Deleon Consult Reason/Comments: BONY Do you want consulting provider notified?: Yes 07/13/23 19:48 Consult Physician Routine Consulting Provider: Aram Reese Consult Reason/Comments: HD RT FEMORAL CATH INSERTED TODAY, DYSFUNCTIONAL. NEEDS EVAL FOR HD FOR 07/13 Do you want consulting provider notified?: Yes 07/21/23 12:29 Consult Physician Routine Consulting Provider: Aram Reese Consult Reason/Comments: Permacath Do you want consulting provider notified?: Yes Primary care physician: [facility] Course: Patient is an 88 yo male with COPD, former tobacco dependency, hypertension, AND hyperlipidemia who presented with complaints of dyspnea. In the emergency room he underwent an extensive evaluation. His initial vitals were within normal. Labs were remarkable for WBC 13.9. Computed tomography scan of the chest demonstrated significant severe emphysematous changes, left-sided infiltrate with possible cavitary component of 4.8cm in the left upper lobe versus pneumonia surrounding bullae. He was admitted for pneumonia and started on broad spectrum abx. His procalcitonin was noted to be 0.39. Pulm was consulted for consideration of bronchoscopy and had considered this but given clinical improvement and fragile condition of patients lungs on CT imaging, preferred to defer this to outpatient setting after course of abx. Per pulmonary differential is broad including; lung abscess, or cavitary lesion from fungal, mycobacterial pneumonias. Underwent bronch with BAL on 07/08/23 with purulent secretions cul tures and biopsies done. 07/09 Patient seen and examined at bedside. He continues to have his chronic left abd pain that he related to shingles, he states that the lidocaine patch did not help. He continues to have cough but believes that it is getting better. 07/10 Patient was seen and examined. He reports improvement in his neuropathic pain with Morphine as needed. He has no complaints today. Renal function today worsened with Cr 2.37. Random Vancomycin level drawn critical at 44.2. 07/11 Patient was seen and examined. He reports no complaints today. His breathing is stable and neuropathic pain is well controlled. Currently on 2L NC. Renal function shows Cr 4.41. Nephrology consulted, recommends bladder scan, UA and oral sodium bicarbonate. 07/12 Patient was seen and examined. No acute events overnight. Seen with Dr. Angel at bedside. BMP shows Na 135, Cl 110, bicarb 17, BUN 48, Cr 6.04. 07/13 Patient was seen and examined. No acute events overnight. He was given 80 mg IV lasix yesterday (repeated today) with only 359 cc of urine output over the past 24H. CBC shows Hg 10. BMP shows bicab 19, BUN 51.3, Cr 7.3. Phos 7.9. Mg 2.4. Albumin 2.5. Due to worsening renal function, vascular surgery has been consulted for temporary HD access with plans to initiate HD today. BAL cultures are negative so far and cytology shows acute inflammatory cells, no malignant cells. All antibiotics were discontinued yesterday. BAL cultures and cytology was negative. Patient received multiple HD sessions. 07/21 Patient was seen and examined. Vascular Sx consulted for permacath prior to swing bed transfer. He reports no complaints today. Plans for HD on 07/23. No new labs done today. 07/22 Patient was seen and examined. Received permacath yesterday. Chest x-ray shows no pneumothorax. BMP shows sodium 134, BUN 50, creatinine 6.47. Plans for transfer to [facility] today. Follow up with PCP within 1-2 days of discharge. Follow up with Nephrology and Pulmonology within 1 week of discharge. Continue hemodialysis on your current schedule. Pertienent studies include CXR, Renal bladder US. Pertinent procedures include bronchoscopy with BAL, temporary HD catheter, permacath placement. Vital signs reviewed General: nontoxic, no distress, appears at stated age Neck: R neck permacath with blood soaked dressing Cardiovascular: good distal perfusion in all 4 extremities, Normal S1 S2. 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 Patient Condition at Discharge: Stable Plan - Discharge Summary New Discharge Prescriptions: New Furosemide [Lasix] 40 mg PO BID #60 tablet Lidocaine 5% Patch [Lidoderm 5% Patch] 1 patch TOPICAL DAILY patch Gabapentin [Neurontin] 100 mg PO TID cap Sevelamer [Renvela] 800 mg PO TID-W/MEALS tab Ipratropium-Albuterol Nebulize [Duoneb 0.5 mg-3 mg/3 ml Soln] 3 ml INHALATION RT-Q4H PRN each PRN Reason: Shortness Of Breath Or Wheezing Ipratropium-Albuterol Nebulize [Duoneb 0.5 mg-3 mg/3 ml Soln] 3 ml INHALATION RT-QID each Calcium Acetate [PhosLo] 667 mg PO BID-W/MEALS tab Budesonide-Formot 160-4.5 Mcg [Symbicort 160-4.5 Mcg Inhaler] 2 puff INHALATION RT-BID each Continue HYDROcodone/APAP 10-325MG [[place] 10-325] 1 tab PO Q6HR Cholecalciferol [Vitamin D3 (125 Mcg = 5000 Iu)] 125 mcg PO DAILY Simvastatin [Zocor] 20 mg PO HS Docusate Sodium [Dok] 100 mg PO HS Aspirin EC [Ecotrin Low Dose] 81 mg PO DAILY Discontinued Gabapentin 600 mg PO QID lisinopriL [Lisinopril] 10 mg PO BID Discharge Medication List Aspirin EC [Ecotrin Low Dose] 81 mg PO DAILY 07/02/23 [History] Cholecalciferol [Vitamin D3 (125 Mcg = 5000 Iu)] 125 mcg PO DAILY 07/02/23 [History] Docusate Sodium [Dok] 100 mg PO HS 07/02/23 [History] HYDROcodone/APAP 10-325MG [[place] 10-325] 1 tab PO Q6HR 07/02/23 [History] Simvastatin [Zocor] 20 mg PO HS 07/02/23 [History] Budesonide-Formot 160-4.5 Mcg [Symbicort 160-4.5 Mcg Inhaler] 2 puff INHALATION RT-BID each 07/22/23 [Rx] Calcium Acetate [PhosLo] 667 mg PO BID-W/MEALS tab 07/22/23 [Rx] Furosemide [Lasix] 40 mg PO BID #60 tablet 07/22/23 [Rx] Gabapentin [Neurontin] 100 mg PO TID cap 07/22/23 [Rx] Ipratropium-Albuterol Nebulize [Duoneb 0.5 mg-3 mg/3 ml Soln] 3 ml INHALATION RT-Q4H PRN each 07/22/23 [Rx] Ipratropium-Albuterol Nebulize [Duoneb 0.5 mg-3 mg/3 ml Soln] 3 ml INHALATION RT-QID each 07/22/23 [Rx] Lidocaine 5% Patch [Lidoderm 5% Patch] 1 patch TOPICAL DAILY patch 07/22/23 [Rx] Sevelamer [Renvela] 800 mg PO TID-W/MEALS tab 07/22/23 [Rx] Follow up Appointment(s)/Referral(s): Mecca Deleon MD [STAFF PHYSICIAN] - 1 Week Helio Burnette [facility] [NON-STAFF] - 07/23/23 10:45 am None,Stated [REFERRING] - 1-2 days Nila Nicolas MD [STAFF PHYSICIAN] - 1 Week Activity/Diet/Wound Care/Special Instructions: [facility] Discharge Disposition: TRANSFER TO SNF/ECF
--- NOTE | 2023-07-22 12:13 | P.PN ---
Subjective Patient is seen for f/u for BONY from vancomycin toxicity. Started on HD for worsening renal function. Good UOP. 1295ml x 24 hrs. Patient remains hemodialysis dependent. No complaints. Status post IJ permacath placement on 07/21/2023. Scheduled for hemodialysis on a Thursday schedule at [place]. Objective - Vital Signs Vital signs: Vital Signs Temp 98.1 F 07/22/23 07:15 Pulse 77 07/22/23 11:28 Resp 18 07/22/23 07:15 BP 98/63 07/22/23 07:15 Pulse Ox 94 L 07/22/23 11:28 FiO2 Intake & Output 07/21/23 07/22/23 07/22/23 18:59 06:59 18:59 Intake Total 505 Output Total 400 100 Balance 105 -100 Weight 79.5 kg 80 kg Intake: IV 25 Oral 480 Output: Urine 400 100 Other: Voiding Method Urinal Urinal # Bowel Movements 1 - Exam Awake, comfortable Alert and oriented x3 Bleeding noted under the dressing for PermCath Lungs show decreased breath sounds at bases. CVS S1 and S2 Abdomen is soft, non tender. Extremities show no edema. SENIOR REVENUE ACCOUNTANT exam grossly intact. - Labs CBC & Chem 7: 07/22/23 06:36 07/22/23 06:36 Labs: Abnormal Lab Results - Last 24 Hours (Table) 07/22/23 07/22/23 Range/Units 06:36 06:36 RBC 3.78 L (4.30-5.90) m/uL Hgb 10.9 L (13.0-17.5) gm/dL Hct 33.6 L (39.0-53.0) % Sodium 134 L (137-145) mmol/L BUN 50 H (9-20) mg/dL Creatinine 6.47 H (0.66-1.25) mg/dL Assessment and Plan Assessment: Assessment: #1 acute kidney injury secondary to ATN from vancomycin toxicity. Remains hemodialysis dependent however urine output has improved significantly. -Baseline creatinine 0.8 MG per DL. #2 pneumonia on antibiotics #3 left upper lobe cavitary mass #4 volume overload, improved #5 hyperphosphatemia secondary to acute kidney injury Plan: Continue HD as out patient. Contiue to monitor for recovery of renal function. Next hemodialysis on 07/23/2023 RENARD Marcial
[2023-07-22] MEDS ORDERED: DESMOPRESSIN ACETATE 20 MCG in SODIUM CHLORIDE 0.9% 50 ML IVPB ONE (12:45)
--- NOTE | 2023-07-22 13:32 | P.PN ---
Subjective Progress Note Date: 07/22/23 I am seeing this patient in new consultation today 07/03/2023 for a cavitating left lung mass and community acquired pneumonia. Patient is a 88-year-old white male with past medical history significant for COPD/emphysema, previous left lung bullectomy, hyperlipidemia, hypertension, and is a remote ex-smoker. His PCP is a Dr. Castle. He does not follow with a epic prelude analyst. Patient was transferred from [facility] for suspected extensive cavitating pneumonia on CT. 07/20/2023, the patient is undergoing hemodialysis. No signs of any significant respiratory distress. BUN is at 67 with a creatinine of 8.8, white cell cause of 5.1 with a hemoglobin of 10.4. The patient sustained an acute kidney injury and the patient is currently hemodialysis dependent. Antibiotics have been all discontinued. He remains on oxygen at 3 L with a pulse ox of 99%. No other new complaints otherwise for now. His overall respiratory status is stable. Nephrotoxic agents have been all discontinued. Bronchoscopy was done by Dr. Bello and obviously the microbial cultures came back all negative. On today's evaluation of 07/21/2023, the patient is stable on 3 L of oxygen by nasal cannula. The patient underwent hemodialysis yesterday. Ranges of being made to transfer patient to an ECF facility. He has a right groin temporary hemodialysis catheter. The patient is on no antibiotics for time being. Urine output is limited and the patient is sitting Lasix 80 mg IV every 24 hours. Labs from yesterday was noted. No labs are available from today. His most recent potassium from yesterday was at 4.3. On 07/22/2023, the patient the permacath catheter inserted insertion. The patient is going to require hemodialysis on outpatient basis. The right IJ permacath catheter was placed on 07/21/2023. The patient is going to undergo dialysis and dusky 3 times a week. Urine output is good and the patient is producing approximately 1.2 L of urine output over the past 24 hours. These most recent chest x-ray shows improvement in aeration of the left lung and a permacath catheter is in a good location. No evidence of any pneumothorax. Objective - Vital Signs Vital signs: Vital Signs Temp 98.1 F 07/22/23 07:15 Pulse 60 09/13/23 11:08 Resp 18 07/22/23 07:15 BP 98/63 07/22/23 07:15 Pulse Ox 98 07/22/23 07:15 FiO2 Intake & Output 07/21/23 07/22/23 07/22/23 18:59 06:59 18:59 Intake Total 505 Output Total 400 100 Balance 105 -100 Weight 79.5 kg 80 kg Intake: IV 25 Oral 480 Output: Urine 400 100 Other: Voiding Method Urinal Urinal # Bowel Movements 1 - Exam GENERAL EXAM: Alert, 88-year-old white male , comfortable in no apparent distress. The patient is currently on room air oxygen HEAD: Normocephalic and atraumatic EYES: Normal reaction of pupils, equal size. NOSE: Clear with pink turbinates. THROAT: No erythema or exudates. NECK: No masses, no JVD. CHEST: No chest wall deformity. LUNGS: Diminished left lung sounds with scattered inspiratory crackles, rhonchi. . No conversational dyspnea or accessory muscle use.. CVS: S1 and S2 normal with no audible murmur, regular rhythm. No extra heart sounds ABDOMEN: No hepatosplenomegaly, active bowel sounds, no guarding or rigidity. SPINE: No scoliosis or deformity SKIN: No rashes CENTRAL NERVOUS SYSTEM: No focal deficits, tone is normal in all 4 extremities. EXTREMITIES: There is no peripheral edema, clubbing, or cyanosis. Peripheral pulses are intact. - Labs CBC & Chem 7: 07/22/23 06:36 07/22/23 06:36 Labs: Abnormal Lab Results - Last 24 Hours (Table) 07/22/23 Range/Units 06:36 Sodium 134 L (137-145) mmol/L BUN 50 H (9-20) mg/dL Creatinine 6.47 H (0.66-1.25) mg/dL Assessment and Plan Assessment: Acute hypoxemic respiratory failure, improved and the patient is currently on room air oxygen. A chest CTA at outside facility shows a postsurgical left upper lobe and left hemithorax. There was extensive patchy and confluent airspace disease throughout the left lung. Left basilar bronchiectasis with moderate bronchial wall thickening. There is 4.8 cm left upper lobe cavitary mass, thought to be a cavitary pneumonia versus atypical fungal/mycobacterial infection versus necrotizing malignancy. There were additional nodular densities in the left lung measuring up to 2 cm. There was a 1.5 cm left infrahilar lymph node. There was extensive emphysematous changes. No previous imaging for comparison. This could be also an infected bullous versus a fluid-filled bullous post pneumonia. Repeat chest x-ray showing improvement elevation of the left lung. The patient is currently on no antibiotics. COPD/emphysema, stable Acute kidney injury on hemodialysis, patient had vancomycin nephrotoxicity and the patient underwent a permacath insertion the right IJ and the patient is going to require hemodialysis in the outpatient basis 3 times a week History of previous left upper lobe bullectomy Benign essential hypertension Hyperlipidemia Remote ex-smoker, quit 1992 Plan: Pulmonary status is stable Patient is on 3 L of oxygen by nasal cannula Chest x-ray findings are stable and there is improved aeration of the left lung Hemodialysis per nephrology, 3 times a week and a permacath catheter is in place Pulmonary status is stable Monitor electrolytes Follow-up in the pulmonary clinic with Dr. Bello further workup if needed. The bronchoscopy of the left lung and the lavage of the left lung showed no microbial growth. Transfer to [facility] and the patient is to be discharged today
[2023-07-22 13:37] VITALS: BP 90/56; PULSE 66; RESP 19; TEMP 97.6
== END 2023-07-22 14:06 | DRG 853 ==
LOC: EC 12:40 → 4SSUR 13:05
PROVIDERS: ADMIT Student in an Organized Health Care Education/Training Program; ATTEND Student in an Organized Health Care Education/Training Program
PROC: 0B9G8ZX Drainage of Left Upper Lung Lobe, Via Natural or Artificial Opening Endoscopic, Diagnostic (ICD-10-PCS; 2023-07-08)
PROC: 0BBG8ZX Excision of Left Upper Lung Lobe, Via Natural or Artificial Opening Endoscopic, Diagnostic (ICD-10-PCS; principal; 2023-07-08 13:00)
PROC: 02PY33Z Removal of Infusion Device from Great Vessel, Percutaneous Approach (ICD-10-PCS; 2023-07-21 16:55)
PROC: 02HV33Z Insertion of Infusion Device into Superior Vena Cava, Percutaneous Approach (ICD-10-PCS; 2023-07-21 16:55)
PROC: 5A1D70Z Performance of Urinary Filtration, Intermittent, Less than 6 Hours Per Day (ICD-10-PCS; 2023-07-21 16:55)
DX: A41.9 Sepsis, unspecified organism (principal); J16.8 Pneumonia due to other specified infectious organisms; J96.01 Acute respiratory failure with hypoxia; N17.0 Acute kidney failure with tubular necrosis; B02.29 Other postherpetic nervous system involvement; E44.0 Moderate protein-calorie malnutrition; A15.0 Tuberculosis of lung; N25.81 Secondary hyperparathyroidism of renal origin; Z68.27 Body mass index [BMI] 27.0-27.9, adult; E78.5 Hyperlipidemia, unspecified; M41.9 Scoliosis, unspecified; N40.0 Benign prostatic hyperplasia without lower urinary tract symptoms; I71.40 Abdominal aortic aneurysm, without rupture, unspecified; E83.39 Other disorders of phosphorus metabolism; E87.70 Fluid overload, unspecified; G89.29 Other chronic pain; I10 Essential (primary) hypertension; J43.9 Emphysema, unspecified; Z87.891 Personal history of nicotine dependence; N14.19 Nephropathy induced by other drugs, medicaments and biological substances; Z99.2 Dependence on renal dialysis; T36.8X5A Adverse effect of other systemic antibiotics, initial encounter; Z79.82 Long term (current) use of aspirin; Z79.899 Other long term (current) drug therapy; Z86.19 Personal history of other infectious and parasitic diseases
CPT/HCPCS: 31624; 31628; 36415; 36556; 36558; 71045; 76770; 76937; 77001; 80048; 80053; 80202; 81001; 82565; 83605; 83735; 84100; 84145; 85025; 85027; 86706; 87040; 87070; 87102; 87116; 87205; 87206; 87305; 87340; 87449; 87496; 87498; 87502; 87529; 87634; 87798; 88108; 88305; 89050; 90935; 93005; 94640; 94760; 96365; 96366; 99285

== ENCOUNTER 2024-11-13 21:41 | Inpatient (IN) | payer MEDICARE, BC ==
[2024-11-13] MEDS ORDERED: NALOXONE 0.4 MG/ML 1 ML VIAL IV PRN (21:44)
[2024-11-13] MEDS ORDERED: ONDANSETRON 4 MG/2 ML VIAL IVP PRN (21:44)
--- NOTE | 2024-11-13 21:48 | ED ---
Recheck HPI - General Stated Complaint: NSTEMI Time Seen by Provider: 11/13/24 21:43 Source: RN notes reviewed, old records reviewed Mode of arrival: EMS Limitations: no limitations - History of Present Illness Initial Comments: This is an 89-year-old male who did accept in transfer from outside facility for non-ST elevated VA. Patient presents from [facility] where he presented with chest pain, patient is a DO NOT RESUSCITATE MD Complaint: abnormal lab (Elevated troponin thank you) Returns Today for: Called Because of Abnormal Lab/Test, persistent/worsening pain related to initial visit Symptoms Since Prior Visit: no new symptoms Context: planned re-check Associated Symptoms: none Treatments Prior to Arrival: Given Pain Meds on - Related Data Home Medications Medication Instructions Recorded Confirmed Aspirin EC [Ecotrin Low Dose] 81 mg PO DAILY 07/02/23 07/02/23 Cholecalciferol [Vitamin D3 (125 125 mcg PO DAILY 07/02/23 07/02/23 Mcg = 5000 Iu)] Docusate Sodium [Dok] 100 mg PO HS 07/02/23 07/02/23 Simvastatin [Zocor] 20 mg PO HS 07/02/23 07/02/23 Previous Rx's Medication Instructions Recorded Budesonide-Formot 160-4.5 Mcg 2 puff INHALATION RT-BID each 07/22/23 [Symbicort 160-4.5 Mcg Inhaler] Calcium Acetate [PhosLo] 667 mg PO BID-W/MEALS tab 07/22/23 Furosemide [Lasix] 40 mg PO BID #60 tablet 07/22/23 Gabapentin [Neurontin] 100 mg PO TID cap 07/22/23 Gabapentin [Neurontin] 400 mg PO TID 3 Days #9 cap 07/22/23 HYDROcodone/APAP 10-325MG [[place] 1 tab PO Q6HR #12 tab 07/22/23 10-325] Ipratropium-Albuterol Nebulize 3 ml INHALATION RT-Q4H PRN each 07/22/23 [Duoneb 0.5 mg-3 mg/3 ml Soln] Ipratropium-Albuterol Nebulize 3 ml INHALATION RT-QID each 07/22/23 [Duoneb 0.5 mg-3 mg/3 ml Soln] Lidocaine 5% Patch [Lidoderm 5% 1 patch TOPICAL DAILY patch 07/22/23 Patch] Sevelamer [Renvela] 800 mg PO TID-W/MEALS tab 07/22/23 Allergies Allergy/AdvReac Type Severity Reaction Status Date / Time No Known Allergies Allergy Verified 11/13/24 21:49 Review of Systems ROS Statement: Those systems with pertinent positive or pertinent negative responses have been documented in the HPI. ROS Other: All systems not noted in ROS Statement are negative. Past Medical History Past Medical History: Hyperlipidemia, Hypertension Additional Past Medical History / Comment(s): COPD History of Any Multi-Drug Resistant Organisms: None Reported Additional Past Surgical History / Comment(s): Shingles, bulla removed from left lung. Past Anesthesia/Blood Transfusion Reactions: No Reported Reaction Past Psychological History: No Psychological Hx Reported Smoking Status: Former smoker Past Alcohol Use History: None Reported Past Drug Use History: None Reported General Exam General appearance: alert, in no apparent distress Head exam: Present: atraumatic, normocephalic, normal inspection Eye exam: Present: normal appearance, PERRL, EOMI. Absent: scleral icterus, conjunctival injection, periorbital swelling ENT exam: Present: normal exam, mucous membranes moist Neck exam: Present: normal inspection. Absent: tenderness, meningismus, lymphadenopathy Respiratory exam: Present: normal lung sounds bilaterally. Absent: respiratory distress, wheezes, rales, rhonchi, stridor Cardiovascular Exam: Present: regular rate, normal rhythm, normal heart sounds. Absent: systolic murmur, diastolic murmur, rubs, gallop, clicks GI/Abdominal exam: Present: soft, normal bowel sounds. Absent: distended, tenderness, guarding, rebound, rigid Extremities exam: Present: normal inspection, full ROM, normal capillary refill. Absent: tenderness, pedal edema, joint swelling, calf tenderness Back exam: Present: normal inspection Neurological exam: Present: alert, oriented X3, CN II-XII intact Psychiatric exam: Present: normal affect, normal mood Skin exam: Present: warm, dry, intact, normal color. Absent: rash Course Vital Signs 11/13/24 21:43 Temperature 98.1 F Pulse Rate 74 Respiratory 18 Rate Blood Pressure 108/75 O2 Sat by Pulse 96 Oximetry - Reevaluation(s) Reevaluation #1: 11/13/24 21:48 Medical records reviewed Reevaluation #2: 11/13/24 21:48 Patient chest pain resolved Reevaluation #3: 11/13/24 21:48 Patient informed of results and questions answered Reevaluation #4: Was pt. sent in by a medical professional or institution (NATHANIEL Willis, CUT ROLL MACHINE OPERATOR, urgent care, hospital, or senior living...) When possible be specific @ -no Did you speak to anyone other than the patient for history (EMS, parent, family, police, friend...)? What history was obtained from this source @ -no Did you review nursing and triage notes (agree or disagree)? Why? @ -agree Are old charts reviewed (outside hosp., previous admission, EMS record, old EKG, old radiological studies, urgent care reports/EKG's, senior living records)? Report findings @ -yes Differential Diagnosis (chest pain, altered mental status, abdominal pain women, abdominal pain men, vaginal bleeding, weakness, fever, dyspnea, syncope, headache, dizziness, GI bleed, back pain, seizure, CVA, palpatations, mental health, musculoskeletal)? @ -prior EKG interpreted by me (3pts min.). @ -yes X-rays interpreted by me (1pt min.). @ -yes negative for acute disease CT interpreted by me (1pt min.). @ -no U/S interpreted by me (1pt. min.). @ -no What testing was considered but not performed or refused? (CT, X-rays, U/S, labs)? Why? @ -none What meds were considered but not given or refused? Why? @ -none Did you discuss the management of the patient with other professionals (professionals i.e. NATHANIEL Willis, CUT ROLL MACHINE OPERATOR, lab, RT, psych nurse, social work coordinator, industrial maintenance millwright, teacher, foreign service officer, case technician)? Give summary @ -no Was smoking cessation discussed for >3mins.? @ -no Was critical care preformed (if so, how long)? @ -no Were there social determinants of health that impacted care today? How? (Homelessness, low income, unemployed, alcoholism, drug addiction, transpor tation, low edu. Level, literacy, decrease access to med. care, group home, rehab)? @ -none Was there de-escalation of care discussed even if they declined (Discuss DNR or withdrawal of care, Hospice)? DNR status @ -no What co-morbidities impacted this encounter? (DM, HTN, Smoking, COPD, CAD, Cancer, CVA, ARF, Chemo, Hep., AIDS, mental health diagnosis, sleep apnea, morbid obesity)? @ -none Was patient admitted / discharged? Hospital course, mention meds given and route, prescriptions, significant lab abnormalities, going to OR and other pertinent info. @ - Undiagnosed new problem with uncertain prognosis? @ -no Drug Therapy requiring intensive monitoring for toxicity (Heparin, Nitro, Insulin, Cardizem)? @ -no Were any procedures done? @ -no Diagnosis/symptom? @ - Acute, or Chronic, or Acute on Chronic? @ -Acute Uncomplicated (without systemic symptoms) or Complicated (systemic symptoms)? @ -Complicated Side effects of treatment? @ -no Exacerbation, Progression, or Severe Exacerbation? @ -exacerbation Poses a threat to life or bodily function? How? (Chest pain, USA, VA, pneumonia, PE, COPD, DKA, ARF, appy, cholecystitis, CVA, Diverticulitis, Homicidal, Suicidal, threat to staff... and all critical care pts) @ -yes - Consultations Consultation #1: Spoke with sound who agrees to admit this patient Medical Decision Making - Medical Decision Making 89 male will be admitted for non-ST elevated VA, patient is in no code patient - EKG Data -: EKG Interpreted by Me (EKG is A-fib 85 QRS 106 QTc 430) Disposition Clinical Impression: NSTEMI (non-ST elevated myocardial infarction) Disposition: ADMITTED IP TO THIS HOSP Condition: Serious Is patient prescribed a controlled substance at d/c from ED?: No Time of Disposition: 22:00
[2024-11-13] MEDS ORDERED: HEPARIN SODIUM 1,000 UN/ML (10ML VL) IV PRN (22:17)
[2024-11-13] MEDS: SODIUM CHLORIDE 0.9% 1,000 ML IV SCH (23:14)
[2024-11-13] MEDS: HEPARIN SOD,PORK IN 0.45% NACL 25,000 UNIT in 0.45% NACL 1 250ML.BAG IV SCH (23:18)
[2024-11-13] MEDS: MORPHINE SULFATE 4 MG/ML SYRINGE IV PRN (23:44)
--- NOTE | 2024-11-14 05:36 | P.HPIM ---
History of Present Illness H&P Date: 11/13/24 Chief Complaint: chest pain 89 year old male with COPD patient was transferred to our facility for NSTEMI , history obtained by family at bedside. patient was found today increasingly weak and slumped over the chair , he lives alone , and has been coughing for 1-2 days now. 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 no associated dizziness, nausea or vomiting , no SOB . family was concerned as they found the patient has wet himself which is unusual for him . he was evaluated by his PCP last thursday (2 days ago ) and was told everything lo oked normal and he was feeling fine at that time. today up until lunch he felt fine . denies any fever ,chills, SOB, or hemoptysis denies any recent travel hospital stay , or history of blood clots, denies any known sick contacts . at the other facility he was given ASA, nitro and started on heparin drip and was trasnferred to our facility for further care. review of systems Pertinent positives as noted in HPI. All other systems were reviewed and are negative on exam Constitutional: No acute distress, Eyes: Anicteric sclerae, moist conjunctiva, Pupils equal round reactive to light ENMT: NC/AT Oropharynx clear, no erythema, or exudates Neck: Supple, no masses, or JVD No carotid bruits No thyromegaly Lungs: audible breath sounds bilaterally with rales at lung bases Clear to percussion Normal respiratory effort, no accessory muscle use Cardiovascular: Heart regular in rate and rhythm, No murmurs, gallops, or rubs No peripheral edema Abdominal: Soft Nontender, no guarding, rebound or rigidity Abdomen moving with respiration Normoactive bowel sounds Extremities: No digital cyanosis No clubbing Pedal pulses intact and symmetrical Radial pulses intact and symmetrical No calf tenderness Psychiatric: Alert and oriented to person, only Neuro Muscles Strength 4/5 in all 4 extremities Sensation to light touch grossly present throughout Cranial nerves II-XII grossly intact Past Medical History Past Medical History: Hyperlipidemia, Hypertension Additional Past Medical History / Comment(s): COPD History of Any Multi-Drug Resistant Organisms: None Reported Additional Past Surgical History / Comment(s): Shingles, bulla removed from left lung. Past Anesthesia/Blood Transfusion Reactions: No Reported Reaction Past Psychological History: No Psychological Hx Reported Smoking Status: Former smoker Past Alcohol Use History: None Reported Past Drug Use History: None Reported Medications and Allergies Home Medications Medication Instructions Recorded Confirmed Type Aspirin EC [Ecotrin Low Dose] 81 mg PO DAILY 07/02/23 07/02/23 History Cholecalciferol [Vitamin D3 (125 125 mcg PO DAILY 07/02/23 07/02/23 History Mcg = 5000 Iu)] Docusate Sodium [Dok] 100 mg PO HS 07/02/23 07/02/23 History Simvastatin [Zocor] 20 mg PO HS 07/02/23 07/02/23 History Budesonide-Formot 160-4.5 Mcg 2 puff INHALATION RT-BID each 07/22/23 Rx [Symbicort 160-4.5 Mcg Inhaler] Calcium Acetate [PhosLo] 667 mg PO BID-W/MEALS tab 07/22/23 Rx Furosemide [Lasix] 40 mg PO BID #60 tablet 07/22/23 Rx Gabapentin [Neurontin] 100 mg PO TID cap 07/22/23 Rx Gabapentin [Neurontin] 400 mg PO TID 3 Days #9 cap 07/22/23 Rx HYDROcodone/APAP 10-325MG [[place] 1 tab PO Q6HR #12 tab 07/22/23 Rx 10-325] Ipratropium-Albuterol Nebulize 3 ml INHALATION RT-Q4H PRN each 07/22/23 Rx [Duoneb 0.5 mg-3 mg/3 ml Soln] Ipratropium-Albuterol Nebulize 3 ml INHALATION RT-QID each 07/22/23 Rx [Duoneb 0.5 mg-3 mg/3 ml Soln] Lidocaine 5% Patch [Lidoderm 5% 1 patch TOPICAL DAILY patch 07/22/23 Rx Patch] Sevelamer [Renvela] 800 mg PO TID-W/MEALS tab 07/22/23 Rx Allergies Allergy/AdvReac Type Severity Reaction Status Date / Time No Known Allergies Allergy Verified 11/13/24 21:49 Physical Exam Vitals: Vital Signs Temp Pulse Resp BP Pulse Ox 11/13/24 21:43 98.1 F 74 18 108/75 96 Intake and Output 11/13/24 11/13/24 11/13/24 06:59 14:59 22:59 Other: Weight 81.647 kg Assessment and Plan Assessment: 89 year old male with COPD , transferred to our facility for NSTEMI , I discussed the case with ED doc and I accepted the admission for NSTEMI and possible pneumonia sepsis secondary to pneumonia COPD follow up blood cultures check complete respiratory viral panel Rocephine 2 gm IVPB daily azithromycin 500 mg po daily tylenol for fever 650 mg po q6hr prn monitor vital signs gentle IVF hydration with normal saline 75 cc per hour CXR showed surgical changes and areas of atelactesis possible effusion WBC 14.6 elevated Hgb 14 unremarkable continue with symbicort bid duonebs PRN qid supplemental oxygen as needed NSTEMI EKG no acute ST changes trops 0.016 done at the outside faciluty , continue to trend continue with heparin gtt started at the other facility aspirin daily 81 mg cardiology consult lipitor 40 mg po qhs monitor vital signs full code DVT PPX on heparin gtt for ACS
[2024-11-14] MEDS: ACETAMINOPHEN TAB 325 MG TAB PO PRN (06:42)
[2024-11-14] MEDS: AZITHROMYCIN 500 MG TAB PO SCH (06:44)
[2024-11-14 07:22] LABS: Basophils # (A) 0.1 k/uL (0-0.2); Basophils % (A) 0 %; Eosinophils % (A) 0 %; HCT 37.5 % (39.0-53.0); HGB 12.2 gm/dL (13.0-17.5); Lymphocytes # (A) 0.6 k/uL (1.0-4.8); Lymphocytes % (A) 5 %; MCH 31.3 pg (25.0-35.0); MCHC 32.5 g/dL (31.0-37.0); MCV 96.4 fL (80.0-100.0); Mean Platelet Volume 6.7; Monocytes # (A) 0.9 k/uL (0-1.0); Monocytes % (A) 7 %; Neutrophils # (A) 10.8 k/uL (1.3-7.7); Neutrophils % (A) 86 %; Platelet Count 140 k/uL (150-450); RBC 3.89 m/uL (4.30-5.90); RDW 13.7 % (11.5-15.5); WBC 12.6 k/uL (3.8-10.6)
[2024-11-14] MEDS: SYMBICORT 160-4.5 MCG INHALER INHALATION SCH (07:44)
[2024-11-14 08:17] LABS: ALT 19 U/L (4-49); AST 42 U/L (17-59); African American GFR (CKD) 49 (>60 ml/min/1.73 sqM); Albumin 3.8 g/dL (3.5-5.0); Alkaline Phosphatase 58 U/L (38-126); Anion Gap 11 mmol/L; Blood Urea Nitrogen 30 mg/dL (9-20); Calcium 8.4 mg/dL (8.4-10.2); Carbon Dioxide 23 mmol/L (22-30); Chloride 103 mmol/L (98-107); Glucose 101 mg/dL (74-99); Magnesium 1.8 mg/dL (1.6-2.3); Non-African American GFR(CKD) 42 (>60 ml/min/1.73 sqM); Phosphorus 3.5 mg/dL (2.5-4.5); Potassium 4.5 mmol/L (3.5-5.1); Sodium 137 mmol/L (137-145); Total Bilirubin 0.4 mg/dL (0.2-1.3); Total Protein 7.4 g/dL (6.3-8.2)
[2024-11-14] MEDS: HYDROcodone/APAP 7.5-325MG 1 EACH TAB PO SCH (10:10)
[2024-11-14] MEDS: GABAPENTIN 300 MG CAP PO SCH (10:10)
[2024-11-14] MEDS: ASPIRIN 81 MG PO SCH (12:50)
--- NOTE | 2024-11-14 13:56 | P.CRDCN ---
History of Present Illness History of present illness: HISTORY OF PRESENT ILLNESS: This is a 89-year-old male with a past medical history significant for lobectomy, shingles with permanent nerve damage, pneumonia, and hyperlipidemia. Patient currently does not follow with a lunchroom attendant. We have been asked to see the patient in consultation for elevated troponins. Patient examined at the bedside in the emergency room. Patient's daughter is at the bedside. Patient initially presented to [place] after he was found to be slumped over in a chair at home and having some weakness. Patient also reports he is been having some chest discomfort and a cough. Patient was found to have troponin of 0.016 at [facility] and was transferred to [facility] for further evaluation. The patient currently denies any chest pain or pressure. Patient was found to be febrile with a fever of 103.0 F. He has been started on antibiotics. DIAGNOSTICS: - EKG reveals sinus mechanism with PACs. First-degree AV block. - Chest xray completed at outside facility reveals left lung postsurgical changes and small left pleural effusion with adjacent compressive atelectasis. Interstitial prominence bilaterally which could reflect underlying emphysema or mild pulmonary vascular congestion. - Laboratory data: - Current home cardiac medications include simvastatin 20 mg at night -No previous echocardiogram, stress test, or cardiac catheterization available in EMR for review REVIEW OF SYSTEMS: At the time of my exam: CONSTITUTIONAL: Denies fever or chills. HEENT: Denies blurred vision, vision changes, or eye pain. Denies hemoptysis CARDIOVASCULAR: Denies chest pain. Denies orthopnea. Denies PND. Denies palpitations RESPIRATORY: Denies shortness of breath. GASTROINTESTINAL: Denies abdominal pain. Denies nausea or vomiting. HEMATOLOGIC: Denies bleeding disorders. GENITOURINARY: Denies any blood in urine. SKIN: Denies pruitis. Denies rash. PHYSICAL EXAM: VITAL SIGNS: Reviewed. GENERAL: Well-developed in no acute distress. HEENT: Head is normocephalic. Pupils are equal, round. Sclerae anicteric. Mucous membranes of the mouth are moist. Neck supple. No JVD or thyromegaly LUNGS: Respirations even and unlabored. Lungs essentially clear to auscultation bilaterally. HEART: Regular rate and rhythm. S1 and S2 heard. ABDOMEN: Soft. Nondistended. Nontender. EXTREMITIES: Normal range of motion. No clubbing or cyanosis. Peripheral pulses intact. No lower extremity edema NEUROLOGIC: Awake and alert. Oriented x 3. ASSESSMENT: Sepsis Non-STEMI, ruled out, troponins negative Chronic kidney disease History of left lobe lobectomy for " spot on lung"; noncancerous per daughter History of shingles with permanent nerve damage Hyperlipidemia PLAN: An acute coronary event has been ruled out Discontinue IV heparin Begin aspirin 81 mg daily Increase atorvastatin to 40 mg at night Obtain 2D echo to assess cardiac structure and function Further investigation of fever and infectious process per primary medicine Further recommendations pending patient course Nurse practitioner note has been reviewed by physician. Signing provider agrees with the documented findings, assessment, and plan of care documented by JEWEL BEARING DRILLER as a scribe. Past Medical History Past Medical History: Hyperlipidemia, Hypertension Additional Past Medical History / Comment(s): COPD History of Any Multi-Drug Resistant Organisms: None Reported Additional Past Surgical History / Comment(s): Shingles, bulla removed from left lung. Past Anesthesia/Blood Transfusion Reactions: No Reported Reaction Past Psychological History: No Psychological Hx Reported Smoking Status: Former smoker Past Alcohol Use History: None Reported Past Drug Use History: None Reported Medications and Allergies Home Medications Medication Instructions Recorded Confirmed Type Simvastatin [Zocor] 20 mg PO HS 07/02/23 11/14/24 History Gabapentin 600 mg PO Q6H 11/14/24 11/14/24 History HYDROcodone/APAP 7.5-325MG [[place] 1 tab PO Q6H 11/14/24 11/14/24 History 7.5-325] Allergies Allergy/AdvReac Type Severity Reaction Status Date / Time No Known Allergies Allergy Verified 11/14/24 06:39 Physical Exam Vitals: Vital Signs Temp Pulse Resp BP Pulse Ox 11/14/24 12:20 58 L 18 103/58 93 L 11/14/24 10:09 98.1 F 60 20 102/50 97 11/14/24 07:46 102.9 F H 70 20 98/53 92 L 11/14/24 06:25 103 F H 73 16 114/57 94 L 11/14/24 04:05 73 18 106/50 97 11/14/24 00:05 88 18 106/95 97 11/13/24 22:49 101 H 20 97/80 95 11/13/24 21:43 98.1 F 74 18 108/75 96 Intake and Output 11/13/24 11/14/24 11/14/24 22:59 06:59 14:59 Other: Weight 81.647 kg Results 11/14/24 06:30 11/14/24 06:30 Cardiac Enzymes 11/14/24 11/14/24 11/14/24 Range/Units 04:45 06:30 06:30 AST 42 (17-59) U/L Troponin I 0.029 0.027 (0.000-0.034) ng/mL Coagulation 11/14/24 11/14/24 Range/Units 06:30 09:09 APTT >200.0 H* 61.3 H (22.0-30.0) sec CBC 11/14/24 Range/Units 06:30 WBC 12.6 H (3.8-10.6) k/uL RBC 3.89 L (4.30-5.90) m/uL Hgb 12.2 L (13.0-17.5) gm/dL Hct 37.5 L (39.0-53.0) % Plt Count 140 L (150-450) k/uL Comprehensive Metabolic Panel 11/14/24 Range/Units 06:30 Sodium 137 (137-145) mmol/L Potassium 4.5 (3.5-5.1) mmol/L Chloride 103 (98-107) mmol/L Carbon Dioxide 23 (22-30) mmol/L BUN 30 H (9-20) mg/dL Creatinine 1.48 H (0.66-1.25) mg/dL Glucose 101 H (74-99) mg/dL Calcium 8.4 (8.4-10.2) mg/dL AST 42 (17-59) U/L ALT 19 (4-49) U/L Alkaline Phosphatase 58 (38-126) U/L Total Protein 7.4 (6.3-8.2) g/dL Albumin 3.8 (3.5-5.0) g/dL Current Medications Generic Name Dose Route Start Last Admin Trade Name Freq PRN Reason Stop Dose Admin Acetaminophen 650 mg 11/14/24 06:24 11/14/24 06:42 Acetaminophen Tab 325 Mg Tab PO 650 mg Q4HR PRN Administration Fever and/ or Pain Hydrocodone Bitart/Acetaminophen 1 each 11/14/24 08:00 11/14/24 10:10 Hydrocodone/Apap 7.5-325mg 1 Each Tab PO 1 each Q6H SARAH Administration Albuterol/Ipratropium 3 ml 11/14/24 05:17 Ipratropium-Albuterol 3 Ml Neb INHALATION RT-QID PRN Shortness Of Breath Or Wheezing Atorvastatin Calcium 10 mg 11/14/24 21:00 Atorvastatin 10 Mg Tab PO HS SARAH Azithromycin 500 mg 11/14/24 06:00 11/14/24 06:44 Azithromycin 500 Mg Tab PO 11/16/24 06:01 500 mg DAILY@0600 SARAH Administration Protocol Budesonide/Formoterol Fumarate 2 puff 11/14/24 08:00 11/14/24 07:44 Symbicort 160-4.5 Mcg Inhaler INHALATION 2 puff RT-BID SARAH Administration Gabapentin 600 mg 11/14/24 08:00 11/14/24 10:10 Gabapentin 300 Mg Cap PO 600 mg Q6H SARAH Administration Sodium Chloride 1,000 mls @ 20 mls/hr 11/13/24 21:45 11/13/24 23:14 Saline 0.9% IV 20 mls/hr .Q24H SARAH Administration Ceftriaxone Sodium 2 gm/ 50 mls @ 100 mls/hr 11/14/24 06:00 11/14/24 06:46 Sodium Chloride IVPB 100 mls/hr Q24H SARAH Administration Protocol Morphine Sulfate 4 mg 11/13/24 21:44 11/14/24 06:47 Morphine Sulfate 4 Mg/Ml Syringe IV 4 mg Q4HR PRN Administration Severe Pain (Scale 7 to 10) Naloxone HCl 0.2 mg 11/13/24 21:44 Naloxone 0.4 Mg/Ml 1 Ml Vial IV Q2M PRN Opioid Reversal Ondansetron HCl 4 mg 11/13/24 21:44 Ondansetron 4 Mg/2 Ml Vial IVP Q8HR PRN Nausea And Vomiting Intake and Output 11/13/24 11/14/24 11/14/24 22:59 06:59 14:59 Other: Weight 81.647 kg 11/14/24 06:30 11/14/24 06:30
--- NOTE | 2024-11-14 14:38 | XR ---
EXAMINATION TYPE: XR chest 2V DATE OF EXAM: 11/14/2024 CLINICAL HISTORY: Shortness breath, fever, chest pain TECHNIQUE: Frontal and lateral views of the chest are obtained. COMPARISON: Chest x-ray July 21, 2023 FINDINGS: There is chronic parenchymal change bilaterally more prominent in the left lung with left- sided volume loss redemonstrated. Persistent cardiomegaly with atherosclerotic thoracic aorta. More p rominent right peritracheal soft tissue thickening causing left-sided tracheal deviation. There is so me tracheal narrowing again seen. This can be better evaluated with chest CT if desired. Osseous stru ctures remain intact. IMPRESSION: Chronic changes without definitive new acute pulmonary infiltrate. [facility], , 11/14/2024 2:36 PM
--- NOTE | 2024-11-14 15:12 | P.PN ---
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 Patient was found today increasingly weak and slumped over the chair , he lives alone , and has been coughing for 1-2 days now. patient has chronic left sided chest wall pain from history of shingles, however, he reports that he was experiencing new pleuritic chest pain with the cough. Has sob. No associated dizziness, nausea or vomiting. He was evaluated by his PCP last thursday (2 days ago ) and was told everything looked normal and he was feeling fine at that time. ED course: Had fevers of up to 102, trops negative. Heparin gtt was discontinued. He is feeling ok. Still with pleuritic cp and sob. Objective - Vital Signs Vital signs: Vital Signs Temp 98.1 F 11/14/24 10:09 Pulse 58 L 11/14/24 12:20 Resp 18 11/14/24 12:20 BP 103/58 11/14/24 12:20 Pulse Ox 93 L 11/14/24 12:20 FiO2 Intake & Output 11/13/24 11/14/24 11/14/24 18:59 06:59 18:59 Weight 81.647 kg - Exam Constitutional: No acute distress, Eyes: Anicteric sclerae, moist conjunctiva, Pupils equal round reactive to light ENMT: NC/AT Oropharynx clear, no erythema, or exudates Neck: Supple, no masses, or JVD No carotid bruits No thyromegaly Lungs: audible breath sounds bilaterally with rales at lung bases Clear to percussion Normal respiratory effort, no accessory muscle use Cardiovascular: Heart regular in rate and rhythm, No murmurs, gallops, or rubs No peripheral edema Abdominal: Soft Nontender, no guarding, rebound or rigidity Abdomen moving with respiration Normoactive bowel sounds Extremities: No digital cyanosis No clubbing Pedal pulses intact and symmetrical Radial pulses intact and symmetrical No calf tenderness Psychiatric: Alert and oriented to person, only Neuro Muscles Strength 4/5 in all 4 extremities Sensation to light touch grossly present throughout Cranial nerves II-XII grossly intact - Labs CBC & Chem 7: 11/14/24 06:30 01/06/25 06:30 Labs: Abnormal Lab Results - Last 24 Hours (Table) 11/14/24 11/14/24 11/14/24 Range/Units 06:30 06:30 06:30 WBC 12.6 H (3.8-10.6) k/uL RBC 3.89 L (4.30-5.90) m/uL Hgb 12.2 L (13.0-17.5) gm/dL Hct 37.5 L (39.0-53.0) % Plt Count 140 L (150-450) k/uL Neutrophils # 10.8 H (1.3-7.7) k/uL Lymphocytes # 0.6 L (1.0-4.8) k/uL APTT >200.0 H* (22.0-30.0) sec BUN 30 H (9-20) mg/dL Creatinine 1.48 H (0.66-1.25) mg/dL Glucose 101 H (74-99) mg/dL 11/14/24 Range/Units 09:09 WBC (3.8-10.6) k/uL RBC (4.30-5.90) m/uL Hgb (13.0-17.5) gm/dL Hct (39.0-53.0) % Plt Count (150-450) k/uL Neutrophils # (1.3-7.7) k/uL Lymphocytes # (1.0-4.8) k/uL APTT 61.3 H (22.0-30.0) sec BUN (9-20) mg/dL Creatinine (0.66-1.25) mg/dL Glucose (74-99) mg/dL Assessment and Plan Plan: Sepsis secondary to pneumonia COPD follow up blood cultures check complete respiratory viral panel Rocephine 2 gm IVPB daily azithromycin 500 mg po daily tylenol for fever 650 mg po q6hr prn monitor vital signs gentle IVF hydration with normal saline 75 cc per hour CXR showed surgical changes and areas of atelactesis possible effusion WBC 14.6 elevated Hgb 14 unremarkable continue with symbicort bid duonebs PRN qid supplemental oxygen as needed Consult pulm and order CT chest to follow on the 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 However cr now is 1.48. Of note he had to be dialysed last admission due to severe BONY due to sepsis. Follow up cr in am and see if he can tolerate contrast to be given for the CT. Elevated troponin Found at the outside facility was 0.016 Repeat is normal, likely due to sepsis Seen by cardio, d/c heparin gtt Echo EKG no acute ST changes Chronic Severe COPD Hypertension Dyslipidemia All stable resume meds full code DVT PPX on heparin gtt for ACS
[2024-11-14] MEDS: IPRATROPIUM-ALBUTEROL 3 ML NEB INHALATION PRN (19:44)
[2024-11-14] MEDS: ATORVASTATIN 40 MG TAB PO SCH (20:44)
[2024-11-14] MEDS ORDERED: ATORVASTATIN 10 MG TAB PO SCH (21:00)
[2024-11-15 03:12] LABS: Basophils % (A) 0 %; Eosinophils % (A) 0 %; HCT 41.3 % (39.0-53.0); Lymphocytes # (A) 0.6 k/uL (1.0-4.8); Lymphocytes % (A) 7 %; MCH 30.7 pg (25.0-35.0); MCHC 31.4 g/dL (31.0-37.0); MCV 97.8 fL (80.0-100.0); Mean Platelet Volume 6.8; Monocytes # (A) 0.7 k/uL (0-1.0); Monocytes % (A) 7 %; Neutrophils # (A) 7.7 k/uL (1.3-7.7); Neutrophils % (A) 84 %; Platelet Count 118 k/uL (150-450); RBC 4.22 m/uL (4.30-5.90); RDW 13.6 % (11.5-15.5); WBC 9.2 k/uL (3.8-10.6)
[2024-11-15 03:13] LABS: African American GFR (CKD) 49 (>60 ml/min/1.73 sqM); Anion Gap 9 mmol/L; Blood Urea Nitrogen 36 mg/dL (9-20); Calcium 8.3 mg/dL (8.4-10.2); Carbon Dioxide 25 mmol/L (22-30); Chloride 103 mmol/L (98-107); Glucose 93 mg/dL (74-99); Non-African American GFR(CKD) 43 (>60 ml/min/1.73 sqM); Potassium 4.2 mmol/L (3.5-5.1); Sodium 137 mmol/L (137-145)
--- NOTE | 2024-11-15 03:55 | P.CNPUL ---
History of Present Illness Consult date: 11/15/24 Requesting physician: Ry Ford Reason for consult: pneumonia Chief complaint: Severe left-sided chest pain History of present illness: Patient is a 89-year-old white male with past medical history significant for COPD/emphysema, previous left lung bullectomy, hyperlipidemia, hypertension, and is a remote ex-smoker. Of note, patient seen June, for left-sided cavitating lung mass, was treated with IV antibiotics inpatient. Did receive bronchoscopy during this time with BAL and transbronchial biopsies. Pathology was unremarkable. BAL did not show any significant microbial growth. Patient has been doing relatively well up until this point. He does not follow with a obstetrics gyn physician. Does not have home 02. Does not routinely use any inhalers or nebulizers at home. Patient in some mild respiratory distress at this time. HPI is supplemented by daughter who is at beside. Yesterday evening, developed severe unrelenting left-sided chest pain/back pain. Worse with coughing the breathing. Worse with palpation of the left anterior chest. Associated symptoms including shortness of breath and cough. He has been febrile at home. No known sick contacts. Patient originally presented to [facility] and was worked up for possible ACS. Transferred to [facility] for cardiology evaluation. EKG done on arrival showing sinus arrhythmia, rate 85 bp m, no significant acute ST or T wave segment changes. Serial troponins 0.029 and 0.027 respectively. Patient was previously on heparin infusion and this was discontinued by cardiology. A pulmonary consult was placed for pneumonia. Chest x-ray showing chronic parenchymal changes, as well as, postsurgical left sided changes, volume loss, and nonspecific left-sided nodularities. Was febrile on arrival with a Tmax of 103 F. CBC significant for leukocytosis with a WBC count of 12.6. Hemoglobin 12.2, platelets 140. CMP: Sodium 137, potassium 4.5, chloride 103, serum bicarb 23, BUN 30, creatinine 1.48, glucose 101. LFTs unremarkable. Patient was placed on empiric azithromycin and Rocephin. Patient currently being seen in the ED. Current vitals: Temperature 100 F, heart rate 60, tachypneic breathing in the high 20s, SpO2 is 93% on 4 L/min nasal cannula. His chief complaint at this time remains left-sided chest pain which is worse when palpating the area. Symptoms started rather abruptly yesterday evening. Denies any traumatic falls. Continues to have a congested mostly nonproductive cough. Admits to fevers, minimally productive cough with brown sputum. Denies Hemoptysis. Denies nausea, vomiting, diarrhea. Viral screening to be completed. Review of Systems Constitutional: Reports chills, Reports fever, Reports poor appetite, Reports sweats, Denies night sweats, Denies weight gain, Denies weight loss Ears, nose, mouth and throat: Denies headache, Denies nasal congestion, Denies nasal discharge, Denies post-nasal drip, Denies sinus pain, Denies sinus pressure, Denies sore throat Cardiovascular: Reports chest pain, Reports shortness of breath, Denies leg edema, Denies lightheadedness, Denies orthopnea, Denies palpitations, Denies paroxysmal nocturnal dyspnea Respiratory: Reports congestion, Reports cough with sputum, Denies hemoptysis, Denies home oxygen, Denies wheezing Gastrointestinal: Denies abdominal pain, Denies change in bowel habits, Denies diarrhea, Denies nausea, Denies vomiting Genitourinary: Denies dysuria, Denies flank pain Musculoskeletal: Denies limitation of motion Integumentary: Denies rash, Denies sores Neurological: Denies seizures, Denies syncope Psychiatric: Denies anxiety, Denies depression Past Medical History Past Medical History: Hyperlipidemia, Hypertension Additional Past Medical History / Comment(s): COPD History of Any Multi-Drug Resistant Organisms: None Reported Additional Past Surgical History / Comment(s): Shingles, bulla removed from left lung. Past Anesthesia/Blood Transfusion Reactions: No Reported Reaction Past Psychological History: No Psychological Hx Reported Smoking Status: Former smoker Past Alcohol Use History: None Reported Past Drug Use History: None Reported Medications and Allergies Home Medications Medication Instructions Recorded Confirmed Type Simvastatin [Zocor] 20 mg PO HS 07/02/23 11/14/24 History Gabapentin 600 mg PO Q6H 11/14/24 11/14/24 History HYDROcodone/APAP 7.5-325MG [Orwell 1 tab PO Q6H 11/14/24 11/14/24 History 7.5-325] Allergies Allergy/AdvReac Type Severity Reaction Status Date / Time vancomycin AdvReac Unknown Verified 11/15/24 16:50 Physical Exam Vitals: Vital Signs Temp Pulse Resp BP Pulse Ox 11/14/24 22:38 61 19 128/69 98 11/14/24 21:48 100.3 F H 66 18 129/64 97 11/14/24 20:38 66 18 149/75 98 11/14/24 19:59 66 11/14/24 19:45 64 11/14/24 15:18 60 18 131/70 95 11/14/24 12:20 58 L 18 103/58 93 L 11/14/24 10:09 98.1 F 60 20 102/50 97 11/14/24 07:46 102.9 F H 70 20 98/53 92 L 11/14/24 06:25 103 F H 73 16 114/57 94 L 11/14/24 04:05 73 18 106/50 97 GENERAL EXAM: Alert, 89-year-old white male, in some mild respiratory distress, on 3 L/min nasal cannula. SpO2 is 90% on bedside monitor, he is tachypneic, speaking in short phrases. His daughter is at bedside answers most of the questioning. HEAD: Normocephalic and atraumatic EYES: Normal reaction of pupils, equal size. NOSE: Clear with pink turbinates. THROAT: No erythema or exudates. NECK: No masses, no JVD. CHEST: No chest wall deformity. LUNGS: Equal air entry with respiratory crackles heard on the left., No wheezing, rhonchi, focal dullness. On 3 L/min nasal cannula. CVS: S1 and S2 normal with soft systolic murmur, regular rhythm. No other extra heart sounds ABDOMEN: No hepatosplenomegaly, active bowel sounds, no guarding or rigidity. SPINE: No scoliosis or deformity SKIN: No rashes CENTRAL NERVOUS SYSTEM: No focal deficits, tone is normal in all 4 extremities. EXTREMITIES: There is no peripheral edema, clubbing, or cyanosis. Peripheral pulses are intact. Results - Laboratory Findings CBC and BMP: 11/15/24 02:38 11/15/24 02:38 Abnormal lab findings: Abnormal Labs 11/14/24 11/14/24 11/14/24 06:30 06:30 06:30 WBC 12.6 H RBC 3.89 L Hgb 12.2 L Hct 37.5 L Plt Count 140 L Neutrophils # 10.8 H Lymphocytes # 0.6 L APTT >200.0 H* BUN 30 H Creatinine 1.48 H Glucose 101 H 11/14/24 09:09 WBC RBC Hgb Hct Plt Count Neutrophils # Lymphocytes # APTT 61.3 H BUN Creatinine Glucose - Diagnostic Findings Chest x-ray: image reviewed Assessment and Plan Assessment: Acute hypoxemic respiratory failure, Chest x-ray showing chronic parenchymal changes, as well as, postsurgical left sided changes, and volume loss. Patient ended up being positive for influenza A. The possibility of superimposed bacterial pneumonia is not excluded. Patient is to be started on Tamiflu. Acute influenza A infection Chest pain, appears pleuritic in nature, ACS thought to be less likely. Heparin drip is been discontinued by cardiology. Acute leukocytosis Acute febrile illness History of 4.8 cm left upper lobe cavitary mass that was thought to represent cavitary pneumonia versus atypical fungal/mycobacterial infection versus necrotizing malignancy. Patient did have follow-up bronchoscopy and the BAL and transbronchial biopsies which were unremarkable for microbial growth. Pathology also unremarkable. COPD/emphysema History of previous left upper lobe bullectomy Possible acute kidney injury, patient does have a history of acute renal failure and previous temporary hemodialysis, creatinine 1.48 History of herpes zoster and postherpetic neuralgia Benign essential hypertension Hyperlipidemia Remote ex-smoker, quit 1992 Plan: Patient transferred initially from [facility] with a concern for ACS, this has been essentially ruled out by cardiology. Heparin drip is been discontinued. Chest pain appears pleuritic in nature. Patient does have history of severe le ft upper lobe cavitating pneumonia, as well as, previous left upper lobe bullectomy Patient was started on empiric antibiotics in the ED in the form of azithromycin and Rocephin. Will obtain chest CAT scan, without contrast due to patient's kidney function Viral screen ended up being positive for influenza A, will start patient on Tamiflu twice daily for 5 days Continue supplemental oxygen maintain oxygen saturation of 92% or greater Start DuoNebs from o'clock and IV Solu-Medrol Check procalcitonin level Check sputum culture and blood cultures Check urine Legionella antigen Will continue to follow, additional recommendations forthcoming. I have personally seen and examined the patient, performed the documentation and the assessment and plan as written. Number of minutes spent on the visit:20 This is a joint evaluation that was done along with the nurse practitioner. This evaluation was done more than 30 minutes. This is an 89-year-old male patient with known history of advanced COPD with a previous left lung bullectomy. The patient also has a previous history of a masslike op acity/consolidation left upper lobe for which she has undergone a previous bronchoscopy and lavage that was negative for any microbial growth. Patient is known to have multiple other comorbidities. He is a former smoker. The patient came into the hospital because of worsening shortness of breath. Further workup was done and the patient will tested positive for influenza A. A follow-up CT of the chest was done which I did review and compared it to the earlier CAT scan from before and the left upper lobe opacity is essentially subsided and recovered. The patient however has advanced emphysematous changes bilaterally and moderate to severe bronchial wall thickening/bronchiectatic changes in the left lower lobe. Scattered areas of pleural-parenchymal scarring is also present. There is also incidental small hiatal hernia noted. The patient is weak and lethargic. No significant respiratory distress at rest. He is currently on 3 L of oxygen by nasal cannula with a pulse ox of 94%. He is procalcitonin level is at 5.51, although a possibility of an underlying superimposed bacterial pneumonia or an infection is felt to be less likely. The patient's EKG showed a normal sinus mechanism with a first-degree AV block. 2D echocardiogram showed a preserved LV function with an ejection fraction of 55 to 60% and an ascending aortic aneurysm measuring 4 cm in size. No significant va lvular disruption. Patient is currently on Tamiflu. Empiric antibiotic coverage with IV Rocephin and Zithromax. Case was discussed with the daughter at the bedside. No CODE STATUS. Will continue to follow. Time with Patient: Greater than 30
[2024-11-15] MEDS: OSELTAMIVIR 75 MG CAP PO SCH (03:57)
[2024-11-15] MEDS ORDERED: OSELTAMIVIR 75 MG CAP PO SCH (04:00)
[2024-11-15] MEDS: OSELTAMIVIR 30 MG CAP PO SCH (04:33)
--- NOTE | 2024-11-15 08:13 | CT ---
EXAMINATION TYPE: CT chest wo con DATE OF EXAM: 11/15/2024 COMPARISON: Radiograph 11/14/2024 HISTORY: 89-year-old male severe left chest pain; history of cavitating pneu TECHNIQUE: Contiguous axial scanning of the chest without IV contrast. Coronal/sagittal reconstructio ns performed. CT DLP: 564.7mGycm. Automatic exposure control utilized for a dose reduction. FINDINGS: The heart is upper limits of normal in size without pericardial effusion. Prominent three-vessel heaven nary artery calcifications are present. Ectatic ascending aorta 3.8 cm and mild aneurysm descending rest of the aorta superiorly up to 3.6 cm and inferiorly ectatic at 2.9 cm. Scattered mediastinal lymph nodes some of which are borderline in size at 1.0 cm and containing punct ate calcifications. Findings favor prior granulomatous disease. Scattered pleural parenchymal scarring bilaterally. Some areas of pleural thickening suggested in the posterior right base measure up to 1.3 cm in thickness. 1.5 cm at the medial left lower lung, axial image 76. Both of these areas should be reassessed at follow-up. Moderate to severe bronchial wall thickening left lower lobe with patchy left lower lobe opacity. Large caliber main right and left pulmonary arteries measuring up to 3.9 cm. Background moderate emphysema, moderate to advanced in the upper lungs. There is a small hiatal hernia. Colonic diverticulosis of the visualized colon. Fatty atrophy of the pancreas. Bones: Moderate degenerative disc disease midthoracic spine. IMPRESSION: 1. COPD with moderate to advanced emphysema and pulmonary arterial hypertension. 2. Moderate to severe bronchial wall thickening left lower lobe with left lower lobe airspace disease . Correlate for bronchitis and pneumonia. 3. Scattered areas of pleural parenchymal scarring. Some areas of pleural thickening measuring up to 1.3 cm at the right base and 1.5 cm at the left. Recommend three-month follow-up CT to ensure chronic changes. 4. Prominent three-vessel coronary artery calcifications. 5. Incidental small hiatal hernia and colonic diverticulosis. [facility], , 11/15/2024 8:11 AM
--- NOTE | 2024-11-15 11:07 | CA ---
Transthoracic Echo Report Name: Mario Franklin Age: 89 Gender: M : 1935 Exam Date: 11/14/2024 16:13 Exam Location: [facility] Ht (in): 70 Wt (lb): 180 Ordering Physician: Daisha Del Cid Attending/Referring Phys: [id number], [employer] Harmony Espinosa RDCS Procedure CPT: Indications: LV function, CP Cardiac Hx: Technical Quality: Technically difficult study Contrast 1: Definity Total Dose (mL): 1 Contrast 2: Total Dose (mL): MEASUREMENTS (Male / Female) Normal Values 2D ECHO LV Diastolic Diameter PLAX 5.5 cm 4.2 - 5.9 / 3.9 - 5.3 cm LV Systolic Diameter PLAX 3.5 cm IVS Diastolic Thickness 0.9 cm 0.6 - 1.0 / 0.6 - 0.9 cm LVPW Diastolic Thickness 1.0 cm 0.6 - 1.0 / 0.6 - 0.9 cm LV Relative Wall Thickness 0.3 LVOT Diameter 2.4 cm Aortic Root Diameter 3.6 cm LA Volume 48.0 cm??? 18 - 58 / 22 - 52 cm??? LA Volume Index 23.8 cm???/m??? 16 - 28 cm???/m??? Ascending Aorta Diameter 4.0 cm DOPPLER AV Peak Velocity 144.8 cm/s AV Peak Gradient 8.4 mmHg AV Mean Velocity 98.3 cm/s AV Mean Gradient 4.4 mmHg AV Velocity Time Integral 23.8 cm LVOT Peak Velocity 104.5 cm/s LVOT Peak Gradient 4.4 mmHg LVOT Velocity Time Integral 18.7 cm LVOT Stroke Volume 87.3 cm??? LVOT Stroke Volume Index 43.7 ml/m??? LVOT Cardiac Index 2810.9 cm???/min???m??? AV Area Cont Eq vti 3.7 cm??? AV Area Cont Eq pk 3.4 cm??? MV Area PHT 3.4 cm??? Mitral E Point Velocity 66.1 cm/s Mitral A Point Velocity 64.2 cm/s Mitral E to A Ratio 1.0 MV Deceleration Time 226.0 ms PV Peak Velocity 90.4 cm/s PV Peak Gradient 3.3 mmHg FINDINGS Left Ventricle Left ventricular ejection fraction is estimated at 55-60 %. Left ventricular cavity size normal. Left ventricular wall thickness normal. No obvious regional wall motion abnormalities. Right Ventricle Right ventricle not well visualized. Unable to estimate the right ventricular systolic pressure. Right Atrium Right atrium not well visualized. Left Atrium Normal left atrial size. Mitral Valve Structurally normal mitral valve. No mitral stenosis, regurgitation or prolapse. Aortic Valve Trileaflet aortic valve. No aortic valve stenosis or regurgitation. Tricuspid Valve Structurally normal tricuspid valve. No tricuspid stenosis. Trace tricuspid regurgitation. Pulmonic Valve Pulmonic valve not well visualized. No pulmonic stenosis. No pulmonic regurgitation. Pericardium No pericardial effusion. Aorta Aortic annulus normal. Ascending aorta mildly enlarged. CONCLUSIONS Technically difficult study. Technically difficult study LVEF 55% No obvious regional wall motion abnormality No significant valvular dysfunction Ascending aorta measured at 4.0 cm which is at upper limit of normal Previewed by: Dr Tan England (Electronically Signed) Final Date: 15 November 2024 11:06
[2024-11-15] MEDS: methylPREDNISolone SOD SUCCI 40 MG/ML 1 ML VIAL IV SCH (11:19)
[2024-11-15] MEDS: SODIUM CHLORIDE 0.9% 1,000 ML IV SCH (11:20)
--- NOTE | 2024-11-15 12:56 | P.PN ---
Subjective HISTORY OF PRESENT ILLNESS: This is a 89-year-old male with a past medical history significant for lobectomy, shingles with permanent nerve damage, pneumonia, and hyperlipidemia. Patient currently does not follow with a medical typist. We have been asked to see the patient in consultation for elevated troponins. Patient examined at the bedside in the emergency room. Patient's daughter is at the bedside. Patient initially presented to [place] after he was found to be slumped over in a chair at home and having some weakness. Patient also reports he is been having some chest discomfort and a cough. Patient was found to have troponin of 0.016 at [facility] and was transferred to [facility] for further evaluation. The patient currently denies any chest pain or pressure. Patient was found to be febrile with a fever of 103.0 F. He has been started on antibiotics. DIAGNOSTICS: - EKG reveals sinus mechanism with PACs. First-degree AV block. - Chest xray completed at outside facility reveals left lung postsurgical changes and small left pleural effusion with adjacent compressive atelectasis. Interstitial prominence bilaterally which could reflect underlying emphysema or mild pulmonary vascular congestion. - Laboratory data: - Current home cardiac medications include simvastatin 20 mg at night -No previous echocardiogram, stress test, or cardiac catheterization available in EMR for review 11/15/2024 Patient examined this morning. He remains in the emergency room waiting for a bed on 3 S. Patient reports constipation this morning. Additionally he reports some discomfort of the lower left chest, worsened with deep inspiration. 2D echo remains pending. Patient was found to be positive for influenza A. Chest x-ray revealing chronic changes without definite new acute pulmonary infiltrate. Chest CT revealing COPD with moderate to advanced emphysema and pulmonary artery hypertension, moderate to severe bronchial wall thickening left lower lobe with left lower lobe airspace disease. Correlate for bronchitis and pneumonia. Scattered areas of pleural-parenchymal scarring. Prominent three- vessel coronary artery calcifications. PHYSICAL EXAM: VITAL SIGNS: Reviewed. GENERAL: Well-developed in no acute distress. HEENT: Head is normocephalic. Pupils are equal, round. Sclerae anicteric. Mucous membranes of the mouth are moist. Neck supple. No JVD or thyromegaly LUNGS: Respirations even and unlabored. Lungs essentially clear to auscultation bilaterally. HEART: Regular rate and rhythm. S1 and S2 heard. ABDOMEN: Soft. Nondistended. Nontender. EXTREMITIES: Normal range of motion. No clubbing or cyanosis. Peripheral pulses intact. No lower extremity edema NEUROLOGIC: Awake and alert. Oriented x 3. ASSESSMENT: Acute influenza A Sepsis Non-STEMI, ruled out, troponins negative Chronic kidney disease History of left lobe lobectomy for " spot on lung"; noncancerous per daughter History of shingles with permanent nerve damage Hyperlipidemia Prominent three-vessel coronary artery calcifications, per CT PLAN: An acute coronary event has been ruled out Continue current cardiac medications Echocardiogram revealing ejection fraction 55% with no obvious regional wall motion abnormalities and no significant valvular dysfunction No further inpatient recommendations from a cardiac standpoint We will sign off. Please reconsult if needed. Nurse practitioner note has been reviewed by physician. Signing provider agrees with the documented findings, assessment, and plan of care documented by COMPENSATION SUPERVISOR as a scribe. Objective - Vital Signs Vital signs: Vital Signs Temp 97.9 F 11/15/24 08:00 Pulse 66 11/15/24 08:00 Resp 20 11/15/24 08:00 BP 170/86 11/15/24 08:00 Pulse Ox 97 11/15/24 08:00 FiO2 Intake & Output 11/14/24 11/15/24 11/15/24 18:59 06:59 18:59 Output Total 325 Balance -325 Output: Urine 325 Other: # Voids 1 - Labs CBC & Chem 7: 11/15/24 02:38 11/15/24 02:38 Labs: Abnormal Lab Results - Last 24 Hours (Table) 11/14/24 11/15/24 11/15/24 Range/Units 09:09 01:10 02:38 RBC 4.22 L (4.30-5.90) m/uL Plt Count 118 L (150-450) k/uL Lymphocytes # 0.6 L (1.0-4.8) k/uL APTT 61.3 H (22.0-30.0) sec BUN (9-20) mg/dL Creatinine (0.66-1.25) mg/dL Calcium (8.4-10.2) mg/dL Procalcitonin (0.02-0.50) ng/mL Influenza Type A (PCR) Detected A (Not Detectd) 11/15/24 11/15/24 Range/Units 02:38 02:38 RBC (4.30-5.90) m/uL Plt Count (150-450) k/uL Lymphocytes # (1.0-4.8) k/uL APTT (22.0-30.0) sec BUN 36 H (9-20) mg/dL Creatinine 1.46 H (0.66-1.25) mg/dL Calcium 8.3 L (8.4-10.2) mg/dL Procalcitonin 5.51 H (0.02-0.50) ng/mL Influenza Type A (PCR) (Not Detectd)
--- NOTE | 2024-11-15 16:09 | P.PN ---
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 Patient was seen by cardiology who discontinued heparin, ACS ruled out. Chest x-ray showing chronic parenchymal changes, postsurgical left-sided changes, volume loss, nonspecific left-sided nodularities, pulmonology consulted. Viral panel positive for influenza, patient was empirically started on azithromycin and Rocephin, Solu- Medrol, DuoNebs, supplemental oxygen. 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 Prominent three-vessel coronary artery calcification, small hiatal hernia, colonic diverticulosis. TTE showed EF of 55% with no obvious regional wall motion abnormalities and no significant valvular dysfunction, cardiology signed off. Pertinent Imaging: [] Subjective: [] Pertinent positives and negatives as discussed above, a complete review of systems was performed and all other systems are negative. Vitals Signs Reviewed. General: [nontoxic], [no distress], [appears at stated age] Derm: [warm], [dry] Head: [atraumatic], [normocephalic], [symmetric] Eyes: [EOMI], [no lid lag], [anicteric sclera] Mouth: [no lip lesion], [mucus membranes moist] Cardiovascular: [S1S2 reg], [no murmur] Lungs: [CTA bilateral], [no rhonchi, no rales] , [no accessory muscle use] Abdominal: [soft], [ nontender to palpation], [no guarding], [no appreciable organomegaly] Ext: [no gross muscle atrophy], [no edema], [no contractures] Neuro: [ CN II-XI grossly intact], [no focal neuro deficits] Psych: [Alert], [oriented], [appropriate affect] Data Reviewed Today: Pertinent Labs: [] Imaging: [] Assessment and Plan: Acute hypoxic respiratory failure secondary to possible community-acquired bacterial pneumonia and influenza pneumonia Chest pain, pleuritic in nature, ACS ruled out Acute leukocytosis secondary to above COPD/emphysema, history of left upper bullectomy -Continue Tamiflu -Continue DuoNebs -Continue steroids -Leukocytosis resolved -Procalcitonin significantly elevated 5.51, Legionella negative -PT OT -Wean off supplemental oxygen as tolerated -Follow-up blood cultures Acute kidney injury on CKD stage III History of BONY requiring hemodialysis -Creatinine 1.46 today -Continue NS at 75 cc/h for 1 more day -Monitor BMP NSTEMI, ACS ruled out -Continue cardiac meds, cardiology signed off [Resolved:] [Chronic:] History of VZV with postherpetic neuralgia HTN HLD History of smoking, quit years ago Anticipated discharge place: d Anticipated discharge time: 48 hours Objective - Vital Signs Vital signs: Vital Signs Temp 98.4 F 11/15/24 15:45 Pulse 57 L 11/15/24 15:45 Resp 18 11/15/24 15:45 BP 134/90 11/15/24 15:45 Pulse Ox 98 11/15/24 15:45 FiO2 Intake & Output 11/14/24 11/15/24 11/15/24 18:59 06:59 18:59 Output Total 325 80 Balance -325 -80 Output: Urine 325 80 Other: # Voids 1 1 - Labs CBC & Chem 7: 11/15/24 02:38 11/15/24 02:38 Labs: Abnormal Lab Results - Last 24 Hours (Table) 11/15/24 11/15/24 11/15/24 Range/Units 01:10 02:38 02:38 RBC 4.22 L (4.30-5.90) m/uL Plt Count 118 L (150-450) k/uL Lymphocytes # 0.6 L (1.0-4.8) k/uL BUN 36 H (9-20) mg/dL Creatinine 1.46 H (0.66-1.25) mg/dL Calcium 8.3 L (8.4-10.2) mg/dL Procalcitonin (0.02-0.50) ng/mL Influenza Type A (PCR) Detected A (Not Detectd) 11/15/24 Range/Units 02:38 RBC (4.30-5.90) m/uL Plt Count (150-450) k/uL Lymphocytes # (1.0-4.8) k/uL BUN (9-20) mg/dL Creatinine (0.66-1.25) mg/dL Calcium (8.4-10.2) mg/dL Procalcitonin 5.51 H (0.02-0.50) ng/mL Influenza Type A (PCR) (Not Detectd) Microbiology - Last 24 Hours (Table) 11/14/24 06:30 Blood Culture - Preliminary Blood
[2024-11-16 08:27] LABS: African American GFR (CKD) 75 (>60 ml/min/1.73 sqM); Anion Gap 9 mmol/L; Blood Urea Nitrogen 35 mg/dL (9-20); Calcium 8.3 mg/dL (8.4-10.2); Carbon Dioxide 22 mmol/L (22-30); Chloride 107 mmol/L (98-107); Glucose 110 mg/dL (74-99); Non-African American GFR(CKD) 65 (>60 ml/min/1.73 sqM); Potassium 4.7 mmol/L (3.5-5.1); Sodium 138 mmol/L (137-145)
[2024-11-16 08:47] LABS: Basophils % (A) 0 %; Eosinophils % (A) 0 %; HCT 42.3 % (39.0-53.0); Lymphocytes # (A) 1.2 k/uL (1.0-4.8); Lymphocytes % (A) 14 %; MCHC 33.1 g/dL (31.0-37.0); MCV 96.8 fL (80.0-100.0); Mean Platelet Volume 7.4; Monocytes # (A) 0.5 k/uL (0-1.0); Monocytes % (A) 6 %; Neutrophils # (A) 6.5 k/uL (1.3-7.7); Neutrophils % (A) 79 %; Platelet Count 116 k/uL (150-450); RBC 4.37 m/uL (4.30-5.90); RDW 13.6 % (11.5-15.5); WBC 8.2 k/uL (3.8-10.6)
--- NOTE | 2024-11-16 14:13 | P.PN ---
Subjective Progress Note Date: 11/16/24 Patient is a 89-year-old white male with past medical history significant for COPD/emphysema, previous left lung bullectomy, hyperlipidemia, hypertension, and is a remote ex-smoker. Of note, patient seen June, for left-sided cavitating lung mass, was treated with IV antibiotics inpatient. Did receive bronchoscopy during this time with BAL and transbronchial biopsies. Pathology was unremarkable. BAL did not show any significant microbial growth. Patient has been doing relatively well up until this point. 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 Does not have home 02. Does not routinely use any inhalers or nebulizers at home. Patient in some mild respiratory distress at this time. HPI is supplemented by daughter who is at beside. Yesterday evening, developed severe unrelenting left-sided chest pain/back pain. Worse with coughing the breathing. Worse with palpation of the left anterior chest. Associated symptoms including shortness of breath and cough. He has been febrile at home. No known sick contacts. Patient originally presented to [facility] and was worked up for possible ACS. Transferred to [facility] for cardiology evaluation. EKG done on arrival showing sinus arrhythmia, rate 85 bpm, no significant acute ST or T wave segment changes. Serial troponins 0.029 and 0.027 respectively. Patient was previously on heparin infusion and this was discontinued by cardiology. A pulmonary consult was placed for pneumonia. Chest x-ray showing chronic parenchymal changes, as well as, postsurgical left sided changes, volume loss, and nonspecific left-sided nodularities. Was febrile on arrival with a Tmax of 103 F. CBC significant for leukocytosis with a WBC count of 12.6. Hemoglobin 12.2, platelets 140. CMP: Sodium 137, potassium 4.5, chloride 103, serum bicarb 23, BUN 30, creatinine 1.48, glucose 101. LFTs unremarkable. Patient was placed on empiric azithromycin and Rocephin. Patient currently being seen in the ED. Current vitals: Temperature 100 F, heart rate 60, tachypneic breathing in the high 20s, SpO2 is 93% on 4 L/min nasal cannula. His chief complaint at this time remains left-sided chest pain which is worse when palpating the area. Symptoms started rather abruptly yesterday evening. Denies any traumatic falls. Continues to have a congested mostly nonproductive cough. Admits to fevers, minimally productive cough with brown sputum. Denies Hemoptysis. Denies nausea, vomiting, diarrhea. Viral screening to be c ompleted. On 11/16/2024, seen the patient for a follow-up. The patient is feeling better compared to yesterday. Less short of breath. Sitting up in a chair. Calm and comfortable. Afebrile. Oxygenation is also stable and the patient's pulse ox is 98% liters of oxygen by nasal cannula. In regards to his acute influenza infection, the patient is currently on Tamiflu 30 mg p.o. twice a day. The patient remains on Symbicort and DuoNeb the regiment [id number]. He is also on IV Solu-Medrol 40 mg every 12 hours. No nausea. No vomiting. No diarrhea. No altered mentation. The white cell count is at 8 with a hemoglobin 14 and a platelet count of 160. BUN 35 with a creatinine of 1.04 and sodium levels at 138. No other significant events overnight. Patient is also on empiric antibiotic coverage with IV Rocephin. Objective - Vital Signs Vital signs: Vital Signs Temp 97.8 F 11/16/24 11:32 Pulse 51 L 11/16/24 11:32 Resp 14 11/16/24 11:32 BP 159/72 11/16/24 11:32 Pulse Ox 98 11/16/24 11:32 FiO2 Intake & Output 11/15/24 11/16/24 11/16/24 18:59 06:59 18:59 Intake Total 40 Output Total 80 860 Balance -80 -820 Weight 81.647 kg 81.5 kg Intake: IV 40 Invasive Line 1 20 Invasive Line 2 20 Output: Urine 80 860 Other: # Voids 1 - Exam GENERAL EXAM: Alert, 89-year-old white male, in some mild respiratory distress, on 3 L/min nasal cannula. SpO2 is 90% on bedside monitor, he is tachypneic, speaking in short phrases. His daughter is at bedside answers most of the questioning. HEAD: Normocephalic and atraumatic EYES: Normal reaction of pupils, equal size. NOSE: Clear with pink turbinates. THROAT: No erythema or exudates. NECK: No masses, no JVD. CHEST: No chest wall deformity. LUNGS: Equal air entry with respiratory crackles heard on the left., No wheezing, rhonchi, focal dullness. On 3 L/min nasal cannula. CVS: S1 and S2 normal with soft systolic murmur, regular rhythm. No other extra heart sounds ABDOMEN: No hepatosplenomegaly, active bowel sounds, no guarding or rigidity. SPINE: No scoliosis or deformity SKIN: No rashes CENTRAL NERVOUS SYSTEM: No focal deficits, tone is normal in all 4 extremities. EXTREMITIES: There is no peripheral edema, clubbing, or cyanosis. Peripheral pulses are intact. - Labs CBC & Chem 7: 11/16/24 07:22 11/16/24 07:22 Labs: Abnormal Lab Results - Last 24 Hours (Table) 11/16/24 11/16/24 Range/Units 07:22 07:22 Plt Count 116 L (150-450) k/uL BUN 35 H (9-20) mg/dL Glucose 110 H (74-99) mg/dL Calcium 8.3 L (8.4-10.2) mg/dL Microbiology - Last 24 Hours (Table) 11/14/24 06:30 Blood Culture - Preliminary Blood Assessment and Plan Assessment: Acute hypoxemic respiratory failure,, currently on 3 L of oxygen by nasal cannula. Noted the patient has chronic changes including chronic parenchymal changes and postsurgical changes in the left upper lobe. No evidence of any acute pneumonia. Acute hypoxic respiratory failure was assessed related to an acute influenza infection/exacerbation of his chronic lung disease. Possibility of an acute bacterial infection cannot be completely ruled out. Procalcitonin level is elevated, nonspecific finding could be related also to acute kidney injury. Clinically, the patient is improving. Oxygenation is stable Acute influenza A infection, completing a course of Tamiflu Acute kidney injury, improving and the creatinine is normalized Chest pain, appears pleuritic in nature, ACS thought to be less likely. Heparin drip is been discontinued by cardiology. Acute leukocytosis, improved Acute febrile illness, currently afebrile History of 4.8 cm left upper lobe cavitary mass that was thought to represent cavitary pneumonia versus atypical fungal/mycobacterial infection versus necrotizing malignancy. Patient did have follow-up bronchoscopy and the BAL and transbronchial biopsies which were unremarkable for microbial growth. Pathology also unremarkable. A follow-up CT of the chest was done which I did review and compared it to the earlier CAT scan from before and the left upper lobe opacity is essentially subsided and recovered. The patient however has advanced emphysematous changes bilaterally and moderate to severe bronchial wall thickening/bronchiectatic changes in the left lower lobe. Scattered areas of pleural-parenchymal scarring is also present. There is also incidental small hiatal hernia noted COPD/emphysema History of previous left upper lobe bullectomy History of herpes zoster and postherpetic neuralgia Benign essential hypertension Hyperlipidemia Remote ex-smoker, quit 1992 Plan: Clinically improving Completed course of Tamiflu Acute kidney injury is improving and the patient renal function has stabilized Currently on 3 days of oxygen by nasal cannula, will titrate oxygen flow to maintain saturation above 90% Continue DuoNebs from o'clock Continue IV Solu-Medrol Check procalcitonin level was elevated at 5.5. Nevertheless, this could be related to acute kidney injury. No clear indication for bacterial infection the patient is currently covered with empiric antibiotics with IV Rocephin. Check sputum culture and blood cultures, pending Check urine Legionella antigen, negative Case was discussed with the daughter at the bedside. No CODE STATUS. Will continue to follow.
--- NOTE | 2024-11-16 15:07 | P.PN ---
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 Patient was seen by cardiology who discontinued heparin, ACS ruled out. Chest x-ray showing chronic parenchymal changes, postsurgical left-sided changes, volume loss, nonspecific left-sided nodularities, pulmonology consulted. Viral panel positive for influenza, patient was empirically started on azithromycin and Rocephin, Solu- Medrol, DuoNebs, supplemental oxygen. 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 Prominent three-vessel coronary artery calcification, small hiatal hernia, colonic diverticulosis. TTE showed EF of 55% with no obvious regional wall motion abnormalities and no significant valvular dysfunction, cardiology signed off. BONY resolved 11/16/2024 1.46-1.04, no leukocytosis, hemoglobin normal and stable. Subjective: She was seen and examined at bedside, patient's daughter present during exam. Patient states that he feels significantly better, shortness of breath has improved, no pain reported today Pertinent positives and negatives as discussed above, a complete review of systems was performed and all other systems are negative. Vitals Signs Reviewed. General: [nontoxic], [no distress], [appears at stated age] Derm: [warm], [dry] Head: [atraumatic], [normocephalic], [symmetric] Eyes: [EOMI], [no lid lag], [anicteric sclera] Mouth: [no lip lesion], [mucus membranes moist] Cardiovascular: [S1S2 reg], [no murmur] Lungs: [CTA bilateral], [no rhonchi, no rales] , [no accessory muscle use] Abdominal: [soft], [ nontender to palpation], [no guarding], [no appreciable organomegaly] Ext: [no gross muscle atrophy], [no edema], [no contractures] Neuro: [ CN II-XI grossly intact], [no focal neuro deficits] Psych: [Alert], [oriented], [appropriate affect] Data Reviewed Today: Pertinent Labs: Unremarkable CBC, BONY resolved, creatinine 1.04, normal sodium and potassium Assessment and Plan: Acute hypoxic respiratory failure secondary to possible community-acquired bacterial pneumonia and influenza pneumonia Chest pain, pleuritic in nature, ACS ruled out Acute leukocytosis secondary to above COPD/emphysema, history of left upper bullectomy -Continue Tamiflu -Continue DuoNebs -Continue steroids Solu-Medrol 40 daily, continue ceftriaxone SOT 11/14 -Leukocytosis resolved -Procalcitonin significantly elevated 5.51, Legionella negative -PT OT recommends ANDREW. Case management following, pending family decision -Wean off supplemental oxygen as tolerated -Follow-up blood cultures Acute kidney injury on CKD stage III, resolved History of BONY requiring hemodialysis -Creatinine normal -Discontinue IV fluids, encourage oral hydration -Monitor BMP NSTEMI, ACS ruled out -Continue cardiac meds, cardiology signed off [Resolved:] [Chronic:] History of VZV with postherpetic neuralgia HTN HLD History of smoking, quit years ago Anticipated discharge place: [facility] Anticipated discharge time: 11/17 Objective - Vital Signs Vital signs: Vital Signs Temp 97.8 F 11/16/24 14:57 Pulse 56 L 11/16/24 14:57 Resp 14 11/16/24 14:57 BP 158/72 11/16/24 14:57 Pulse Ox 99 11/16/24 15:03 FiO2 Intake & Output 11/15/24 11/16/24 11/16/24 18:59 06:59 18:59 Intake Total 40 Output Total 80 860 Balance -80 -820 Weight 81.647 kg 81.5 kg Intake: IV 40 Invasive Line 1 20 Invasive Line 2 20 Output: Urine 80 860 Other: Voiding Method External Catheter # Voids 1 - Labs CBC & Chem 7: 11/16/24 07:22 11/16/24 07:22 Labs: Abnormal Lab Results - Last 24 Hours (Table) 11/14/24 11/16/24 11/16/24 Range/Units 07:55 07:22 07:22 Plt Count 116 L (150-450) k/uL BUN 35 H (9-20) mg/dL Glucose 110 H (74-99) mg/dL Calcium 8.3 L (8.4-10.2) mg/dL Influenza Type A (PCR) DETECTED A (Not detected) Microbiology - Last 24 Hours (Table) 11/14/24 06:30 Blood Culture - Preliminary Blood
[2024-11-17 07:31] LABS: Basophils % (A) 0 %; Eosinophils % (A) 0 %; HCT 46.6 % (39.0-53.0); HGB 16.1 gm/dL (13.0-17.5); Lymphocytes % (A) 16 %; MCH 32.5 pg (25.0-35.0); MCHC 34.6 g/dL (31.0-37.0); MCV 94.1 fL (80.0-100.0); Mean Platelet Volume 9.6; Monocytes # (A) 1.1 k/uL (0-1.0); Monocytes % (A) 9 %; Neutrophils # (A) 9.3 k/uL (1.3-7.7); Neutrophils % (A) 73 %; Platelet Count 122 k/uL (150-450); RBC 4.95 m/uL (4.30-5.90); RDW 13.9 % (11.5-15.5); WBC 12.7 k/uL (3.8-10.6)
[2024-11-17 07:41] LABS: African American GFR (CKD) 75 (>60 ml/min/1.73 sqM); Anion Gap 11 mmol/L; Blood Urea Nitrogen 34 mg/dL (9-20); Calcium 8.7 mg/dL (8.4-10.2); Carbon Dioxide 21 mmol/L (22-30); Chloride 106 mmol/L (98-107); Glucose 96 mg/dL (74-99); Non-African American GFR(CKD) 65 (>60 ml/min/1.73 sqM); Potassium 4.6 mmol/L (3.5-5.1); Sodium 138 mmol/L (137-145)
[2024-11-17 09:32] VITALS: RESP 14
[2024-11-17] MEDS: methylPREDNISolone SOD SUCCI 40 MG/ML 1 ML VIAL IV SCH (09:35)
[2024-11-17 10:57] VITALS: TEMP 98.3
[2024-11-17] MEDS ORDERED: hydrALAZINE HCL 20 MG/ML 1 ML VIAL IVP PRN (11:49)
--- NOTE | 2024-11-17 15:06 | P.DS ---
Providers Date of admission: 11/14/24 09:21 Attending physician: Ignacio Gastelum MD Consults: 11/14/24 15:10 Consult Physician Routine Consulting Provider: Nila Nicolas Consult Reason/Comments: pna Do you want consulting provider notified?: Yes Primary care physician: Stated None Hospital Course: Discharge Diagnosis: Acute hypoxic respiratory failure secondary to possible community-acquired bacterial pneumonia and influenza pneumonia Chest pain, pleuritic in nature, ACS ruled out Acute leukocytosis secondary to above COPD/emphysema, history of left upper bullectomy NSTEMI, ACS ruled out History of VZV with postherpetic neuralgia HTN HLD History of smoking, quit years ago Hospital Course: An 89-year-old male with past medical history of 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 Patient was seen by cardiology who discontinued heparin, ACS ruled out. Chest x-ray showing chronic parenchymal changes, postsurgical left-sided changes, volume loss, nonspecific left-sided nodularities, pulmonology consulted. Viral panel positive for influenza, patient was empirically started on azithromycin and Rocephin, Solu- Medrol, DuoNebs, supplemental oxygen. 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 Prominent three-vessel coronary artery calcification, small hiatal hernia, colonic diverticulosis. TTE showed EF of 55% with no obvious regional wall motion abnormalities and no significant valvular dysfunction, cardiology signed off. BONY resolved 11/16/2024 1.46-1.04, no leukocytosis, hemoglobin normal and stable. Patient will be discharged to [facility] bed, he will finish 5 days of oseltamivir, prednisone 40. Patient discharged in stable condition, on room air, resolved BONY, feeling back to baseline Vital signs reviewed and stable. General: [nontoxic], [no distress], [appears at stated age] Derm: [warm], [dry] Head: [atraumatic], [normocephalic], [symmetric] Eyes: [EOMI], [no lid lag], [anicteric sclera] Mouth: [no lip lesion], [mucus membranes moist] Cardiovascular: [S1S2 reg], [no murmur] Lungs: [CTA bilateral], [no rhonchi, no rales] , [no accessory muscle use] Abdominal: [soft], [ nontender to palpation], [no guarding], [no appreciable organomegaly] Ext: [no gross muscle atrophy], [no edema], [no contractures] Neuro: [ CN II-XI grossly intact], [no focal neuro deficits] Psych: [Alert], [oriented], [appropriate affect] A total of [40] minutes of time were spent preparing this complex discharge summary. Patient was discharged on 11/17/2024 Patient Condition at Discharge: Serious Plan - Discharge Summary Discharge Rx Participant: No New Discharge Prescriptions: New predniSONE [Deltasone] 40 mg PO DAILY #2 tab Budesonide-Formot 160-4.5 Mcg [Symbicort 160-4.5 Mcg Inhaler] 2 puff INHALATION RT-BID #1 each Oseltamivir [Tamiflu] 30 mg PO Q12H #5 cap Continue Simvastatin [Zocor] 20 mg PO HS Gabapentin 600 mg PO Q6H HYDROcodone/APAP 7.5-325MG [Wheeler 7.5-325] 1 tab PO Q6H Discharge Medication List Simvastatin [Zocor] 20 mg PO HS 07/02/23 [History] Gabapentin 600 mg PO Q6H 11/14/24 [History] HYDROcodone/APAP 7.5-325MG [Wheeler 7.5-325] 1 tab PO Q6H 11/14/24 [History] Budesonide-Formot 160-4.5 Mcg [Symbicort 160-4.5 Mcg Inhaler] 2 puff INHALATION RT-BID #1 each 11/17/24 [Rx] Oseltamivir [Tamiflu] 30 mg PO Q12H #5 cap 11/17/24 [Rx] predniSONE [Deltasone] 40 mg PO DAILY #2 tab 11/17/24 [Rx] Follow up Appointment(s)/Referral(s): None,Stated [Primary Care Provider] - 1-2 days Patient Instructions/Handouts: Influenza (DC) Activity/Diet/Wound Care/Special Instructions: PLease, follow up with your PCP Discharge Disposition: TRANSFER TO SNF/ECF
[2024-11-17 15:47] VITALS: PULSE 59
[2024-11-17] MEDS: hydrALAZINE HCL 25 MG TAB PO STA (16:03)
[2024-11-17 16:35] VITALS: BP 129/76
--- NOTE | 2024-11-17 17:33 | P.PN ---
Subjective Progress Note Date: 11/17/24 Patient is a 89-year-old white male with past medical history significant for COPD/emphysema, previous left lung bullectomy, hyperlipidemia, hypertension, and is a remote ex-smoker. Of note, patient seen June, for left-sided cavitating lung mass, was treated with IV antibiotics inpatient. Did receive bronchoscopy during this time with BAL and transbronchial biopsies. Pathology was unremarkable. BAL did not show any significant microbial growth. Patient has been doing relatively well up until this point. 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 Does not have home 02. Does not routinely use any inhalers or nebulizers at home. Patient in some mild respiratory distress at this time. HPI is supplemented by daughter who is at beside. Yesterday evening, developed severe unrelenting left-sided chest pain/back pain. Worse with coughing the breathing. Worse with palpation of the left anterior chest. Associated symptoms including shortness of breath and cough. He has been febrile at home. No known sick contacts. Patient originally presented to [facility] and was worked up for possible ACS. Transferred to [facility] for cardiology evaluation. EKG done on arrival showing sinus arrhythmia, rate 85 bpm, no significant acute ST or T wave segment changes. Serial troponins 0.029 and 0.027 respectively. Patient was previously on heparin infusion and this was discontinued by cardiology. A pulmonary consult was placed for pneumonia. Chest x-ray showing chronic parenchymal changes, as well as, postsurgical left sided changes, volume loss, and nonspecific left-sided nodularities. Was febrile on arrival with a Tmax of 103 F. CBC significant for leukocytosis with a WBC count of 12.6. Hemoglobin 12.2, platelets 140. CMP: Sodium 137, potassium 4.5, chloride 103, serum bicarb 23, BUN 30, creatinine 1.48, glucose 101. LFTs unremarkable. Patient was placed on empiric azithromycin and Rocephin. Patient currently being seen in the ED. Current vitals: Temperature 100 F, heart rate 60, tachypneic breathing in the high 20s, SpO2 is 93% on 4 L/min nasal cannula. His chief complaint at this time remains left-sided chest pain which is worse when palpating the area. Symptoms started rather abruptly yesterday evening. Denies any traumatic falls. Continues to have a congested mostly nonproductive cough. Admits to fevers, minimally productive cough with brown sputum. Denies Hemoptysis. Denies nausea, vomiting, diarrhea. Viral screening to be c ompleted. On 11/16/2024, seen the patient for a follow-up. The patient is feeling better compared to yesterday. Less short of breath. Sitting up in a chair. Calm and comfortable. Afebrile. Oxygenation is also stable and the patient's pulse ox is 98% liters of oxygen by nasal cannula. In regards to his acute influenza infection, the patient is currently on Tamiflu 30 mg p.o. twice a day. The patient remains on Symbicort and DuoNeb the regiment [id number]. He is also on IV Solu-Medrol 40 mg every 12 hours. No nausea. No vomiting. No diarrhea. No altered mentation. The white cell count is at 8 with a hemoglobin 14 and a platelet count of 160. BUN 35 with a creatinine of 1.04 and sodium levels at 138. No other significant events overnight. Patient is also on empiric antibiotic coverage with IV Rocephin. On 11/17/2024, the patient is being seen for a follow-up. The patient is stable on room air oxygen. Resting comfortably bed. No significant cough or sputum production. No chest tightness or wheezing. Tolerating his diet. White cell count of 12.7 with a hemoglobin 16 and a platelet count of 122. BUN 34 with a creatinine 1.04 and a sodium levels at 138. Remains on Tamiflu. Will complete a prednisone burst taper at time of discharge. The patient is cleared for discharge from the pulmonary standpoint. Objective - Vital Signs Vital signs: Vital Signs Temp 98.3 F 11/17/24 10:56 Pulse 57 L 11/17/24 10:56 Resp 14 11/17/24 10:56 BP 169/79 11/17/24 10:56 Pulse Ox 94 L 11/17/24 10:56 FiO2 Intake & Output 11/16/24 11/17/24 11/17/24 18:59 06:59 18:59 Output Total 600 700 Balance -600 -700 Weight 82.5 kg Output: Urine 600 700 Other: Voiding Method External Catheter External Catheter # Bowel Movements 1 - Exam GENERAL EXAM: Alert, 89-year-old white male, in some mild respiratory distress, on 3 L/min nasal cannula. SpO2 is 90% on bedside monitor, he is tachypneic, speaking in short phrases. His daughter is at bedside answers most of the questioning. HEAD: Normocephalic and atraumatic EYES: Normal reaction of pupils, equal size. NOSE: Clear with pink turbinates. THROAT: No erythema or exudates. NECK: No masses, no JVD. CHEST: No chest wall deformity. LUNGS: Equal air entry with respiratory crackles heard on the left., No wheezing, rhonchi, focal dullness. On 3 L/min nasal cannula. CVS: S1 and S2 normal with soft systolic murmur, regular rhythm. No other extra heart sounds ABDOMEN: No hepatosplenomegaly, active bowel sounds, no guarding or rigidity. SPINE: No scoliosis or deformity SKIN: No rashes CENTRAL NERVOUS SYSTEM: No focal deficits, tone is normal in all 4 extremities. EXTREMITIES: There is no peripheral edema, clubbing, or cyanosis. Peripheral pulses are intact. - Labs CBC & Chem 7: 11/17/24 05:25 11/17/24 05:25 Labs: Abnormal Lab Results - Last 24 Hours (Table) 11/14/24 11/17/24 11/17/24 Range/Units 07:55 05:25 05:25 WBC 12.7 H (3.8-10.6) k/uL Plt Count 122 L (150-450) k/uL Neutrophils # 9.3 H (1.3-7.7) k/uL Monocytes # 1.1 H (0-1.0) k/uL Carbon Dioxide 21 L (22-30) mmol/L BUN 34 H (9-20) mg/dL Influenza Type A (PCR) DETECTED A (Not detected) Microbiology - Last 24 Hours (Table) 11/14/24 06:30 Blood Culture - Preliminary Blood Assessment and Plan Assessment: Acute hypoxemic respiratory failure,, currently on room air oxygen and the patient is clinically improved. Noted the patient has chronic changes including chronic parenchymal changes and postsurgical changes in the left upper lobe. No evidence of any acute pneumonia. Acute hypoxic respiratory failure was assessed related to an acute influenza infection/exacerbation of his chronic lung disease. Possibility of an acute bacterial infection cannot be completely ruled out. Procalcitonin level is elevated, nonspecific finding could be related also to acute kidney injury. Clinically, the patient is improving. Oxygenation is stable and oxygenation is improved and the patient is currently on room air oxygen. No significant shortness of breath at this point in time. Acute influenza A infection, completing a course of Tamiflu Acute kidney injury, improving and the creatinine is normalized Chest pain, appears pleuritic in nature, ACS thought to be less likely. Currently free of any chest pain Acute leukocytosis, improved Acute febrile illness, currently afebrile History of 4.8 cm left upper lobe cavitary mass that was thought to represent cavitary pneumonia versus atypical fungal/mycobacterial infection versus necrotizing malignancy. Patient did have follow-up bronchoscopy and the BAL and transbronchial biopsies which were unremarkable for microbial growth. Pathology also unremarkable. A follow-up CT of the chest was done which I did review and compared it to the earlier CAT scan from before and the left upper lobe opacity is essentially subsided and recovered. The patient however has advanced emphysematous changes bilaterally and moderate to severe bronchial wall thickening/bronchiectatic changes in the left lower lobe. Scattered areas of pleural-parenchymal scarring is also present. There is also incidental small hiatal hernia noted COPD/emphysema History of previous left upper lobe bullectomy History of herpes zoster and postherpetic neuralgia Benign essential hypertension Hyperlipidemia Remote ex-smoker, quit 1992 Plan: Clinically improving and the patient is currently on room air oxygen Completed course of Tamiflu to be completed on an outpatient basis Acute kidney injury is improving and the patient renal function has stabilized Continue DuoNebs from o'clock on outpatient basis Prednisone burst taper on outpatient basis Blood culture has been negative Check urine Legionella antigen, negative Case was discussed with the daughter at the bedside. No CODE STATUS. Will likely go home today.
[2024-11-18] MEDS ORDERED: predniSONE 20 MG TAB PO SCH (09:00)
== END 2024-11-17 16:38 | DRG 871 ==
LOC: EC 21:41 → 3SCARD 21:47 → OBSVTOIN 11-14 09:21 → 3SCARD 11-14 18:11
PROVIDERS: ADMIT Internal Medicine; ATTEND Internal Medicine
DX: A41.89 Other specified sepsis (principal); J10.08 Influenza due to other identified influenza virus with other specified pneumonia; J96.01 Acute respiratory failure with hypoxia; J15.9 Unspecified bacterial pneumonia; J47.0 Bronchiectasis with acute lower respiratory infection; N17.9 Acute kidney failure, unspecified; B02.29 Other postherpetic nervous system involvement; J98.11 Atelectasis; I25.2 Old myocardial infarction; J43.9 Emphysema, unspecified; Z86.19 Personal history of other infectious and parasitic diseases; E78.5 Hyperlipidemia, unspecified; N18.30 Chronic kidney disease, stage 3 unspecified; I12.9 Hypertensive chronic kidney disease with stage 1 through stage 4 chronic kidney disease, or unspecified chronic kidney disease; Z87.891 Personal history of nicotine dependence; I44.0 Atrioventricular block, first degree; I27.21 Secondary pulmonary arterial hypertension; K44.9 Diaphragmatic hernia without obstruction or gangrene; K57.30 Diverticulosis of large intestine without perforation or abscess without bleeding; Z86.16 Personal history of COVID-19; B02.9 Zoster without complications; I25.10 Atherosclerotic heart disease of native coronary artery without angina pectoris; Z66 Do not resuscitate; Z79.51 Long term (current) use of inhaled steroids; Z79.82 Long term (current) use of aspirin; Z79.899 Other long term (current) drug therapy; Z88.1 Allergy status to other antibiotic agents
CPT/HCPCS: 71046; 71250; 80048; 80053; 83735; 84100; 84145; 84484; 85025; 85730; 87040; 87449; 87636; 93005; 93306; 94640; 96365; 96366; 96367; 96375; 96376; 99285